=== PATIENT | male | born 1980 | race Caucasian/White ===

== ENCOUNTER 2024-03-15 13:45 | Inpatient (IN) | payer OTHER, SELFPAY ==
[2024-03-15] VITALS (16 sets, daily range): BP systolic 126–148; BP diastolic 81–112; BMI 22.0
[2024-03-15] MEDS: ATIVAN 2 MG IV (09:09)
[2024-03-15] MEDS: NSS 1000 IV ×2 (09:10→16:09)
[2024-03-15] MEDS: ZOFRAN 4 MG IV ×2 (09:13→16:57)
--- NOTE | 2024-03-15 09:24 | ED.GENMED ---
History of Present Illness
General
Chief Complaint: Abdominal Symptoms
Time Seen by Provider: 03/15/24 08:33
History of Present Illness
History of Present Illness:
43-year-old male with history of bipolar disorder, history of seizures, history of alcohol abuse presenting to the emergency department for multiple complaints. Patient reports the past 2 to 3 weeks he has been mainly in his ears. He is trying
methods at home without relief. 2 days ago, he started to nausea, vomiting, feeling off balance. He feels very weak, has had difficulty tolerating food and liquid by mouth. He denies any recent seizure. He denies trauma. He has had some falls
from feeling weak, denies head injury. Denies fever or systemic symptoms. Denies drug abuse. Denies additional acute medical complaints. Patient's partner is at bedside and notes that patient is a daily drinker, however last ingestion was a few
days ago secondary to feeling unwell
Past History
Past History
ED Past Medical History: Seizures (Benzodiazepine withdrawal related) and Psychiatric
ED Past Surgical History: Orthopedic
Social History
Tobacco: Smoker
Alcohol: Former
Drug: Former user
Personal:
Living: with family
Employment: Not employed
Family History
Family History: Other (Noncontributory)
Phy Exam
Physical Exam
Physical Exam:
General: Well-appearing, no clinical signs of dehydration, nontoxic and in no acute distress
HEENT: protecting airway, TMs normal in appearance bilaterally, cerumen
Neck: appears supple
CV: Normal heart rate, regular rhythm
Resp: No accessory muscle use, no increased work of breathing, lungs clear to auscultation bilaterally
Abd: Soft and non-distended, no tenderness to palpation
Extremities: No deformities, no swelling, no erythema, pulses and sensation intact
Neuro: alert, no focal neurologic deficit, tremulous
: deferred
Rectal: deferred
Psych: Normal affect
Skin: Intact
Scores
Withdrawal Assessment of Alcohol
Withdrawal Assessment Completed?: Yes
Nausea and Vomiting: Intermittent nausea with dry heaves
Tactile Disturbances: None
Tremor: Moderate, with patient's arms extended
Auditory Disturbances: Not present
Paroxysmal Sweats: Beads of sweat obvious on forehead
Visual Disturbances: Not present
Anxiety: Mild anxiety
Headache, Fullness in Head: Very mild
Agitation: Moderately fidgety and restless
Orientation and clouding of sensorium: Oriented and can do serial additions
Total CIWA Score: 18
Alcohol Withdrawal Medication Recommendation: Equal to MSAS Score 8-11. Lorazepam 1-2mg IV NOW & re-assess q1hr
Course
Orders/Labs/Results
Orders:
Orders
03/15/24 08:51
Electrocardiogram (*1) Urgent
Reason for Study: Vertigo / Dizzy
EKG- Treatment ONCE
0.9% Sodium Chloride 1000 ml [Nss] 1,000 ml IV BOLUS
Meclizine [Antivert] 25 mg PO NOW STA
Ondansetron Injectable [Zofran] 4 mg IV NOW STA
03/15/24 08:52
CT Head W/o Iv Contrast Urgent
Comment:
Reason For Exam: dizzy, tinnitis
03/15/24 09:03
Alcohol Urgent
Complete Blood Count/With Diff Urgent
Comprehensive Metabolic Panel Urgent
03/15/24 09:05
Lorazepam [Ativan] 2 mg .ROUTE .STK-MED ONE
03/15/24 09:08
Urinalysis Reflex To Culture Urgent
Urine Drug Abuse Screen Urgent
Lorazepam [Ativan] 2 mg IV NOW STA
03/15/24 09:19
Hand, Right 3 View [CR Hand - Right Min 3 Views] Urgent
Comment:
Reason For Exam: bruising
03/15/24 09:25
Add On- LAB Urgent
Tests Added?: alcohol
Abnormal Lab Results
03/15/24
09:03
RBC 3.82 L 10^6/uL
(4.70-6.10)
Hct 36.6 L %
(39.0-52.0)
MCV 95.8 H fL
(80.0-94.0)
MCH 35.6 H pg
(27.0-31.0)
MCHC 37.2 H g/dL
(33.0-37.0)
Plt Count 122 L 10^3/uL
(130-400)
Absolute Lymphs (auto) 0.6 L 10^3/uL
(1.2-3.4)
Neutrophils % 82.2 H %
(42.2-75.2)
Lymphocytes % 9.1 L %
(20.5-51.1)
Sodium 134 L mmol/L
(135-145)
Potassium 3.4 L mmol/L
(3.5-5.1)
Chloride 89 L mmol/L
(98-107)
Creatinine 0.5 L mg/dL
(0.7-1.3)
Glucose 128 H mg/dl
(70-99)
Total Bilirubin 3.4 H mg/dl
(0.2-1.3)
AST 590 H* U/L
(17-59)
ALT 316 H U/L
(0-50)
Albumin 5.3 H g/dl
(3.5-5.0)
03/15/24 09:03
03/15/24 09:03
Vital Signs
Initial and Last Documented VS:
Initial Vital Signs
Temp Pulse Resp BP Pulse Ox
98.6 F 101 18 143/102 98
03/15/24 08:25 03/15/24 08:25 03/15/24 08:25 03/15/24 08:25 03/15/24 08:25
Last Documented Vital Signs
Temp Pulse Resp BP Pulse Ox
98.6 F 91 19 142/103 97
03/15/24 08:25 03/15/24 10:00 03/15/24 10:00 03/15/24 09:30 03/15/24 10:01
MDM/Problems Addressed
MDM/Problems Addressed:
43-year-old male with reported history of bipolar disorder presenting for tremulousness, tinnitus, feeling off balance, nausea and vomiting. Vital signs on arrival here for mild tachycardia and hypertension.
On exam patient is in no acute distress, however does appear tremulous, fidgety. Initial differential consideration for vertigo versus vestibular neuritis given feeling of off balance, auditory symptoms, nausea and vomiting. No focal neurologic
deficits with lower suspicion for central neurologic process, however given duration of brain imaging. Dehydration is also a consideration, notes decreased p.o. intake in the several days. Plan for laboratory analysis to evaluate for any
electrolyte derangement. Starting patient on IV fluids and Zofran for symptoms. No tenderness to the abdomen or concern for intra-abdominal process.
09:20 - Patient had a witnessed seizure prior to workup initiation. Patient initially denied history of seizure, however on review of EMR, multiple ER visits for seizure. Prior history of substance abuse and alcohol abuse. Patient's partner does
note daily alcohol usage, however last use was several days ago secondary to patient's present symptoms. At this time, concern for alcohol withdrawal seizure. Partner also notes that she intermittently give us her Ativan to the patient, possible
component of benzo withdrawal. 2 mg of Ativan administered.
11:20 -patient reports some improvement in his symptoms after Ativan and saline. Continue to suspect withdrawal symptoms. Given concern of withdrawal seizures, plan for admission for continued monitoring and treatment of withdrawal. Labs show
elevated AST, however consistent with known alcohol abuse
*EKG
Interpreted by ED Provider?: Yes
EKG Intrepretation Date: 03/15/24
EKG Intrepretation Time: 09:27
Interpretation: normal
Heart Rate: 90
Rate: normal
Rhythm: sinus
[place]: normal axis
Interval: normal interval
QRS Pattern: normal QRS
Ischemia: no ischemia
*Critical Care Note
Total Time (30-74mins, 75-104mins- exclusive of procedures): Not Applicable
ED Attending Note
-
Portions of this chart may have been created with voice recognition software.� Occasional wrong word or��sound alike� substitutions may have occurred due to the inherent limitations of voice recognition software.
Discharge Plan
Departure
Prescriptions:
No Action
gabapentin 600 mg tablet
600 mg PO DAILY
lamotrigine 25 mg tablet
100 mg PO DAILY
Referrals:
Hugo Miller DO [Family Provider] -
Interventions
Interventions:
*Risk Screen - Suicide Last Done: 03/15/24 08:25
*General Assessment Last Done: 03/15/24 08:25
*Neglect/Abuse Screening Last Done: 03/15/24 08:25
ED- Fall Risk Assessment Last Done: 03/15/24 08:54
GP-Mdzshr-Rafrkengsq Assessment Last Done: 03/15/24 08:54
ED- Cardiac Assessment Last Done: 03/15/24 08:54
ED- Neurological Assessment Last Done: 03/15/24 08:54
ED- Pulmonary Assessment Last Done: 03/15/24 08:54
Discharge Date and Time
Print Language: GUATEMALAN
[2024-03-15 09:31] LABS: % Basophils 0.4 % (0-2); % Eosinophils 0.1 % (0-6); % Immature Granulocytes 0.4 % (0-0.5); % Lymphocytes 9.1 % (20.5-51.1); % Monocytes 7.8 % (1.7-9.3); % Neutrophils 82.2 % (42.2-75.2); Absolute Lymphocytes 0.6 10^3/uL (1.2-3.4); Absolute Monocytes 0.6 10^3/uL (0.1-0.6); Absolute Neutrophils 5.8 10^3/uL (1.4-6.5); Hematocrit 36.6 % (39.0-52.0); Hemoglobin 13.6 g/dL (13.0-18.0); Mean Corp Hgb Conc. 37.2 g/dL (33.0-37.0); Mean Corpuscular Hgb 35.6 pg (27.0-31.0); Mean Corpuscular Volume 95.8 fL (80.0-94.0); Mean Platelet Volume 10.4 fL (7.4-10.4); Nucleated Red Blood Cells % 0 % (-); Platelet Count 122 10^3/uL (130-400); Red Blood Cell Count 3.82 10^6/uL (4.70-6.10); Red Cell Dist. Width 12.6 % (11.5-14.5)
[2024-03-15 09:50] LABS: ALT (SGPT) 316 U/L (0-50); AST (SGOT) 590 U/L (17-59); Albumin 5.3 g/dl (3.5-5.0); Alkaline Phosphatase 114 U/L (38-126); Blood Urea Nitrogen 15 mg/dl (9-20); Calcium 10.1 mg/dl (8.4-10.2); Carbon Dioxide 30 mmol/L (22-30); Chloride 89 mmol/L (98-107); Estimated Creatinine Clearance > 125 ml/min; Glucose 128 mg/dl (70-99); Potassium 3.4 mmol/L (3.5-5.1); Sodium 134 mmol/L (135-145); Total Bilirubin 3.4 mg/dl (0.2-1.3); Total Protein 8.1 g/dl (6.3-8.2); eGFR > 60.00
--- NOTE | 2024-03-15 10:10 | PHANOTE ---
Met with patient to complete medication reconciliation. Patient was unsure of current medication doses, however, he stated that he u prescribed lamotrigene and gabapentin. He informed that his last dose of gabapentin was ~3 weeks ago. Patient/family
member also informed that he has taken several doses of alprazolam 0.25mg over the past several weeks [medication obtained from family member] to help relieve symptoms associated with tinnitus. PDMP checked with no prescription fills for alprazolam
noted.
[2024-03-15 10:21] LABS: Alcohol None Detected
[2024-03-15] MEDS: TYLENOL 1000 MG PO (11:39)
--- NOTE | 2024-03-15 13:18 | HPS.HSE ---
Family Physician
-
Family Physician: Hugo Miller
Chief Complaint
-
tinnitus
History of Present Illness
43 y/o M, hx of bipolar d/o, anxiety/depression, hx of migraines presents to ER for concern of tinnitus and multiple other complaints. Patient reports ringing in ears bilaterally since 3 weeks. No associated ER pain, drainage. Son was sick with ear
infection but no infection concerns per patient. He trialed OTC remedies without success. This past week, he reports feeling wobbly on his feet, unbalanced and generally. Reports GI upset in form of nausea/vomiting, reportedly 3 episodes of bloody
emesis, no diarrhea. No chest pain or sob. No other sick contacts or recent travel.
He admits to drinking Vodka or Wine nearly daily, but last drink was 3 days ago.
In ER, patient has 2 witnessed seizures concerning for withdrawal seizure
Medical History
Past Medical History
Past Medical History: Reports Other (bipolar d/o, anxiety/depression, hx of migraines)
Past Surgical History: Reports Other (jaw/nasal surgery)
Social History
Tobacco: Smoker (5 cigs/daily)
Alcohol: Daily
Drug: None
Personal:
Living: Other (with girlfriend)
Employment: Employed
Family History
Family History: Other (Parkinsons disease)
Allergies / Home Medications
Allergies reflects when Allergies were last updated in [facility].
Home Medications with original date entered in [facility]
Allergy/Medication List:
Allergies
Allergy/AdvReac Type Severity Reaction Status Date / Time
amoxicillin [Amoxicillin] Allergy Mild Rash Verified 03/15/24 08:28
Penicillins Allergy Mild Rash Verified 03/15/24 08:28
Home Medications
lamotrigine 25 mg tablet 100 mg PO DAILY seizure/bipolar disorder 03/15/24
Review of Systems
-
A 12 point ROS was completed and negative except as noted: Yes
Physical Exam
Vital Signs
Vital Signs
Temp Pulse Resp BP Pulse Ox
98.6 F 94 15 137/105 99
03/15/24 08:25 03/15/24 13:00 03/15/24 13:00 03/15/24 13:00 03/15/24 13:00
Physical Exam
General: No Apparent Distress
HEENT: NormoCephalic and Anicteric
Respiratory: No Wheezes or Rales
Cardiac: S1/S2, Regular Rhythm and Tachycardia
GI: Non Tender and Non Distended
Neuro: AO x 3
Psych: Calm
Laboratory Results
-
03/15/24 09:03
03/15/24 09:03
Laboratory Results
Total Bilirubin 3.4 mg/dl (0.2-1.3) H 03/15/24 09:03
AST 590 U/L (17-59) H* 03/15/24 09:03
ALT 316 U/L (0-50) H 03/15/24 09:03
Alkaline Phosphatase 114 U/L (38-126) 03/15/24 09:03
Data Reviewed
-
Lab Data: Labs Reviewed by me
Impression/Plan
-
Assessment:
Seizure x 2 in ER
- prior hx of Seizures in setting of Benzodiazepine withdrawal
- suspected ETOH withdrawal seizure (last drink 3 days ago)
- seizure precautions
- check MRI Brain w contrast
Acute Alcohol withdrawal
- start phenobarbital protocol
- MSAS protocol
- MV/Folate/Thiamine etc
Elevated LFTs
- likely from acute alcohol intake (2:1 AST>ALT)
Bilateral tinnitus
- no ear pain, drainage etc concerning for infection
- ? withdrawal related or med side effect
- monitor for now
- check MRI Brain w contrast
Acute GI bleed, suspect Arin Magen Tear from vomiting
- start PPI daily
- monitor Hb
- clears for now
Hypokalemia
- replete K+
Chronic Alcoholism
- CM consult for resources to quit; cessation counselling provided to patient/significant other
- check refeeding labs
bipolar d/o
anxiety/depression
hx of migraines
- continue Lamotrigine
Chronic nicotine dependence
- on patch
DVT ppx: SCDs
Code: Full
[2024-03-15 14:15] LABS: Magnesium 2.1 mg/dl (1.6-2.3)
--- NOTE | 2024-03-15 15:15 | PTCARENOTE ---
03/15- Patient transferred and oriented to unit without issue. AAOX3 but drowsy. Skin and sclera BL jaundice. Mild hand tremors currently observed. R-hand +1 edema with ecchymosis observed. L-side of tongue has open bite with scant bleeding
currently observed. Ice pack given. Currently NSR with PVCs on [place], HR=93. Will Continue to Observe.
[2024-03-15] MEDS: KCL 270 MEQ IV (16:08)
[2024-03-15] MEDS: PHENOBARBITAL 97.5 MG IV ×2 (16:09→21:33)
[2024-03-15] MEDS: PROTONIX IV 40 MG IV (16:10)
[2024-03-15 16:42] LABS: Urine Albumin Trace (Neg - Trace); Urine Bilirubin 1+ (Negative); Urine Color Amber; Urine Glucose Negative (Negative); Urine Ketone 1+ (Negative); Urine Leukocyte Trace (Negative); Urine Nitrite Negative (Negative); Urine Occult Blood Negative (Negative); Urine Urobilinogen 4+ (Neg - 1+)
[2024-03-15 16:43] LABS: Urine Character Clear (Clear)
[2024-03-15 16:49] LABS: Amphetamines Negative (Negative); Barbiturates Negative (Negative); Benzodiazepines Positive (Negative); Buprenorphine Negative (Negative); Cocaine Negative (Negative); Marijuana Positive (Negative); Methadone Negative (Negative); Methamphetamines Negative (Negative); Opiates Negative (Negative); Phencyclidine Negative (Negative); Tricyclic Antidepressants Negative (Negative)
[2024-03-15 17:06] LABS: Fentanyl, Urine Negative (Negative)
[2024-03-15 17:26] LABS: Urine Red Blood Cell 0-2 /HPF (0-2); Urine White Cell 0-2 /HPF (0-5)
[2024-03-15] MEDS: NICODERM TRANSDERMAL 14 MG TRANSDERM (17:57)
[2024-03-15] MEDS: ATIVAN 1 MG PO (17:59)
[2024-03-15] MEDS: TYLENOL 650 MG PO (18:23)
--- NOTE | 2024-03-15 18:54 | PTCARENOTE ---
03/15- Adjusted MSAS to Q2 hours. Documentation forced another assessment at 18:51. Score=6. Score at 1800=7. Ativan administered as per protocol based on 1800 score. Patient remains stable at this time. Report given to [employer] RN.
[2024-03-15] MEDS: THIAMINE INJECTION 200 MG IV (19:50)
[2024-03-16] VITALS (8 sets, daily range): BP systolic 124–155; BP diastolic 77–100; PULSE 88; O2SAT 99
[2024-03-16] MEDS: ATIVAN 1 MG PO (03:06)
[2024-03-16 07:43] LABS: % Basophils 0.3 % (0-2); % Eosinophils 1.2 % (0-6); % Immature Granulocytes 0.3 % (0-0.5); % Lymphocytes 14.3 % (20.5-51.1); % Monocytes 8.3 % (1.7-9.3); % Neutrophils 75.6 % (42.2-75.2); Absolute Eosinophils 0.1 10^3/uL (0-0.7); Absolute Monocytes 0.6 10^3/uL (0.1-0.6); Absolute Neutrophils 5.1 10^3/uL (1.4-6.5); Hematocrit 34.2 % (39.0-52.0); Hemoglobin 12.2 g/dL (13.0-18.0); Mean Corp Hgb Conc. 35.7 g/dL (33.0-37.0); Mean Corpuscular Hgb 35.3 pg (27.0-31.0); Mean Corpuscular Volume 98.8 fL (80.0-94.0); Mean Platelet Volume 10.6 fL (7.4-10.4); Nucleated Red Blood Cells % 0 % (-); Platelet Count 100 10^3/uL (130-400); Red Blood Cell Count 3.46 10^6/uL (4.70-6.10); Red Cell Dist. Width 12.5 % (11.5-14.5); White Blood Cell Count 6.7 10^3/uL (4.8-10.8)
[2024-03-16 07:54] LABS: ALT (SGPT) 304 U/L (0-50); AST (SGOT) 456 U/L (17-59); Albumin 4.5 g/dl (3.5-5.0); Alkaline Phosphatase 104 U/L (38-126); Blood Urea Nitrogen 9 mg/dl (9-20); Calcium 9.6 mg/dl (8.4-10.2); Carbon Dioxide 26 mmol/L (22-30); Chloride 96 mmol/L (98-107); Estimated Creatinine Clearance > 125 ml/min; Glucose 96 mg/dl (70-99); Phosphorus 3.2 mg/dl (2.5-4.5); Potassium 3.7 mmol/L (3.5-5.1); Sodium 136 mmol/L (135-145); Total Bilirubin 3.3 mg/dl (0.2-1.3); Total Protein 7.1 g/dl (6.3-8.2); eGFR > 60.00
[2024-03-16] MEDS: FOLVITE 1 MG PO (09:01)
[2024-03-16] MEDS: LAMICTAL 100 MG PO (09:01)
[2024-03-16] MEDS: NICODERM TRANSDERMAL 14 MG TRANSDERM (09:02)
[2024-03-16] MEDS: PHENOBARBITAL 97.5 MG IV ×3 (09:03→21:02)
[2024-03-16] MEDS: THIAMINE INJECTION 200 MG IV ×2 (09:04→20:58)
[2024-03-16] MEDS: PROTONIX IV 40 MG IV (09:04)
[2024-03-16] MEDS: NSS (PRESERVATIVE FREE) 10 ML IV (09:26)
--- NOTE | 2024-03-16 13:18 | W.PN.HOSP.TC ---
Today's Communication/Plan
-
continue plan as outlined
Assessment / Plan
Assessment / Plan
Assessment:
Seizure x 2 in ER
- prior hx of Seizures in setting of Benzodiazepine withdrawal
- suspected ETOH withdrawal seizure (last drink 3 days ago)
- seizure precautions
- MRI Brain: normal
Acute Alcohol withdrawal
- continue phenobarbital protocol
- MSAS protocol; scores appear improving
- MV/Folate/Thiamine etc
Elevated LFTs
- likely from acute alcohol intake (2:1 AST>ALT); trend LFTs
- ABD US showing likely fatty liver
Bilateral tinnitus
- no ear pain, drainage etc concerning for infection
- ? withdrawal related or med side effect
- patient states improving
- MRI Brain: normal
Acute GI bleed, suspect Arin Magen Tear from vomiting
- continue PPI daily
- Hb stable;
- ok to advance diet to regular
Hypokalemia
- replete K+
Chronic Alcoholism
- CM consult for resources to quit; cessation counselling provided to patient/significant other
- no abnormalities with refeeding labs
bipolar d/o
anxiety/depression
hx of migraines
- continue Lamotrigine
Chronic nicotine dependence
- on patch
DVT ppx: SCDs
Code: Full
Anticipated Discharge: 24 - 48 hours
Subjective/Interval History
-
Date of Service: March 16, 2024
MSAS scores improving from 6-7 down to 3, patient reports less tremors, less tinnitus
Objective Data
-
Labs:
Laboratory Results
03/16/24
07:02
WBC 6.7
Hgb 12.2 L
Hct 34.2 L
Plt Count 100 L
Sodium 136
Potassium 3.7
Chloride 96 L
Carbon Dioxide 26
BUN 9
Creatinine 0.5 L
Glucose 96
Calcium 9.6
Total Bilirubin 3.3 H
AST 456 H
ALT 304 H
Alkaline Phosphatase 104
Vital Signs:
Vital Signs
Temp Pulse Resp BP Pulse Ox
98.2 F 89 16 140/95 100
03/16/24 11:00 03/16/24 11:00 03/16/24 11:00 03/16/24 11:00 03/16/24 11:00
I&O
03/15/24 03/16/24 03/17/24
06:59 06:59 06:59
Intake Total 1320 / 1320
Balance 1320 / 1320
Physical Exam
-
General: No Apparent Distress
HEENT: Normocephalic and Atraumatic
Respiratory: Negative Wheezes
Cardiac: Regular Rhythm and S1/S2
GI: Soft
Genito-urinary: No Costovertebral Tender
Musculoskeletal: No Edema
Neuro: AO x 3 and Tremors (minor)
Hematologic / Lymphatic: No Lymphadenopathy
Psych: Calm
Data Reviewed
-
Total Time Spent with Patient (in minutes): 42
Labs: Labs Reviewed by me
--- NOTE | 2024-03-16 15:30 | CM ---
CM reviewed medical records. CM confirmed demographics. Patient lives independently alone. Patient denies history of VN< SNF or DME. Patient reports history of 'detox' years ago, but could not remember where he went. Patient stated that he feels his
drinking has increased especially on weekends he cannot see his child. He reports a recent separation from his and feels that triggered his drinking. Patient is active with [facility].
CM discussed [facility] and available services. Patient stated that he tried AA, but feels his bipolar disorder makes it difficult to participate in meetings. Patient declined [facility] at this time. CM stated that if he changed his mind CM would be
available to assist.
[2024-03-16] MEDS: FLUSH (NSS) 1 FLUSH IV (21:09)
[2024-03-17 03:32] VITALS: BP 123/82
[2024-03-17 06:57] LABS: % Basophils 0.8 % (0-2); % Eosinophils 1.7 % (0-6); % Immature Granulocytes 0.3 % (0-0.5); % Lymphocytes 19.1 % (20.5-51.1); % Monocytes 10.8 % (1.7-9.3); % Neutrophils 67.3 % (42.2-75.2); Absolute Basophils 0.1 10^3/uL (0-0.2); Absolute Eosinophils 0.1 10^3/uL (0-0.7); Absolute Lymphocytes 1.2 10^3/uL (1.2-3.4); Absolute Monocytes 0.7 10^3/uL (0.1-0.6); Absolute Neutrophils 4.4 10^3/uL (1.4-6.5); Hematocrit 32.5 % (39.0-52.0); Hemoglobin 11.6 g/dL (13.0-18.0); Mean Corp Hgb Conc. 35.7 g/dL (33.0-37.0); Mean Corpuscular Hgb 35.5 pg (27.0-31.0); Mean Corpuscular Volume 99.4 fL (80.0-94.0); Mean Platelet Volume 10.8 fL (7.4-10.4); Nucleated Red Blood Cells % 0 % (-); Platelet Count 116 10^3/uL (130-400); Red Blood Cell Count 3.27 10^6/uL (4.70-6.10); Red Cell Dist. Width 12.4 % (11.5-14.5); White Blood Cell Count 6.5 10^3/uL (4.8-10.8)
[2024-03-17 07:25] VITALS: BP 125/88
[2024-03-17 07:25] LABS: ALT (SGPT) 287 U/L (0-50); AST (SGOT) 358 U/L (17-59); Albumin 4.4 g/dl (3.5-5.0); Alkaline Phosphatase 111 U/L (38-126); Blood Urea Nitrogen 9 mg/dl (9-20); Calcium 9.4 mg/dl (8.4-10.2); Carbon Dioxide 26 mmol/L (22-30); Chloride 97 mmol/L (98-107); Estimated Creatinine Clearance > 125 ml/min; Glucose 97 mg/dl (70-99); Magnesium 1.8 mg/dl (1.6-2.3); Phosphorus 3.7 mg/dl (2.5-4.5); Potassium 3.7 mmol/L (3.5-5.1); Sodium 135 mmol/L (135-145); Total Protein 6.9 g/dl (6.3-8.2); eGFR > 60.00
[2024-03-17] MEDS: FOLVITE 1 MG PO (08:37)
[2024-03-17] MEDS: LAMICTAL 100 MG PO (08:37)
[2024-03-17] MEDS: THIAMINE INJECTION 200 MG IV (08:38)
[2024-03-17] MEDS: PROTONIX IV 40 MG IV (08:38)
[2024-03-17] MEDS: PHENOBARBITAL 97.5 MG IV (08:39)
[2024-03-17] MEDS: NICODERM TRANSDERMAL 14 MG TRANSDERM (08:40)
[2024-03-17] MEDS: NSS (PRESERVATIVE FREE) 10 ML IV (08:41)
--- NOTE | 2024-03-17 10:46 | W.PN.HOSP.TC ---
Addendum entered and electronically signed by Valdez Gonzalez MD 03/17/24 10:52:
Oral thrush - 14 days Nystatin S/S sent to Pharmacy
Original Note:
Today's Communication/Plan
-
dc home
PCP and ENT f/u
ETOH quitting resources, patient states he has support through [facility]
Assessment / Plan
Assessment / Plan
Assessment:
Seizure x 2 in ER
- prior hx of Seizures in setting of Benzodiazepine withdrawal
- suspected ETOH withdrawal seizure (last drink 3 days ago)
- seizure precautions
- MRI Brain: normal
Acute Alcohol withdrawal
- much improved on phenobarbital protocol
- MSAS protocol; scores appear improving
- MV/Folate/Thiamine etc
Elevated LFTs
- likely from acute alcohol intake (2:1 AST>ALT); trend LFTs
- ABD US showing likely fatty liver
Bilateral tinnitus
- no ear pain, drainage etc concerning for infection
- ? withdrawal related or med side effect
- patient states improving
- MRI Brain: normal
- OP ENT f/u
Acute GI bleed, suspect Arin Magen Tear from vomiting
- continue PPI daily
- Hb stable;
- tolerated reg diet
Hypokalemia
- resolved
Chronic Alcoholism
- CM consult for resources to quit; cessation counselling provided to patient/significant other
- no abnormalities with refeeding labs
bipolar d/o
anxiety/depression
hx of migraines
- continue Lamotrigine
Chronic nicotine dependence
- on patch
DVT ppx: SCDs
Code: Full
More than 30 minutes spent in discharge including
Final examination of the patient
Summarizing hospital stay
Instructions for continuing care to all relevant caregivers
Preparation of discharge records, prescriptions, and referral forms
Total time spent (in minutes):41
Anticipated Discharge: Today
Subjective/Interval History
-
Date of Service: March 17, 2024
no acute complaints at present
Objective Data
-
Labs:
Laboratory Results
03/17/24
06:19
WBC 6.5
Hgb 11.6 L
Hct 32.5 L
Plt Count 116 L
Sodium 135
Potassium 3.7
Chloride 97 L
Carbon Dioxide 26
BUN 9
Creatinine 0.5 L
Glucose 97
Calcium 9.4
Total Bilirubin 3.0 H
AST 358 H
ALT 287 H
Alkaline Phosphatase 111
Vital Signs:
Vital Signs
Temp Pulse Resp BP Pulse Ox
98.1 F 78 16 125/88 100
03/17/24 07:25 03/17/24 07:25 03/17/24 07:25 03/17/24 07:25 03/17/24 07:25
I&O
03/16/24 03/17/24 03/18/24
06:59 06:59 06:59
Intake Total 1320 / 1320 1260 / 1260
Output Total 450 / 450
Balance 1320 / 1320 810 / 810
Physical Exam
-
General: No Apparent Distress
HEENT: Normocephalic and Atraumatic
Respiratory: Negative Wheezes
Cardiac: Regular Rhythm and S1/S2
GI: Soft
Genito-urinary: No Costovertebral Tender
Musculoskeletal: No Edema
Neuro: AO x 3
Hematologic / Lymphatic: No Lymphadenopathy
Psych: Calm
Data Reviewed
-
Total Time Spent with Patient (in minutes): 43
Labs: Labs Reviewed by me
--- NOTE | 2024-03-17 10:51 | W.DS.TRANS ---
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
-
Discharge Instructions:
Discharge Diagnosis/Procedures Alcohol withdrawal, tinnitus
Diet Regular
Activity As tolerated
Bathing Restrictions None
Instructions:
Stand-Alone Forms:
Changes to Home Medications: No
Discharge Medications:
DC Medications w/original date entered in [facility]
lamotrigine 25 mg tablet 100 mg PO DAILY seizure/bipolar disorder 03/15/24
folic acid 1 mg tablet 1 mg PO DAILY #100 tabs 03/17/24
nystatin 100,000 unit/mL oral suspension 5 ml PO QID 14 days #280 mL 03/17/24
pantoprazole 40 mg tablet,delayed release (Protonix) 40 mg PO DAILY #30 tabs 03/17/24
thiamine HCl (vitamin B1) 100 mg tablet 100 mg PO BID #100 tabs 03/17/24
Home Medication Changes
Pending Results: No
Total time spent discharging patient (in min): 42
[2024-03-17 10:59] VITALS: BP 130/93
--- NOTE | 2024-03-17 11:09 | CM ---
Home today, no needs, patient declined [facility] per notes.
Plan; Home no needs.
== END 2024-03-17 11:00 | disposition home or self-care (01) | DRG 896 ==
LOC: 4 WEST ACU 13:45
PROVIDERS: ADMITTING PHYSICIAN Internal Medicine; EMERGENCY PHYSICIAN Student in an Organized Health Care Education/Training Program; FAMILY PHYSICIAN Family Medicine
DX: F10.239 Alcohol dependence with withdrawal, unspecified (principal); K22.6 Gastro-esophageal laceration-hemorrhage syndrome; B37.0 Candidal stomatitis; F31.9 Bipolar disorder, unspecified; R56.9 Unspecified convulsions; F17.200 Nicotine dependence, unspecified, uncomplicated; G43.909 Migraine, unspecified, not intractable, without status migrainosus; K76.0 Fatty (change of) liver, not elsewhere classified; H93.13 Tinnitus, bilateral; F41.9 Anxiety disorder, unspecified; R79.89 Other specified abnormal findings of blood chemistry; E87.6 Hypokalemia; Z88.0 Allergy status to penicillin
CPT/HCPCS: 70450; 70553; 73130; 76700; 80053; 80306; 80307; 81003; 81015; 82077; 83735; 84100; 85025; 93005; 96361; 96374; 96375; 97162; 97166; 99285; 99406; A9575

== ENCOUNTER 2024-10-26 23:00 | Inpatient (IN) | payer OTHER, SELFPAY ==
[2024-10-26] VITALS (7 sets, daily range): BP systolic 116–132; BP diastolic 80–97; BMI 22.5
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
[2024-10-26 19:06] LABS: % Basophils 1.4 % (0-2); % Eosinophils 1.5 % (0-6); % Immature Granulocytes 0.3 % (0-0.5); % Lymphocytes 21.2 % (20.5-51.1); % Monocytes 7.4 % (1.7-9.3); % Neutrophils 68.2 % (42.2-75.2); Absolute Basophils 0.2 10^3/uL (0-0.2); Absolute Eosinophils 0.2 10^3/uL (0-0.7); Absolute Lymphocytes 2.4 10^3/uL (1.2-3.4); Absolute Monocytes 0.8 10^3/uL (0.1-0.6); Absolute Neutrophils 7.7 10^3/uL (1.4-6.5); Hematocrit 35.2 % (39.0-52.0); Hemoglobin 12.8 g/dL (13.0-18.0); Mean Corp Hgb Conc. 36.4 g/dL (33.0-37.0); Mean Corpuscular Hgb 35.6 pg (27.0-31.0); Mean Corpuscular Volume 97.8 fL (80.0-94.0); Mean Platelet Volume 9.6 fL (7.4-10.4); Nucleated Red Blood Cells % 0 % (-); Platelet Count 162 10^3/uL (130-400); Red Cell Dist. Width 14.7 % (11.5-14.5); White Blood Cell Count 11.3 10^3/uL (4.8-10.8)
[2024-10-26 19:17] LABS: INR 1.35; PT 16.9 Sec (11.4-14.6)
[2024-10-26 19:18] LABS: APTT 39.4 Sec (23.4-35.0)
[2024-10-26 19:28] LABS: ALT (SGPT) 61 U/L (0-50); AST (SGOT) 331 U/L (17-59); Albumin 3.4 g/dl (3.5-5.0); Alkaline Phosphatase 274 U/L (38-126); Blood Urea Nitrogen 3 mg/dl (9-20); Calcium 8.1 mg/dl (8.4-10.2); Carbon Dioxide 27 mmol/L (22-30); Chloride 100 mmol/L (98-107); Estimated Creatinine Clearance > 125 ml/min; Glucose 110 mg/dl (70-99); Lipase 102 U/L (23-300); Potassium 4.5 mmol/L (3.5-5.1); Sodium 140 mmol/L (135-145); Total Protein 7.2 g/dl (6.3-8.2); eGFR > 60.00
[2024-10-26] MEDS: DILAUDID 0.5 MG IV (22:01)
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
[2024-10-26] MEDS: ATIVAN 1 MG IV (23:52)
[2024-10-26 23:57] LABS: Ammonia 27 umol/L (9-30)
[2024-10-27] VITALS (13 sets, daily range): BP systolic 99–128; BP diastolic 71–93; BMI 23.4
[2024-10-27] MEDS: PHENOBARBITAL 104 MG IV (01:04)
[2024-10-27] MEDS: NSS 1000 IV ×2 (01:05→17:51)
--- NOTE | 2024-10-27 01:27 | PTCARENOTE ---
Patient arrived from ER into room 4177. Oriented to room and use of call draper. Pt received 1mg IV Ativan prior to arriving to IMU. Tremors present; no other symptoms present. Pt reports 6/7 out of 10 pain to lower left Abd. Denies nausea/vomiting.
NPO; ice chip given. NSR on senior applications architect. NSS @60cc/hr. Bed alarm set for safety. Call draper and tray table within reach.
Patient's emergency contact: Glenny Toussaint(significant other) #[phone]
[2024-10-27] MEDS: THIAMINE INJECTION 255 MG IV ×4 (01:58→23:39)
[2024-10-27 02:00] LABS: Alcohol 426 mg/dl
[2024-10-27 04:48] LABS: Hematocrit 32.7 % (39.0-52.0); Hemoglobin 12.1 g/dL (13.0-18.0); Mean Corpuscular Hgb 36.2 pg (27.0-31.0); Mean Corpuscular Volume 97.9 fL (80.0-94.0); Mean Platelet Volume 9.9 fL (7.4-10.4); Platelet Count 117 10^3/uL (130-400); Red Blood Cell Count 3.34 10^6/uL (4.70-6.10); Red Cell Dist. Width 15.5 % (11.5-14.5); White Blood Cell Count 7.8 10^3/uL (4.8-10.8)
[2024-10-27 04:52] LABS: INR 1.37; PT 17.1 Sec (11.4-14.6)
[2024-10-27] MEDS: OFIRMEV 100 IV (05:18)
--- NOTE | 2024-10-27 05:24 | PTCARENOTE ---
Pt c/o 02/10 left sided abd pain into his pelvis. MADDI Salcedo made aware; x1 IV Ofirmev ordered. Pt drowsy. thankful for care. NSR on tele. 91-95% on RA.
[2024-10-27] MEDS: ATIVAN 1 MG PO ×4 (06:23→19:55)
[2024-10-27 06:26] LABS: Ammonia 31 umol/L (9-30)
[2024-10-27 06:48] LABS: ALT (SGPT) 55 U/L (0-50); AST (SGOT) 299 U/L (17-59); Albumin 2.9 g/dl (3.5-5.0); Alkaline Phosphatase 243 U/L (38-126); Blood Urea Nitrogen 4 mg/dl (9-20); Calcium 7.4 mg/dl (8.4-10.2); Carbon Dioxide 28 mmol/L (22-30); Chloride 105 mmol/L (98-107); Estimated Creatinine Clearance > 125 ml/min; Glucose 95 mg/dl (70-99); Potassium 4.9 mmol/L (3.5-5.1); Sodium 142 mmol/L (135-145); Total Bilirubin 5.6 mg/dl (0.2-1.3); Total Protein 6.4 g/dl (6.3-8.2); eGFR > 60.00
[2024-10-27 08:18] LABS: Direct Bilirubin 4.1 mg/dl (0.0-0.4)
--- NOTE | 2024-10-27 08:24 | CON.GI ---
Addendum entered and electronically signed by Amilcar Morrison MD 10/27/24 13:46:
The patient was seen and examined by me independently in collaboration with the nurse practitioner.
Past medical history/social history/medications/allergies/family history reviewed.
Lab data and imaging data reviewed.
44-year-old male past medical history of alcohol abuse with fall 10 days ago and subsequent abdominal pain, distention, constipation. He underwent a CT scan with multiple findings including healed fractures in the chest, small amount of ascites,
distended gallbladder with gallbladder wall thickening and layering sludge, moderate right upper quadrant and retroperitoneal lymphadenopathy, mild splenomegaly probably due to portal hypertension, mild paraesophageal varices, horseshoe kidney,
nonobstructing left upper quadrant jejunal jejunal intussusception. Lab work consistent with elevated bilirubin, elevated coags, normal hemoglobin.
In regards to his left upper quadrant pain and constipation this may be related to his intussusception. Appreciate surgery's input they are planning on repeating the CT scan with p.o. contrast. Once okay from surgery standpoint from GI standpoint
okay to try clear liquid diet. Pain could also be due to constipation and will start miralax, peptic ulcer disease as he does take NSAIDs and will start ppi. I do not think pain is related to his gallbladder but findings more likely reactive.
I also think he has a new diagnosis of cirrhosis based on imaging MELD 16. I discussed this with the patient. We discussed the importance of alcohol cessation. I think he also has an element of acute alcoholic hepatitis but his discriminant
function is 22 and there is no need for steroids at this time. Given the elevated bilirubin and the new diagnosis of cirrhosis, I will check an ultrasound with Dopplers. Low suspicion we will also check hepatitis studies. He will need
GI/hepatology follow-up outpatient.
He also has lymphadenopathy on imaging which will need follow-up as well.
Original Note:
Consultation
-
Date/Time Consultation Requested: 10/26/24 1900
Date/Time Consultation Performed: 10/27/24 9115
Requesting Provider: Dr. Dalton
Performing Provider: Dr. Morrison/MADDI Cooney
Reason for Consultation: elevated LFTs, contipation, LUQ pain
Medical History
Chief Complaint / HPI
Chief Complaint: abd pain
History of Present Illness:
44-year-old male with past medical history of anxiety, prior seizures secondary to benzodiazepine withdrawal, alcohol abuse and migraines presents to the emergency room with left-sided abdominal discomfort. We are asked to evaluate for the same.
The patient states that approximately 10 days ago he had a 10 foot fall from scaffolding landing on his left side. He states since that time he was taking ibuprofen 400 mg daily for the discomfort. He has not had a bowel movement since that day.
He has been able to eat and drink without difficulty. He was passing flatus. The only other medications he was taking is his lamotrigine. He does on occasion take a supplement called 'Hepa guard' as well as vitamin B supplement although this is
sporadic. He does have an issue with alcohol abuse and drinks 'as much as I can get'. He states this can be 1-2 bottles of wine daily. He did come into the emergency room intoxicated with an blood alcohol level of 426. He states that he has been
drinking for greater than 5 years. He does smoke cigarettes occasionally. He states he came to the emergency room because his left side 'blew up'. And because of increased abdominal discomfort, left-sided discomfort and inability to have a bowel
movement. The patient was given enemas in the emergency room. He states that he vomited after being given the enema. Otherwise prior to that he denies any emesis. He had a CT of the chest abdomen and pelvis that showed subacute incompletely
healed fractures of the left 3rd, 4th, 5th, 6th and 7th ribs. Minimal right pleural effusion with mild dependent subsegmental atelectasis in the right lower lobe. Severe diffuse hepatic steatosis. Small volume ascites. Distended gallbladder with
diffuse gallbladder wall thickening and layering sludge/cholelithiasis. Moderate right upper quadrant retroperitoneal lymphadenopathy. Mild splenomegaly. Mild paraesophageal varices. Horseshoe kidney. Nonobstructing left upper quadrant
jejunal�jejunal intussusception.
Past Medical History
Past Medical History: Other (Anxiety, prior seizures from benzo withdrawal, alcohol abuse, migraines)
Past Surgical History: Orthopedic
Social History
Tobacco: Smoker
Alcohol: Daily (1-2 bottles of wine daily)
Drug: None
Personal: Single
Living: With Family
Employment: Employed
Family History
Family History: Other (No family history of gastrointestinal malignancy or IBD. Patient states that all of his family has alcohol issues)
Allergies / Home Medications
Allergy/AdvReac Type Severity Reaction Status Date / Time
amoxicillin [Amoxicillin] Allergy Mild Rash Verified 10/26/24 18:20
Penicillins Allergy Mild Rash Verified 10/26/24 18:20
�Medication �Instructions �Recorded
lamotrigine 25 mg tablet 50 mg PO DAILY@1500 03/15/24
seizure/bipolar disorder
Hepagard 1 cap PO DAILY 10/26/24
ibuprofen 200 mg tablet (Advil) 400 mg PO DAILYPRN PRN mild pain 10/26/24
lamotrigine 100 mg tablet 100 mg PO DAILY 10/26/24
sodium phosphates 19 gram-7 118 ml [place] DAILYPRN PRN constipation 10/26/24
gram/118 mL enema (Fleet Enema)
vitamin B complex 1 cap PO DAILY 10/26/24
Review of Systems
-
All other systems: A 12 pt ROS was Negative except as stated above in HPI
Vital Signs
Temp Pulse Resp BP Pulse Ox
98.1 F 80 18 122/86 93
10/27/24 06:50 10/27/24 07:00 10/27/24 07:00 10/27/24 06:15 10/27/24 07:00
Physical Exam
Exam
General: No Apparent Distress
HEENT: Other (Mild scleral icterus)
Respiratory: Clear (Anterior)
Cardiac: Regular Rhythm
GI: Soft, Non Distended, Normal Bowel Sounds and Tender (Epigastric/left upper quadrant/left mid abdomen/left lower quadrant)
Skin: Warm and Dry
Neuro: AO x 3 and Tremors (Slight tremor, no asterixis)
Psych: Calm
Results
WBC 7.8 10^3/uL (4.8-10.8) 10/27/24 04:27
Hgb 12.1 g/dL (13.0-18.0) L 10/27/24 04:27
Hct 32.7 % (39.0-52.0) L 10/27/24 04:27
MCV 97.9 fL (80.0-94.0) H 10/27/24 04:27
Plt Count 117 10^3/uL (130-400) L D 10/27/24 04:27
Absolute Neuts (auto) 7.7 10^3/uL (1.4-6.5) H 10/26/24 18:59
PT 17.1 Sec (11.4-14.6) H 10/27/24 04:27
INR 1.37 10/27/24 04:27
APTT 39.4 Sec (23.4-35.0) H 10/26/24 18:59
Sodium 142 mmol/L (135-145) 10/27/24 06:02
Potassium 4.9 mmol/L (3.5-5.1) 10/27/24 06:02
Chloride 105 mmol/L (98-107) 10/27/24 06:02
Carbon Dioxide 28 mmol/L (22-30) 10/27/24 06:02
BUN 4 mg/dl (9-20) L 10/27/24 06:02
Creatinine 0.5 mg/dL (0.7-1.3) L 10/27/24 06:02
Calcium 7.4 mg/dl (8.4-10.2) L 10/27/24 06:02
Total Bilirubin 5.6 mg/dl (0.2-1.3) H 10/27/24 06:02
AST 299 U/L (17-59) H 10/27/24 06:02
ALT 55 U/L (0-50) H 10/27/24 06:02
Alkaline Phosphatase 243 U/L (38-126) H 10/27/24 06:02
Lipase 102 U/L (23-300) 10/26/24 18:59
Diagnostic Image Results:
CT Head:
IMPRESSION:
1. No CT evidence for acute intracranial hemorrhage or transcortical infarct.
2. Mild to moderate bilateral frontal and parietal lobe volume loss.
3. Mild cerebellar volume loss.
4. Cavum septum pellucidum.
CT chest abdomen and pelvis:
CHEST:
1. Subacute incompletely healed fractures of the left anterolateral 3rd, 4th, 5th, 6th, and 7th ribs with surrounding callus formation.
2. Minimal right pleural effusion.
3. Mild dependent subsegmental atelectasis in the right lower lobe.
ABDOMEN and PELVIS:
1. Severe diffuse hepatic steatosis.
2. Small volume of ascites.
3. Distended gallbladder, diffuse gallbladder wall thickening, and layering sludge/cholelithiasis in the gallbladder lumen. Diagnostic possibilities are (1) acute calculus cholecystitis or (2) reactive gallbladder wall thickening in the setting of
adjacent liver disease.
4. Moderate right upper quadrant and retroperitoneal lymphadenopathy. Diagnostic possibilities are (1) reactive inflammatory lymphadenopathy or (2) malignant lymphadenopathy.
5. Mild splenomegaly (probably secondary to portal hypertension).
6. Mild paraesophageal varices.
7. Horseshoe kidney.
8. Nonobstructing left upper quadrant jejunal-jejunal intussusception.
Prior GI Procedures:
EGD: Never
Colonoscopy: 02/20/2015 (Gastelum)- The entire examined colon is normal. Biopsied.
Assessment / Plan
-
44-year-old male with past medical history of anxiety, prior seizures secondary to benzodiazepine withdrawal, alcohol abuse and migraines presents to the emergency room with left-sided abdominal discomfort. We are asked to evaluate for the same.
This occurred after having a 10 foot fall from scaffolding landing on his left side with subsequent constipation. He was able to eat, drink and pass flatus. He was drinking 1-2 bottles of wine daily. Also utilizing ibuprofen 400 mg daily for the
pain which we now found with associated rib fractures on the left side (3rd, 4th, 5th, 6th and 7th ribs). Patient did present to the emergency room intoxicated with blood alcohol level of 426. CT of the chest abdomen pelvis with findings
concerning for cirrhosis including right upper quadrant perihepatic ascites, mild paraesophageal varices around the lower esophagus. Labs show hemoglobin of 12.1 which is his baseline, platelets are 117, INR 1.37, BUN 4, creatinine 0.5, total
bilirubin 5.6 with a direct of 4.1, AST 299, ALT 55, alk phos 243, ammonia 31, albumin 2.9, lipase 102. [facility] 22.2 (no need for treatment for acute alcoholic hepatitis at this time). There is no normal biliary
dilatation. There is lymphadenopathy in the gastrohepatic ligament. There is also enlarged delonte hepatis and portacaval lymph nodes. There is also moderate retroperitoneal lymphadenopathy. No pancreatic duct dilatation or evidence for acute
pancreatitis. The gallbladder shows diffuse wall thickening with mucosal enhancement. There is sludge and cholelithiasis. Will obtain ultrasound of the abdomen given the fact that direct bilirubin and alk phos is also elevated to ensure there is
no biliary ductal dilatation seen on ultrasound. Will also check Dopplers to ensure no portal vein thrombosis. As far as the patient's constipation is concerned personal review of images of the CT showed minimal stool in the rectal vault however
there is a significant amount of stool on the right side of the colon. Will give the patient some MiraLAX to try to help stimulate movement. On the CT there is mild wall thickening throughout the left upper quadrant and the jejunal small bowel
loops with nonobstructing jejunal�jejunal intussusception in the left upper quadrant. Patient without any nausea, hiccups or belching. Is passing flatus.
Impression:
Left abdominal pain
Status post 10 foot fall with subsequent left-sided subacute fractures of ribs (third, fourth, fifth, sixth seventh)
Alcohol abuse (1-2 bottles of wine daily) with current alcohol intoxication
Concerns for possible cirrhosis on imaging, ascites, periesophageal varices, decreased platelets, elevated INR
Elevated LFTs
Plan:
- Complete alcohol cessation, discussed with patient at length
- Check acute hepatitis panel
- Ultrasound abdomen with Dopplers
- Trend daily CBC, BMP, LFTs, PT/INR
- Pantoprazole 40 mg IV twice daily
- MiraLAX 17 g daily
- Alcohol withdrawal protocol already initiated
- Surgical consult pending
- Will need follow-up as an outpatient, also will need follow-up regarding lymphadenopathy around the gastrohepatic ligament, delonte hepatis and portacaval lymph nodes.
- Further recommendations to be forthcoming.
-
-
Thank you for consultation and allowing me to participate in the patient's care. Please call the cable television technician GI physician during the after hours with any questions or concerns.
[2024-10-27] MEDS: LIDOCAINE 4% PATCH 1 PATCH TOPICAL (08:55)
[2024-10-27] MEDS: PHENOBARBITAL 97.5 MG IV ×3 (08:56→23:15)
--- NOTE | 2024-10-27 09:56 | CM ---
Patient with Hx bipolar disorder, ETOH use disorder, ETOH WD Sz, recent fall with Dx abdominal discomfort, abnormal liver function tests. Room air. NPO. Per nursing, weak gait/transfers, MSAS 3. Receiving IV Phenobarb with taper, IV Abx, IVF.
Met with patient who resides with his SO Glenny and their children in a 2 story townhouse.
The patient has been independent in ADLs and ambulation.
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
The patient has no DME or prior VN.
PCP - Hugo Miller - patient states seen recently
Pharmacy - [facility]
CM Consult: Substance Abuse
Offered MICHAEL and he agreed to talk with them re; outpatient resources/programs and also said he would 'blow them off'.
Spoke with MICHAEL Plasencia; she will speak with the patient.
Plan follow up with MICHAEL.
Plan follow patient's diet status and mobility.
Plan probable home.
[2024-10-27] MEDS: FOLVITE 1 MG PO (10:35)
[2024-10-27] MEDS: PROTONIX IV 40 MG IV ×2 (10:35→19:55)
[2024-10-27] MEDS: MIRALAX 17 GRAMS PO (10:35)
[2024-10-27] MEDS: MAXIPIME 2000 MG IV (10:36)
[2024-10-27] MEDS: STERILE WATER FOR INJECTION 10 ML IV (10:36)
[2024-10-27] MEDS: NSS (PRESERVATIVE FREE) 10 ML IV ×2 (10:36→19:55)
[2024-10-27] MEDS: OMNIPAQUE 50 ML PO (11:41)
[2024-10-27] MEDS: FLAGYL 500 MG 100 IV (11:43)
--- NOTE | 2024-10-27 11:49 | CON.GS ---
Addendum entered and electronically signed by Bishnu Heard MD 10/27/24 14:57:
Patient seen in follow-up for consultation this afternoon with surgical nurse practitioner. I agree with documented consult note below.
HPI: 44-year-old male history of EtOH abuse presenting with abdominal pain nausea vomiting after recent fall at ladder at work 10 days ago. Multiple rib fractures noted. Worsening abdominal bloating distention and 'constipation'. Patient confirms
however he is essentially not been eating any food and only consuming liquids.
He has abdominal pain in the upper abdomen, right side and left lower quadrant at the moment. He is also requesting food and states he is hungry
PMH anxiety/depression/bipolar and history of EtOH abuse with withdrawal seizure
No past abdominal surgical history
AFVSS
NAD AAO x 3 a bit sleepy during evaluation but responsive and at times participating in history taking. Patient's girlfriend at bedside as well. Nursing present.
ABD: Distended but not tympanitic. Tenderness palpation epigastrium, right upper quadrant, left lower quadrant. No rebound rigidity or guarding.
CT abdomen/pelvis imaging reviewed from 10/26/2024 and then follow-up CT abdomen/pelvis imaging with contrast today 10/27/24. Images personally reviewed as well as radiologist report. Previous sites of intussusception resolved on follow-up CT
imaging highly suggestive that these are transient and incidental in nature. CT imaging essentially highly suggestive of portal hypertension with hepatic steatosis, ascites, splenomegaly, diffuse thickening throughout the colon, small bowel,
retroperitoneum and mesentery as well as gallbladder.
Assessment/plan: 44-year-old male status post recent fall with left-sided rib fractures subacute and now likely admitted with decompensated cirrhosis and secondary elevation of LFTs, thrombocytopenia, hypoalbuminemia.
All the imaging findings of gallbladder thickening, rather diffuse mesenteric edema and swelling, colonic wall thickening particularly of the ascending colon and hepatic flexure, portacaval adenopathy, splenomegaly are suggestive of cirrhosis with
portal hypertension. Given there is no longer intussusception present on today's CT imaging those findings were likely transient and incidental in nature rather than reflective of underlying pathology.
There does not appear to be any acute intra-abdominal surgical process.
No additional testing recommendations from acute surgical standpoint either.
Okay for p.o. intake as tolerated from surgical standpoint
GI following
Surgery will be signing off. Please call if additional concerns or questions.
Original Note:
Consultation
-
Date/Time Consultation Performed: 10/27/24 1100
Medical History
-
Chief Complaint: Constipation, abdominal pain
History of Present Illness:
Mr Alberto is a 44 yo male with a h/o bipolar, ETOH abuse with prior withdrawal seizure who fell off a ladder at work on October 17, striking his left side. He denies striking his head. He notes since that time he has been unable to pass more than
small shanta of stool. He has noted increasing bloating and distention of his abdomen. His fiance is at bedside to assist with history and notes that over the past several days he has also been vomiting after meals as well. He reports upper
abdominal pain which is like a band across the top of his abdomen with tenderness. Tympany present. He denies postprandial pain recently or in the past. Pain is persistent to the left side/flank as well.
Past Medical History
Past Medical History: Psychiatric (bipolar/anxiety/depression) and Other (ETOH withdrawal seizure)
Past Surgical History: Other (jaw and nasal surgery)
Social History
Tobacco: Smoker (5 cigarettes/day)
Alcohol: Daily
Personal: Other (Engaged)
Employment: Employed
Family History
Family History: Reviewed & Not Pertinent
Allergies / Home Medications
Allergy/AdvReac Type Severity Reaction Status Date / Time
amoxicillin [Amoxicillin] Allergy Mild Rash Verified 10/26/24 18:20
Penicillins Allergy Mild Rash Verified 10/26/24 18:20
�Medication �Instructions �Recorded �Confirmed �Type
lamotrigine 25 mg tablet 50 mg PO DAILY@1500 03/15/24 10/26/24 History
seizure/bipolar disorder
Hepagard 1 cap PO DAILY 10/26/24 10/26/24 History
ibuprofen 200 mg tablet (Advil) 400 mg PO DAILYPRN PRN mild pain 10/26/24 10/26/24 History
lamotrigine 100 mg tablet 100 mg PO DAILY 10/26/24 10/26/24 History
sodium phosphates 19 gram-7 118 ml [place] DAILYPRN PRN constipation 10/26/24 10/26/24 History
gram/118 mL enema (Fleet Enema)
vitamin B complex 1 cap PO DAILY 10/26/24 10/26/24 History
Review of Systems
-
History Source: Patient and Family
All other systems: Negative unless noted
A 10 point review of systems was completed, and was negative except as per HPI.
Physical Exam
Vital Signs
Temp Pulse Resp BP Pulse Ox
98.2 F 82 15 103/73 93
10/27/24 11:33 10/27/24 10:45 10/27/24 10:45 10/27/24 10:00 10/27/24 10:51
10/26/24 10/27/24 10/28/24
06:59 06:59 06:59
Actual Weight 80.422 kg
Body Mass Index (BMI) 23.4
Lab Results
10/27/24 04:27
10/27/24 06:02
WBC 7.8 10^3/uL (4.8-10.8) 10/27/24 04:27
Hgb 12.1 g/dL (13.0-18.0) L 10/27/24 04:27
Hct 32.7 % (39.0-52.0) L 10/27/24 04:27
Plt Count 117 10^3/uL (130-400) L D 10/27/24 04:27
Abs Immat Gran (auto) 0.0 10^3/uL (0-0.05) 10/26/24 18:59
Neutrophils % 68.2 % (42.2-75.2) 10/26/24 18:59
Physical Exam
General: Comfortable
HEENT: Moist Mucous Membranes and Scleral Icterus
Respiratory: Non Labored Respirations
GI: Soft, Tender (mild to upper abdomen) and Distended
Skin: Warm, Dry and Jaundice
Neuro: Awake, Alert and AO x 3
Psych: Calm
Data Reviewed
-
CT Scan: Image Personally Visualized and interpreted, Report Reviewed by me, Discussed with Physician, Discussed with Patient and Discussed with Family
Labs: Labs Reviewed by me, Discussed with Physician, Discussed with Patient and Discussed with Family
Old Records: Reviewed
Assessment / Plan
-
44 yo male with a h/o ETOH abuse and prior withdrawal seizures presenting with increasing abdominal distention with constipation and n/v. Upper abdominal tenderness, distention noted. CT with noted subacute left rib fractures in addition to severe
hepatic steatosis with gallbladder distention and diffuse wall thickening with some layering sludge, suspect reactive to the adjacent liver disease. Paraesophageal varices noted. Splenomegaly likely secondary to portal htn. There is also concern for
luq jejunal-jejunal intussusception although lack of PO contrast limits evaluation. LFT's elevated with jaundice present. No leukocytosis. Afebrile, VSS.
--Gastroenterology following
--Bowel regimen as per GI
--No plans for cholecystectomy at this time
--Will need repeat CT imaging with PO contrast to better evaluate for intussusception, will plan today. Hold on diet advancement pending findings.
--- NOTE | 2024-10-27 13:12 | W.PN.HOSP.TC ---
Today's Communication/Plan
-
CT abdomen pelvis with p.o. contrast
Abdominal ultrasound with Doppler
Alcohol cessation, withdrawal protocol, phenobarbital
Hold antibiotics, monitor
GI, surgery recs
Assessment / Plan
Assessment / Plan
Physical Exam
General: Comfortable
HEENT: Moist Mucous Membranes and Scleral Icterus
Respiratory: Non Labored Respirations
GI: Soft, tender in LLQ otherwise non tender. Distended
Skin: Warm, Dry and Jaundice
Neuro: Awake, Alert and AO x 3
Psych: Calm
ASSESSMENT & PLAN
Abdominal discomfort distention and trouble moving bowels.
CT suggest Nonobstructing left upper quadrant jejunal-jejunal intussusception
CT suggest small volume of ascites and
- NPO and IVF
- Repeat CT AP in AM with Contrast
- GS consulted
Worsening total bilirubinemia and jaundice
Abnormal LFTs ( AST >>> ALT) saran [place] of ETOH hepattitis
Severe diffuse hepatic steatosis with small volume of ascites.
Mild splenomegaly and mild paraesophageal varices
Probably secondary to PHT
Moderate RUQ and retroperitoneal LAD
DDX: (1) reactive inflammatory lymphadenopathy or (2) malignant lymphadenopathy.
Suspect ETOH chr liver dz - Cirrhosis vs ETOH hepattiits
- avoid NSAIDs
- trend LFTs
- GI consult
-US with dopplers
-PPI BID
-Miralax
--GI Consulted
Fall 10 days ago and re injured the Lt lower chest
HX blunt /punched trauma complicated with subacute incompletely healed Rib Fxs; the left anterolateral 3rd, 4th, 5th, 6th, and 7th ribs with surrounding callus formation few months ago
Balance dysfunction
- Lidocaine topical patch
- PT/OT
Distended gallbladder, diffuse gallbladder wall thickening, and layering sludge/cholelithiasis in the gallbladder lumen.
DDX(1) acute calculus cholecystitis or (2) reactive gallbladder wall thickening in the setting of adjacent liver disease.
- afebrile and mild leucocytosis
- more than likely reactive with no RUQ tenderness and adjacent inflammation from cirrhosis
�Monitor fever curve, white count
� Monitor off antibiotics
� Follow-up GI, surgery recommendations
At risk for ETOH WDS
At risk for hepatic encephalopathy
ETOH use disorder
HX ETOH WD Seizure
- prior hx of Seizures in setting of Benzodiazepine withdrawal
- last drink this 4.24 AM
- initiate phenobarbital protocol
- MSAS protocol;
- MV/Folate/Thiamine etc
- seizure precautions
-cessation advised
-BCARES will see although refusing assistance at this time
HX bipolar d/o
Anxiety/depression
HX migraines
- continue Lamotrigine
Chronic nicotine dependence
- on patch
DVT Px: HSQ
Full code
IMU
Total time spent on today's encounter was 54 minutes which included time spent in counseling the patient/family regarding diagnosis and treatment plan as listed above, goals of care, and symptom management. Case was discussed with nursing staff,
specialists, and care coordinators/case management. All labs and imaging personally reviewed by me. Remainder the time spent in detailed review of previous records, lab data, imaging, and other medical provider documentation.
Anticipated Discharge: > 48 hours
Subjective/Interval History
-
Date of Service: October 27, 2024
Laying in bed
Objective Data
-
Labs:
Laboratory Results
10/27/24 10/27/24
04:27 06:02
WBC 7.8
Hgb 12.1 L
Hct 32.7 L
Plt Count 117 L D
PT 17.1 H
INR 1.37
Sodium Cancelled 142
Potassium Cancelled 4.9
Chloride Cancelled 105
Carbon Dioxide Cancelled 28
BUN Cancelled 4 L
Creatinine Cancelled 0.5 L
Glucose Cancelled 95
Calcium Cancelled 7.4 L
Total Bilirubin Cancelled 5.6 H
AST Cancelled 299 H
ALT Cancelled 55 H
Alkaline Phosphatase Cancelled 243 H
Vital Signs:
Vital Signs
Temp Pulse Resp BP Pulse Ox
98.2 F 82 15 103/73 93
10/27/24 11:33 10/27/24 10:45 10/27/24 10:45 10/27/24 10:00 10/27/24 10:51
I&O
10/26/24 10/27/24 10/28/24
06:59 06:59 06:59
Intake Total 359 / 359 355 / 355
Output Total 725 / 725 275 / 275
Balance -366 / -366 80 / 80
Review of Systems
-
History Source: Patient
All other systems: Not reviewed unless documented
Data Reviewed
-
Total Time Spent with Patient (in minutes): 43
Labs: Labs Reviewed by me
[2024-10-27] MEDS: FLUSH (NSS) 2 FLUSH IV (16:58)
[2024-10-27] MEDS: ROXICODONE 5 MG PO (17:04)
--- NOTE | 2024-10-27 17:35 | PTCARENOTE ---
Patient with complaints of left lateral rib pain and LLQ pain radiates to groin. Discussed with MD, Roxicodone ordered and administered to pt. MSAS protocol intervention followed and documented. Pt currently resting quietly. Pt fiance here today and
aware if plan of care.Clear liqs started and pt denies pain with intake.
[2024-10-27] MEDS: HEPARIN 5000 UNITS SC (19:55)
[2024-10-27] MEDS: ATIVAN 2 MG IV (23:15)
[2024-10-28] VITALS (12 sets, daily range): BP systolic 113–142; BP diastolic 75–100; BMI 24.1
[2024-10-28] MEDS: ATIVAN 1 MG PO ×4 (01:18→14:01)
[2024-10-28] MEDS: ATIVAN 1 MG IV ×2 (03:32→15:53)
[2024-10-28] MEDS: NSS (PRESERVATIVE FREE) 0.5 ML IV ×2 (03:35→15:55)
[2024-10-28 04:16] LABS: Hematocrit 29.4 % (39.0-52.0); Hemoglobin 10.7 g/dL (13.0-18.0); Mean Corp Hgb Conc. 36.4 g/dL (33.0-37.0); Mean Corpuscular Hgb 35.8 pg (27.0-31.0); Mean Corpuscular Volume 98.3 fL (80.0-94.0); Mean Platelet Volume 10.2 fL (7.4-10.4); Platelet Count 102 10^3/uL (130-400); Red Blood Cell Count 2.99 10^6/uL (4.70-6.10); Red Cell Dist. Width 15.2 % (11.5-14.5); White Blood Cell Count 6.4 10^3/uL (4.8-10.8)
[2024-10-28 04:26] LABS: INR 1.44; PT 17.8 Sec (11.4-14.6)
[2024-10-28 04:36] LABS: ALT (SGPT) 54 U/L (0-50); AST (SGOT) 281 U/L (17-59); Alkaline Phosphatase 245 U/L (38-126); Blood Urea Nitrogen 5 mg/dl (9-20); Calcium 7.6 mg/dl (8.4-10.2); Carbon Dioxide 24 mmol/L (22-30); Chloride 102 mmol/L (98-107); Direct Bilirubin 5.8 mg/dl (0.0-0.4); Estimated Creatinine Clearance > 125 ml/min; Glucose 87 mg/dl (70-99); Potassium 4.4 mmol/L (3.5-5.1); Sodium 135 mmol/L (135-145); Total Protein 6.6 g/dl (6.3-8.2); eGFR > 60.00
[2024-10-28] MEDS: ATIVAN 2 MG IV ×6 (05:57→23:19)
[2024-10-28] MEDS: NSS (PRESERVATIVE FREE) 1 ML IV ×6 (05:57→23:19)
--- NOTE | 2024-10-28 06:41 | PTCARENOTE ---
Addendum entered by Davide Quinn RN 10/28/24 07:03:
Glenny, significant other, at bedside. updated on overnight.
Original Note:
Medicated per MSAS protocol throughout the night; MSAS 4-11. Pt is becoming more tremulous, anxious/restless and tachycardia since admission. unsteady gait. pt able to have a BM; hard mixed with loose. pt reports oxycodone didnt help his abd pain.
IVF continue, tolerating oral clear liquids.denies nausea. NSR/ST on telemetry monitoring. voiding saundra urine in urinal. skin is intact with jaundice color. pt able to turn self while in bed. call draper and tray table within reach. bed alarm set for
safety.
[2024-10-28] MEDS: PHENOBARBITAL 97.5 MG IV ×3 (07:47→21:26)
[2024-10-28] MEDS: PROTONIX IV 40 MG IV ×2 (07:48→20:16)
[2024-10-28] MEDS: HEPARIN 5000 UNITS SC ×2 (07:48→20:16)
[2024-10-28] MEDS: NSS (PRESERVATIVE FREE) 10 ML IV ×2 (07:48→20:16)
[2024-10-28] MEDS: LIDOCAINE 4% PATCH 1 PATCH TOPICAL (07:49)
[2024-10-28] MEDS: NICODERM TRANSDERMAL 21 MG TRANSDERM (09:35)
[2024-10-28] MEDS: LAMICTAL 100 MG PO (09:35)
[2024-10-28] MEDS: THIAMINE INJECTION 255 MG IV ×2 (09:36→16:00)
[2024-10-28] MEDS: MIRALAX 17 GRAMS PO (09:37)
[2024-10-28] MEDS: FOLVITE 1 MG PO (09:45)
[2024-10-28] MEDS: NSS 1000 IV (10:03)
--- NOTE | 2024-10-28 10:34 | W.PN.GI.CBS2 ---
Today's Communication / Plan
-
US, monitor labs, EtOH withdrawal
Assessment / Plan
-
44-year-old male past medical history of alcohol abuse with fall 10 days ago and subsequent abdominal pain, distention, constipation. He underwent a CT scan with multiple findings including healed fractures in the chest, small amount of ascites,
distended gallbladder with gallbladder wall thickening and layering sludge, moderate right upper quadrant and retroperitoneal lymphadenopathy, mild splenomegaly probably due to portal hypertension, mild paraesophageal varices, horseshoe kidney,
nonobstructing left upper quadrant jejunal jejunal intussusception. Lab work consistent with elevated bilirubin, elevated coags, normal hemoglobin. Repeat CT oral contrast no intussusception.
Abd pain improved - may have been from constipation, diff includes gastritis, PUD as was taking NSAIDs.
New diagnosis of cirrhosis based on imaging 2/2 EtOH.
Recommendations:
- With rising bili will check US with doppler (US better eval biliary tree; US ensure no PVT) however suspect this is all acute EtOH hep - DF today 27.8 no need for steroids
- Daily MELD labs
- Continue miralax, PPI
- EtOH withdrawal per primary
- Outpatient eval for LAD
Discussed at length with fisean and hospitalist at bedside diagnosis of cirrhosis, importance of EtOH cessation
Needs outpatient GI +/- hepatology follow up
Subjective
Subjective
Date of Service: October 28, 2024
pain more so rib pain
pt sleeping on phenobarb for withdrawal
had bm yesterday
Objective
Data Reviewed
Laboratory Data:
Laboratory Results
10/28/24 03:40
10/28/24 03:40
Laboratory Results
PT 17.8 Sec (11.4-14.6) H 10/28/24 03:40
INR 1.44 10/28/24 03:40
APTT 39.4 Sec (23.4-35.0) H 10/26/24 18:59
Total Bilirubin 8.0 mg/dl (0.2-1.3) H 10/28/24 03:40
AST 281 U/L (17-59) H 10/28/24 03:40
ALT 54 U/L (0-50) H 10/28/24 03:40
Alkaline Phosphatase 245 U/L (38-126) H 10/28/24 03:40
Lipase 102 U/L (23-300) 10/26/24 18:59
Vital Signs and I&O:
Vital Signs
Temp Pulse Resp BP Pulse Ox
98.2 F 102 20 129/96 94
10/28/24 07:25 10/28/24 10:00 10/28/24 10:00 10/28/24 10:00 10/28/24 10:00
I&O
10/27/24 10/28/24 10/29/24
06:59 06:59 06:59
Intake Total 359 / 359 2290 / 2290 200 / 200
Output Total 725 / 725 1125 / 1125 150 / 150
Balance -366 / -366 1165 / 1165 50 / 50
Physical Exam
Physical Exam
GI: Non Distended and Non Tender
--- NOTE | 2024-10-28 11:25 | PTCARENOTE ---
Patient MSAS 7 so far this shift, attempted to climb out of bed once, easily redirected. Patient is tolerating clear liquid diet. Left sided rib pain treated with Lidocaine patch with relief. Bed alarm on, patient is oriented to person, place and
time.
--- NOTE | 2024-10-28 13:19 | PTCARENOTE ---
Pulse ox 91% on room air when sleeping at this time. Notified Dr. Morel. Will place oxygen is oulse ox less than 90%.
--- NOTE | 2024-10-28 13:34 | W.PN.HOSP.TC ---
Today's Communication/Plan
-
Daily MELD scores
Adv to 2gm Na
phenobarb taper, ativan
Assessment / Plan
Assessment / Plan
Physical Exam
General: Comfortable
HEENT: Moist Mucous Membranes and Scleral Icterus
Respiratory: Non Labored Respirations
GI: Soft, tender in LLQ otherwise non tender. Distended
Skin: Warm, Dry and Jaundice
Neuro: Awake, Alert and AO x 3
Psych: Calm
ASSESSMENT & PLAN
Abdominal discomfort distention and trouble moving bowels.
CT suggest Nonobstructing left upper quadrant jejunal-jejunal intussusception - not present on PO contrast
CT suggest small volume of ascites
- ADAT
- GS consulted - NTD
-improved pain/discomfort
Worsening total bilirubinemia and jaundice
Abnormal LFTs ( AST >>> ALT) likley elelent of ETOH hepattitis
Severe diffuse hepatic steatosis with small volume of ascites.
Mild splenomegaly and mild paraesophageal varices
Probably secondary to PHT
Moderate RUQ and retroperitoneal LAD
Cirrhosis + ETOH hepattiits
-Daily MELD score
- avoid NSAIDs
- trend LFTs
- GI consult
-US with dopplers - no evidence of PVT
-PPI BID
-Miralax
--GI Consulted
-ADAT - 2gm Na
Fall 10 days ago and re injured the Lt lower chest
HX blunt /punched trauma complicated with subacute incompletely healed Rib Fxs; the left anterolateral 3rd, 4th, 5th, 6th, and 7th ribs with surrounding callus formation few months ago
Balance dysfunction
- Lidocaine topical patch
- PT/OT
Distended gallbladder, diffuse gallbladder wall thickening, and layering sludge/cholelithiasis in the gallbladder lumen.
DDX(1) acute calculus cholecystitis or (2) reactive gallbladder wall thickening in the setting of adjacent liver disease.
- afebrile and mild leucocytosis
- more than likely reactive with no RUQ tenderness and adjacent inflammation from cirrhosis
�Monitor fever curve, white count
� Monitor off antibiotics
� Follow-up GI, surgery recommendations
At risk for ETOH WDS
At risk for hepatic encephalopathy
ETOH use disorder
HX ETOH WD Seizure
- prior hx of Seizures in setting of Benzodiazepine withdrawal
- last drink this 10/25 AM
- initiate phenobarbital protocol
- MSAS protocol;
- MV/Folate/Thiamine etc
- seizure precautions
-cessation advised
-BCARES will see although refusing assistance at this time - spoke to Fiance regarding importance
HX bipolar d/o
Anxiety/depression
HX migraines
- continue Lamotrigine
Chronic nicotine dependence
- on patch
DVT Px: HSQ
Full code
Anticipated Discharge: 24 - 48 hours
Subjective/Interval History
-
Date of Service: October 28, 2024
no acute events
Objective Data
-
Labs:
Laboratory Results
10/28/24
03:40
WBC 6.4
Hgb 10.7 L
Hct 29.4 L
Plt Count 102 L
PT 17.8 H
INR 1.44
Sodium 135
Potassium 4.4
Chloride 102
Carbon Dioxide 24
BUN 5 L
Creatinine 0.4 L
Glucose 87
Calcium 7.6 L
Total Bilirubin 8.0 H
AST 281 H
ALT 54 H
Alkaline Phosphatase 245 H
Vital Signs:
Vital Signs
Temp Pulse Resp BP Pulse Ox
98.2 F 97 16 113/75 91
10/28/24 11:12 10/28/24 12:00 10/28/24 12:00 10/28/24 12:00 10/28/24 13:17
I&O
10/27/24 10/28/24 10/29/24
06:59 06:59 06:59
Intake Total 359 / 359 2290 / 2290 200 / 200
Output Total 725 / 725 1125 / 1125 150 / 150
Balance -366 / -366 1165 / 1165 50 / 50
Review of Systems
-
History Source: Patient
All other systems: Not reviewed unless documented
Physical Exam
-
General: No Apparent Distress
HEENT: Normocephalic and Atraumatic
Respiratory: Negative Wheezes
Cardiac: Regular Rhythm and S1/S2
GI: Soft
Genito-urinary: No Costovertebral Tender
Musculoskeletal: No Edema
Neuro: AO x 3
Hematologic / Lymphatic: No Lymphadenopathy
Psych: Calm
Data Reviewed
-
Total Time Spent with Patient (in minutes): 43
Labs: Labs Reviewed by me
--- NOTE | 2024-10-28 14:53 | CM ---
Patient with Hx bipolar disorder, ETOH use disorder, ETOH WD Sz, recent fall with Dx abdominal discomfort, abnormal liver function tests. MSAS 6 per nursing, on bedrest. Receiving Phenobarb with taper, IV Ativan prn.
Request from nurse Ne to speak with his SO Glenny;
called her phone 3x and phone not in service. Nurse connected her by hospital to , and she provided her work cell [phone] for future contact.
Glenny is here to see the patient today and is aware from speaking with the nurse that the patient is actively withdrawing today.
Glenny says patient seems angry today and would not be receptive to talking with [facility] at this time.
She is hoping the patient will be receptive to an inpatient or outpatient program.
Spoke with MICHAEL Plasencia; they tried to call the patient 3x yesterday and he did not answer. Provided update that patient appears to be actively withdrawing today and is not medically ready for contact today. MICHAEL agreed to check again
tomorrow if patient ready for contact.
continuing to follow.
Plan follow up with MICHAEL.
--- NOTE | 2024-10-28 22:58 | PTCARENOTE ---
Patient has been requiring 2mg IV Ativan Q1 hour since change of shift. MADDI Salcedo made aware. Pt with tremors, tachycardia, hallucinations, agitation, restlessness, & disorientation.
--- NOTE | 2024-10-28 23:31 | W.PN.UPDATE ---
Update Note
Progress Note Update
~ 2300 Pt has received Ativan 2 mg IV Q1H x 4 doses since beginning of shift @ 1900. Patient w/increased restlessness, trying to get OOB. Additional dose Ativan 2 mg IV x 1 given @ 23:19. Plan at this time to continue scheduled dose in one hour if
needed, if additional unscheduled dose of Ativan required, will transfer to ICU for upgrade in care and possible Precedex infusion. Discussed with ICU ASSEMBLER [employer]AGS, who is in agreement with plan.
~1 am - Patient very restless, Ativan 2 mg IV given. Decision made to transfer to ICU. Patient significant other, Glenny Toussaint, telephoned (Correct cell phone number [phone]) notified of upgrade in care and transfer to ICU. Questions
answered, verbalized understanding.
[2024-10-29] VITALS (27 sets, daily range): BP systolic 97–133; BP diastolic 62–93; BMI 24.1
[2024-10-29] MEDS: ATIVAN 2 MG IV ×4 (00:07→05:38)
[2024-10-29] MEDS: NSS (PRESERVATIVE FREE) 1 ML IV ×3 (00:07→01:30)
[2024-10-29] MEDS: THIAMINE INJECTION 255 MG IV ×3 (00:30→16:12)
--- NOTE | 2024-10-29 01:27 | PTCARENOTE ---
Pt setting off bed alarm multiple times throughout this shift, confused and attempting to get up. Pt hallucinating and seeing his son in the room. Pt was on all fours(hands and knees) in bed. pt has received a total of 14mg of IV Ativan. IV Ativan
able to calm pt down for only about 45 minutes before becoming tremulous/restless/ tachycardic and needing another dose. MADDI Salcedo aware/ at bedside. Pt transferred to ICU with belongings. Report given to LONDON Jamil. MADDI will updated kristopher Murrieta.
[2024-10-29] MEDS: PRECEDEX 100 IV ×2 (01:30→17:28)
--- NOTE | 2024-10-29 01:43 | PTCARENOTE ---
Pt received as transfer from IMU. Pt agitated and restless, repeating 'peep, where they peep' and 'one side is black and one is white', not following commands or answering questions. Increasingly agitated and restless. x1 IVP ativan given and
precedex gtt started as ordered. SR-Sinus tach, palpable pulses.Pt incontinent of large amount of saundra urine, condom cath now in place. At this time pt is drowsy but arousable to loud verbal stimuli.
--- NOTE | 2024-10-29 03:18 | PTCARENOTE ---
Pt pulse ox 91-92%, placed on 2L NC. Precedex continues, RASS = -1 to -2.
[2024-10-29] MEDS: ATIVAN 1 MG IV ×5 (04:09→21:21)
[2024-10-29 04:35] LABS: Hematocrit 29.2 % (39.0-52.0); Hemoglobin 10.7 g/dL (13.0-18.0); Mean Corp Hgb Conc. 36.6 g/dL (33.0-37.0); Mean Corpuscular Hgb 36.5 pg (27.0-31.0); Mean Corpuscular Volume 99.7 fL (80.0-94.0); Platelet Count 97 10^3/uL (130-400); Red Blood Cell Count 2.93 10^6/uL (4.70-6.10); Red Cell Dist. Width 14.6 % (11.5-14.5)
[2024-10-29 04:45] LABS: PT 20.2 Sec (11.4-14.6)
[2024-10-29 04:46] LABS: APTT 43.3 Sec (23.4-35.0)
[2024-10-29 04:59] LABS: ALT (SGPT) 44 U/L (0-50); AST (SGOT) 229 U/L (17-59); Albumin 2.7 g/dl (3.5-5.0); Alkaline Phosphatase 233 U/L (38-126); Blood Urea Nitrogen 2 mg/dl (9-20); Calcium 7.7 mg/dl (8.4-10.2); Carbon Dioxide 27 mmol/L (22-30); Chloride 100 mmol/L (98-107); Estimated Creatinine Clearance > 125 ml/min; Glucose 119 mg/dl (70-99); Magnesium 1.6 mg/dl (1.6-2.3); Phosphorus 1.8 mg/dl (2.5-4.5); Potassium 3.7 mmol/L (3.5-5.1); Sodium 135 mmol/L (135-145); Total Bilirubin 9.7 mg/dl (0.2-1.3); Total Protein 6.2 g/dl (6.3-8.2); eGFR > 60.00
--- NOTE | 2024-10-29 06:02 | RESPNOTE ---
Nocturnal pulse ox was stopped when pt was taken to the ICU, was not aware of the transfer and patient was off the monitor for a while.
[2024-10-29] MEDS: MAGNESIUM SULFATE 50 IV (06:19)
[2024-10-29] MEDS: POTASSIUM PHOSPHATE 259.0909 MEQ IV (06:23)
--- NOTE | 2024-10-29 06:47 | W.PN.HOSP.TC ---
Today's Communication/Plan
-
see a/p
Assessment / Plan
Assessment / Plan
Physical Exam
General: No acute distress, appears comfortable at this time
HEENT: Moist Mucous Membranes and Scleral Icterus
Respiratory: Non Labored Respirations
GI: Soft, nontender. Distended. Bowel sounds present
Skin: Warm, Dry and Jaundice
Neuro: Lethargic but arousable oriented x3
Psych: Sedated
ASSESSMENT & PLAN
ETOH withdrawal/Delirium tremens
At risk for hepatic encephalopathy
ETOH use disorder
HX ETOH WD Seizure
- prior hx of Seizures in setting of Benzodiazepine withdrawal
- last drink this 10/25 AM
- initiate phenobarbital protocol
- MSAS protocol;
- MV/Folate/Thiamine etc
- seizure precautions
-cessation advised
-BCARES will see although refusing assistance at this time
-transferred overnight to ICU d/t agitation confusion requiring Precedex gtt, taper as tolerated
-restraints prn
#Hypophosphatemia
#Borderline Low Mg
Monitor and Replete as necessary
Abdominal discomfort distention and trouble moving bowels.
CT suggest Nonobstructing left upper quadrant jejunal-jejunal intussusception - not present on PO contrast
CT suggest small volume of ascites
- ADAT
- GS consult appreciated no acute surgical intervention indicated at this time
- improved pain/discomfort
Worsening total bilirubinemia and jaundice
Abnormal LFTs ( AST >>> ALT) likely ETOH hepatitis
Severe diffuse hepatic steatosis with small volume of ascites.
Mild splenomegaly and mild paraesophageal varices
Probably secondary to PHT
Moderate RUQ and retroperitoneal LAD
Cirrhosis + ETOH Hepatitis
-Daily MELD score
- avoid NSAIDs
- trend LFTs
- GI consult appreciated patient to start prednisolone when able to tolerate oral
-US with dopplers - no evidence of PVT
-PPI BID
-Miralax
Fall 10 days ago and re injured the Lt lower chest
HX blunt /punched trauma complicated with subacute incompletely healed Rib Fxs; the left anterolateral 3rd, 4th, 5th, 6th, and 7th ribs with surrounding callus formation few months ago
Balance dysfunction
- Lidocaine topical patch
- PT/OT
Distended gallbladder, diffuse gallbladder wall thickening, and layering sludge/cholelithiasis in the gallbladder lumen.
DDX(1) acute calculus cholecystitis or (2) reactive gallbladder wall thickening in the setting of adjacent liver disease.
- afebrile and mild leucocytosis
- more than likely reactive with no RUQ tenderness and adjacent inflammation from cirrhosis
�Monitor fever curve, white count
� Monitor off antibiotics
� Follow-up GI, surgery recommendations
HX bipolar d/o
Anxiety/depression
HX migraines
- continue Lamotrigine
Chronic nicotine dependence
- on patch
DVT Px: HSQ
Full code
Total Critical Care Time__50___ minutes. I was immediately available to the patient and staff. I personally examined, reviewed labs, diagnostic images/reports, interpretations, treatment plans, discussed patient care with other providers and
patient's fiancee Glenny (patient unable to make decisions), entered orders as appropriate and documented the medical record.
Anticipated Discharge: > 48 hours
Subjective/Interval History
-
Date of Service: October 29, 2024
Objective Data
-
Labs:
Laboratory Results
10/29/24
04:19
WBC 6.0
Hgb 10.7 L
Hct 29.2 L
Plt Count 97 L
PT 20.2 H
INR 1.70
APTT 43.3 H
Sodium 135
Potassium 3.7
Chloride 100
Carbon Dioxide 27
BUN 2 L
Creatinine 0.4 L
Glucose 119 H
Calcium 7.7 L
Total Bilirubin 9.7 H
AST 229 H
ALT 44
Alkaline Phosphatase 233 H
Vital Signs:
Vital Signs
Temp Pulse Resp BP Pulse Ox
98.9 F 80 14 104/64 93
10/29/24 04:53 10/29/24 04:00 10/29/24 04:00 10/29/24 04:00 10/29/24 04:00
I&O
10/27/24 10/28/24 10/29/24
06:59 06:59 06:59
Intake Total 359 / 359 2290 / 2290 890.5 / 890.5
Output Total 725 / 725 1125 / 1125 1100 / 1100
Balance -366 / -366 1165 / 1165 -209.5 / -209.5
--- NOTE | 2024-10-29 07:33 | CON.INTV ---
Consultation
Consultation Request
Date/Time Consultation Requested: -7 a.m.
Date/Time Consultation Performed: 10/29/2024-7:30 AM
Requesting Provider: Hospitalist
Performing Provider: Dr. Fishman
Reason for Consultation: Critical care management/DTs
Medical History
-
Chief Complaint: Delirium
History of Present Illness:
44-year-old male with history of underlying bipolar disorder, anxiety, depression, migraines, who smokes 5 cigarettes daily and has alcohol use disorder presented to the emergency room with abdominal pain and distention/constipation with recent
history of falling off scaffolding landing on top of the ladder on his left side 10 days prior to admission noted to likely have alcohol withdrawal and transferred to ICU for Precedex and phenobarbital-assembler caterpillar spider consulted for withdrawal
management/critical care management 10/29/24. The patient is quite sedate and confused with some delirium and review of systems was unobtainable. He is in no respiratory distress.
Past Medical History
Past Medical History: None (Bipolar disorder. Alcohol use disorder. Anxiety. Depression. Migraines. Jaw and nasal surgery. Cigarette smoker-5 cigarettes daily.)
Social History
Tobacco: Smoker (5 cigarettes daily)
Alcohol: Daily (Bottle of wine)
Personal: (Now lives with girlfriend)
Employment: Employed
Occupational Exposures: No known asbestos exposure
Environmental Exposures: No known tuberculosis exposure
Family History
Family History: Reviewed & Not Pertinent (Parkinson's)
Allergies / Home Medications
Allergies
Allergy/AdvReac Type Severity Reaction Status Date / Time
amoxicillin [Amoxicillin] Allergy Mild Rash Verified 10/26/24 18:20
Penicillins Allergy Mild Rash Verified 10/26/24 18:20
Home Medications
�Medication �Instructions �Recorded �Confirmed �Last Taken �Type
lamotrigine 25 mg tablet 50 mg PO DAILY@1500 03/15/24 10/26/24 10/25/24 History
seizure/bipolar disorder
Hepagard 1 cap PO DAILY Supplement 10/26/24 10/26/24 Unknown History
ibuprofen 200 mg tablet (Advil) 400 mg PO DAILYPRN PRN mild pain 10/26/24 10/26/24 10/26/24 History
lamotrigine 100 mg tablet 100 mg PO DAILY seizure/bipolar 10/26/24 10/26/24 10/26/24 History
sodium phosphates 19 gram-7 118 ml WI DAILYPRN PRN constipation 10/26/24 10/26/24 10/25/24 History
gram/118 mL enema (Fleet Enema)
vitamin B complex 1 cap PO DAILY Supplement 10/26/24 10/26/24 Unknown History
Review of Systems
-
Unable to Obtain full review of systems at this time due to: Other (Per HPI)
Vitals / Labs / Diagnostic Testing
Vital Signs
Temp Pulse Resp BP Pulse Ox
98.9 F 77 12 112/74 96
10/29/24 04:53 10/29/24 07:00 10/29/24 07:00 10/29/24 07:00 10/29/24 07:00
Lab Data
10/29/24 04:19
10/29/24 04:19
Laboratory Results
10/29/24
04:19
PT 20.2 H
INR 1.70
APTT 43.3 H
Diagnostic Testing:
Physical Exam
-
Exam:
Well-nourished and well-developed in no apparent distress
HEENT-atraumatic, normocephalic
Neck-supple, no JVD, no bruit
Heart-regular rate and rhythm-no murmurs, rubs or gallops
Chest-clear to auscultation, no wheezes, crackles
Back-no tenderness
Abdomen-soft, nontender, nondistended, no hepatosplenomegaly
Extremities-no cyanosis, clubbing, edema and good peripheral pulses
Integument-intact, no rashes, lesions or ecchymosis
Neurologically moving extremities, confused, delirious, nonfocal
Assessment
-
44-year-old male with history of underlying bipolar disorder, anxiety, depression, migraines, who smokes 5 cigarettes daily and has alcohol use disorder presented to the emergency room with abdominal pain and distention/constipation with recent
history of falling off scaffolding landing on top of the ladder on his left side 10 days prior to admission noted to likely have alcohol withdrawal and transferred to ICU for Precedex and phenobarbital-assembler caterpillar spider consulted for withdrawal
management/critical care management 10/29/24.
Abdominal distention and trouble moving bowels
Alcohol use disorder with alcohol withdrawal
Recent traumatic fall from scaffolding
Mild cioklk-okgosdngvx-hyjzqbtrip 10.7, MCV 99.7
Mild thrombocytopenia-platelet 97
Elevated liver functions
Hypoalbuminemia
Cholelithiasis
Moderate right upper quadrant and retroperitoneal lymphadenopathy
Nonobstructing left upper quadrant jejunal-jejunal intussusception
Alcohol hepatitis
Severe diffuse hepatic steatosis
Cirrhosis
Splenomegaly
Conditions present prior to admission:
Bipolar disorder.
Alcohol use disorder.
History alcohol withdrawal seizure 03/15/2024
Anxiety.
Depression.
Migraines.
Jaw and nasal surgery.
Incomplete healed left anterior 3rd, 4th, 5th, 6th and 7th ribs
Cigarette smoker-5 cigarettes daily.
Plan
Patient will be admitted to medical intensive care unit with alcohol withdrawal syndrome
Supplemental oxygen as needed
Aspiration precautions
Incentive spirometry
Head of bed elevation
Follow MSAS
Alcohol withdrawal treatment protocol will continue
Supplements glucose and thiamine to prevent Wernicke's encephalopathy
Supplement multivitamins and folate
Replete deficiencies and glucose, potassium, magnesium and phosphorus
Benzodiazepines as needed-diazepam or lorazepam
Precedex drip as needed
Phenobarbital initiated
CT abdomen summarized below
Gastroenterology following-correspondence reviewed
Follow LFTs
MiraLAX continues
PPI continues
Monitor for acute cholecystitis
Follow hemoglobin
Follow thrombocytopenia
Alcohol cessation counseling
Nicotine patch
Smoking cessation counseling
Consider psychiatry evaluation
Consider rehabilitation
DVT prophylaxis
GI prophylaxis
Early nutrition
Early mobilization
Critical care statement: A total of 65 minutes of critical care time was provided for this patient today. This includes management of unstable vital signs, treatment for and prevention of alcohol withdrawal, evaluation of the patient at bedside,
reviewing the patient's pertinent medical records including radiographs, microbiology, laboratory evaluations, management of alcohol withdrawal, management of Precedex drip and discussion with primary team, consultants, pharmacy, nutrition,
physical therapy, case management, charge nurse, critical care nursing, and respiratory therapy.
Diagnostic data:
CT chest abdomen and pelvis 10/26/2024-mild secretions right side mid thorax, incompletely healed left anterior 3rd, 4th, 5th, 6th and 7th ribs, minimal right pleural effusion, severe diffuse hepatic steatosis, small volume ascites, distended
gallbladder with layering sludge/cholelithiasis, moderate right upper quadrant and retroperitoneal lymphadenopathy, splenomegaly, horseshoe kidney nonobstructing left upper quadrant jejunal intussusception
CT head 10/26/24-no CT evidence for acute intracranial hemorrhage or transcortical infarct, mild to moderate bilateral frontal and parietal volume loss, mild cerebellar volume loss
CT abdomen and pelvis 10/27/24-mildly elevated right hemidiaphragm, small right and minimal left pleural effusion, severe diffuse hepatic steatosis, small to moderate volume pelvic ascites, moderate splenomegaly secondary to portal hypertension,
moderate right upper quadrant and retroperitoneal lymphadenopathy, portal colopathy, severe edema and wall thickening in the gallbladder, cholelithiasis and gallbladder sludge
Doppler study ultrasound 10/28/24-moderate gallbladder sludge, mild gallbladder wall thickening, acute cholecystitis cannot be ruled out, mild hepatomegaly, at hepatic fatty infiltration
Chest x-ray/-NAD
Data Reviewed
-
EKG: Report reviewed by me
Radiology: Image personally visualized and interpreted and Report reviewed by me
CT Scan: Report reviewed by me
Ultrasound: Report reviewed by me
Medical Tests (Nuc Med, Echo etc): Report reviewed by me
Labs: Labs reviewed by me
Old Records: Reviewed
Critical Care Time (in minutes): 65
[2024-10-29] MEDS: LIDOCAINE 4% PATCH 1 PATCH TOPICAL (07:50)
[2024-10-29] MEDS: NSS (PRESERVATIVE FREE) 10 ML IV ×2 (07:51→19:41)
[2024-10-29] MEDS: HEPARIN 5000 UNITS SC (07:52)
[2024-10-29] MEDS: PROTONIX IV 40 MG IV ×2 (07:52→19:42)
[2024-10-29] MEDS: NICODERM TRANSDERMAL 21 MG TRANSDERM (07:53)
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
[2024-10-29] MEDS: NSS (PRESERVATIVE FREE) 0.5 ML IV ×3 (08:08→16:21)
--- NOTE | 2024-10-29 08:30 | PTCARENOTE ---
Rec'd care of patient at 0700. Drowsy. Precedex gtt infusing for RASS 0 to -2. Patient having intermittent periods of agitation/restlessness. Pulling on restraints. Uncooperative. Confused. MSAS maintained; Ativan PRN. MAEx4. NSR on tele monitor.
Rate in the 70-80's. Pulse ox 96% on 2L nc. Lung sounds diminished throughout. +BS. No BM. Unable to tolerate PO intake at current time. Incontinent of urine. Condom catheter intact. Safe environment maintained.
[2024-10-29] MEDS: MIRALAX PO (10:09)
[2024-10-29] MEDS: FOLVITE PO (10:15)
[2024-10-29] MEDS: LAMICTAL PO (10:15)
--- NOTE | 2024-10-29 10:25 | CM ---
Patient seen at bedside in ICU. Patient for follow up with [facility] and will CM continue to follow for discharge planning needs.
Plan; pending [facility] assessment/discussion
[2024-10-29] MEDS: PHENOBARBITAL 65 MG IV ×3 (11:33→21:21)
--- NOTE | 2024-10-29 11:57 | PTCARENOTE ---
No major changes in assessment. Patient remains on Precedex drip. Phenobarb changed to IV. Drowsy. Confused conversation when awake. NSR on tele. VSS.
[2024-10-29] MEDS: FOLVITE 50.2 MG IV (12:29)
--- NOTE | 2024-10-29 12:37 | W.PN.GI.CBS2 ---
Addendum entered and electronically signed by Amilcar Morrison MD 10/29/24 12:54:
I got update from nurse
pt cannot take oral meds
hold off on prednisolone for now
had mild paraesophageal varices on ct in regards to placing ngt so would wait to see if he wakes up more
Original Note:
Today's Communication / Plan
-
start prednisolone
Assessment / Plan
-
44-year-old male past medical history of alcohol abuse with fall 10 days ago and subsequent abdominal pain, distention, constipation. He underwent a CT scan with multiple findings including healed fractures in the chest, small amount of ascites,
distended gallbladder with gallbladder wall thickening and layering sludge, moderate right upper quadrant and retroperitoneal lymphadenopathy, mild splenomegaly probably due to portal hypertension, mild paraesophageal varices, horseshoe kidney,
nonobstructing left upper quadrant jejunal jejunal intussusception. Lab work consistent with elevated bilirubin, elevated coags, normal hemoglobin. Repeat CT oral contrast no intussusception.
Abd pain improved - may have been from constipation, diff includes gastritis, PUD as was taking NSAIDs.
New diagnosis of cirrhosis based on imaging 2/2 EtOH.
Liver numbers worsening c/w acute alc hep. DF 40.
I discussed with his fianc�e. He has no contraindications for steroids except I am concerned about his compliance. We will start prednisolone 40 mg now, monitor MELD labs daily. Will also check to ensure he is responding in 1 week. Once he is no
longer acutely withdrawing, we can decide if he is safe to be discharged with prednisolone or if it needs to be stopped.
Subjective
Subjective
Date of Service: October 29, 2024
pt sleepy
Objective
Data Reviewed
Laboratory Data:
Laboratory Results
10/29/24 04:19
10/29/24 04:19
Laboratory Results
PT 20.2 Sec (11.4-14.6) H 10/29/24 04:19
INR 1.70 10/29/24 04:19
APTT 43.3 Sec (23.4-35.0) H 10/29/24 04:19
Phosphorus 1.8 mg/dl (2.5-4.5) L 10/29/24 04:19
Magnesium 1.6 mg/dl (1.6-2.3) 10/29/24 04:19
Total Bilirubin 9.7 mg/dl (0.2-1.3) H 10/29/24 04:19
AST 229 U/L (17-59) H 10/29/24 04:19
ALT 44 U/L (0-50) 10/29/24 04:19
Alkaline Phosphatase 233 U/L (38-126) H 10/29/24 04:19
Lipase 102 U/L (23-300) 10/26/24 18:59
Vital Signs and I&O:
Vital Signs
Temp Pulse Resp BP Pulse Ox
97.7 F 71 14 109/81 99
10/29/24 09:00 10/29/24 12:00 10/29/24 12:00 10/29/24 12:00 10/29/24 12:00
I&O
10/28/24 10/29/24 10/30/24
06:59 06:59 06:59
Intake Total 2290 / 2290 890.5 / 984.4 638.8 / 638.8
Output Total 1125 / 1125 1100 / 1355 905 / 905
Balance 1165 / 1165 -209.5 / -370.6 -266.2 / -266.2
Physical Exam
Physical Exam
GI: Non Distended and Non Tender
[2024-10-29 13:30] LABS: Direct Bilirubin 6.9 mg/dl (0.0-0.4)
--- NOTE | 2024-10-29 16:26 | PTCARENOTE ---
Systems reviewed. Attempted to wean patient off Precedex gtt. Patient agitated and pulling on restraints. Cursing at and calling RN 'Glenny'. Unable to reorient. MSAS followed; Ativan administered. PO intake offered; patient continuing to refuse.
Condom cath intact. Urine output tea colored. Vitals stable. Afebrile. NSR on tele, rate in the 80-90's, pulse ox 96% on 2L nc. Patient repositioned for comfort. Safe environment maintained.
[2024-10-29] MEDS: LOVENOX 40 MG SC (17:28)
[2024-10-29 18:52] LABS: Hepatitis A IgM Antibody Negative (Negative)
[2024-10-29 20:26] LABS: Hepatitis B Surface Antigen Negative (Negative)
[2024-10-29 20:29] LABS: Hepatitis B Core Ab, IgM Negative (Negative)
[2024-10-29 20:43] LABS: Hepatitis B Surface Antibody Positive; Hepatitis C Antibody Negative (Negative)
--- NOTE | 2024-10-29 23:21 | PTCARENOTE ---
pt reassessed, no changes. precedex gtt infusing. CHG bath and oral care provided. restraints remain in place. care continues
[2024-10-30] VITALS (26 sets, daily range): BP systolic 96–126; BP diastolic 69–96; BMI 24.0
[2024-10-30] MEDS: ATIVAN 1 MG IV ×5 (01:01→23:23)
--- NOTE | 2024-10-30 04:17 | PTCARENOTE ---
AM labs sent. no changes in assessment noted. precedex continues. MSAS ranging from 2-10 overnight. pt able to tell me name, , where we are intermittently throughout night. care continues
[2024-10-30 04:29] LABS: Hematocrit 30.6 % (39.0-52.0); Hemoglobin 11.2 g/dL (13.0-18.0); Mean Corp Hgb Conc. 36.6 g/dL (33.0-37.0); Mean Corpuscular Hgb 36.7 pg (27.0-31.0); Mean Corpuscular Volume 100.3 fL (80.0-94.0); Mean Platelet Volume 11.1 fL (7.4-10.4); Platelet Count 108 10^3/uL (130-400); Red Blood Cell Count 3.05 10^6/uL (4.70-6.10); Red Cell Dist. Width 14.8 % (11.5-14.5); White Blood Cell Count 7.7 10^3/uL (4.8-10.8)
[2024-10-30 04:32] LABS: INR 1.82; PT 21.2 Sec (11.4-14.6)
[2024-10-30 04:48] LABS: ALT (SGPT) 43 U/L (0-50); AST (SGOT) 219 U/L (17-59); Albumin 2.6 g/dl (3.5-5.0); Alkaline Phosphatase 194 U/L (38-126); Blood Urea Nitrogen 5 mg/dl (9-20); Calcium 7.9 mg/dl (8.4-10.2); Carbon Dioxide 25 mmol/L (22-30); Chloride 105 mmol/L (98-107); Estimated Creatinine Clearance > 125 ml/min; Glucose 107 mg/dl (70-99); Magnesium 1.8 mg/dl (1.6-2.3); Phosphorus 2.6 mg/dl (2.5-4.5); Potassium 4.5 mmol/L (3.5-5.1); Sodium 137 mmol/L (135-145); Total Bilirubin 9.5 mg/dl (0.2-1.3); Total Protein 6.1 g/dl (6.3-8.2); eGFR > 60.00
[2024-10-30] MEDS: PRECEDEX 100 IV ×2 (05:18→17:17)
--- NOTE | 2024-10-30 07:15 | W.PN.INTV ---
Today's Communication / Plan
Recommendations
Ativan as needed
Phenobarb
Wean Precedex
Assessment
-
Assessment:
44-year-old male with history of underlying bipolar disorder, anxiety, depression, migraines, who smokes 5 cigarettes daily and has alcohol use disorder presented to the emergency room with abdominal pain and distention/constipation with recent
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
management/critical care management 10/29/24.
Abdominal distention and trouble moving bowels
Alcohol use disorder with alcohol withdrawal
Recent traumatic fall from scaffolding
Mild qppqco-kqsondriim-dkifvkrspt 10.7, MCV 99.7
Mild thrombocytopenia-platelet 97
Elevated liver functions
Hypoalbuminemia
Cholelithiasis
Moderate right upper quadrant and retroperitoneal lymphadenopathy
Nonobstructing left upper quadrant jejunal-jejunal intussusception
Alcohol hepatitis
Severe diffuse hepatic steatosis
Cirrhosis
Splenomegaly
Conditions present prior to admission:
Bipolar disorder.
Alcohol use disorder.
History alcohol withdrawal seizure 03/15/2024
Anxiety.
Depression.
Migraines.
Jaw and nasal surgery.
Incomplete healed left anterior 3rd, 4th, 5th, 6th and 7th ribs
Cigarette smoker-5 cigarettes daily.
Plan
Remains critically ill on Precedex drip going through withdrawal
Supplemental oxygen as needed
Aspiration precautions
Incentive spirometry
Head of bed elevation
Continue to follow MSAS
Alcohol withdrawal treatment protocol will continue
Supplements glucose and thiamine to prevent Wernicke's encephalopathy
Supplement multivitamins and folate
Replete deficiencies and glucose, potassium, magnesium and phosphorus
Benzodiazepines as needed-diazepam or lorazepam
Precedex drip as needed
Phenobarbital initiated
CT abdomen summarized below
Gastroenterology following-correspondence reviewed
Follow LFTs
Check ammonia
Consider lactulose
Prednisone for alcohol hepatitis
Follow MELD score
MiraLAX as needed
PPI continues
Monitor for acute cholecystitis
Follow hemoglobin
Follow thrombocytopenia
Alcohol cessation counseling
Nicotine patch
Smoking cessation counseling
Consider psychiatry evaluation
Consider rehabilitation
DVT prophylaxis-on Lovenox
GI prophylaxis-on pantoprazole
nutrition
Early mobilization
Critical care statement: A total of 45 minutes of critical care time was provided for this patient today. This includes management of unstable vital signs, treatment for and prevention of alcohol withdrawal, evaluation of the patient at bedside,
reviewing the patient's pertinent medical records including radiographs, microbiology, laboratory evaluations, management of alcohol withdrawal, management of Precedex drip and discussion with primary team, consultants, pharmacy, nutrition,
physical therapy, case management, charge nurse, critical care nursing, and respiratory therapy.
Diagnostic data:
CT chest abdomen and pelvis 10/26/2024-mild secretions right side mid thorax, incompletely healed left anterior 3rd, 4th, 5th, 6th and 7th ribs, minimal right pleural effusion, severe diffuse hepatic steatosis, small volume ascites, distended
gallbladder with layering sludge/cholelithiasis, moderate right upper quadrant and retroperitoneal lymphadenopathy, splenomegaly, horseshoe kidney nonobstructing left upper quadrant jejunal intussusception
CT head 10/26/24-no CT evidence for acute intracranial hemorrhage or transcortical infarct, mild to moderate bilateral frontal and parietal volume loss, mild cerebellar volume loss
CT abdomen and pelvis 10/27/24-mildly elevated right hemidiaphragm, small right and minimal left pleural effusion, severe diffuse hepatic steatosis, small to moderate volume pelvic ascites, moderate splenomegaly secondary to portal hypertension,
moderate right upper quadrant and retroperitoneal lymphadenopathy, portal colopathy, severe edema and wall thickening in the gallbladder, cholelithiasis and gallbladder sludge
Doppler study ultrasound 10/28/24-moderate gallbladder sludge, mild gallbladder wall thickening, acute cholecystitis cannot be ruled out, mild hepatomegaly, at hepatic fatty infiltration
Chest x-ray/-NAD
Subjective Dataa
Subjective Data
Date of Service:
Date of Service: October 30, 2024
Chief Complaint: Store Lead Follow Up and Pulmonary Follow Up
Subjective:
still agitated, occasionally delirious, somewhat sedated this morning, no respiratory distress reliable review of systems unobtainable
Review of Systems
General: Other ( per HPI)
Objective Data
Data Reviewed
Vital Signs / I&O / Oxygen:
Vital Signs
Temp Pulse Resp BP Pulse Ox
98.1 F 67 11 124/86 98
10/30/24 03:37 10/30/24 07:00 10/30/24 07:00 10/30/24 07:00 10/30/24 07:00
Intake and Output
10/29/24 10/30/24 10/31/24
06:59 06:59 06:59
Intake Total 890.5 / 984.4 973.9 / 978.0 4.1 / 4.1
Output Total 1100 / 1355 1705 / 1705
Balance -209.5 / -370.6 -731.1 / -727.0 4.1 / 4.1
SaO2 98
Nasal Cannula flow liters per 2
minute
Physical Exam
General: Respiratory Distress (n) and Comfortable
HEENT: Normocephalic, Anicteric and Moist Mucous Membranes
Cardiovascular: Regular Rhythm
Respiratory: Wheeze, Crackles (n), Rhonchi (n), Non-Labored Respirations, Accessory Resp Muscle Use and Stridor
GI: Soft, Non Distended and Non Tender
Neurology: No Motor Deficits
Skin: Warm, Good Color, Cyanosis, Jaundice and Rash (n)
Labs/Micro/Reports
Lab Data
10/30/24 04:14
10/30/24 04:14
Laboratory Results
10/30/24
04:14
PT 21.2 H
INR 1.82
[2024-10-30] MEDS: LIDOCAINE 4% PATCH 1 PATCH TOPICAL (07:39)
[2024-10-30] MEDS: MIRALAX PO (07:39)
[2024-10-30] MEDS: NICODERM TRANSDERMAL 21 MG TRANSDERM (07:39)
[2024-10-30] MEDS: THIAMINE INJECTION 200 MG IV (07:40)
[2024-10-30] MEDS: PHENOBARBITAL 65 MG IV ×3 (07:40→21:27)
[2024-10-30] MEDS: PROTONIX IV 40 MG IV ×2 (07:40→19:23)
[2024-10-30] MEDS: LAMICTAL PO (07:40)
[2024-10-30] MEDS: FOLVITE PO (07:40)
[2024-10-30] MEDS: NSS (PRESERVATIVE FREE) 10 ML IV ×2 (07:40→19:23)
[2024-10-30] MEDS: ATIVAN 2 MG IV ×5 (07:41→17:17)
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
--- NOTE | 2024-10-30 08:13 | PTCARENOTE ---
Patient assessment at start of shift. Patient yelling for his mother, asking for a shirt and verbally abusive to staff. Attempts at redirection, reorientation met with verbally inappropriate statements.. Attempts to provide oral intake met with
patient spitting at staff. Continue to reorient to day, date, surroundings and events. Maintain safe environment, provide emotional support and cares as needed. Update with steward/stewardess smoke room team during morning episode. Continue attempts at po intake,
constant redirection/reorientation, attempt to wean prescedex as tolerated. Follow up medications with pharmacy and via emar. Critical care nursing at bedside.
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
[2024-10-30 11:19] LABS: Ammonia 47 umol/L (9-30)
[2024-10-30] MEDS: LACTULOSE ENEMA 300 ML RECTAL ×2 (13:49→21:27)
--- NOTE | 2024-10-30 15:32 | PTCARENOTE ---
Patients fiance at bedside. Patient very restless and agitated at times. Fiance very upset. Expressing concerns that tis is not patients first time with Etoh problems. States she believes he will do better inpatient. Hoping psychiatrist, case
managers can steer patient into best treatment options. She also expressing grave concerns about his liver status and history with Etoh. Continue with teaching, emotional support and supportive cares. Lactulose enema given earlier this shift.
Patient very resistant to receiving treatment. Became very agitated with cares during and post. Continue to maintain safe environment. SPD protocol. Continue supportive cares and emotional support. Follow up assessment remains unchanged.
[2024-10-30] MEDS: FOLVITE 50.2 MG IV (15:50)
--- NOTE | 2024-10-30 15:58 | W.PN.GI.CBS2 ---
Addendum entered and electronically signed by Dariel Ley MD 10/30/24 17:13:
I saw and examined the patient.
The MANAGER APPLIED or PA's note was reviewed and I agree with the note.
Comment:
This patient is a 44-year-old man with a history of alcohol abuse admitted after a fall with subsequent abdominal pain. He then started becoming encephalopathic. He currently has woken up but is not cooperative. No active bleeding.
abd: soft, nontender
DF 46 with bili stable and INR slightly worse
impression
alcohol abuse
paraesophageal varices
worsening liver numbers
plan:
lactulose enemas
once able to tolerate po and if numbers continue to worsen will start prednisolone 40g
needs alcohol abstinence
Original Note:
Today's Communication / Plan
-
as per plan
Assessment / Plan
-
44-year-old male past medical history of alcohol abuse with fall 10 days ago and subsequent abdominal pain, distention, constipation. He underwent a CT scan with multiple findings including healed fractures in the chest, small amount of ascites,
distended gallbladder with gallbladder wall thickening and layering sludge, moderate right upper quadrant and retroperitoneal lymphadenopathy, mild splenomegaly probably due to portal hypertension, mild paraesophageal varices, horseshoe kidney,
nonobstructing left upper quadrant jejunal jejunal intussusception. Lab work consistent with elevated bilirubin, elevated coags, normal hemoglobin. Repeat CT oral contrast no intussusception.
Abd pain improved - may have been from constipation, diff includes gastritis, PUD as was taking NSAIDs.
New diagnosis of cirrhosis based on imaging 2/2 EtOH.
Liver numbers worsening c/w acute alc hep. DF was 40, today is 44.
Dr. Morrison discussed with his fianc�e. He has no contraindications for steroids except I am concerned about his compliance. We will start prednisolone 40 mg once patient able to tolerate oral intake. Patient is actively spitting water, food at
staff. Has mild paraesophageal varices on CT. With how patient is reacting to staff would not place NGT/Dobhoff at present time.
Give another Lactulose enema this evening.
Monitor MELD labs daily.
Will also check to ensure he is responding in 1 week.
Once he is no longer acutely withdrawing, we can decide if he is safe to be discharged with prednisolone or if it needs to be stopped.
Subjective
Subjective
Date of Service: October 30, 2024
Patient in soft restraints for his own protection. Fecal management system in place and receiving Lactulose enemas. Awake, oriented to month and year. Was spitting and combative with staff today. On precedex for withdrawal and to start Phenobarb.
Continues on Pantoprazole 40 mg IV BID. No signs of GI bleeding, Hgb stable. Stool brown. Patient still NPO as he will spit food and water at staff out of non compliance. Hopefully as he his mentation improves he will cooperate. Holding on
Prednisolone until can take oral meds. DF today is 44.9
Objective
Data Reviewed
Laboratory Data:
Laboratory Results
10/30/24 04:14
10/30/24 04:14
Laboratory Results
PT 21.2 Sec (11.4-14.6) H 10/30/24 04:14
INR 1.82 10/30/24 04:14
APTT 43.3 Sec (23.4-35.0) H 10/29/24 04:19
Phosphorus 2.6 mg/dl (2.5-4.5) 10/30/24 04:14
Magnesium 1.8 mg/dl (1.6-2.3) 10/30/24 04:14
Total Bilirubin 9.5 mg/dl (0.2-1.3) H 10/30/24 04:14
AST 219 U/L (17-59) H 10/30/24 04:14
ALT 43 U/L (0-50) 10/30/24 04:14
Alkaline Phosphatase 194 U/L (38-126) H 10/30/24 04:14
Lipase 102 U/L (23-300) 10/26/24 18:59
Vital Signs and I&O:
Vital Signs
Temp Pulse Resp BP Pulse Ox
98.4 F 67 12 111/81 98
10/30/24 11:39 10/30/24 13:00 10/30/24 13:00 10/30/24 13:00 10/30/24 13:56
I&O
10/29/24 10/30/24 10/31/24
06:59 06:59 06:59
Intake Total 890.5 / 984.4 973.9 / 978.0 59.0 / 59.0
Output Total 1100 / 1355 1705 / 1705 450 / 450
Balance -209.5 / -370.6 -731.1 / -727.0 -391.0 / -391.0
Physical Exam
Physical Exam
HEENT: Other (+ icteric)
Cardiology: Normal Sinus Rhythm
Pulmonary: Clear (anterior)
GI: Soft, Non Distended, Non Tender and Normal Bowel Sounds
Rectal: Other (fecal management tube in place, brown loose stool (Lactulose enema))
Extremities: No Edema and Other (soft restraints in place for patient safety)
Neuro: Non Focal and Other (oriented to person, month and year)
--- NOTE | 2024-10-30 17:13 | W.PN.GI.CBS2 ---
Assessment / Plan
-
44-year-old male past medical history of alcohol abuse with fall 10 days ago and subsequent abdominal pain, distention, constipation. He underwent a CT scan with multiple findings including healed fractures in the chest, small amount of ascites,
distended gallbladder with gallbladder wall thickening and layering sludge, moderate right upper quadrant and retroperitoneal lymphadenopathy, mild splenomegaly probably due to portal hypertension, mild paraesophageal varices, horseshoe kidney,
nonobstructing left upper quadrant jejunal jejunal intussusception. Lab work consistent with elevated bilirubin, elevated coags, normal hemoglobin. Repeat CT oral contrast no intussusception.
Abd pain improved - may have been from constipation, diff includes gastritis, PUD as was taking NSAIDs.
New diagnosis of cirrhosis based on imaging 2/ EtOH.
Liver numbers worsening c/w acute alc hep. DF was 40, today is 44.
Dr. Morrison discussed with his fianc�e. He has no contraindications for steroids except I am concerned about his compliance. We will start prednisolone 40 mg once patient able to tolerate oral intake. Patient is actively spitting water, food at
staff. Has mild paraesophageal varices on CT. With how patient is reacting to staff would not place NGT/Dobhoff at present time.
Give another Lactulose enema this evening.
Monitor MELD labs daily.
Will also check to ensure he is responding in 1 week.
Once he is no longer acutely withdrawing, we can decide if he is safe to be discharged with prednisolone or if it needs to be stopped.
Subjective
Subjective
Date of Service: October 30, 2024
Objective
Data Reviewed
Laboratory Data:
Laboratory Results
10/30/24 04:14
10/30/24 04:14
Laboratory Results
PT 21.2 Sec (11.4-14.6) H 10/30/24 04:14
INR 1.82 10/30/24 04:14
APTT 43.3 Sec (23.4-35.0) H 10/29/24 04:19
Phosphorus 2.6 mg/dl (2.5-4.5) 10/30/24 04:14
Magnesium 1.8 mg/dl (1.6-2.3) 10/30/24 04:14
Total Bilirubin 9.5 mg/dl (0.2-1.3) H 10/30/24 04:14
AST 219 U/L (17-59) H 10/30/24 04:14
ALT 43 U/L (0-50) 10/30/24 04:14
Alkaline Phosphatase 194 U/L (38-126) H 10/30/24 04:14
Lipase 102 U/L (23-300) 10/26/24 18:59
Vital Signs and I&O:
Vital Signs
Temp Pulse Resp BP Pulse Ox
98.1 F 76 13 111/75 98
10/30/24 15:59 10/30/24 16:00 10/30/24 16:00 10/30/24 16:00 10/30/24 16:28
I&O
10/29/24 10/30/24 10/31/24
06:59 06:59 06:59
Intake Total 890.5 / 984.4 973.9 / 978.0 71.6 / 71.6
Output Total 1100 / 1355 1705 / 1705 750 / 750
Balance -209.5 / -370.6 -731.1 / -727.0 -678.4 / -678.4
[2024-10-30] MEDS: LOVENOX 40 MG SC (17:17)
--- NOTE | 2024-10-30 18:11 | PTCARENOTE ---
Patient with several mucoidal stools loose watery post enema from this afternoon. Complete bed bath, condom cath replaced. Rectal tube intact to receive second enema this pm. Follow up MSAS still q2hr. Patient still yelling out, cursing and verbally
abusive to staff at times. Redirect and reorient. Continue to reinforce plan of cares. Provide, cares, teaching and attempts to provide nutrition oral intake ongoing. SPD protocol maintained, frequent patient safety checks and rounds ongoing. GI
team here this afternoon continue ongoing labs and assessment follow up
[2024-10-31] VITALS (17 sets, daily range): BP systolic 86–131; BP diastolic 58–83; BMI 24.1
[2024-10-31] MEDS: ATIVAN 1 MG IV ×3 (01:21→23:03)
--- NOTE | 2024-10-31 01:43 | PTCARENOTE ---
precedex gtt continues. multiple PRN ativan doses given per MSAS protocol. no other changes in assessment noted. lactulose enema given HS. restraints continue. care ongoing
[2024-10-31 04:10] LABS: INR 1.68
[2024-10-31 04:14] LABS: Ammonia 57 umol/L (9-30)
[2024-10-31 04:16] LABS: ALT (SGPT) 42 U/L (0-50); AST (SGOT) 200 U/L (17-59); Albumin 2.7 g/dl (3.5-5.0); Alkaline Phosphatase 200 U/L (38-126); Blood Urea Nitrogen 11 mg/dl (9-20); Calcium 7.9 mg/dl (8.4-10.2); Carbon Dioxide 24 mmol/L (22-30); Chloride 105 mmol/L (98-107); Direct Bilirubin 7.8 mg/dl (0.0-0.4); Estimated Creatinine Clearance > 125 ml/min; Glucose 105 mg/dl (70-99); Magnesium 1.7 mg/dl (1.6-2.3); Phosphorus 3.1 mg/dl (2.5-4.5); Potassium 4.4 mmol/L (3.5-5.1); Sodium 138 mmol/L (135-145); Total Bilirubin 9.8 mg/dl (0.2-1.3); Total Protein 6.3 g/dl (6.3-8.2); eGFR > 60.00
[2024-10-31 04:19] LABS: % Basophils 1.3 % (0-2); % Eosinophils 1.3 % (0-6); % Immature Granulocytes 0.3 % (0-0.5); % Lymphocytes 15.9 % (20.5-51.1); % Monocytes 8.3 % (1.7-9.3); % Neutrophils 72.9 % (42.2-75.2); Absolute Basophils 0.1 10^3/uL (0-0.2); Absolute Eosinophils 0.1 10^3/uL (0-0.7); Absolute Lymphocytes 1.3 10^3/uL (1.2-3.4); Absolute Monocytes 0.7 10^3/uL (0.1-0.6); Absolute Neutrophils 5.8 10^3/uL (1.4-6.5); Hematocrit 32.9 % (39.0-52.0); Hemoglobin 11.7 g/dL (13.0-18.0); Mean Corp Hgb Conc. 35.6 g/dL (33.0-37.0); Mean Corpuscular Hgb 36.1 pg (27.0-31.0); Mean Corpuscular Volume 101.5 fL (80.0-94.0); Mean Platelet Volume 10.4 fL (7.4-10.4); Nucleated Red Blood Cells % 0 % (-); Platelet Count 119 10^3/uL (130-400); Red Blood Cell Count 3.24 10^6/uL (4.70-6.10); Red Cell Dist. Width 15.3 % (11.5-14.5); White Blood Cell Count 7.9 10^3/uL (4.8-10.8)
[2024-10-31] MEDS: PRECEDEX 100 IV (04:51)
--- NOTE | 2024-10-31 05:07 | PTCARENOTE ---
AM labs sent. no changes in assessment, precedex continues, weaned as able. care ongoing
--- NOTE | 2024-10-31 07:20 | W.PN.INTV ---
Today's Communication / Plan
Recommendations
wean Precedex
Continue phenobarb
Continue Ativan as needed
Lactulose initiated
Prednisolone initiated
Assessment
-
Assessment:
44-year-old male with history of underlying bipolar disorder, anxiety, depression, migraines, who smokes 5 cigarettes daily and has alcohol use disorder presented to the emergency room with abdominal pain and distention/constipation with recent
history of falling off scaffolding landing on top of the ladder on his left side 10 days prior to admission noted to likely have alcohol withdrawal and transferred to ICU for Precedex and phenobarbital-hims clerk consulted for withdrawal
management/critical care management 10/29/24.
Abdominal distention and trouble moving bowels
Alcohol use disorder with alcohol withdrawal
Recent traumatic fall from scaffolding
Mild wwsshk-dwjnkrupfr-iymhyqkawl 10.7, MCV 99.7
Mild thrombocytopenia-platelet 97
Elevated liver functions
Alcohol hepatitis
Hypoalbuminemia
Cholelithiasis
Moderate right upper quadrant and retroperitoneal lymphadenopathy
Nonobstructing left upper quadrant jejunal-jejunal intussusception
Alcohol hepatitis
Severe diffuse hepatic steatosis
Cirrhosis
Splenomegaly
Conditions present prior to admission:
Bipolar disorder.
Alcohol use disorder.
History alcohol withdrawal seizure 03/15/2024
Anxiety.
Depression.
Migraines.
Jaw and nasal surgery.
Incomplete healed left anterior 3rd, 4th, 5th, 6th and 7th ribs
Cigarette smoker-5 cigarettes daily.
Plan
Continues to be critically ill on Precedex drip going through withdrawal
Supplemental oxygen as needed
Aspiration precautions
Incentive spirometry
Head of bed elevation
Follow MSAS
Alcohol withdrawal treatment protocol will continues
Supplements glucose and thiamine to prevent Wernicke's encephalopathy
Supplement multivitamins and folate
Replete deficiencies and glucose, potassium, magnesium and phosphorus
Benzodiazepines as needed- Ativan
Precedex drip as needed
Phenobarbital per protocol
CT abdomen summarized below
Gastroenterology following-correspondence reviewed
Follow LFTs
Ammonia elevated
Lactulose initiated
Prednisone for alcohol hepatitis
Follow MELD score
PPI continues
Monitor for acute cholecystitis
Follow hemoglobin
Follow thrombocytopenia
Alcohol cessation counseling
Nicotine patch
Smoking cessation counseling
Eventual psychiatry evaluation
Consider rehabilitation
DVT prophylaxis-on Lovenox
GI prophylaxis-on pantoprazole
Nutrition
Early mobilization
Critical care statement: A total of 42 minutes of critical care time was provided for this patient today. This includes management of unstable vital signs, treatment for and prevention of alcohol withdrawal, evaluation of the patient at bedside,
reviewing the patient's pertinent medical records including radiographs, microbiology, laboratory evaluations, management of alcohol withdrawal, management of Precedex drip and discussion with primary team, consultants, pharmacy, nutrition,
physical therapy, case management, charge nurse, critical care nursing, and respiratory therapy.
Diagnostic data:
CT chest abdomen and pelvis 10/26/2024-mild secretions right side mid thorax, incompletely healed left anterior 3rd, 4th, 5th, 6th and 7th ribs, minimal right pleural effusion, severe diffuse hepatic steatosis, small volume ascites, distended
gallbladder with layering sludge/cholelithiasis, moderate right upper quadrant and retroperitoneal lymphadenopathy, splenomegaly, horseshoe kidney nonobstructing left upper quadrant jejunal intussusception
CT head 10/26/24-no CT evidence for acute intracranial hemorrhage or transcortical infarct, mild to moderate bilateral frontal and parietal volume loss, mild cerebellar volume loss
CT abdomen and pelvis 10/27/24-mildly elevated right hemidiaphragm, small right and minimal left pleural effusion, severe diffuse hepatic steatosis, small to moderate volume pelvic ascites, moderate splenomegaly secondary to portal hypertension,
moderate right upper quadrant and retroperitoneal lymphadenopathy, portal colopathy, severe edema and wall thickening in the gallbladder, cholelithiasis and gallbladder sludge
Doppler study ultrasound 10/28/24-moderate gallbladder sludge, mild gallbladder wall thickening, acute cholecystitis cannot be ruled out, mild hepatomegaly, at hepatic fatty infiltration
Chest x-ray/-NAD
Subjective Dataa
Subjective Data
Date of Service:
Date of Service: October 31, 2024
Chief Complaint: Bin Piler Follow Up and Pulmonary Follow Up
Subjective:
still somewhat confused, not tremulous, no respiratory distress, no complaints of abdominal pain
Review of Systems
General: Other ( Per HPI)
Objective Data
Data Reviewed
Vital Signs / I&O / Oxygen:
Vital Signs
Temp Pulse Resp BP Pulse Ox
98.5 F 73 15 103/73 97
10/31/24 03:32 10/31/24 06:00 10/31/24 06:00 10/31/24 06:00 10/31/24 06:00
Intake and Output
10/30/24 10/31/24 11/01/24
06:59 06:59 06:59
Intake Total 973.9 / 978.0 278.7 / 278.7
Output Total 1705 / 1705 1500 / 1500
Balance -731.1 / -727.0 -1221.3 / -1221.3
SaO2 97
Nasal Cannula flow liters per 2
minute
Physical Exam
General: Respiratory Distress (n) and Comfortable
HEENT: Normocephalic, Anicteric and Moist Mucous Membranes
Cardiovascular: Regular Rhythm
Respiratory: Wheeze, Crackles (n), Rhonchi (n), Non-Labored Respirations, Accessory Resp Muscle Use and Stridor
GI: Soft, Non Distended and Non Tender
Neurology: No Motor Deficits
Skin: Warm, Good Color, Cyanosis, Jaundice and Rash (n)
Labs/Micro/Reports
Lab Data
10/31/24 03:30
10/31/24 03:30
Laboratory Results
10/31/24
03:30
PT 20.0 H
INR 1.68
[2024-10-31] MEDS: LIDOCAINE 4% PATCH 1 PATCH TOPICAL (07:29)
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
[2024-10-31] MEDS: NICODERM TRANSDERMAL 21 MG TRANSDERM (07:31)
[2024-10-31] MEDS: LAMICTAL 100 MG PO (07:33)
[2024-10-31] MEDS: MIRALAX 17 GRAMS PO (07:33)
[2024-10-31] MEDS: LUMINAL 32.4 MG PO ×3 (07:35→20:58)
[2024-10-31] MEDS: FOLVITE 1 MG PO (07:35)
[2024-10-31] MEDS: PROTONIX IV 40 MG IV (07:36)
[2024-10-31] MEDS: NSS (PRESERVATIVE FREE) 10 ML IV (07:37)
[2024-10-31] MEDS: THIAMINE INJECTION 250 MG IV (07:37)
[2024-10-31] MEDS: FLUSH (NSS) 3 FLUSH IV (07:38)
--- NOTE | 2024-10-31 08:18 | PTCARENOTE ---
Received pt this am on low dose precedex, lethargic but arousable. Cooperative with repositioning and mouth care. Was able to take po meds, but then refused water or food. Condom cath and rectal trumpet in place. Pt with slow, garbled speech,
confused conversation but able to give name and birthday. Asked for fiance Glenny. Remains restrained for safety given precedex stopped again this am after pt took oral medications. Otherwise please refer to work list.
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
[2024-10-31] MEDS: LR 1000 IV (10:07)
[2024-10-31] MEDS: FLEXBUMIN 100 IV (10:07)
[2024-10-31] MEDS: XIFAXAN 550 MG PO ×2 (11:10→20:58)
[2024-10-31] MEDS: PRELONE 40 MG PO (11:10)
--- NOTE | 2024-10-31 11:21 | CM ---
Patient seen at bedside in ICU. pending [facility] assessment when patient more alert. CM will continue to follow for discharge planning needs.
Plan; [facility]
--- NOTE | 2024-10-31 11:21 | PTCARENOTE ---
pt had 550ml of stool mixed with liquid enema
[2024-10-31 11:52] LABS: Iron 84 ug/dl (49-181)
[2024-10-31 12:01] LABS: Percent Saturation 65 % (20-50); Total Iron Binding Capacity 128 ug/dl (261-462)
--- NOTE | 2024-10-31 12:55 | PTCARENOTE ---
after drinking some juice and water, eating a few bites of eggs and pudding, pt c/o abd discomfort and not eating further. fiance in to visit and assisted pt to eat. she will be back after work to visit with pt. Otherwise no changed.
[2024-10-31 12:57] LABS: TSH Reflex To Free T4 6.12 uIU/ml (0.47-4.68)
[2024-10-31 14:04] LABS: Free T4 2.12 ng/dl (0.78-2.19)
--- NOTE | 2024-10-31 14:41 | W.PN.GI.CBS2 ---
Addendum entered and electronically signed by Dariel Ley MD 10/31/24 18:33:
I saw and examined the patient.
The SOCKET PULLER or PA's note was reviewed and I agree with the note.
Comment:
Pt more awake, able to converse earlier, taking in oral meds
icteric
confused
impression
alcohol abuse/hepatitis
abnl lfts
encephelopathy
plan:
lactulose and xifaxin started by mouth
started prednisolone
will follow DF and clinical status
avoid nsaids
needs alcohol abstinence
Original Note:
Today's Communication / Plan
-
Started prednisolone today (dose #1). Continue prednisolone 40mg once daily.
Continue lactulose and Xifaxan for HE.
Assessment / Plan
-
44-year-old male past medical history of alcohol abuse with fall 10 days ago and subsequent abdominal pain, distention, constipation. He underwent a CT scan with multiple findings including healed fractures in the chest, small amount of ascites,
distended gallbladder with gallbladder wall thickening and layering sludge, moderate right upper quadrant and retroperitoneal lymphadenopathy, mild splenomegaly probably due to portal hypertension, mild paraesophageal varices, horseshoe kidney,
nonobstructing left upper quadrant jejunal jejunal intussusception. Lab work consistent with elevated bilirubin, elevated coags, normal hemoglobin. Repeat CT oral contrast no intussusception.
Abd pain improved - may have been from constipation, diff includes gastritis, PUD as was taking NSAIDs.
New diagnosis of cirrhosis based on imaging 2/2 EtOH.
Liver numbers worsening c/w acute alc hep. DF was 44, today 46. Prednisolone started today 10/31/24.
Ammonia increased and patient is awake, alert, oriented but somewhat confused. Continue lactulose, add Xifaxan. Patient is tolerating PO intake.
As previously noted, concern with compliance with the prednisolone. Dr. Morrison had discussed with his fianc�e.
To order labs to calculate L[place] score to ensure he is responding in 1 week.
Once he is no longer acutely withdrawing, we can decide if he is safe to be discharged with prednisolone or if it needs to be stopped.
Subjective
Subjective
Date of Service: October 31, 2024
Patient is awake but still somewhat confused, although is oriented (person/place/present month and year). Prednisolone started today.
Ammonia level today 57 (increased from 47 yesterday). He remains on lactulose and Xifaxan. With worsening LFTs with DF calculated at 46, he did receive his first dose of prednisolone today. He denies abdominal pain, nausea or vomiting. He is
tolerating a diet. Now tolerating oral lactulose and will add oral Xifaxan.
Objective
Data Reviewed
Laboratory Data:
Laboratory Results
10/31/24 03:30
10/31/24 03:30
Laboratory Results
PT 20.0 Sec (11.4-14.6) H 10/31/24 03:30
INR 1.68 10/31/24 03:30
APTT 43.3 Sec (23.4-35.0) H 10/29/24 04:19
Phosphorus 3.1 mg/dl (2.5-4.5) 10/31/24 03:30
Magnesium 1.7 mg/dl (1.6-2.3) 10/31/24 03:30
Total Bilirubin 9.8 mg/dl (0.2-1.3) H 10/31/24 03:30
AST 200 U/L (17-59) H 10/31/24 03:30
ALT 42 U/L (0-50) 10/31/24 03:30
Alkaline Phosphatase 200 U/L (38-126) H 10/31/24 03:30
Lipase 102 U/L (23-300) 10/26/24 18:59
Vital Signs and I&O:
Vital Signs
Temp Pulse Resp BP Pulse Ox
99.4 F 93 13 97/66 94
10/31/24 11:18 10/31/24 12:00 10/31/24 12:00 10/31/24 12:00 10/31/24 11:00
I&O
10/30/24 10/31/24 11/01/24
06:59 06:59 06:59
Intake Total 973.9 / 978.0 278.7 / 278.7 864.1 / 864.1
Output Total 1705 / 1705 1500 / 1500 850 / 850
Balance -731.1 / -727.0 -1221.3 / -1221.3 14.1 / 14.1
Physical Exam
Physical Exam
HEENT: Other (+scleral icterus and jaundiced)
Cardiology: Normal Sinus Rhythm
Pulmonary: Clear
GI: Soft, Distended, Non Tender and Normal Bowel Sounds
Rectal: Other (fecal management system in place; brown stool)
Extremities: No Edema
Neuro: Other (awake, alert; somewhat confused)
[2024-10-31 14:54] LABS: Folate 6.1 ng/ml (2.76-20); Vitamin B12 984 pg/ml (239-931)
[2024-10-31] MEDS: DUPHALAC/CHRONULAC 20 GRAMS PO ×2 (15:33→20:58)
--- NOTE | 2024-10-31 15:53 | PTCARENOTE ---
Pt rectal tube kinked, stool down to bottom of bed. complete bath given, pt oriented but with confused, muted conversations. precedex has remained off since am. pt is c/o abdominal discomfort, hyperactive bowel sounds. otherwise no changes.
[2024-10-31] MEDS: LOVENOX 40 MG SC (17:17)
--- NOTE | 2024-10-31 17:51 | PTCARENOTE ---
ivf capped as pt has been drinking liquids t/o day.
[2024-10-31] MEDS: ROXICODONE 5 MG PO (20:58)
[2024-10-31] MEDS: PROTONIX 40 MG PO (20:58)
[2024-10-31] MEDS: LR IV (22:24)
[2024-11-01] VITALS (16 sets, daily range): BP systolic 109–145; BP diastolic 71–99; BMI 24.1
[2024-11-01] MEDS: ATIVAN 2 MG IV ×2 (00:46→03:42)
--- NOTE | 2024-11-01 01:30 | PTCARENOTE ---
pt restless and agitated overnight, MSAS elevated, PRN ativan given per MSAS protocol. pt bale to verbalize name, , and that he is at [facility]. restraints continue. CHG bath. CC replaced, RT in place and flushed. care continues.
--- NOTE | 2024-11-01 04:12 | PTCARENOTE ---
AM labs sent. RT removed, pt with moderate size BM. remains agitated, PRN ativan given, see MAR. restraints continue. care ongoing
[2024-11-01 04:24] LABS: Hematocrit 30.7 % (39.0-52.0); Hemoglobin 11.4 g/dL (13.0-18.0); Mean Corp Hgb Conc. 37.1 g/dL (33.0-37.0); Mean Corpuscular Hgb 36.4 pg (27.0-31.0); Mean Corpuscular Volume 98.1 fL (80.0-94.0); Mean Platelet Volume 10.6 fL (7.4-10.4); Platelet Count 122 10^3/uL (130-400); Red Blood Cell Count 3.13 10^6/uL (4.70-6.10); Red Cell Dist. Width 15.7 % (11.5-14.5); White Blood Cell Count 14.6 10^3/uL (4.8-10.8)
[2024-11-01] MEDS: PRECEDEX 100 IV (04:29)
--- NOTE | 2024-11-01 04:32 | PTCARENOTE ---
RASS 3, pt agitated/restless/tremulous/tachycardic to 130s. thrashing in bed, throwing legs off side of bed. Precedex gtt restarted.
[2024-11-01 04:45] LABS: ALT (SGPT) 38 U/L (0-50); AST (SGOT) 159 U/L (17-59); Albumin 3.3 g/dl (3.5-5.0); Alkaline Phosphatase 189 U/L (38-126); Blood Urea Nitrogen 11 mg/dl (9-20); Calcium 8.2 mg/dl (8.4-10.2); Carbon Dioxide 23 mmol/L (22-30); Chloride 103 mmol/L (98-107); Estimated Creatinine Clearance > 125 ml/min; Glucose 115 mg/dl (70-99); Magnesium 1.6 mg/dl (1.6-2.3); Phosphorus 2.7 mg/dl (2.5-4.5); Potassium 4.3 mmol/L (3.5-5.1); Sodium 136 mmol/L (135-145); Total Bilirubin 8.7 mg/dl (0.2-1.3); Total Protein 7.1 g/dl (6.3-8.2); eGFR > 60.00
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
--- NOTE | 2024-11-01 07:50 | W.PN.INTV ---
Today's Communication / Plan
Recommendations
Continue Precedex drip-attempt to wean
Add Seroquel
Prednisolone added for alcohol hepatitis-DF improved
Possible paracentesis
If able to be weaned off Precedex then consider transfer out of ICU-call pulmonary if respiratory issues arise
Assessment
-
Assessment:
44-year-old male with history of underlying bipolar disorder, anxiety, depression, migraines, who smokes 5 cigarettes daily and has alcohol use disorder presented to the emergency room with abdominal pain and distention/constipation with recent
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
management/critical care management 10/29/24.
Abdominal distention and trouble moving bowels
Alcohol use disorder with alcohol withdrawal
Recent traumatic fall from scaffolding
Mild yokmbb-inxslpstce-taxvrkpysi 10.7, MCV 99.7
Mild thrombocytopenia-platelet 97
Elevated liver functions
Alcohol hepatitis
Hypoalbuminemia
Cholelithiasis
Moderate right upper quadrant and retroperitoneal lymphadenopathy
Nonobstructing left upper quadrant jejunal-jejunal intussusception
Alcohol hepatitis
Severe diffuse hepatic steatosis
Cirrhosis
Splenomegaly
Conditions present prior to admission:
Bipolar disorder.
Alcohol use disorder.
History alcohol withdrawal seizure 03/15/2024
Anxiety.
Depression.
Migraines.
Jaw and nasal surgery.
Incomplete healed left anterior 3rd, 4th, 5th, 6th and 7th ribs
Cigarette smoker-5 cigarettes daily.
Plan
The patient remains critically ill on Precedex drip going through withdrawal
Supplemental oxygen as needed-attempt to wean to room air
Aspiration precautions
Incentive spirometry
Head of bed elevation
Continue to follow MSAS
Alcohol withdrawal treatment protocol will continues
Supplements glucose and thiamine to prevent Wernicke's encephalopathy
Supplement multivitamins and folate
Replete deficiencies and glucose, potassium, magnesium and phosphorus
Benzodiazepines as needed- Ativan
Precedex drip as needed
Phenobarbital per protocol-increased dose
Seroquel added
CT abdomen summarized below
Gastroenterology following-correspondence reviewed
Follow LFTs
Ammonia elevated
Lactulose initiated
Prednisone for alcohol hepatitis
Follow MELD score
PPI continues
Monitor for acute cholecystitis
Paracentesis if there is enough fluid
Eventual EGD
Follow hemoglobin
Follow thrombocytopenia
Transfuse if needed
Alcohol cessation counseling
Nicotine patch
Smoking cessation counseling
Eventual psychiatry evaluation
Consider rehabilitation
DVT prophylaxis-on Lovenox
GI prophylaxis-on pantoprazole
Nutrition
Early mobilization
Critical care statement: A total of 40 minutes of critical care time was provided for this patient today. This includes management of unstable vital signs, treatment for and prevention of alcohol withdrawal, evaluation of the patient at bedside,
reviewing the patient's pertinent medical records including radiographs, microbiology, laboratory evaluations, management of alcohol withdrawal, management of Precedex drip and discussion with primary team, consultants, pharmacy, nutrition,
physical therapy, case management, charge nurse, critical care nursing, and respiratory therapy.
Diagnostic data:
CT chest abdomen and pelvis 10/26/2024-mild secretions right side mid thorax, incompletely healed left anterior 3rd, 4th, 5th, 6th and 7th ribs, minimal right pleural effusion, severe diffuse hepatic steatosis, small volume ascites, distended
gallbladder with layering sludge/cholelithiasis, moderate right upper quadrant and retroperitoneal lymphadenopathy, splenomegaly, horseshoe kidney nonobstructing left upper quadrant jejunal intussusception
CT head 10/26/24-no CT evidence for acute intracranial hemorrhage or transcortical infarct, mild to moderate bilateral frontal and parietal volume loss, mild cerebellar volume loss
CT abdomen and pelvis 10/27/24-mildly elevated right hemidiaphragm, small right and minimal left pleural effusion, severe diffuse hepatic steatosis, small to moderate volume pelvic ascites, moderate splenomegaly secondary to portal hypertension,
moderate right upper quadrant and retroperitoneal lymphadenopathy, portal colopathy, severe edema and wall thickening in the gallbladder, cholelithiasis and gallbladder sludge
Doppler study ultrasound 10/28/24-moderate gallbladder sludge, mild gallbladder wall thickening, acute cholecystitis cannot be ruled out, mild hepatomegaly, at hepatic fatty infiltration
Chest x-ray/-NAD
Subjective Dataa
Subjective Data
Date of Service:
Date of Service: November 01, 2024
Chief Complaint: Interlocker Follow Up and Pulmonary Follow Up
Subjective:
had to go back on Precedex, still confused, no complaints of shortness of breath, abdominal pain, nursing reports abdominal distention increased
Review of Systems
General: Other ( per HPI)
Objective Data
Data Reviewed
Vital Signs / I&O / Oxygen:
Vital Signs
Temp Pulse Resp BP Pulse Ox
98.1 F 102 23 136/94 94
11/01/24 07:47 11/01/24 06:12 11/01/24 06:12 11/01/24 06:12 11/01/24 06:12
Intake and Output
10/31/24 11/01/24 11/02/24
06:59 06:59 06:59
Intake Total 278.7 / 278.7 2312.5 / 2312.5
Output Total 1500 / 1500 1525 / 1525
Balance -1221.3 / -1221.3 787.5 / 787.5
SaO2 94
Nasal Cannula flow liters per 2
minute
Physical Exam
General: Respiratory Distress (n) and Comfortable
HEENT: Normocephalic, Anicteric and Moist Mucous Membranes
Cardiovascular: Regular Rhythm
Respiratory: Wheeze and Non-Labored Respirations
GI: Soft, Non Distended and Non Tender
Neurology: Awake, Alert, No Motor Deficits and Other ( confused)
Skin: Warm, Good Color, Cyanosis and Jaundice
Labs/Micro/Reports
Lab Data
11/01/24 04:07
11/01/24 04:07
[2024-11-01] MEDS: FOLVITE 1 MG PO (08:07)
[2024-11-01] MEDS: DUPHALAC/CHRONULAC PO (08:07)
[2024-11-01] MEDS: LAMICTAL 100 MG PO (08:07)
[2024-11-01] MEDS: LIDOCAINE 4% PATCH 1 PATCH TOPICAL (08:07)
[2024-11-01] MEDS: LUMINAL 32.4 MG PO (08:08)
[2024-11-01] MEDS: MIRALAX PO (08:09)
[2024-11-01] MEDS: PRELONE 40 MG PO (08:09)
[2024-11-01] MEDS: THIAMINE INJECTION 250 MG IV (08:10)
[2024-11-01] MEDS: PROTONIX 40 MG PO ×2 (08:10→20:11)
[2024-11-01] MEDS: XIFAXAN 550 MG PO ×2 (08:10→20:10)
[2024-11-01] MEDS: ATIVAN 1 MG PO (08:52)
--- NOTE | 2024-11-01 09:17 | PTCARENOTE ---
Received pt this am with precedex infusing, confused conversation again at a mumble when aroused. Initially noncompliant with mouth care, then eventually allowed care. Took oral medications (chews as well) with juice. Miralax held as well as
lactulose, Dr Choudhary aware. Also discussed increased abdominal distension t/o afternoon yesterday and overnight. Softly distended and pt c/o abd pain intermittently. +bowel sounds, passing flatus. Condom cath in place draining tea colored urine.
Once medications taken orally, again stopped precedex. Pt more restless, ativan given per msas, pt currently sleeping. Otherwise please see worklist.
[2024-11-01] MEDS: NICODERM TRANSDERMAL 21 MG TRANSDERM (09:54)
[2024-11-01] MEDS: SEROQUEL 25 MG PO (10:33)
--- NOTE | 2024-11-01 11:16 | W.PN.GI.CBS2 ---
Addendum entered and electronically signed by Dariel Ley MD 11/01/24 14:22:
I saw and examined the patient.
The FLAME GOUGER or PA's note was reviewed and I agree with the note.
Comment:
Pt with some confusion but able to take meds
abd: mildly tender
impression:
alcoholic hepatitis
encepathology
abd d/c ascites
plan:
DF improved after 1 day steroids (lille score due 11/07)
consider u/s with paracentesis tomorrow
continue thiamine/folate
alcohol abstinence
eventual egd
Original Note:
Today's Communication / Plan
-
etiology of symptoms with concern for ETOH hepatitis/withdrawal with possible underlying cirrhosis with decompensation with ascites, portocolopathy
cont rx per medical team for withdrawal
DF 46 on 10/31 with prednisolone started, repeat today 40.8 (with control of 13) , MELD 3.0 - 21
will need Lille score 5/7
leukocytosis noted with start of steroids no fever or signs of infection --
reviewed with nursing staff t/c para in AM as some worsening distention over last few days-- no prior para in past
will need eventual EGD
cont Xifaxan and Lactulose with elevated ammonia
cont PPI
cont Miralax -- can stop in diarrhea
cont thiamine and folate
good nutrition as tolerated
ETOH abstinence and avoid toxins
eventual OP EGD
updated significant other
As previously noted, concern with compliance with the prednisolone. Dr. Morrison had discussed with his fianc�e.
To order labs to calculate Lille score to ensure he is responding in 1 week.
Once he is no longer acutely withdrawing, we can decide if he is safe to be discharged with prednisolone or if it needs to be stopped.
Assessment / Plan
-
44-year-old male past medical history of alcohol abuse with fall 10 days ago and subsequent abdominal pain, distention, constipation. Since admission concern for ETOH withdrawal and worsening liver dysfunction with decompensation. With worsening
LFT's and INR and Prednisolone added 10/31.
10/26/24 CT Chest/abd/pel W Iv Cont
1. Subacute incompletely healed fractures of the left anterolateral 3rd, 4th, 5th, 6th, and 7th ribs with surrounding callus formation.
2. Minimal right pleural effusion.
3. Mild dependent subsegmental atelectasis in the right lower lobe.
ABDOMEN and PELVIS:
1. Severe diffuse hepatic steatosis.
2. Small volume of ascites.
3. Distended gallbladder, diffuse gallbladder wall thickening, and layering sludge/cholelithiasis in the gallbladder lumen. Diagnostic possibilities are (1) acute calculus cholecystitis or (2) reactive gallbladder wall thickening in the setting of
adjacent liver disease.
4. Moderate right upper quadrant and retroperitoneal lymphadenopathy. Diagnostic possibilities are (1) reactive inflammatory lymphadenopathy or (2) malignant lymphadenopathy.
5. Mild splenomegaly (probably secondary to portal hypertension).
6. Mild paraesophageal varices.
7. Horseshoe kidney.
8. Nonobstructing left upper quadrant jejunal-jejunal intussusception.
10/27/24 CT A/p
1. SEVERE DIFFUSE HEPATIC STEATOSIS.
2. Small to moderate volume of pelvic ascites and small volume of upper abdominal ascites.
3. Moderate splenomegaly which is likely secondary to portal hypertension.
4. Moderate right upper quadrant and retroperitoneal lymphadenopathy.
5. Horseshoe kidney.
6. Moderate wall thickening in the proximal colon most suggestive of PORTAL COLOPATHY.
7. Severe edema and wall thickening in the gallbladder.
8. Cholelithiasis and gallbladder sludge.
9. Small right and minimal left pleural effusions with adjacent compressive atelectasis in the basilar segments of the lower lobes.
10/28/24 US doppler
IMPRESSION: Moderate gallbladder sludge. Mild gallbladder wall thickening. Acute cholecystitis cannot excluded. Clinical and laboratory correlation recommended
Mild hepatomegaly stable
Hepatic fatty infiltration. Stable Nonvisualization of the pancreas
-ETOH abuse with withdrawal
-abdominal pain -- been from constipation, diff includes gastritis, PUD as was taking NSAIDs. vs other
-ascites
-elevated ammonia with concern for HE
-thrombocytopenia
-s/p fall
-concern for ETOH hepatitis with worsening labs since admission and addition of Steroids with concern for decompensation and possible underlying cirrhosis
-imaging with severe hepatic steatosis
-possible left upper quadrant jejunal/jejunal intussusception- non obstructing not see on follow up imaging
-CT with portal colopathy
-GB edema
-thrombocytopenia
-splenomegaly
-hypoalbuminemia
-coagulopathy
-pleural effusion
-elevated ferritin
-hx bipolar disorder
-hx benzo withdrawal seizure
-tobacco abuse
PLAN:
etiology of symptoms with concern for ETOH hepatitis/withdrawal with possible underlying cirrhosis with decompensation with ascites, portocolopathy
cont rx per medical team for withdrawal
DF 46 on 10/31 with prednisolone started, repeat today 40.8 (with control of 13) , MELD 3.0 - 21
will need Lille score 5/
leukocytosis noted with start of steroids no fever or signs of infection --
reviewed with nursing staff t/c para in AM as some worsening distention over last few days-- no prior para in past
will need eventual EGD
cont Xifaxan and Lactulose with elevated ammonia
cont PPI
cont Miralax -- can stop in diarrhea
cont thiamine and folate
good nutrition as tolerated
ETOH abstinence and avoid toxins
eventual OP EGD
updated significant other
As previously noted, concern with compliance with the prednisolone. Dr. Morrison had discussed with his fianc�e.
To order labs to calculate Lille score to ensure he is responding in 1 week.
Once he is no longer acutely withdrawing, we can decide if he is safe to be discharged with prednisolone or if it needs to be stopped.
Subjective
Subjective
Date of Service: November 01, 2024
5/1 brown stool on 2 gram na diet remain sedated and confused occasional complaints of abdominal pain
Objective
Data Reviewed
Laboratory Data:
Laboratory Results
11/01/24 04:07
11/01/24 04:07
Laboratory Results
PT 20.0 Sec (11.4-14.6) H 10/31/24 03:30
INR 1.68 10/31/24 03:30
APTT 43.3 Sec (23.4-35.0) H 10/29/24 04:19
Phosphorus 2.7 mg/dl (2.5-4.5) 11/01/24 04:07
Magnesium 1.6 mg/dl (1.6-2.3) 11/01/24 04:07
Total Bilirubin 8.7 mg/dl (0.2-1.3) H 11/01/24 04:07
AST 159 U/L (17-59) H 11/01/24 04:07
ALT 38 U/L (0-50) 11/01/24 04:07
Alkaline Phosphatase 189 U/L (38-126) H 11/01/24 04:07
Lipase 102 U/L (23-300) 10/26/24 18:59
Vital Signs and I&O:
Vital Signs
Temp Pulse Resp BP Pulse Ox
98.1 F 95 18 129/95 96
11/01/24 07:47 11/01/24 09:00 11/01/24 09:00 11/01/24 08:00 11/01/24 09:00
I&O
10/31/24 11/01/24 11/02/24
06:59 06:59 06:59
Intake Total 278.7 / 278.7 2312.5 / 2316.7 127.2 / 127.2
Output Total 1500 / 1500 1525 / 1525
Balance -1221.3 / -1221.3 787.5 / 791.7 127.2 / 127.2
Physical Exam
Physical Exam
HEENT: Other (jaundice, sedated )
Cardiology: Other (tachy)
Pulmonary: Clear
GI: Soft, Distended and Non Tender
Extremities: No Edema
Neuro: Other (sedated minimal response to verbal stimuli )
--- NOTE | 2024-11-01 12:23 | PTCARENOTE ---
Pt remains restless, but drowsy and confused. Systems otherwise unchanged. Incontinent small soft bm this afternoon. Music playing to try and relax pt, warm blanket applied.
--- NOTE | 2024-11-01 14:08 | PN.CDI ---
CDI
- -
CDI:
Physician Documentation Request
Admit Date: 10/26/24 23:00
Dear Doctor Arash,
Please review the following and provide your response in the progress notes.
Clinical Indicators:
PN, 10/30
#Worsening total bilirubinemia and jaundice
#Abnormal LFTs ( AST >>> ALT) likely ETOH hepatitis
#Probably secondary to PHT
PN, 11/01
#...ETOH Bipolar Migraines Nicotine dependence here for ETOH withdrawal Delirium tremens #Hepatic Encephalopathy Cirrhosis.
#ETOH withdrawal/Delirium tremens
#...hepatic encephalopathy
#ETOH use disorder
#-transferred overnight to ICU d/t agitation confusion requiring Precedex gtt, ...
#...-restraints prn
#...-Ammonia elevated
#...-started on lactulose enema, cont HS as per GI, oral lactulose ordered
#Low normotensive/hypotension w hypoalbuminemia
#...-once albumin bolus ordered 10/31
Laboratory Tests
10/26/24 10/27/24 10/28/24
18:59 06:02 03:40
Total Bilirubin 6.0 H 5.6 H 8.0 H
10/29/24 10/30/24 10/31/24
04:19 04:14 03:30
Total Bilirubin 9.7 H 9.5 H 9.8 H
11/01/24
04:07
Total Bilirubin 8.7 H
Laboratory Tests
10/27/24 10/30/24 10/31/24
06:02 10:54 03:30
Ammonia 31 H 47 H 57 H
Based on the above and your clinical assessment, please clarify the additional possibilities of the etiology/etiologies of the agitation/confusion...
Multifactorial Acute Metabolic Encephalopathy - due to metabolic derangements(please specify), bipolar, PHT....
Hepatic Encephalopathy only
Alcoholic Encephalopathy only
Other (please specify)
Use of terms such as suspected, likely, concern for, or probable (associated with a specific diagnosis that is being evaluated, monitored, or treated as if it exists) are acceptable and can be coded in the inpatient setting, when documented at the
time of discharge.
Thank you,
Angeles Bass RN BSN CCDS
CDI Specialist
Please contact via tiger text
Please use your independent medical judgment in providing your response.
--- NOTE | 2024-11-01 14:27 | CM ---
Patient seen at bedside in ICU. CM spoke with [facility] liaison and requested update. Per liaison patient is checked on daily but patient is not yet able to have discussion about planning. CM will continue to follow for discharge planning needs.
Plan; [facility].
[2024-11-01] MEDS: DUPHALAC/CHRONULAC 20 GRAMS PO ×2 (14:45→21:49)
[2024-11-01] MEDS: LUMINAL 64.8 MG PO ×2 (14:45→21:49)
--- NOTE | 2024-11-01 15:12 | PTCARENOTE ---
systems reviewed. pt slept about 2 hours, woke up restless and confused. wants to go upstairs. refused lunch, but able to get some juice in mixed with lactulose. pt given phenobarb with some convincing as 'I don't want to take any more meds'.
asked pt what he takes for his bipolar disorder and he said lamotrigine. reports taking 100mg twice a day and 'it took me 3 years to get on that regimen'. pharmacy updated and checking. systems otherwise unchanged.
[2024-11-01] MEDS: LOVENOX 40 MG SC (17:41)
--- NOTE | 2024-11-01 20:26 | PTCARENOTE ---
Received pt from previous RN. Pt is AAOx1 (self), confused/forgetful, drowsy at times. Mumbles words. Restraints in place, b/l wrist. NSR/ sinus tach on the monitor. Pt on RA O2 sat 94%, lungs diminished/coarse. C/C in place draining tea colored
urine. Pt attempts to kick legs out of bed and tries to get up, pt is reoriented and emotional support provided. SCDs in place. CHG and mouth care provided. Safe environment maintained.
[2024-11-01] MEDS: SEROQUEL 50 MG PO (21:50)
[2024-11-02] VITALS (14 sets, daily range): BP systolic 115–144; BP diastolic 81–106; BMI 23.8
[2024-11-02] MEDS: SEROQUEL 25 MG PO (00:21)
--- NOTE | 2024-11-02 00:38 | PTCARENOTE ---
Systems reviewed, no new changes in assessment. Pt agitated, yelling out. Restraints in place. PRN Seroquel given (see MAR). Safe environment maintained.
[2024-11-02 04:14] LABS: Hematocrit 30.8 % (39.0-52.0); Hemoglobin 11.4 g/dL (13.0-18.0); Mean Corpuscular Hgb 36.8 pg (27.0-31.0); Mean Corpuscular Volume 99.4 fL (80.0-94.0); Mean Platelet Volume 10.5 fL (7.4-10.4); Platelet Count 138 10^3/uL (130-400); Red Cell Dist. Width 16.2 % (11.5-14.5); White Blood Cell Count 11.4 10^3/uL (4.8-10.8)
[2024-11-02 04:16] LABS: INR 1.65
[2024-11-02 04:25] LABS: ALT (SGPT) 40 U/L (0-50); AST (SGOT) 138 U/L (17-59); Albumin 2.8 g/dl (3.5-5.0); Alkaline Phosphatase 170 U/L (38-126); Blood Urea Nitrogen 9 mg/dl (9-20); Calcium 8.4 mg/dl (8.4-10.2); Carbon Dioxide 27 mmol/L (22-30); Chloride 101 mmol/L (98-107); Estimated Creatinine Clearance > 125 ml/min; Glucose 110 mg/dl (70-99); Magnesium 1.6 mg/dl (1.6-2.3); Phosphorus 2.9 mg/dl (2.5-4.5); Potassium 4.1 mmol/L (3.5-5.1); Sodium 135 mmol/L (135-145); Total Bilirubin 8.2 mg/dl (0.2-1.3); Total Protein 6.5 g/dl (6.3-8.2); eGFR > 60.00
--- NOTE | 2024-11-02 04:48 | PTCARENOTE ---
Systems reviewed, no new changes in assessment. Pt agitated and cursing at staff, attempted to reorient pt. Pt cleaned up. Safe environment maintained.
[2024-11-02] MEDS: NICODERM TRANSDERMAL 21 MG TRANSDERM (07:47)
[2024-11-02] MEDS: LIDOCAINE 4% PATCH 1 PATCH TOPICAL (07:48)
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
[2024-11-02] MEDS: LUMINAL 64.8 MG PO (07:53)
[2024-11-02] MEDS: LAMICTAL 100 MG PO (07:53)
[2024-11-02] MEDS: DUPHALAC/CHRONULAC 20 GRAMS PO ×3 (07:58→21:53)
[2024-11-02] MEDS: MIRALAX PO (07:58)
[2024-11-02] MEDS: PRELONE 40 MG PO (08:00)
[2024-11-02] MEDS: FOLVITE 1 MG PO (08:03)
[2024-11-02] MEDS: PROTONIX 40 MG PO ×2 (08:03→20:35)
[2024-11-02] MEDS: XIFAXAN 550 MG PO ×2 (08:03→20:35)
[2024-11-02] MEDS: THIAMINE INJECTION 250 MG IV (08:05)
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
--- NOTE | 2024-11-02 08:55 | W.PN.INTV ---
Today's Communication / Plan
Recommendations
Continue Seroquel
Decrease phenobarbital
Check abdominal ultrasound-possible paracentesis
Steroids for alcohol hepatitis
If remains off Precedex patient could be transferred out of ICU-at that point oval or circular glass cutter will sign off
Assessment
-
Assessment:
44-year-old male with history of underlying bipolar disorder, anxiety, depression, migraines, who smokes 5 cigarettes daily and has alcohol use disorder presented to the emergency room with abdominal pain and distention/constipation with recent
history of falling off scaffolding landing on top of the ladder on his left side 10 days prior to admission noted to likely have alcohol withdrawal and transferred to ICU for Precedex and phenobarbital-oval or circular glass cutter consulted for withdrawal
management/critical care management 10/29/24.
Alcohol use disorder with alcohol withdrawal and DTs
Abdominal distention and trouble moving bowels-resolved
Recent traumatic fall from scaffolding
Mild fwkwxy-eezdfkyohc-udiomamazl 10.7, MCV 99.7
Mild thrombocytopenia-platelet 97
Elevated liver functions
Alcohol hepatitis
Hypoalbuminemia
Cholelithiasis
Moderate right upper quadrant and retroperitoneal lymphadenopathy
Nonobstructing left upper quadrant jejunal-jejunal intussusception
Alcohol hepatitis
Severe diffuse hepatic steatosis
Cirrhosis
Splenomegaly
Conditions present prior to admission:
Bipolar disorder.
Alcohol use disorder.
History alcohol withdrawal seizure 03/15/2024
Anxiety.
Depression.
Migraines.
Jaw and nasal surgery.
Incomplete healed left anterior 3rd, 4th, 5th, 6th and 7th ribs
Cigarette smoker-5 cigarettes daily.
Plan
Mental status is improved slightly-still remains quite disoriented
Supplemental oxygen as needed-attempt to wean to room air
Aspiration precautions
Incentive spirometry
Head of bed elevation
Follow MSAS
Alcohol withdrawal treatment protocol will continues
Supplements glucose and thiamine to prevent Wernicke's encephalopathy
Supplement multivitamins and folate
Replete deficiencies and glucose, potassium, magnesium and phosphorus
Benzodiazepines as needed- Ativan-has not needed in the last 24 hours
Precedex drip as needed-has been weaned
Phenobarbital per protocol-increased dose on 11/01/2024-we will reduce as he is quite sedated
Seroquel added and appears to be helping
CT abdomen summarized below
Gastroenterology following-correspondence reviewed
Follow LFTs
Ammonia was elevated
Lactulose initiated -only 1 bowel movement/24 hours-will increase lactulose dose-goal 2-3 BMs
Prednisone for alcohol hepatitis
Follow MELD score
PPI continues
Monitor for acute cholecystitis
Abdominal ultrasound 11/02/2024 to see if there is enough fluid for tap
Paracentesis if there is enough fluid
Eventual EGD
Follow hemoglobin
Follow thrombocytopenia
Transfuse if needed
Alcohol cessation counseling
Nicotine patch
Smoking cessation counseling
Eventual psychiatry evaluation
Consider rehabilitation
DVT prophylaxis-on Lovenox
GI prophylaxis-on pantoprazole
Nutrition
Early mobilization
If remains off Precedex patient could be transferred out of ICU-at that point oval or circular glass cutter will sign off
Critical care statement: A total of 40 minutes of critical care time was provided for this patient today. This includes management of unstable vital signs, treatment for and prevention of alcohol withdrawal, evaluation of the patient at bedside,
reviewing the patient's pertinent medical records including radiographs, microbiology, laboratory evaluations, management of alcohol withdrawal, management of Precedex drip and discussion with primary team, consultants, pharmacy, nutrition,
physical therapy, case management, charge nurse, critical care nursing, and respiratory therapy.
Family discussion
Dr. Fishman reviewed at length and in person 11/02/2024 with anay Murrieta as well as patient's brother-current clinical situation, current active issues including encephalopathy, withdrawal, unlikely but possible Warnicke's, abdominal issues including
alcohol hepatitis, need for steroids, possible paracentesis, etc., prognosis guarded, hoping that with 'time' mental status will improve-they were appreciative
Diagnostic data:
CT chest abdomen and pelvis 10/26/2024-mild secretions right side mid thorax, incompletely healed left anterior 3rd, 4th, 5th, 6th and 7th ribs, minimal right pleural effusion, severe diffuse hepatic steatosis, small volume ascites, distended
gallbladder with layering sludge/cholelithiasis, moderate right upper quadrant and retroperitoneal lymphadenopathy, splenomegaly, horseshoe kidney nonobstructing left upper quadrant jejunal intussusception
CT head 10/26/24-no CT evidence for acute intracranial hemorrhage or transcortical infarct, mild to moderate bilateral frontal and parietal volume loss, mild cerebellar volume loss
CT abdomen and pelvis 10/27/24-mildly elevated right hemidiaphragm, small right and minimal left pleural effusion, severe diffuse hepatic steatosis, small to moderate volume pelvic ascites, moderate splenomegaly secondary to portal hypertension,
moderate right upper quadrant and retroperitoneal lymphadenopathy, portal colopathy, severe edema and wall thickening in the gallbladder, cholelithiasis and gallbladder sludge
Doppler study ultrasound 10/28/24-moderate gallbladder sludge, mild gallbladder wall thickening, acute cholecystitis cannot be ruled out, mild hepatomegaly, at hepatic fatty infiltration
Chest x-ray/-NAD
Subjective Dataa
Subjective Data
Date of Service:
Date of Service: November 02, 2024
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
Subjective:
quite sedate, less agitated, slightly more oriented, mental status still significantly declined, no respiratory distress
Review of Systems
General: Other ( per HPI)
Objective Data
Data Reviewed
Vital Signs / I&O / Oxygen:
Vital Signs
Temp Pulse Resp BP Pulse Ox
98.3 F 93 15 131/98 94
11/02/24 07:32 11/02/24 06:17 11/02/24 06:17 11/02/24 06:17 11/02/24 05:32
Intake and Output
11/01/24 11/02/24 11/03/24
06:59 06:59 06:59
Intake Total 2312.5 / 2316.7 1067.2 / 1067.2
Output Total 1525 / 1525 750 / 750
Balance 787.5 / 791.7 317.2 / 317.2
SaO2 94
Nasal Cannula flow liters per 2
minute
Physical Exam
General: Respiratory Distress (n) and Comfortable
HEENT: Normocephalic and Moist Mucous Membranes
Cardiovascular: Regular Rhythm
Respiratory: Wheeze and Non-Labored Respirations
GI: Soft, Non Distended, Non Tender and Normal Bowel Sounds
Neurology: Awake, Alert, No Motor Deficits and Other ( confused)
Skin: Warm, Good Color, Cyanosis (n) and Jaundice
Labs/Micro/Reports
Lab Data
11/02/24 03:47
11/02/24 03:47
Laboratory Results
11/02/24
03:47
PT 20.0 H
INR 1.65
[2024-11-02] MEDS: MAGNESIUM SULFATE 50 IV (09:12)
--- NOTE | 2024-11-02 09:39 | PTCARENOTE ---
received patient from security shift manager. patient remains lethargic, somnolent, confused, delirious. has bilateral wrist restraints on. He is on room air, 97% with diminished breath sounds. Patient is sinus rhythm to sinus tach on monitor. patient is
ordered regular diet when appropriate. Condom cath replaced and CHG bath completed. Will review orders. Pills given one at a time with apple sauce. Fiance and brother at bedside.
--- NOTE | 2024-11-02 10:30 | CM ---
CM continues to follow for discharge planning. Remains in ICU on Precedex drip with attempts to wean. Pt may require paracentesis.
[facility] is following for coordination of ETOH services when pt is able to make decisions related to substance abuse services and discharge planning.
Plan: Cm to continue to follow.
--- NOTE | 2024-11-02 12:14 | PTCARENOTE ---
Ultrasound is completed at bedside, patient remained asleep during test. will order speech to evaluate swallow function. may hold lunch as patient is unable to remain awake.
[2024-11-02] MEDS: LIDOCAINE 4% PATCH TOPICAL (12:19)
--- NOTE | 2024-11-02 12:20 | PTCARENOTE ---
Patient remains asleep, slept during repositioning, did not apply additional lidocaine patches. will notify provider about patient's somnolence.
--- NOTE | 2024-11-02 15:25 | PTOTSP ---
Speech Language Pathology
Pt seen for clinical bedside swallow evaluation. P.O. trials of jello, regular solids, and thin liquids provided. Prolonged mastication given drowsiness. Cough with consecutive sips of thin liquids. No coughing noted with single sips.
Recommend:
(1) IDDSI Level 6 (soft/bite-sized) and thin liquids
(2) Aspiration precautions: sit upright, slow rate, pinch straw for single sips, monitor for signs of aspiration
(3) Meds whole in puree
(4) CERTIFIED FAMILY MEDIATOR to continue to follow
--- NOTE | 2024-11-02 15:26 | PTCARENOTE ---
Patient became agitated and struck out at staff. wrist restraints placed back on. Patient is also having large amounts of liquid stool, leaking around rectal tube. FMS system put in place. Notified tank crewmember. Patient was too somnolent for
lunch, lunch held. asked about diet order/need for dobhoff tube. no further orders at this time. will reassess need, was able to drink broth and liquids this morning for breakfast.
[2024-11-02] MEDS: LUMINAL PO ×2 (15:42→21:54)
--- NOTE | 2024-11-02 16:15 | W.PN.GI.CBS2 ---
Today's Communication / Plan
-
Discussed with RN and siblings at bedside
Started dysphagia 6 diet with twice daily supplements for nutrition as this is one of the most important treatments of alcoholic hepatitis
Assessment / Plan
-
44-year-old male past medical history of alcohol abuse with fall 10 days ago and subsequent abdominal pain, distention, constipation. Since admission concern for ETOH withdrawal and worsening liver dysfunction with decompensation. With worsening
LFT's and INR and Prednisolone added 10/31.
10/26/24 CT Chest/abd/pel W Iv Cont
1. Subacute incompletely healed fractures of the left anterolateral 3rd, 4th, 5th, 6th, and 7th ribs with surrounding callus formation.
2. Minimal right pleural effusion.
3. Mild dependent subsegmental atelectasis in the right lower lobe.
ABDOMEN and PELVIS:
1. Severe diffuse hepatic steatosis.
2. Small volume of ascites.
3. Distended gallbladder, diffuse gallbladder wall thickening, and layering sludge/cholelithiasis in the gallbladder lumen. Diagnostic possibilities are (1) acute calculus cholecystitis or (2) reactive gallbladder wall thickening in the setting of
adjacent liver disease.
4. Moderate right upper quadrant and retroperitoneal lymphadenopathy. Diagnostic possibilities are (1) reactive inflammatory lymphadenopathy or (2) malignant lymphadenopathy.
5. Mild splenomegaly (probably secondary to portal hypertension).
6. Mild paraesophageal varices.
7. Horseshoe kidney.
8. Nonobstructing left upper quadrant jejunal-jejunal intussusception.
10/27/24 CT A/p
1. SEVERE DIFFUSE HEPATIC STEATOSIS.
2. Small to moderate volume of pelvic ascites and small volume of upper abdominal ascites.
3. Moderate splenomegaly which is likely secondary to portal hypertension.
4. Moderate right upper quadrant and retroperitoneal lymphadenopathy.
5. Horseshoe kidney.
6. Moderate wall thickening in the proximal colon most suggestive of PORTAL COLOPATHY.
7. Severe edema and wall thickening in the gallbladder.
8. Cholelithiasis and gallbladder sludge.
9. Small right and minimal left pleural effusions with adjacent compressive atelectasis in the basilar segments of the lower lobes.
10/28/24 US doppler
IMPRESSION: Moderate gallbladder sludge. Mild gallbladder wall thickening. Acute cholecystitis cannot excluded. Clinical and laboratory correlation recommended
Mild hepatomegaly stable
Hepatic fatty infiltration. Stable Nonvisualization of the pancreas
-ETOH abuse with withdrawal
-abdominal pain -- been from constipation, diff includes gastritis, PUD as was taking NSAIDs. vs other
-ascites
-elevated ammonia with concern for HE
-thrombocytopenia
-s/p fall
-concern for ETOH hepatitis with worsening labs since admission and addition of Steroids with concern for decompensation and possible underlying cirrhosis
-imaging with severe hepatic steatosis
-possible left upper quadrant jejunal/jejunal intussusception- non obstructing not see on follow up imaging
-CT with portal colopathy
-GB edema
-thrombocytopenia
-splenomegaly
-hypoalbuminemia
-coagulopathy
-pleural effusion
-elevated ferritin
-hx bipolar disorder
-hx benzo withdrawal seizure
-tobacco abuse
PLAN:
Start dysphagia 6 diet with twice daily supplementation -make sure patient is awake and alert and upright prior to feeding
Continue steroids for now
No signs of infection
etiology of symptoms with concern for ETOH hepatitis/withdrawal with possible underlying cirrhosis with decompensation with ascites, portocolopathy
cont rx per medical team for withdrawal
DF 46 on 10/31 with prednisolone started, repeat 45 (with control of 12)
will need Lille score 5/7
leukocytosis noted with start of steroids no fever or signs of infection --
No significant ascites on exam and not enough for paracentesis
cont Xifaxan and Lactulose with elevated ammonia
cont PPI
Stopped MiraLAX due to multiple bowel movements and prefer to use lactulose
cont thiamine and folate
good nutrition as tolerated
ETOH abstinence and avoid toxins
eventual OP EGD
updated significant other and discussed with both siblings at bedside
As previously noted, concern with compliance with the prednisolone. Dr. Morrison had discussed with his fianc�e.
To order labs to calculate Lille score to ensure he is responding in 1 week.
Once he is no longer acutely withdrawing, we can decide if he is safe to be discharged with prednisolone or if it needs to be stopped.
Subjective
Subjective
Date of Service: November 02, 2024
Patient awakens to voice and touch. At bedside with his brother Bubba and sister Yadira
Having multiple bowel movements now with good bowel regimen
Objective
Data Reviewed
Laboratory Data:
Laboratory Results
11/02/24 03:47
11/02/24 03:47
Laboratory Results
PT 20.0 Sec (11.4-14.6) H 11/02/24 03:47
INR 1.65 11/02/24 03:47
APTT 43.3 Sec (23.4-35.0) H 10/29/24 04:19
Phosphorus 2.9 mg/dl (2.5-4.5) 11/02/24 03:47
Magnesium 1.6 mg/dl (1.6-2.3) 11/02/24 03:47
Total Bilirubin 8.2 mg/dl (0.2-1.3) H 11/02/24 03:47
AST 138 U/L (17-59) H 11/02/24 03:47
ALT 40 U/L (0-50) 11/02/24 03:47
Alkaline Phosphatase 170 U/L (38-126) H 11/02/24 03:47
Lipase 102 U/L (23-300) 10/26/24 18:59
Vital Signs and I&O:
Vital Signs
Temp Pulse Resp BP Pulse Ox
98 F 98 16 126/90 93
11/02/24 15:30 11/02/24 14:00 11/02/24 14:00 11/02/24 14:00 11/02/24 14:00
I&O
11/01/24 11/02/24 11/03/24
06:59 06:59 06:59
Intake Total 2312.5 / 2316.7 1067.2 / 1067.2
Output Total 1525 / 1525 750 / 750
Balance 787.5 / 791.7 317.2 / 317.2
Physical Exam
Physical Exam
HEENT: Anicteric (Icteric,/jaundice)
Cardiology: Normal Sinus Rhythm
GI: Soft, Distended, Normal Bowel Sounds and Other (Fecal management system in place due to multiple bowel movements)
Rectal: Brown
Extremities: No Edema
Neuro: Other ( awakens to voice with some appropriate responses to his siblings)
[2024-11-02] MEDS: LOVENOX 40 MG SC (17:27)
[2024-11-02] MEDS: DUPHALAC/CHRONULAC PO (18:34)
--- NOTE | 2024-11-02 20:07 | PTCARENOTE ---
Pt is drowsy, wakes up to verbal stimuli, says some incoherent words and goes back to sleep. AOx1 to self, WRAY, becomes agitated when aroused. Restraints in place. Lidocaine patch on left ribs. Abdomen is distended and firm. Condom catheter and FMS.
SCDs on and heels off bed.
[2024-11-02] MEDS: MYLICON 80 MG PO (20:35)
[2024-11-02] MEDS: SEROQUEL 50 MG PO (21:53)
--- NOTE | 2024-11-02 23:30 | PTCARENOTE ---
Phenobarbital held for excessive drowsiness RASS-2
[2024-11-03] VITALS (22 sets, daily range): BP systolic 110–136; BP diastolic 72–96; BMI 23.7
[2024-11-03] MEDS: LUMINAL PO ×3 (00:29→23:31)
[2024-11-03 03:55] LABS: Hematocrit 29.9 % (39.0-52.0); Hemoglobin 10.9 g/dL (13.0-18.0); Mean Corp Hgb Conc. 36.5 g/dL (33.0-37.0); Mean Corpuscular Hgb 36.8 pg (27.0-31.0); Platelet Count 137 10^3/uL (130-400); Red Blood Cell Count 2.96 10^6/uL (4.70-6.10); Red Cell Dist. Width 15.6 % (11.5-14.5); White Blood Cell Count 8.5 10^3/uL (4.8-10.8)
[2024-11-03 04:22] LABS: ALT (SGPT) 41 U/L (0-50); AST (SGOT) 132 U/L (17-59); Albumin 2.7 g/dl (3.5-5.0); Alkaline Phosphatase 151 U/L (38-126); Blood Urea Nitrogen 10 mg/dl (9-20); Calcium 7.9 mg/dl (8.4-10.2); Carbon Dioxide 27 mmol/L (22-30); Chloride 100 mmol/L (98-107); Estimated Creatinine Clearance > 125 ml/min; Glucose 96 mg/dl (70-99); Magnesium 1.8 mg/dl (1.6-2.3); Phosphorus 3.2 mg/dl (2.5-4.5); Potassium 3.6 mmol/L (3.5-5.1); Sodium 134 mmol/L (135-145); Total Protein 6.2 g/dl (6.3-8.2); eGFR > 60.00
[2024-11-03] MEDS: MAGNESIUM SULFATE 102 GRAMS IV ×2 (06:12→08:42)
[2024-11-03] MEDS: KCL 20 MEQ PO ×2 (06:12→08:30)
--- NOTE | 2024-11-03 06:25 | PTCARENOTE ---
Replaced Magnesium, and Potassium.
--- NOTE | 2024-11-03 07:18 | W.PN.HOSP.TC ---
Today's Communication/Plan
-
see a/p
Assessment / Plan
Assessment / Plan
Physical Exam
General: No acute distress, appears comfortable at this time
HEENT: Moist Mucous Membranes and Scleral Icterus
Respiratory: Non Labored Respirations
GI: Soft, nontender. Distended. Bowel sounds present
Skin: Warm, Dry and Jaundice
Neuro: Lethargic but arousable oriented x3 following simple commands
Psych: confused but calm
44M ETOH Bipolar Migraines Nicotine dependence here for ETOH withdrawal Delirium tremens Hepatic Encephalopathy Cirrhosis.
Multifactorial Acute Metabolic Encephalopathy
ETOH withdrawal/Delirium tremens
hepatic encephalopathy
ETOH use disorder
HX ETOH WD Seizure
- prior hx of Seizures in setting of Benzodiazepine withdrawal
- phenobarbital protocol
- MSAS protocol;
- MV/Folate/Thiamine supplementation
- seizure precautions
-cessation counseled
-transferred overnight to ICU d/t agitation confusion requiring Precedex gtt, taper as tolerated
-restraints prn
-Ammonia elevated
-started on lactulose enema, transitioned to PO Lactulose [correction to prior documentation] when tolerating oral meds
-tolerating diet, IVF completed
-GI Site Technician evals appreciated
-cont prednisolone as per GI
-speech eval appreciated soft bite sized diet d/t mental status
#Distended Abd
Abd US notes ascites small, too small for paracentesis
Abd X-ray noted low stool burden, significant amount of gas
prn simethicone
Lactulose reduced as per Gi
#Back pain
2 lidocaine patches ordered
Low normotensive/hypotension w hypoalbuminemia
-once albumin bolus ordered 10/31
-BP and albumin since improved
#Hypophosphatemia
#Borderline Low Mg
Monitor and Replete as necessary
Abdominal discomfort distention and trouble moving bowels.
CT suggest Nonobstructing left upper quadrant jejunal-jejunal intussusception - not present on PO contrast
CT suggest small volume of ascites
- GS consult appreciated no acute surgical intervention indicated at this time
- improved pain/discomfort
Worsening total bilirubinemia and jaundice
Abnormal LFTs ( AST >>> ALT) likely ETOH hepatitis
Severe diffuse hepatic steatosis with small volume of ascites.
Mild splenomegaly and mild paraesophageal varices
Probably secondary to PHT
Moderate RUQ and retroperitoneal LAD
Cirrhosis + ETOH Hepatitis
-Daily MELD score
- avoid NSAIDs
- trend LFTs
- GI consult appreciated patient to start prednisolone when able to tolerate oral (unable to tolerate PO due to confusion agitation)
-US with dopplers - no evidence of PVT
-PPI BID
-Lactulose
Fall 10 days ago and re injured the Lt lower chest
HX blunt /punched trauma complicated with subacute incompletely healed Rib Fxs; the left anterolateral 3rd, 4th, 5th, 6th, and 7th ribs with surrounding callus formation few months ago
Balance dysfunction
Lidocaine topical patch
PT/OT
Distended gallbladder, diffuse gallbladder wall thickening, and layering sludge/cholelithiasis in the gallbladder lumen.
DDX(1) acute calculus cholecystitis or (2) reactive gallbladder wall thickening in the setting of adjacent liver disease.
- afebrile and mild leucocytosis
- more than likely reactive with no RUQ tenderness and adjacent inflammation from cirrhosis
�Monitor fever curve, white count
� Monitor off antibiotics
� GI eval appreciated
- surgery eval appreciated not acute surgical intervention indicated
HX bipolar d/o
Anxiety/depression
HX migraines
- continue Lamotrigine
Chronic nicotine dependence
- on patch
DVT Px: HSQ
Full code
Total Critical Care Time__40___ minutes. I was immediately available to the patient and staff. I personally examined, reviewed labs, diagnostic images/reports, interpretations, treatment plans, discussed patient care with other providers and
patient's fiancee Glenny (patient unable to make decisions), entered orders as appropriate and documented the medical record.
Anticipated Discharge: 24 - 48 hours
Subjective/Interval History
-
Date of Service: November 03, 2024
Awake confused but cooperative calm following simple commands.
Objective Data
-
Labs:
Laboratory Results
11/03/24
03:41
WBC 8.5
Hgb 10.9 L
Hct 29.9 L
Plt Count 137
Sodium 134 L
Potassium 3.6
Chloride 100
Carbon Dioxide 27
BUN 10
Creatinine 0.4 L
Glucose 96
Calcium 7.9 L
Total Bilirubin 7.0 H
AST 132 H
ALT 41
Alkaline Phosphatase 151 H
Vital Signs:
Vital Signs
Temp Pulse Resp BP Pulse Ox
98.2 F 92 13 115/79 94
11/03/24 03:16 11/03/24 06:00 11/03/24 06:00 11/03/24 06:00 11/03/24 06:00
I&O
11/02/24 11/03/24 11/04/24
06:59 06:59 06:59
Intake Total 1067.2 / 1067.2 45 / 45
Output Total 750 / 750 600 / 600
Balance 317.2 / 317.2 -555 / -555
[2024-11-03] MEDS: LIDOCAINE 4% PATCH 1 PATCH TOPICAL (07:41)
[2024-11-03] MEDS: LIDOCAINE 4% PATCH 2 PATCH TOPICAL (07:42)
[2024-11-03] MEDS: NICODERM TRANSDERMAL 21 MG TRANSDERM (07:42)
[2024-11-03] MEDS: PROTONIX 40 MG PO ×2 (07:44→20:50)
[2024-11-03] MEDS: XIFAXAN 550 MG PO ×2 (07:44→20:50)
[2024-11-03] MEDS: MYLICON 80 MG PO ×2 (07:45→18:55)
[2024-11-03] MEDS: PRELONE 40 MG PO (07:45)
[2024-11-03] MEDS: FOLVITE 1 MG PO (07:45)
[2024-11-03] MEDS: LUMINAL 32.4 MG PO (07:45)
[2024-11-03] MEDS: THIAMINE INJECTION 250 MG IV (07:47)
--- NOTE | 2024-11-03 07:55 | W.PN.GI.CBS2 ---
Today's Communication / Plan
-
-- Decrease lactulose in the setting of colonic distention and minimal stool
-- Get patient moving and increase oral intake
-- Check INR for the next 2 mornings
Assessment / Plan
-
44-year-old male past medical history of alcohol abuse with fall 10 days ago and subsequent abdominal pain, distention, constipation. Since admission concern for ETOH withdrawal and worsening liver dysfunction with decompensation. With worsening
LFT's and INR and Prednisolone added 10/31.
10/26/24 CT Chest/abd/pel W Iv Cont
1. Subacute incompletely healed fractures of the left anterolateral 3rd, 4th, 5th, 6th, and 7th ribs with surrounding callus formation.
2. Minimal right pleural effusion.
3. Mild dependent subsegmental atelectasis in the right lower lobe.
ABDOMEN and PELVIS:
1. Severe diffuse hepatic steatosis.
2. Small volume of ascites.
3. Distended gallbladder, diffuse gallbladder wall thickening, and layering sludge/cholelithiasis in the gallbladder lumen. Diagnostic possibilities are (1) acute calculus cholecystitis or (2) reactive gallbladder wall thickening in the setting of
adjacent liver disease.
4. Moderate right upper quadrant and retroperitoneal lymphadenopathy. Diagnostic possibilities are (1) reactive inflammatory lymphadenopathy or (2) malignant lymphadenopathy.
5. Mild splenomegaly (probably secondary to portal hypertension).
6. Mild paraesophageal varices.
7. Horseshoe kidney.
8. Nonobstructing left upper quadrant jejunal-jejunal intussusception.
10/27/24 CT A/p
1. SEVERE DIFFUSE HEPATIC STEATOSIS.
2. Small to moderate volume of pelvic ascites and small volume of upper abdominal ascites.
3. Moderate splenomegaly which is likely secondary to portal hypertension.
4. Moderate right upper quadrant and retroperitoneal lymphadenopathy.
5. Horseshoe kidney.
6. Moderate wall thickening in the proximal colon most suggestive of PORTAL COLOPATHY.
7. Severe edema and wall thickening in the gallbladder.
8. Cholelithiasis and gallbladder sludge.
9. Small right and minimal left pleural effusions with adjacent compressive atelectasis in the basilar segments of the lower lobes.
10/28/24 US doppler
IMPRESSION: Moderate gallbladder sludge. Mild gallbladder wall thickening. Acute cholecystitis cannot excluded. Clinical and laboratory correlation recommended
Mild hepatomegaly stable
Hepatic fatty infiltration. Stable Nonvisualization of the pancreas
11/02/24: Ultrasound negative for significant ascites. Too small for safe paracentesis
11/02/2024 abdominal x-ray shows mild to moderate gaseous distention of the colon with minimal colonic stool
-ETOH abuse with withdrawal
-abdominal pain -- been from constipation, diff includes gastritis, PUD as was taking NSAIDs. vs other
-ascites
-elevated ammonia with concern for HE
-thrombocytopenia
-s/p fall
-concern for ETOH hepatitis with worsening labs since admission and addition of Steroids with concern for decompensation and possible underlying cirrhosis
-imaging with severe hepatic steatosis
-possible left upper quadrant jejunal/jejunal intussusception- non obstructing not see on follow up imaging
-CT with portal colopathy
-GB edema
-thrombocytopenia
-splenomegaly
-hypoalbuminemia
-coagulopathy
-pleural effusion
-elevated ferritin
-hx bipolar disorder
-hx benzo withdrawal seizure
-tobacco abuse
PLAN:
continue dysphagia 6 diet with twice daily supplementation -make sure patient is awake and alert and upright prior to feeding
Continue steroids for now
No signs of infection
etiology of symptoms with concern for ETOH hepatitis/withdrawal with possible underlying cirrhosis with decompensation with ascites
cont rx per medical team for withdrawal
DF 46 on 10/31 with prednisolone started, repeat 45 (with control of 12)
will need Lille score 5/7
leukocytosis noted with start of steroids no fever or signs of infection --
No significant ascites on exam and not enough for paracentesis
cont Xifaxan and Lactulose with elevated ammonia
cont PPI
Stopped MiraLAX due to multiple bowel movements and prefer to use lactulose
cont thiamine and folate
good nutrition as tolerated
ETOH abstinence and avoid toxins
eventual OP EGD
updated significant other and discussed with both siblings at bedside 11/02
- decrease lactulose - may be contributing to bloating and having significant stools -no significant stool burden in the colon but significant gas.
-- Try to get patient moving and eating.
As previously noted, concern with compliance with the prednisolone. Dr. Morrison had discussed with his fianc�e.
To order labs to calculate Lille score to ensure he is responding in 1 week.
Once he is no longer acutely withdrawing, we can decide if he is safe to be discharged with prednisolone or if it needs to be stopped.
Subjective
Subjective
Date of Service: November 03, 2024
patient improving. off sedation and awake and answering appropriately
significant stools overnight
Objective
Data Reviewed
Laboratory Data:
Laboratory Results
11/03/24 03:41
11/03/24 03:41
Laboratory Results
PT 20.0 Sec (11.4-14.6) H 11/02/24 03:47
INR 1.65 11/02/24 03:47
APTT 43.3 Sec (23.4-35.0) H 10/29/24 04:19
Phosphorus 3.2 mg/dl (2.5-4.5) 11/03/24 03:41
Magnesium 1.8 mg/dl (1.6-2.3) 11/03/24 03:41
Total Bilirubin 7.0 mg/dl (0.2-1.3) H 11/03/24 03:41
AST 132 U/L (17-59) H 11/03/24 03:41
ALT 41 U/L (0-50) 11/03/24 03:41
Alkaline Phosphatase 151 U/L (38-126) H 11/03/24 03:41
Lipase 102 U/L (23-300) 10/26/24 18:59
Vital Signs and I&O:
Vital Signs
Temp Pulse Resp BP Pulse Ox
98.6 F 92 13 115/79 94
11/03/24 07:21 11/03/24 06:00 11/03/24 06:00 11/03/24 06:00 11/03/24 06:00
I&O
11/02/24 11/03/24 11/04/24
06:59 06:59 06:59
Intake Total 1067.2 / 1067.2 45 / 45
Output Total 750 / 750 600 / 600
Balance 317.2 / 317.2 -555 / -555
Physical Exam
Physical Exam
HEENT: Anicteric (+icteric)
GI: Soft and Distended
Neuro: Other (awake and oriented x 3 but somnolent)
--- NOTE | 2024-11-03 08:24 | W.PN.INTV ---
Today's Communication / Plan
Recommendations
Continue Seroquel
Decrease phenobarbital due to drowsiness
Abdominal ultrasound on 11/02/2024 showed only a small amount of ascites, unsafe for paracentesis
Steroids for alcohol hepatitis with prednisolone
Given his continued drowsiness/confusion with elevated ammonia, continue ICU level care. If he remains off Precedex by tomorrow then we will consider downgrade to IMU versus telemetry at that time.
Assessment
-
Assessment:
44-year-old male with history of underlying bipolar disorder, anxiety, depression, migraines, who smokes 5 cigarettes daily and has alcohol use disorder presented to the emergency room with abdominal pain and distention/constipation with recent
history of falling off scaffolding landing on top of the ladder on his left side 10 days prior to admission noted to likely have alcohol withdrawal and transferred to ICU for Precedex and phenobarbital-internet marketing analyst consulted for withdrawal
management/critical care management 10/29/24.
Alcohol use disorder with alcohol withdrawal and DTs
Abdominal distention and trouble moving bowels-resolved
Recent traumatic fall from scaffolding
Mild anemia
Mild thrombocytopenia
Transaminitis with hyperbilirubinemia
Alcohol hepatitis
Hypoalbuminemia
Cholelithiasis
Moderate right upper quadrant and retroperitoneal lymphadenopathy
Nonobstructing left upper quadrant jejunal-jejunal intussusception
Severe diffuse hepatic steatosis with concern for cirrhosis
Splenomegaly
Conditions present prior to admission:
Bipolar disorder.
Alcohol use disorder.
History alcohol withdrawal seizure 03/15/2024
Anxiety.
Depression.
Migraines.
Jaw and nasal surgery.
Incomplete healed left anterior 3rd, 4th, 5th, 6th and 7th ribs
Cigarette smoker-5 cigarettes daily.
Plan
Mental status is improved slightly-still remains quite disoriented
Supplemental oxygen as needed-attempt to wean to room air while keeping SpO2 >90-94%
Aspiration precautions
Incentive spirometry
Head of bed elevation
Follow MSAS
Alcohol withdrawal treatment protocol will continues
GI added prednisolone given transaminitis with elevated INR
Continue thiamine
Supplement multivitamins and folate
Replete deficiencies in glucose, potassium, magnesium and phosphorus
Benzodiazepines as needed with Ativan
Precedex drip as needed-has been weaned off
Phenobarbital per protocol-hold for sedation
Seroquel added and appears to be helping
CT abdomen summarized below
Gastroenterology following-correspondence reviewed
Follow LFTs
Ammonia was elevated -continue to trend
Lactulose initiated -titrate to 3�4 loose/formed bowel movements per day
Prednisolone for alcohol hepatitis
Follow MELD-Na score
PPI BID continues
Monitor for acute cholecystitis
Abdominal ultrasound 11/02/2024 shows none of ascitic fluid for safe paracentesis
Eventual EGD
Follow hemoglobin
Follow thrombocytopenia
Transfuse if needed to keep Hb >7 g/dL
Alcohol cessation counseling
Nicotine patch
Smoking cessation counseling
Eventual psychiatry evaluation
Consider rehabilitation
DVT prophylaxis-on Lovenox
GI prophylaxis-on pantoprazole
Nutrition
Early mobilization
Given his continued drowsiness/confusion with elevated ammonia, continue ICU level care. If he remains off Precedex by tomorrow then we will consider downgrade to IMU versus telemetry at that time.
Family discussion
Dr. Fishman reviewed at length and in person 11/02/2024 with anay Murrieta as well as patient's brother-current clinical situation, current active issues including encephalopathy, withdrawal, unlikely but possible Warnicke's, abdominal issues including
alcohol hepatitis, need for steroids, possible paracentesis, etc., prognosis guarded, hoping that with 'time' mental status will improve-they were appreciative
Diagnostic data:
CT chest abdomen and pelvis 10/26/2024-mild secretions right side mid thorax, incompletely healed left anterior 3rd, 4th, 5th, 6th and 7th ribs, minimal right pleural effusion, severe diffuse hepatic steatosis, small volume ascites, distended
gallbladder with layering sludge/cholelithiasis, moderate right upper quadrant and retroperitoneal lymphadenopathy, splenomegaly, horseshoe kidney nonobstructing left upper quadrant jejunal intussusception
CT head 10/26/24-no CT evidence for acute intracranial hemorrhage or transcortical infarct, mild to moderate bilateral frontal and parietal volume loss, mild cerebellar volume loss
CT abdomen and pelvis 10/27/24-mildly elevated right hemidiaphragm, small right and minimal left pleural effusion, severe diffuse hepatic steatosis, small to moderate volume pelvic ascites, moderate splenomegaly secondary to portal hypertension,
moderate right upper quadrant and retroperitoneal lymphadenopathy, portal colopathy, severe edema and wall thickening in the gallbladder, cholelithiasis and gallbladder sludge
Doppler study ultrasound 10/28/24-moderate gallbladder sludge, mild gallbladder wall thickening, acute cholecystitis cannot be ruled out, mild hepatomegaly, at hepatic fatty infiltration
Chest x-ray/-NAD
Total time spent today was 78 minutes for this encounter. Time includes reviewing laboratory test/imaging results, reviewing pertinent medical records, obtaining and reviewing medical history, performing an appropriate exam, ordering medications,
tests and procedures. Time also includes documentation of this encounter, coordinating patient care and communicating with other healthcare professionals. Total time does not include separately billed tests performed on this date of service.
Subjective Dataa
Subjective Data
Date of Service:
Date of Service: November 03, 2024
Chief Complaint: Appointment Setter Follow Up and Pulmonary Follow Up
Subjective:
Patient seen this morning. He is drowsy but answering questions appropriately with intermittent confusion. Says his belly hurts and it appears distended. Heart rate 87, BP 113/79. He is on room air breathing comfortably, saturating 95%.
Review of Systems
General: Other (Unobtainable due to AMS)
Objective Data
Data Reviewed
Vital Signs / I&O / Oxygen:
Vital Signs
Temp Pulse Resp BP Pulse Ox
98.6 F 92 13 115/79 94
11/03/24 07:21 11/03/24 06:00 11/03/24 06:00 11/03/24 06:00 11/03/24 06:00
Intake and Output
11/02/24 11/03/24 11/04/24
06:59 06:59 06:59
Intake Total 1067.2 / 1067.2 45 / 45
Output Total 750 / 750 600 / 600
Balance 317.2 / 317.2 -555 / -555
SaO2 94
Nasal Cannula flow liters per 2
minute
Physical Exam
General: Respiratory Distress (n), Comfortable, Chills (negative) and Sweats (negative)
HEENT: Normocephalic and Moist Mucous Membranes
Cardiovascular: S1-S2, Regular Rhythm and Peripheral Edema (negative)
Respiratory: Clear, Wheeze (negative), Crackles (negative), Rhonchi (negative), Non-Labored Respirations and Stridor (negative)
GI: Soft, Distended, Tender (Mild tenderness to palpation in periumbilical region) and Normal Bowel Sounds
Neurology: No Motor Deficits and Other (Drowsy/confused)
Skin: Warm, Dry, Cyanosis (n) and Jaundice (Icterus bilaterally)
Labs/Micro/Reports
Lab Data
11/03/24 03:41
11/03/24 03:41
[2024-11-03] MEDS: DUPHALAC/CHRONULAC PO (08:29)
[2024-11-03] MEDS: LAMICTAL 100 MG PO (08:32)
--- NOTE | 2024-11-03 08:49 | PTCARENOTE ---
07:00 assumed care. Patient in bed; Awake and alert. able to have conversations able to follow commends. Not agitated and confused. Restraints taking off.
NSR on telemetry +S1 and S2 no edema +pp
VSS: 115/81 - 81 bpm ; RR 14; 94%RA
lungs clear on RA
abdomen round distended tender to palpation FMS in placed draining liquid bowel 300 cc over night . Lactulose decreased from QID to BID
Condom catheter intact draining yellow urine
Peripheral lines : Left x 2: call draper within reach
--- NOTE | 2024-11-03 16:37 | PTCARENOTE ---
Phenobarb held RASS -1 . FMS removed No bowel movement during this shift . Appetite fair
[2024-11-03] MEDS: LOVENOX 40 MG SC (17:49)
[2024-11-03] MEDS: DUPHALAC/CHRONULAC 20 GRAMS PO (17:49)
--- NOTE | 2024-11-03 18:00 | PTCARENOTE ---
Patient remains awake, alert, but drowsy. - agitation. Restraints off since this am. Vital signs stable.
Appetite fair. Condom cath replaced draining dark, clear, concentrated urine
Abdomen distended, Hypoactive Bowel sounds present; NO BM for this shift . Phenobar help due to patient been drowsy physician aware. Lactulose dose schedule at 20:00 administered now
--- NOTE | 2024-11-03 19:41 | PTCARENOTE ---
Pt Aox3, mentation waxes and weans, overall pleasant. C/o abdominal pain, abdomen is distended and firm. PRN Mylicon given. NSR on monitor. lower extremity edema. CC #30. pt able to reposition self in bed.
[2024-11-03] MEDS: SEROQUEL 50 MG PO (22:40)
[2024-11-04] VITALS (17 sets, daily range): BP systolic 99–123; BP diastolic 57–87; PULSE 94; BMI 23.4
--- NOTE | 2024-11-04 01:05 | PTCARENOTE ---
Pt able to make needs known, periods of confusion. Incontinent of stool. CHG bath. bed alarm on. Held 2200 dose of phenobarb, patient hasn't received the med in 24hrs due to excessive sedation.
[2024-11-04 04:33] LABS: INR 1.73; PT 20.5 Sec (11.4-14.6)
[2024-11-04 04:41] LABS: ALT (SGPT) 45 U/L (0-50); AST (SGOT) 122 U/L (17-59); Albumin 2.7 g/dl (3.5-5.0); Alkaline Phosphatase 154 U/L (38-126); Blood Urea Nitrogen 10 mg/dl (9-20); Calcium 7.8 mg/dl (8.4-10.2); Carbon Dioxide 26 mmol/L (22-30); Chloride 100 mmol/L (98-107); Direct Bilirubin 4.4 mg/dl (0.0-0.4); Estimated Creatinine Clearance > 125 ml/min; Glucose 95 mg/dl (70-99); Magnesium 1.8 mg/dl (1.6-2.3); Potassium 3.9 mmol/L (3.5-5.1); Sodium 131 mmol/L (135-145); Total Bilirubin 6.7 mg/dl (0.2-1.3); Total Protein 6.1 g/dl (6.3-8.2); eGFR > 60.00
[2024-11-04 04:45] LABS: Ammonia 27 umol/L (9-30)
[2024-11-04 04:59] LABS: Hematocrit 28.2 % (39.0-52.0); Hemoglobin 10.3 g/dL (13.0-18.0); Mean Corp Hgb Conc. 36.5 g/dL (33.0-37.0); Mean Corpuscular Hgb 37.2 pg (27.0-31.0); Mean Corpuscular Volume 101.8 fL (80.0-94.0); Mean Platelet Volume 10.3 fL (7.4-10.4); Platelet Count 127 10^3/uL (130-400); Red Blood Cell Count 2.77 10^6/uL (4.70-6.10); Red Cell Dist. Width 15.4 % (11.5-14.5); White Blood Cell Count 9.2 10^3/uL (4.8-10.8)
[2024-11-04] MEDS: XIFAXAN 550 MG PO ×2 (07:27→20:50)
[2024-11-04] MEDS: THIAMINE INJECTION 250 MG IV (07:27)
[2024-11-04] MEDS: FOLVITE 1 MG PO (07:27)
[2024-11-04] MEDS: PROTONIX 40 MG PO ×2 (07:27→20:50)
[2024-11-04] MEDS: LAMICTAL 100 MG PO (07:27)
[2024-11-04] MEDS: NICODERM TRANSDERMAL 21 MG TRANSDERM (07:28)
[2024-11-04] MEDS: PRELONE 40 MG PO (07:29)
[2024-11-04] MEDS: LIDOCAINE 4% PATCH 1 PATCH TOPICAL (07:29)
[2024-11-04] MEDS: LIDOCAINE 4% PATCH 2 PATCH TOPICAL (07:29)
--- NOTE | 2024-11-04 07:55 | W.PN.HOSP.TC ---
Today's Communication/Plan
-
stable for downgrade to Tele
out of bed to chair, PT/OT
Lactulose Vit K as per GI
cont MSAS protocol
High dose thiamine supplementation completed, cont w/ PO maintenance therapy
Assessment / Plan
Assessment / Plan
Physical Exam
General: No acute distress, appears comfortable at this time
HEENT: Moist Mucous Membranes and Scleral Icterus
Respiratory: Non Labored Respirations
GI: Soft, nontender. Distended. Bowel sounds present
Skin: Warm, Dry and Jaundice
Neuro: AOx3
Psych: some confusion noted but otherwise calm cooperative
44M ETOH Bipolar Migraines Nicotine dependence here for ETOH withdrawal Delirium tremens Hepatic Encephalopathy Cirrhosis.
Multifactorial Acute Metabolic Encephalopathy
ETOH withdrawal/Delirium tremens
hepatic encephalopathy
ETOH use disorder
HX ETOH WD Seizure
Possible hospital/ICU associated delirium
- prior hx of Seizures in setting of Benzodiazepine withdrawal
- phenobarbital protocol completed
- cont MSAS protocol;
- MV/Folate/Thiamine supplementation (completed high dose Thiamine supplementation for possible Wernicke, dose reduced to maintenance 100 mg PO daily)
- seizure precautions
-cessation counseled
-transferred overnight to ICU d/t agitation confusion requiring Precedex gtt since tapered off with addition Seroquel Bedtime
-restraints prn
-Ammonia elevated
-started on lactulose enema, transitioned to PO Lactulose [correction to prior documentation] when tolerating oral meds
-Rifaximin
-tolerating diet, IVF completed
-GI Feed Mixer Helper evals appreciated
-cont prednisolone as per GI
-speech eval appreciated soft bite sized diet d/t mental status
#Distended Abd
Abd US notes ascites small, too small for paracentesis
Abd X-ray noted low stool burden, significant amount of gas
prn simethicone
Lactulose reduced as per Gi
#Back pain
2 lidocaine patches ordered
out of bed to chair
#Hypophosphatemia
#Borderline Low Mg
#low normal K
Monitor and Replete as necessary
Abdominal discomfort distention and trouble moving bowels.
CT suggest Nonobstructing left upper quadrant jejunal-jejunal intussusception - not present on PO contrast
CT suggest small volume of ascites
- GS consult appreciated no acute surgical intervention indicated at this time
- improved pain/discomfort
Worsening total bilirubinemia and jaundice
Abnormal LFTs ( AST >>> ALT) likely ETOH hepatitis
Severe diffuse hepatic steatosis with small volume of ascites.
Mild splenomegaly and mild paraesophageal varices
Probably secondary to PHT
Moderate RUQ and retroperitoneal LAD
Cirrhosis + ETOH Hepatitis
- avoid NSAIDs
- trend LFTs
- GI consult appreciated patient started on prednisolone, cont (GI to determine if this medication will continue on discharge given concerns compliance)
-Vit K supplementation as per GI
-US with dopplers - no evidence of PVT
-PPI BID
-Lactulose, Rifaximin
Fall 10 days ago and re injured the Lt lower chest
HX blunt /punched trauma complicated with subacute incompletely healed Rib Fxs; the left anterolateral 3rd, 4th, 5th, 6th, and 7th ribs with surrounding callus formation few months ago
Balance dysfunction
Lidocaine topical patch
PT/OT
Distended gallbladder, diffuse gallbladder wall thickening, and layering sludge/cholelithiasis in the gallbladder lumen.
DDX(1) acute calculus cholecystitis or (2) reactive gallbladder wall thickening in the setting of adjacent liver disease.
- afebrile and mild leucocytosis
- more than likely reactive with no RUQ tenderness and adjacent inflammation from cirrhosis
�Monitor fever curve, white count
� Monitor off antibiotics
� GI eval appreciated
- surgery eval appreciated no acute surgical intervention indicated
HX bipolar d/o
Anxiety/depression
HX migraines
- continue Lamotrigine dose reduced d/t Liver dysfunction
Chronic nicotine dependence
- on patch
PT/OT appreciated SNF rehab
DVT Px: HSQ
Full code
Medically stable for downgrade to Tele.
I spent a total of 50 minutes with the patient or on the floor. More than 50% of this time involved counseling and coordination of care.
Anticipated Discharge: > 48 hours
Subjective/Interval History
-
Date of Service: November 04, 2024
Sitting up comfortably in chair. Alert conversant. Some confusion noted but oriented x3. Calm Cooperative. Reports gas/bloating, afraid to pass gas due to concerns that he may have a bowel movement instead.
Objective Data
-
Labs:
Laboratory Results
11/04/24
04:03
WBC 9.2
Hgb 10.3 L
Hct 28.2 L
Plt Count 127 L
PT 20.5 H
INR 1.73
Sodium 131 L
Potassium 3.9
Chloride 100
Carbon Dioxide 26
BUN 10
Creatinine 0.5 L
Glucose 95
Calcium 7.8 L
Total Bilirubin 6.7 H
AST 122 H
ALT 45
Alkaline Phosphatase 154 H
Vital Signs:
Vital Signs
Temp Pulse Resp BP Pulse Ox
98.6 F 87 14 116/82 94
11/04/24 07:20 11/04/24 06:00 11/04/24 06:00 11/04/24 05:00 11/04/24 07:51
I&O
11/03/24 11/04/24 11/05/24
06:59 06:59 06:59
Intake Total 45 / 45 480 / 480
Output Total 600 / 600 300 / 300
Balance -555 / -555 180 / 180
--- NOTE | 2024-11-04 07:56 | PTCARENOTE ---
Addendum entered by Jennifer Delarosa RN 11/04/24 07:59:
phenobarb held for rass -1
Original Note:
pt received from previous rn- drowsy, oriented to place, situation and self not time. able to make all needs known. pt turns and repositions self. condom cath intact, saundra urine. pt educated on plan of care for shift- verbalized understanding. nsr
on monitor, room air. all safety precautions in place, call draper within reach, bed alarm on and functioning.
--- NOTE | 2024-11-04 08:00 | PTCARENOTE ---
pt received from previous rn- drowsy, awakens to verbal and tactile. oriented to place, situation and self not time. able to make all needs known. pt turns and repositions self. condom cath intact, saundra urine. pt educated on plan of care for shift-
verbalized understanding. nsr on monitor, room air. all safety precautions in place, call draper within reach, bed alarm on and functioning. phenobarb held for rass
[2024-11-04] MEDS: LUMINAL PO (08:02)
--- NOTE | 2024-11-04 08:12 | W.PN.INTV ---
Today's Communication / Plan
Recommendations
Continue Seroquel
Phenobarbital now finished
Continue trend ammonia level
Abdominal ultrasound on 11/02/2024 showed only a small amount of ascites, unsafe for paracentesis --> repeat abd US tomorrow to assure ascites has not increased
Steroids for alcohol hepatitis with prednisolone
Patient has markedly improved, not showing any signs of alcohol withdrawal and his ammonia level is now normal. He is also off phenobarbital protocol. Stable for downgrade out of ICU to telemetry. Be cares were consulted by me today. He appears
very weak so will need PT/OT may need rehab after discharge.
No additional recommendations at this time. Outside Deliverer/Pulmonary service will now sign off. Please reconsult if there are any additional questions/concerns, or if patient's respiratory status deteriorates.
Assessment
-
Assessment:
44-year-old male with history of underlying bipolar disorder, anxiety, depression, migraines, who smokes 5 cigarettes daily and has alcohol use disorder presented to the emergency room with abdominal pain and distention/constipation with recent
history of falling off scaffolding landing on top of the ladder on his left side 10 days prior to admission noted to likely have alcohol withdrawal and transferred to ICU for Precedex and phenobarbital-step finisher consulted for withdrawal
management/critical care management 10/29/24.
Alcohol use disorder with alcohol withdrawal and DTs
Abdominal distention and trouble moving bowels-no longer constipated but still having abdominal distention/bloating
Recent traumatic fall from scaffolding
Mild anemia
Mild thrombocytopenia
Transaminitis with hyperbilirubinemia
Alcohol hepatitis
Hypoalbuminemia
Cholelithiasis
Moderate right upper quadrant and retroperitoneal lymphadenopathy
Nonobstructing left upper quadrant jejunal-jejunal intussusception
Severe diffuse hepatic steatosis with concern for cirrhosis
Splenomegaly
Conditions present prior to admission:
Bipolar disorder.
Alcohol use disorder.
History alcohol withdrawal seizure 03/15/2024
Anxiety.
Depression.
Migraines.
Jaw and nasal surgery.
Incomplete healed left anterior 3rd, 4th, 5th, 6th and 7th ribs
Cigarette smoker-5 cigarettes daily.
Plan
Mental status as of 11/04 has markedly improved compared to 11/03 when he was still disoriented
Ammonia level today is 27 -would continue to trend this. Continue lactulose per GI
Supplemental oxygen as needed to maintain SpO2 >90-94%
Aspiration precautions
Incentive spirometry
Head of bed elevation
Continue MSAS
Alcohol withdrawal treatment protocol will continues
GI added prednisolone given transaminitis with elevated INR
Continue thiamine
Supplement multivitamins and folate
Replete deficiencies in glucose, potassium, magnesium and phosphorus
Benzodiazepines as needed with Ativan (currently not ordered)
Precedex drip weaned off
Phenobarbital now discontinued and he does not appear to be in active alcohol withdrawal anymore
Seroquel added and appears to be helping
CT abdomen summarized below
Gastroenterology following-correspondence reviewed
Follow LFTs
Ammonia was elevated and is normal as of 11/04-continue to trend
Lactulose initiated -titrate to 3�4 loose/formed bowel movements per day
Continue prednisolone for alcohol hepatitis
Follow MELD-Na score
PPI BID continues
Monitor for acute cholecystitis
Abdominal ultrasound 11/02/2024 shows small amount of ascitic fluid, not safe for a paracentesis
Eventual EGD
Follow hemoglobin
Follow thrombocytopenia
Transfuse if needed to keep Hb >7 g/dL
Alcohol cessation counseling
Nicotine patch
Smoking cessation counseling
Eventual psychiatry evaluation
Consider rehabilitation
DVT prophylaxis-on Lovenox
GI prophylaxis-on pantoprazole
Nutrition
Early mobilization
I discussed at length the patient's current clinical picture and answered all questions to the patient's brother, Bubba, patient's ex-, Irma, and sister, Shelbie Roach.
Patient has markedly improved, not showing any signs of alcohol withdrawal and his ammonia level is now normal. He is also off phenobarbital protocol. Stable for downgrade out of ICU to telemetry. Be cares were consulted by me today. He appears
very weak so will need PT/OT may need rehab after discharge. No additional recommendations at this time. Outside Deliverer/Pulmonary service will now sign off. Thank you for allowing us to be involved in the care of this patient. Please reconsult if
there are any additional questions/concerns, or if patient's respiratory status deteriorates.
Family discussion
Dr. Fishman reviewed at length and in person 11/02/2024 with anay Murrieta as well as patient's brother-current clinical situation, current active issues including encephalopathy, withdrawal, unlikely but possible Warnicke's, abdominal issues including
alcohol hepatitis, need for steroids, possible paracentesis, etc., prognosis guarded, hoping that with 'time' mental status will improve-they were appreciative
Diagnostic data:
CT chest abdomen and pelvis 10/26/2024-mild secretions right side mid thorax, incompletely healed left anterior 3rd, 4th, 5th, 6th and 7th ribs, minimal right pleural effusion, severe diffuse hepatic steatosis, small volume ascites, distended
gallbladder with layering sludge/cholelithiasis, moderate right upper quadrant and retroperitoneal lymphadenopathy, splenomegaly, horseshoe kidney nonobstructing left upper quadrant jejunal intussusception
CT head 10/26/24-no CT evidence for acute intracranial hemorrhage or transcortical infarct, mild to moderate bilateral frontal and parietal volume loss, mild cerebellar volume loss
CT abdomen and pelvis 10/27/24-mildly elevated right hemidiaphragm, small right and minimal left pleural effusion, severe diffuse hepatic steatosis, small to moderate volume pelvic ascites, moderate splenomegaly secondary to portal hypertension,
moderate right upper quadrant and retroperitoneal lymphadenopathy, portal colopathy, severe edema and wall thickening in the gallbladder, cholelithiasis and gallbladder sludge
Doppler study ultrasound 10/28/24-moderate gallbladder sludge, mild gallbladder wall thickening, acute cholecystitis cannot be ruled out, mild hepatomegaly, at hepatic fatty infiltration
Chest x-ray/-NAD
Total time spent today was 37 minutes for this encounter. Time includes reviewing laboratory test/imaging results, reviewing pertinent medical records, obtaining and reviewing medical history, performing an appropriate exam, ordering medications,
tests and procedures. Time also includes documentation of this encounter, coordinating patient care and communicating with other healthcare professionals. Total time does not include separately billed tests performed on this date of service.
Subjective Dataa
Subjective Data
Date of Service:
Date of Service: November 04, 2024
Chief Complaint: Outside Deliverer Follow Up and Pulmonary Follow Up
Subjective:
Patient was seen and evaluated today at bedside. He is much more awake today with occasional confusion but overall he is markedly improved from 2-3 days ago. Heart rate 106, BP 108/76 and saturating 95% on room air. Patient's brother, Bubba,
patient's ex-, Irma, and the patient's sister, Shelbie Roach, all present at bedside and all questions were answered. Patient does not endorse abdominal pain currently although he is still bloated/distended (which is what caused him the most pain).
Review of Systems
General: Other (Negative unless mentioned above)
Objective Data
Data Reviewed
Vital Signs / I&O / Oxygen:
Vital Signs
Temp Pulse Resp BP Pulse Ox
98.6 F 93 15 123/77 94
11/04/24 07:20 11/04/24 09:00 11/04/24 09:00 11/04/24 09:00 11/04/24 09:00
Intake and Output
11/03/24 11/04/24 11/05/24
06:59 06:59 06:59
Intake Total 45 / 45 480 / 480
Output Total 600 / 600 300 / 300
Balance -555 / -555 180 / 180
SaO2 94
Nasal Cannula flow liters per 2
minute
Physical Exam
General: Respiratory Distress (n), Comfortable, Pain (Occasional abdominal pain), Chills (negative) and Sweats (negative)
HEENT: Normocephalic, Moist Mucous Membranes and Other (Bilateral icterus)
Cardiovascular: S1-S2, Regular Rhythm and Peripheral Edema (negative)
Respiratory: Clear, Wheeze (negative), Crackles (negative), Rhonchi (negative), Non-Labored Respirations and Stridor (negative)
GI: Soft, Distended, Tender (Mild tenderness to palpation in periumbilical region) and Normal Bowel Sounds
Neurology: Awake, Alert, Tremors (n) and Other (Occasionally confused)
Skin: Warm, Dry, Cyanosis (n) and Jaundice (Positive)
Labs/Micro/Reports
Lab Data
11/04/24 04:03
11/04/24 04:03
Laboratory Results
11/04/24
04:03
PT 20.5 H
INR 1.73
--- NOTE | 2024-11-04 08:27 | W.PN.GI.CBS2 ---
Today's Communication / Plan
-
-- Vitamin K 2.5 mg x 2 days, decrease lactulose to once daily, out of bed and push nutrition
Assessment / Plan
-
44-year-old male past medical history of alcohol abuse with fall 10 days ago and subsequent abdominal pain, distention, constipation. Since admission concern for ETOH withdrawal and worsening liver dysfunction with decompensation. With worsening
LFT's and INR and Prednisolone added 10/31.
10/26/24 CT Chest/abd/pel W Iv Cont
1. Subacute incompletely healed fractures of the left anterolateral 3rd, 4th, 5th, 6th, and 7th ribs with surrounding callus formation.
2. Minimal right pleural effusion.
3. Mild dependent subsegmental atelectasis in the right lower lobe.
ABDOMEN and PELVIS:
1. Severe diffuse hepatic steatosis.
2. Small volume of ascites.
3. Distended gallbladder, diffuse gallbladder wall thickening, and layering sludge/cholelithiasis in the gallbladder lumen. Diagnostic possibilities are (1) acute calculus cholecystitis or (2) reactive gallbladder wall thickening in the setting of
adjacent liver disease.
4. Moderate right upper quadrant and retroperitoneal lymphadenopathy. Diagnostic possibilities are (1) reactive inflammatory lymphadenopathy or (2) malignant lymphadenopathy.
5. Mild splenomegaly (probably secondary to portal hypertension).
6. Mild paraesophageal varices.
7. Horseshoe kidney.
8. Nonobstructing left upper quadrant jejunal-jejunal intussusception.
10/27/24 CT A/p
1. SEVERE DIFFUSE HEPATIC STEATOSIS.
2. Small to moderate volume of pelvic ascites and small volume of upper abdominal ascites.
3. Moderate splenomegaly which is likely secondary to portal hypertension.
4. Moderate right upper quadrant and retroperitoneal lymphadenopathy.
5. Horseshoe kidney.
6. Moderate wall thickening in the proximal colon most suggestive of PORTAL COLOPATHY.
7. Severe edema and wall thickening in the gallbladder.
8. Cholelithiasis and gallbladder sludge.
9. Small right and minimal left pleural effusions with adjacent compressive atelectasis in the basilar segments of the lower lobes.
10/28/24 US doppler
IMPRESSION: Moderate gallbladder sludge. Mild gallbladder wall thickening. Acute cholecystitis cannot excluded. Clinical and laboratory correlation recommended
Mild hepatomegaly stable
Hepatic fatty infiltration. Stable Nonvisualization of the pancreas
11/02/24: Ultrasound negative for significant ascites. Too small for safe paracentesis
11/02/2024 abdominal x-ray shows mild to moderate gaseous distention of the colon with minimal colonic stool
-ETOH abuse with withdrawal
-abdominal pain -- been from constipation, diff includes gastritis, PUD as was taking NSAIDs. vs other
-ascites
-elevated ammonia with concern for HE
-thrombocytopenia
-s/p fall
-concern for ETOH hepatitis with worsening labs since admission and addition of Steroids with concern for decompensation and possible underlying cirrhosis
-imaging with severe hepatic steatosis
-possible left upper quadrant jejunal/jejunal intussusception- non obstructing not see on follow up imaging
-CT with portal colopathy
-GB edema
-thrombocytopenia
-splenomegaly
-hypoalbuminemia
-coagulopathy
-pleural effusion
-elevated ferritin
-hx bipolar disorder
-hx benzo withdrawal seizure
-tobacco abuse
PLAN:
continue dysphagia 6 diet with twice daily supplementation -make sure patient is awake and alert and upright prior to feeding
Continue steroids for now
No signs of infection
etiology of symptoms with concern for ETOH hepatitis/withdrawal with possible underlying cirrhosis with decompensation with ascites
cont rx per medical team for withdrawal
DF 46 on 10/31 with prednisolone started, repeat 45 (with control of 12)
will need Lille score 5/7
leukocytosis noted with start of steroids no fever or signs of infection --
No significant ascites on exam and not enough for paracentesis
cont Xifaxan and Lactulose
cont PPI
Stopped MiraLAX due to multiple bowel movements and prefer to use lactulose
cont thiamine and folate
good nutrition as tolerated
ETOH abstinence and avoid toxins
eventual OP EGD
updated significant other and discussed with both siblings at bedside 11/02
- decrease lactulose - may be contributing to bloating and having significant stools -no significant stool burden in the colon but significant gas.
-- Try to get patient moving and eating.
11/04/24 -decrease lactulose to once daily especially in the setting of abdominal distention and bloating, counseled patient on letting air go and stop holding flatus, needs to get up move around and move gas, continue to push nutrition, continue
steroids, Lille score tomorrow
- INR around 1.7, patient also likely malnourished and will give him vitamin K 2.5 mg for 2 days
As previously noted, concern with compliance with the prednisolone. Dr. Morrison had discussed with his fianc�e.
To order labs to calculate Lille score to ensure he is responding in 1 week.
Once he is no longer acutely withdrawing, we can decide if he is safe to be discharged with prednisolone or if it needs to be stopped.
Subjective
Subjective
Date of Service: November 04, 2024
Patient's rectal tube is out. He has tried to hold flatus because he is afraid of an accident. He feels bloated but is finishing 75% of meals. Has not gotten out of bed yet but nursing is getting him out this morning
Objective
Data Reviewed
Laboratory Data:
Laboratory Results
11/04/24 04:03
11/04/24 04:03
Laboratory Results
PT 20.5 Sec (11.4-14.6) H 11/04/24 04:03
INR 1.73 11/04/24 04:03
APTT 43.3 Sec (23.4-35.0) H 10/29/24 04:19
Phosphorus 3.0 mg/dl (2.5-4.5) 11/04/24 04:03
Magnesium 1.8 mg/dl (1.6-2.3) 11/04/24 04:03
Total Bilirubin 6.7 mg/dl (0.2-1.3) H 11/04/24 04:03
AST 122 U/L (17-59) H 11/04/24 04:03
ALT 45 U/L (0-50) 11/04/24 04:03
Alkaline Phosphatase 154 U/L (38-126) H 11/04/24 04:03
Lipase 102 U/L (23-300) 10/26/24 18:59
Vital Signs and I&O:
Vital Signs
Temp Pulse Resp BP Pulse Ox
98.6 F 87 14 116/82 94
11/04/24 07:20 11/04/24 06:00 11/04/24 06:00 11/04/24 05:00 11/04/24 07:51
I&O
11/03/24 11/04/24 11/05/24
06:59 06:59 06:59
Intake Total 45 / 45 480 / 480
Output Total 600 / 600 300 / 300
Balance -555 / -555 180 / 180
Physical Exam
Physical Exam
HEENT: Anicteric (Icteric)
GI: Soft, Distended, Non Tender and Other (High-pitched bowel sounds consistent with colonic distention)
Rectal: Brown
Extremities: No Edema
Neuro: Other (More awake each day, no asterixis)
[2024-11-04] MEDS: DUPHALAC/CHRONULAC PO (09:02)
--- NOTE | 2024-11-04 09:02 | PTCARENOTE ---
Addendum entered by Jennifer Delarosa RN 11/04/24 09:04:
chair alarm on and functioning.
Original Note:
per Dr. Soto ok to hold am dose of lactulose. Dr. Dumas aware am dose of phenobarb held. Pt oob to chair with 2 assist, assisted with am care.
[2024-11-04] MEDS: MEPHYTON 2.5 MG PO (09:11)
--- NOTE | 2024-11-04 12:02 | PTCARENOTE ---
Addendum entered by Jennifer Delarosa RN 11/04/24 12:18:
per Dr. Dumas pt ok for downgrade from ICU.
Original Note:
pt oob to bathroom, small bm. plan of care discussed with Dr. Dumas, family updated at bedside.
[2024-11-04] MEDS: DUPHALAC/CHRONULAC 20 GRAMS PO (14:41)
[2024-11-04] MEDS: LOVENOX 40 MG SC (17:50)
[2024-11-04] MEDS: MYLICON 80 MG PO (20:56)
[2024-11-04] MEDS: SEROQUEL PO (23:21)
[2024-11-05 04:14] LABS: Ammonia 16 umol/L (9-30)
[2024-11-05 04:22] LABS: ALT (SGPT) 51 U/L (0-50); AST (SGOT) 123 U/L (17-59); Albumin 2.7 g/dl (3.5-5.0); Alkaline Phosphatase 153 U/L (38-126); Blood Urea Nitrogen 14 mg/dl (9-20); Calcium 7.9 mg/dl (8.4-10.2); Carbon Dioxide 26 mmol/L (22-30); Chloride 98 mmol/L (98-107); Estimated Creatinine Clearance > 125 ml/min; Glucose 108 mg/dl (70-99); Magnesium 1.8 mg/dl (1.6-2.3); Phosphorus 3.2 mg/dl (2.5-4.5); Potassium 3.9 mmol/L (3.5-5.1); Sodium 131 mmol/L (135-145); Total Bilirubin 7.3 mg/dl (0.2-1.3); Total Protein 6.2 g/dl (6.3-8.2); eGFR > 60.00
[2024-11-05 04:25] LABS: INR 1.69; PT 20.1 Sec (11.4-14.6)
[2024-11-05 04:29] LABS: Hematocrit 25.4 % (39.0-52.0); Mean Corp Hgb Conc. 35.4 g/dL (33.0-37.0); Mean Corpuscular Hgb 36.7 pg (27.0-31.0); Mean Corpuscular Volume 103.7 fL (80.0-94.0); Mean Platelet Volume 11.5 fL (7.4-10.4); Platelet Count 128 10^3/uL (130-400); Red Blood Cell Count 2.45 10^6/uL (4.70-6.10); Red Cell Dist. Width 15.2 % (11.5-14.5); White Blood Cell Count 14.7 10^3/uL (4.8-10.8)
[2024-11-05 06:00] VITALS: BMI 23.1
--- NOTE | 2024-11-05 08:00 | PTCARENOTE ---
Assumed care of patient. Assessment completed. Pt rec'd A&Ox3. Pleasant and cooperative. Min assist x 1 w/ rolling walker to bathroom. SR on monitor. Voids in urinal. Continent of loose brown BM. Breakfast ordered. Takes po meds w/o issue.
VS documented. Call draper within reach.
[2024-11-05] MEDS: LIDOCAINE 4% PATCH 1 PATCH TOPICAL (08:19)
[2024-11-05] MEDS: LIDOCAINE 4% PATCH 2 PATCH TOPICAL (08:19)
[2024-11-05] MEDS: NICODERM TRANSDERMAL 21 MG TRANSDERM (08:24)
[2024-11-05] MEDS: PROTONIX PO ×2 (08:26→20:07)
[2024-11-05] MEDS: PRELONE 40 MG PO (08:27)
[2024-11-05] MEDS: FOLVITE 1 MG PO (08:30)
[2024-11-05] MEDS: VITAMIN B1 100 MG PO (08:30)
[2024-11-05] MEDS: LAMICTAL 100 MG PO (08:30)
[2024-11-05] MEDS: DUPHALAC/CHRONULAC 20 GRAMS PO (08:31)
[2024-11-05] MEDS: XIFAXAN 550 MG PO ×2 (08:31→20:05)
--- NOTE | 2024-11-05 09:44 | W.PN.GI.CBS2 ---
Addendum entered and electronically signed by Gale Soto DO 11/05/24 10:39:
FOLLOW UP APPT scheduled:
11/15 AT 10:30AM with Dr. Morrison in [place] office
[address] [place] [address]
but call our office with any issues: [phone]
Original Note:
Today's Communication / Plan
-
-- one more day of oral vit k, continue steroids, OOB, good nutrition, stop lactulose
Assessment / Plan
-
44-year-old male past medical history of alcohol abuse with fall 10 days ago and subsequent abdominal pain, distention, constipation. Since admission concern for ETOH withdrawal and worsening liver dysfunction with decompensation. With worsening
LFT's and INR and Prednisolone added 10/31.
10/26/24 CT Chest/abd/pel W Iv Cont
1. Subacute incompletely healed fractures of the left anterolateral 3rd, 4th, 5th, 6th, and 7th ribs with surrounding callus formation.
2. Minimal right pleural effusion.
3. Mild dependent subsegmental atelectasis in the right lower lobe.
ABDOMEN and PELVIS:
1. Severe diffuse hepatic steatosis.
2. Small volume of ascites.
3. Distended gallbladder, diffuse gallbladder wall thickening, and layering sludge/cholelithiasis in the gallbladder lumen. Diagnostic possibilities are (1) acute calculus cholecystitis or (2) reactive gallbladder wall thickening in the setting of
adjacent liver disease.
4. Moderate right upper quadrant and retroperitoneal lymphadenopathy. Diagnostic possibilities are (1) reactive inflammatory lymphadenopathy or (2) malignant lymphadenopathy.
5. Mild splenomegaly (probably secondary to portal hypertension).
6. Mild paraesophageal varices.
7. Horseshoe kidney.
8. Nonobstructing left upper quadrant jejunal-jejunal intussusception.
10/27/24 CT A/p
1. SEVERE DIFFUSE HEPATIC STEATOSIS.
2. Small to moderate volume of pelvic ascites and small volume of upper abdominal ascites.
3. Moderate splenomegaly which is likely secondary to portal hypertension.
4. Moderate right upper quadrant and retroperitoneal lymphadenopathy.
5. Horseshoe kidney.
6. Moderate wall thickening in the proximal colon most suggestive of PORTAL COLOPATHY.
7. Severe edema and wall thickening in the gallbladder.
8. Cholelithiasis and gallbladder sludge.
9. Small right and minimal left pleural effusions with adjacent compressive atelectasis in the basilar segments of the lower lobes.
10/28/24 US doppler
IMPRESSION: Moderate gallbladder sludge. Mild gallbladder wall thickening. Acute cholecystitis cannot excluded. Clinical and laboratory correlation recommended
Mild hepatomegaly stable
Hepatic fatty infiltration. Stable Nonvisualization of the pancreas
11/02/24: Ultrasound negative for significant ascites. Too small for safe paracentesis
11/02/2024 abdominal x-ray shows mild to moderate gaseous distention of the colon with minimal colonic stool
-ETOH abuse with withdrawal
-abdominal pain -- been from constipation, diff includes gastritis, PUD as was taking NSAIDs. vs other
-ascites
-elevated ammonia with concern for HE
-thrombocytopenia
-s/p fall
-concern for ETOH hepatitis with worsening labs since admission and addition of Steroids with concern for decompensation and possible underlying cirrhosis
-imaging with severe hepatic steatosis
-possible left upper quadrant jejunal/jejunal intussusception- non obstructing not see on follow up imaging
-CT with portal colopathy
-GB edema
-thrombocytopenia
-splenomegaly
-hypoalbuminemia
-coagulopathy
-pleural effusion
-elevated ferritin
-hx bipolar disorder
-hx benzo withdrawal seizure
-tobacco abuse
PLAN:
continue dysphagia 6 diet with twice daily supplementation -make sure patient is awake and alert and upright prior to feeding
Continue steroids for now
No signs of infection
etiology of symptoms with concern for ETOH hepatitis/withdrawal with possible underlying cirrhosis with decompensation with ascites
cont rx per medical team for withdrawal
DF 46 on 10/31 with prednisolone started, repeat 45 (with control of 12)
will need Lille score 57
leukocytosis noted with start of steroids no fever or signs of infection --
No significant ascites on exam and not enough for paracentesis
cont Xifaxan and Lactulose
cont PPI
Stopped MiraLAX due to multiple bowel movements and prefer to use lactulose
cont thiamine and folate
good nutrition as tolerated
ETOH abstinence and avoid toxins
eventual OP EGD
updated significant other and discussed with both siblings at bedside 11/02
- decrease lactulose - may be contributing to bloating and having significant stools -no significant stool burden in the colon but significant gas.
-- Try to get patient moving and eating.
11/04/24 -decrease lactulose to once daily especially in the setting of abdominal distention and bloating, counseled patient on letting air go and stop holding flatus, needs to get up move around and move gas, continue to push nutrition, continue
steroids, Lille score tomorrow
- INR around 1.7, patient also likely malnourished and will give him vitamin K 2.5 mg for 2 days
11/05/2024 Vanessa score 0.088, good prognosis and therefore should continue steroids pending his compliance -patient will need 40 mg of prednisone per 28 days upon discharge
MELD 3.0 = 23
-- continued alcohol cessation counseling, push nutrition, OOB, keep BMs 2/day, continue steroids with daily famotidine
-- Can stop lactulose at this point
-- Discussed rehab and AA with patient and his family at bedside. Discussed with nurse also
--Patient will need outpatient follow-up - i sent a message to my office for 2 wk follow up
Subjective
Subjective
Date of Service: November 05, 2024
Much improved. Patient is upright alert awake he got out of bed yesterday. Moved bowels twice this morning with once daily lactulose
Objective
Data Reviewed
Laboratory Data:
Laboratory Results
11/05/24 03:50
11/05/24 03:50
Laboratory Results
PT 20.1 Sec (11.4-14.6) H 11/05/24 03:50
INR 1.69 11/05/24 03:50
APTT 43.3 Sec (23.4-35.0) H 10/29/24 04:19
Phosphorus 3.2 mg/dl (2.5-4.5) 11/05/24 03:50
Magnesium 1.8 mg/dl (1.6-2.3) 11/05/24 03:50
Total Bilirubin 7.3 mg/dl (0.2-1.3) H 11/05/24 03:50
AST 123 U/L (17-59) H 11/05/24 03:50
ALT 51 U/L (0-50) H 11/05/24 03:50
Alkaline Phosphatase 153 U/L (38-126) H 11/05/24 03:50
Lipase 102 U/L (23-300) 10/26/24 18:59
Vital Signs and I&O:
Vital Signs
Temp Pulse Resp BP Pulse Ox
98.1 F 89 13 110/68 95
11/05/24 08:00 11/05/24 06:00 11/05/24 06:00 11/04/24 20:53 11/05/24 06:12
I&O
11/04/24 11/05/24 11/06/24
06:59 06:59 06:59
Intake Total 480 / 480
Output Total 300 / 300 200 / 200
Balance 180 / 180 -200 / -200
Physical Exam
Physical Exam
HEENT: Anicteric (Jaundice/icteric)
Cardiology: Normal Sinus Rhythm
GI: Soft, Distended and Normal Bowel Sounds
Extremities: No Edema
Neuro: Non Focal
[2024-11-05 10:07] VITALS: BP 108/65
--- NOTE | 2024-11-05 11:22 | PTCARENOTE ---
Ultrasound done at bedside. Pt to transfer to Room 437-1...will call report to RN.
[2024-11-05 12:22] VITALS: BP 132/75
--- NOTE | 2024-11-05 13:36 | CM ---
Chart reviewed and rn case mgr met with patient and his fiancee at bedside, along with [facility] and patient has declined inpatient treatment options but is agreeable to information on programs only.
Plan; Home when stable, patient to follow up with outpatient options through [facility].
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
[2024-11-05 15:01] VITALS: BP 137/83
[2024-11-05] MEDS: LOVENOX 40 MG SC (17:21)
[2024-11-05 20:05] VITALS: BP 123/68
[2024-11-05] MEDS: SEROQUEL 50 MG PO (20:07)
[2024-11-05 23:16] VITALS: BP 137/72
[2024-11-06] VITALS (7 sets, daily range): BP systolic 94–133; BP diastolic 59–84; PULSE 90; BMI 23.0
[2024-11-06] MEDS: COMPAZINE 5 MG IV (06:27)
[2024-11-06] MEDS: NICODERM TRANSDERMAL 21 MG TRANSDERM (07:55)
[2024-11-06] MEDS: VITAMIN B1 100 MG PO (07:55)
[2024-11-06] MEDS: XIFAXAN 550 MG PO ×2 (07:55→20:34)
[2024-11-06] MEDS: LAMICTAL 100 MG PO (07:55)
[2024-11-06] MEDS: LIDOCAINE 4% PATCH 2 PATCH TOPICAL (07:56)
[2024-11-06] MEDS: FOLVITE 1 MG PO (07:56)
[2024-11-06] MEDS: LIDOCAINE 4% PATCH 1 PATCH TOPICAL (07:56)
[2024-11-06] MEDS: PRELONE 40 MG PO (07:57)
[2024-11-06] MEDS: PROTONIX PO (07:57)
[2024-11-06 09:39] LABS: Hematocrit 23.2 % (39.0-52.0); Mean Corp Hgb Conc. 34.5 g/dL (33.0-37.0); Mean Corpuscular Hgb 36.7 pg (27.0-31.0); Mean Corpuscular Volume 106.4 fL (80.0-94.0); Red Blood Cell Count 2.18 10^6/uL (4.70-6.10); Red Cell Dist. Width 15.2 % (11.5-14.5); White Blood Cell Count 11.5 10^3/uL (4.8-10.8)
[2024-11-06 10:06] LABS: ALT (SGPT) 51 U/L (0-50); AST (SGOT) 128 U/L (17-59); Albumin 2.6 g/dl (3.5-5.0); Alkaline Phosphatase 146 U/L (38-126); Blood Urea Nitrogen 12 mg/dl (9-20); Calcium 8.1 mg/dl (8.4-10.2); Carbon Dioxide 27 mmol/L (22-30); Chloride 97 mmol/L (98-107); Estimated Creatinine Clearance > 125 ml/min; Glucose 108 mg/dl (70-99); Magnesium 1.8 mg/dl (1.6-2.3); Phosphorus 3.3 mg/dl (2.5-4.5); Potassium 4.1 mmol/L (3.5-5.1); Sodium 130 mmol/L (135-145); Total Bilirubin 6.8 mg/dl (0.2-1.3); Total Protein 5.9 g/dl (6.3-8.2); eGFR > 60.00
--- NOTE | 2024-11-06 12:13 | W.PN.GI.CBS2 ---
Addendum entered and electronically signed by Dejan Woo MD 11/06/24 15:18:
I saw and examined the patient.
The WINDOWS AND DOORS INSTALLER's note was reviewed and I agree with the note.
Denies any GI complaints. denies any overt GI bleeding although Hb downtrending. T.bili - down trending .
plan
Continue prednisolone
Monitor LFT/INR
Importance of complete EtOH abstinence emphasized again
Follow-up with Dr. Morrison as outpatient
Original Note:
Today's Communication / Plan
-
11/05/2024 Vanessa score 0.088, good prognosis and therefore should continue steroids. Pt state he will be complaint with medication. -patient will need 40 mg of prednisone per 28 days upon discharge--
I left slip to repeat labs 2-3 days prior to follow up 11/[address] Morrison
MELD 3.0 = 23 based on 11/05 labs
-- continued alcohol cessation counseling, push nutrition, OOB, keep BMs 2/day, continue steroids with daily famotidine will transition to daily Famotidine in AM and stop PPI
---cont Xifaxan BID off lactulose -- t/c eventual trial off if continued improvement
---Pt scheduled 11/15 10:30 AM follow up with Dr. Morrison
-- labs stable AM INR pending, Platelet not reported
Assessment / Plan
-
44-year-old male past medical history of alcohol abuse with fall 10 days ago and subsequent abdominal pain, distention, constipation. Since admission concern for ETOH withdrawal and worsening liver dysfunction with decompensation. With worsening
LFT's and INR and Prednisolone added 10/31.
10/26/24 CT Chest/abd/pel W Iv Cont
1. Subacute incompletely healed fractures of the left anterolateral 3rd, 4th, 5th, 6th, and 7th ribs with surrounding callus formation.
2. Minimal right pleural effusion.
3. Mild dependent subsegmental atelectasis in the right lower lobe.
ABDOMEN and PELVIS:
1. Severe diffuse hepatic steatosis.
2. Small volume of ascites.
3. Distended gallbladder, diffuse gallbladder wall thickening, and layering sludge/cholelithiasis in the gallbladder lumen. Diagnostic possibilities are (1) acute calculus cholecystitis or (2) reactive gallbladder wall thickening in the setting of
adjacent liver disease.
4. Moderate right upper quadrant and retroperitoneal lymphadenopathy. Diagnostic possibilities are (1) reactive inflammatory lymphadenopathy or (2) malignant lymphadenopathy.
5. Mild splenomegaly (probably secondary to portal hypertension).
6. Mild paraesophageal varices.
7. Horseshoe kidney.
8. Nonobstructing left upper quadrant jejunal-jejunal intussusception.
10/27/24 CT A/p
1. SEVERE DIFFUSE HEPATIC STEATOSIS.
2. Small to moderate volume of pelvic ascites and small volume of upper abdominal ascites.
3. Moderate splenomegaly which is likely secondary to portal hypertension.
4. Moderate right upper quadrant and retroperitoneal lymphadenopathy.
5. Horseshoe kidney.
6. Moderate wall thickening in the proximal colon most suggestive of PORTAL COLOPATHY.
7. Severe edema and wall thickening in the gallbladder.
8. Cholelithiasis and gallbladder sludge.
9. Small right and minimal left pleural effusions with adjacent compressive atelectasis in the basilar segments of the lower lobes.
10/28/24 US doppler
IMPRESSION: Moderate gallbladder sludge. Mild gallbladder wall thickening. Acute cholecystitis cannot excluded. Clinical and laboratory correlation recommended
Mild hepatomegaly stable
Hepatic fatty infiltration. Stable Nonvisualization of the pancreas
11/02/24: Ultrasound negative for significant ascites. Too small for safe paracentesis
11/02/2024 abdominal x-ray shows mild to moderate gaseous distention of the colon with minimal colonic stool
-ETOH abuse with withdrawal
-abdominal pain -- been from constipation, diff includes gastritis, PUD as was taking NSAIDs. vs other
-ascites
-elevated ammonia with concern for HE
-thrombocytopenia
-s/p fall
-concern for ETOH hepatitis with worsening labs since admission and addition of Steroids with concern for decompensation and possible underlying cirrhosis
-imaging with severe hepatic steatosis
-possible left upper quadrant jejunal/jejunal intussusception- non obstructing not see on follow up imaging
-CT with portal colopathy
-GB edema
-thrombocytopenia
-splenomegaly
-hypoalbuminemia
-coagulopathy
-pleural effusion
-elevated ferritin
-hx bipolar disorder
-hx benzo withdrawal seizure
-tobacco abuse
PLAN:
11/05/2024 Vanessa score 0.088, good prognosis and therefore should continue steroids. Pt state he will be complaint with medication. -patient will need 40 mg of prednisone per 28 days upon discharge--
I left slip to repeat labs 2-3 days prior to follow up 11/[address] Morrison
MELD 3.0 = 23 based on 11/05 labs
-- continued alcohol cessation counseling, push nutrition, OOB, keep BMs 2/day, continue steroids with daily famotidine will transition to daily Famotidine in AM and stop PPI
---cont Xifaxan BID off lactulose -- t/c eventual trial off if continued improvement
---Pt scheduled 11/15 10:30 AM follow up with Dr. Morrison
-- labs stable AM INR pending, Platelet not reported
Subjective
Subjective
Date of Service: November 06, 2024
Pt much improved, slow walking but feeling better 11/05 brown loose stools x 3
Objective
Data Reviewed
Laboratory Data:
Laboratory Results
11/06/24 08:20
11/06/24 08:20
Laboratory Results
PT 20.1 Sec (11.4-14.6) H 11/05/24 03:50
INR 1.69 11/05/24 03:50
APTT 43.3 Sec (23.4-35.0) H 10/29/24 04:19
Phosphorus 3.3 mg/dl (2.5-4.5) 11/06/24 08:20
Magnesium 1.8 mg/dl (1.6-2.3) 11/06/24 08:20
Total Bilirubin 6.8 mg/dl (0.2-1.3) H 11/06/24 08:20
AST 128 U/L (17-59) H 11/06/24 08:20
ALT 51 U/L (0-50) H 11/06/24 08:20
Alkaline Phosphatase 146 U/L (38-126) H 11/06/24 08:20
Lipase 102 U/L (23-300) 10/26/24 18:59
Vital Signs and I&O:
Vital Signs
Temp Pulse Resp BP Pulse Ox
98.7 F 90 16 118/71 95
11/06/24 11:18 11/06/24 11:18 11/06/24 11:18 11/06/24 11:18 11/06/24 11:18
I&O
11/05/24 11/06/24 11/07/24
06:59 06:59 06:59
Intake Total 1560 / 1560
Output Total 200 / 200 75 / 75
Balance -200 / -200 1485 / 1485
Physical Exam
Physical Exam
HEENT: Anicteric
Cardiology: Normal Sinus Rhythm
Pulmonary: Clear
GI: Soft, Distended (mild ) and Non Tender
Extremities: No Edema
Neuro: Non Focal
[2024-11-06 12:21] LABS: PT 20.2 Sec (11.4-14.6)
--- NOTE | 2024-11-06 12:23 | CM ---
Chart reviewed and caseworker protective services met with patient and patient states he plans on doing individual counseling after discharge for help in coping with his son's illness.
Plan; Home no needs.
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
[2024-11-06] MEDS: MEPHYTON 2.5 MG PO (14:16)
[2024-11-06] MEDS: LOVENOX 40 MG SC (17:21)
[2024-11-06] MEDS: SEROQUEL 50 MG PO (21:13)
[2024-11-07 03:17] VITALS: BP 92/61
[2024-11-07 06:00] VITALS: BMI 23.6
[2024-11-07 07:00] VITALS: BP 109/74
[2024-11-07] MEDS: PRELONE 40 MG PO (08:25)
[2024-11-07] MEDS: XIFAXAN 550 MG PO (08:27)
[2024-11-07] MEDS: FOLVITE 1 MG PO (08:27)
[2024-11-07] MEDS: PEPCID 20 MG PO (08:27)
[2024-11-07] MEDS: VITAMIN B1 100 MG PO (08:27)
[2024-11-07] MEDS: NICODERM TRANSDERMAL 21 MG TRANSDERM (08:27)
[2024-11-07] MEDS: LAMICTAL 100 MG PO (08:27)
[2024-11-07] MEDS: LIDOCAINE 4% PATCH 2 PATCH TOPICAL (08:28)
[2024-11-07] MEDS: LIDOCAINE 4% PATCH TOPICAL (08:28)
[2024-11-07 08:52] LABS: Hematocrit 24.7 % (39.0-52.0); Hemoglobin 8.9 g/dL (13.0-18.0); Mean Corpuscular Hgb 37.4 pg (27.0-31.0); Mean Corpuscular Volume 103.8 fL (80.0-94.0); Red Blood Cell Count 2.38 10^6/uL (4.70-6.10); Red Cell Dist. Width 14.8 % (11.5-14.5); White Blood Cell Count 15.4 10^3/uL (4.8-10.8)
[2024-11-07 08:56] LABS: INR 1.68; PT 20.3 Sec (11.4-14.6)
[2024-11-07 09:19] LABS: ALT (SGPT) 60 U/L (0-50); AST (SGOT) 147 U/L (17-59); Alkaline Phosphatase 210 U/L (38-126); Blood Urea Nitrogen 7 mg/dl (9-20); Carbon Dioxide 26 mmol/L (22-30); Chloride 94 mmol/L (98-107); Estimated Creatinine Clearance > 125 ml/min; Glucose 99 mg/dl (70-99); Magnesium 1.7 mg/dl (1.6-2.3); Phosphorus 3.2 mg/dl (2.5-4.5); Potassium 3.7 mmol/L (3.5-5.1); Sodium 129 mmol/L (135-145); Total Bilirubin 6.5 mg/dl (0.2-1.3); Total Protein 6.7 g/dl (6.3-8.2); eGFR > 60.00
[2024-11-07 11:00] VITALS: BP 118/79
--- NOTE | 2024-11-07 12:31 | W.PN.GI.CBS2 ---
Today's Communication / Plan
-
Outpatient GI follow up
cont prednisolone
abstain from ETOH
Assessment / Plan
-
44-year-old male past medical history of alcohol abuse with fall 10 days ago and subsequent abdominal pain, distention, constipation. Since admission concern for ETOH withdrawal and worsening liver dysfunction with decompensation. With worsening
LFT's and INR and Prednisolone added 10/31.
10/26/24 CT Chest/abd/pel W Iv Cont
1. Subacute incompletely healed fractures of the left anterolateral 3rd, 4th, 5th, 6th, and 7th ribs with surrounding callus formation.
2. Minimal right pleural effusion.
3. Mild dependent subsegmental atelectasis in the right lower lobe.
ABDOMEN and PELVIS:
1. Severe diffuse hepatic steatosis.
2. Small volume of ascites.
3. Distended gallbladder, diffuse gallbladder wall thickening, and layering sludge/cholelithiasis in the gallbladder lumen. Diagnostic possibilities are (1) acute calculus cholecystitis or (2) reactive gallbladder wall thickening in the setting of
adjacent liver disease.
4. Moderate right upper quadrant and retroperitoneal lymphadenopathy. Diagnostic possibilities are (1) reactive inflammatory lymphadenopathy or (2) malignant lymphadenopathy.
5. Mild splenomegaly (probably secondary to portal hypertension).
6. Mild paraesophageal varices.
7. Horseshoe kidney.
8. Nonobstructing left upper quadrant jejunal-jejunal intussusception.
10/27/24 CT A/p
1. SEVERE DIFFUSE HEPATIC STEATOSIS.
2. Small to moderate volume of pelvic ascites and small volume of upper abdominal ascites.
3. Moderate splenomegaly which is likely secondary to portal hypertension.
4. Moderate right upper quadrant and retroperitoneal lymphadenopathy.
5. Horseshoe kidney.
6. Moderate wall thickening in the proximal colon most suggestive of PORTAL COLOPATHY.
7. Severe edema and wall thickening in the gallbladder.
8. Cholelithiasis and gallbladder sludge.
9. Small right and minimal left pleural effusions with adjacent compressive atelectasis in the basilar segments of the lower lobes.
10/28/24 US doppler
IMPRESSION: Moderate gallbladder sludge. Mild gallbladder wall thickening. Acute cholecystitis cannot excluded. Clinical and laboratory correlation recommended
Mild hepatomegaly stable
Hepatic fatty infiltration. Stable Nonvisualization of the pancreas
11/02/24: Ultrasound negative for significant ascites. Too small for safe paracentesis
11/02/2024 abdominal x-ray shows mild to moderate gaseous distention of the colon with minimal colonic stool
-ETOH abuse with withdrawal
-abdominal pain -- been from constipation, diff includes gastritis, PUD as was taking NSAIDs. vs other
-ascites
-elevated ammonia with concern for HE
-thrombocytopenia
-s/p fall
-concern for ETOH hepatitis with worsening labs since admission and addition of Steroids with concern for decompensation and possible underlying cirrhosis
-imaging with severe hepatic steatosis
-possible left upper quadrant jejunal/jejunal intussusception- non obstructing not see on follow up imaging
-CT with portal colopathy
-GB edema
-thrombocytopenia
-splenomegaly
-hypoalbuminemia
-coagulopathy
-pleural effusion
-elevated ferritin
-hx bipolar disorder
-hx benzo withdrawal seizure
-tobacco abuse
PLAN:
Repeat Hb this a.m. was stable. T.bili downtrending . INR stable. Denies any overt GI bleeding. Need outpatient GI evaluation for anemia
11/05/2024 Vanessa score 0.088, good prognosis and therefore should continue steroids. Pt state he will be complaint with medication. -patient will need 40 mg of prednisolone for total of 28 days upon discharge
repeat labs 2-3 days prior to follow up 11/[address] Morrison
Continue alcohol abstinence enforced
will s/o . Please call us back if any questions
Total Time Spent with Patient (in minutes): 35
Subjective
Subjective
Date of Service: November 07, 2024
No complaints. Denies any bleeding
Objective
Data Reviewed
Laboratory Data:
Laboratory Results
11/07/24 08:14
11/07/24 08:14
Laboratory Results
PT 20.3 Sec (11.4-14.6) H 11/07/24 08:14
INR 1.68 11/07/24 08:14
APTT 43.3 Sec (23.4-35.0) H 10/29/24 04:19
Phosphorus 3.2 mg/dl (2.5-4.5) 11/07/24 08:14
Magnesium 1.7 mg/dl (1.6-2.3) 11/07/24 08:14
Total Bilirubin 6.5 mg/dl (0.2-1.3) H 11/07/24 08:14
AST 147 U/L (17-59) H 11/07/24 08:14
ALT 60 U/L (0-50) H 11/07/24 08:14
Alkaline Phosphatase 210 U/L (38-126) H 11/07/24 08:14
Lipase 102 U/L (23-300) 10/26/24 18:59
Vital Signs and I&O:
Vital Signs
Temp Pulse Resp BP Pulse Ox
98.4 F 92 18 109/74 95
11/07/24 07:00 11/07/24 07:00 11/07/24 07:00 11/07/24 07:00 11/07/24 07:00
I&O
11/06/24 11/07/24 11/08/24
06:59 06:59 06:59
Intake Total 1560 / 1560 2760 / 2760
Output Total 75 / 75
Balance 1485 / 1485 2760 / 2760
Physical Exam
Physical Exam
GI: Soft, Non Distended and Non Tender
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
--- NOTE | 2024-11-07 12:55 | W.DS.TRANS ---
DC Summary - Rehab Director Occupational Therapist
-
Discharge Instructions:
Discharge Diagnosis/Procedures Multifactorial Acute Metabolic Encephalopathy
ETOH withdrawal/Delirium tremens
hepatic encephalopathy
ETOH hepatitis
Additional Diets Alcohol abstinence
Activity As tolerated
Blood Work repeat labs 2-3 days prior to GI follow up 11/15
Instructions:
Stand-Alone Forms:
Changes to Home Medications: Yes
Discharge Medications:
DC Medications w/original date entered in [employer]
lamotrigine 100 mg tablet 100 mg PO DAILY seizure/bipolar 10/26/24
sodium phosphates 19 gram-7 gram/118 mL enema (Fleet Enema) 118 ml OH DAILYPRN PRN constipation 10/26/24
vitamin B complex 1 cap PO DAILY Supplement 10/26/24
famotidine 20 mg tablet 20 mg PO DAILY 30 days #30 tabs 11/07/24
folic acid 1 mg tablet 1 mg PO DAILY 30 days #30 tabs 11/07/24
nicotine 21 mg/24 hr daily transdermal patch 21 mg transdermal DAILY 30 days #30 ea 11/07/24
prednisolone sodium phosphate 15 mg/5 mL (3 mg/mL) oral solution 40 mg (13.3333 mL) PO DAILY 30 days #399.999 mL 11/07/24
quetiapine 25 mg tablet 50 mg (2 x 25 mg) PO HS 30 days #60 tabs 11/07/24
rifaximin 550 mg tablet (Xifaxan) 550 mg PO BID 30 days #60 tabs 11/07/24
thiamine mononitrate (vit B1) 100 mg tablet 100 mg PO DAILY 30 days #30 tabs 11/07/24
Home Medication Changes
vitamin B complex 1 cap PO DAILY Supplement 10/26/24
famotidine 20 mg tablet 20 mg PO DAILY 30 days #30 tabs 11/07/24
folic acid 1 mg tablet 1 mg PO DAILY 30 days #30 tabs 11/07/24
nicotine 21 mg/24 hr daily transdermal patch 21 mg transdermal DAILY 30 days #30 ea 11/07/24
prednisolone sodium phosphate 15 mg/5 mL (3 mg/mL) oral solution 40 mg (13.3333 mL) PO DAILY 30 days #399.999 mL 11/07/24
quetiapine 25 mg tablet 50 mg (2 x 25 mg) PO HS 30 days #60 tabs 11/07/24
rifaximin 550 mg tablet (Xifaxan) 550 mg PO BID 30 days #60 tabs 11/07/24
thiamine mononitrate (vit B1) 100 mg tablet 100 mg PO DAILY 30 days #30 tabs 11/07/24
Pending Results: No
--- NOTE | 2024-11-07 12:58 | CM ---
Chart reviewed home today, no needs, [facility].
Plan; Home no needs.
== END 2024-11-07 14:55 | disposition home or self-care (01) | DRG 432 ==
LOC: 4 WEST ACU 23:00
PROVIDERS: Internal Medicine; Internal Medicine Critical Care Medicine; Nurse Practitioner; Nurse Practitioner Adult Health; Physician Assistant; ADMITTING PHYSICIAN Internal Medicine; ATTENDING PHYSICIAN Internal Medicine; CONSULT PHYSICIAN Internal Medicine Gastroenterology; CONSULT PHYSICIAN Surgery; EMERGENCY PHYSICIAN Emergency Medicine; OTHER PHYSICIAN Internal Medicine Critical Care Medicine; PRIMARYCARE PHYSICIAN Family Medicine
DX: K70.11 Alcoholic hepatitis with ascites (principal); G93.41 Metabolic encephalopathy; F10.231 Alcohol dependence with withdrawal delirium; J98.11 Atelectasis; K76.6 Portal hypertension; I85.10 Secondary esophageal varices without bleeding; K80.00 Calculus of gallbladder with acute cholecystitis without obstruction; K56.1 Intussusception; D68.9 Coagulation defect, unspecified; F10.221 Alcohol dependence with intoxication delirium; R94.5 Abnormal results of liver function studies; F13.21 Sedative, hypnotic or anxiolytic dependence, in remission; F17.210 Nicotine dependence, cigarettes, uncomplicated; K82.8 Other specified diseases of gallbladder; K76.82 Hepatic encephalopathy; K70.0 Alcoholic fatty liver; Y90.8 Blood alcohol level of 240 mg/100 ml or more; F31.9 Bipolar disorder, unspecified; G43.909 Migraine, unspecified, not intractable, without status migrainosus; R59.0 Localized enlarged lymph nodes; F41.9 Anxiety disorder, unspecified; K76.0 Fatty (change of) liver, not elsewhere classified; K59.00 Constipation, unspecified; D69.6 Thrombocytopenia, unspecified; K74.60 Unspecified cirrhosis of liver; R16.1 Splenomegaly, not elsewhere classified; D64.9 Anemia, unspecified; M54.9 Dorsalgia, unspecified; E88.09 Other disorders of plasma-protein metabolism, not elsewhere classified; E83.39 Other disorders of phosphorus metabolism; R45.1 Restlessness and agitation; W12.XXXA Fall on and from scaffolding, initial encounter; Y93.9 Activity, unspecified; Y92.9 Unspecified place or not applicable; Z88.0 Allergy status to penicillin; Q63.1 Lobulated, fused and horseshoe kidney; Z87.81 Personal history of (healed) traumatic fracture
CPT/HCPCS: 70450; 71045; 71260; 74018; 74177; 76700; 76705; 80053; 82077; 82140; 82248; 82607; 82728; 82746; 83540; 83550; 83690; 83735; 84100; 84439; 84443; 85025; 85027; 85610; 85730; 86705; 86706; 86709; 86803; 86850; 86900; 86901; 87340; 92526; 92610; 93005; 93975; 96374; 96375; 97116; 97163; 97167; 97535; 99285; P9047; Q9967

== ENCOUNTER 2024-11-16 13:32 | Inpatient (IN) | payer OTHER, SELFPAY ==
[2024-11-16] VITALS (10 sets, daily range): BP systolic 75–128; BP diastolic 72–82; BMI 24.0
--- NOTE | 2024-11-16 09:49 | ED.GENMED ---
History of Present Illness
General
Chief Complaint: Abdominal Pain
Source: patient and records
Exam Limitations: none
Time Seen by Provider: 11/16/24 09:18
History of Present Illness
History of Present Illness:
44-year-old male ascites quit drinking a few weeks ago admitted recently with abdominal pain went into alcohol withdrawal, apparently did not have enough fluid to tap on his ultrasound went home with been compliant with his meds not drinking,
developed ascites, apparently trouble getting an outpatient tap scheduled as no fever no shortness of breath does not smell of alcohol, not tremulous
Past History
Past History
ED Past Medical History: Seizures (Benzodiazepine withdrawal related) and Psychiatric
ED Past Surgical History: Orthopedic
Social History
Tobacco: Smoker
Alcohol: Former
Drug: Former user
Personal:
Living: with family
Employment: Not employed
Family History
Family History: Other (Noncontributory)
Review of Systems
Review of Systems
All Other Systems: Not applicable
Constitutional: Denies fever or fatigue
Respiratory: Denies trouble breathing
Cardiac: Reports no symptoms
ABD/GI: Reports abdominal pain; Denies nausea or diarrhea
Phy Exam
Physical Exam
Physical Exam:
Physical Exam
General: Chronically ill male
Neck: Jaundice
Heart: s1/s2 regular rate and rhythm, no murmur. equal radial pulses.
Lungs: no acute respiratory distress. clear bilaterally
Abdomen: Distended mild tenderness in the left abdomen
Neuro: alert and oriented. no focal neurological deficits no asterixis
Skin: no rash
Psychiatric: Calm
Extremities: 1+ edema
Course
Orders/Labs/Results
Orders:
Orders
11/16/24 09:37
Ammonia Urgent
Complete Blood Count/With Diff Urgent
Comprehensive Metabolic Panel Urgent
Lipase Urgent
Prothrombin Time Urgent
11/16/24 09:41
Consult Interventional Radiology [IRAD CONSULT] Routine
Consulting Provider: Vasiliy Ervin
Was physician already notified: Yes
Procedure being ordered, including laterality if applicable: paracentesis
Acknowledgement that appropriate orders are entered: Yes
11/16/24 10:59
IRAD Cytology Routine
Date Specimen was Collected: 11/16/24
Time Specimen was Collected: 11:56
Source: Peritoneal Fluid
Clinical Impression: ascites
History of Malignancy: none
History of Radiation / Chemotherapy: none
Submitting Physician: Gustavo Pozo
Comment: Aziza
11/16/24 11:59
Body Fluid Albumin Routine
Fluid Source: Peritoneal (Ascites)
Date Specimen was Collected: 11/16/24
Time Specimen was Collected: 11:47
Body Fluid Amylase Routine
Fluid Source: Peritoneal (Ascites)
Date Specimen was Collected: 11/16/24
Time Specimen was Collected: 11:47
Body Fluid Cell Count Routine
What is the Body Fluid: peritoneal fluid
Date Specimen was Collected: 11/16/24
Time Specimen was Collected: 11:47
Body Fluid LDH Routine
Fluid Source: Peritoneal (Ascites)
Date Specimen was Collected: 11/16/24
Time Specimen was Collected: 11:47
Body Fluid Protein Routine
Fluid Source: Peritoneal (Ascites)
Date Specimen was Collected: 11/16/24
Time Specimen was Collected: 11:47
11/16/24 12:00
Fluid Culture with Gram Stain Routine
NISREEN Source: Peritoneal Fluid
Specimen Description:
Date Specimen was Collected: 11/16/24
Time Specimen was Collected: 11:47
Comment: Post Procedure
11/16/24 12:48
CT Abd/pelvis W Iv Cont Urgent
Comment:
Reason For Exam: llq pain
0.9% Sodium Chloride 1000 ml [Nss] 1,000 ml IV BOLUS
Morphine Sulfate 4 mg IV NOW STA
11/16/24 13:21
Admit/Transfer Patient As Directed
Co-Sign Provider:
Level of Care: Inpatient admission
Assign to:: Medical/Surgical
Physician / Group: Thaddeus
Diagnosis: Ascites
Reason for Hospitalization: Paracentesis
Expected length of stay greater than two midnights?: Yes
ELOS- Estimated Length of Stay in days: 3
I certify the patient meets the requirements for IP care: Yes
PRN Pain Medication Management As Directed
May give lesser potent ordered pain med per pt: Yes
preference::
Protocol:: Medication orders for pain may be administered in a
manner that supports deferring to patient preference
when the pt is:
- Requesting an ordered lesser potent pain medication.
Least to most potent pain medications are defined
as: acetaminophen < NSAID < tramadol < opioids
(morphine, oxycodone, hydromorphone).
- Requesting a lesser dose of the same medication IF
ORDERED.
- Requesting a less intrusive route of administration
if both routes are prescribed by the provider (PO <
IV).
11/16/24 13:22
Code Status As Directed
Resuscitation Status: Full Code
11/16/24 14:23
GASTROINTESTINAL CONSULT Routine
Consulting Provider: Amilcar Morrison
Was physician already notified: Yes
Abnormal Lab Results
11/16/24
09:37
WBC 24.3 H 10^3/uL
(4.8-10.8)
RBC 2.78 L 10^6/uL
(4.70-6.10)
Hgb 10.3 L g/dL
(13.0-18.0)
Hct 29.6 L %
(39.0-52.0)
MCV 106.5 H fL
(80.0-94.0)
MCH 37.1 H pg
(27.0-31.0)
RDW 14.7 H %
(11.5-14.5)
MPV 11.0 H fL
(7.4-10.4)
Abs Immat Gran (auto) 0.1 H 10^3/uL
(0-0.05)
Absolute Neuts (auto) 20.4 H 10^3/uL
(1.4-6.5)
Absolute Monos (auto) 1.5 H 10^3/uL
(0.1-0.6)
Neutrophils % 84.1 H %
(42.2-75.2)
Lymphocytes % 7.3 L %
(20.5-51.1)
PT 19.5 H Sec
(11.4-14.6)
Sodium 131 L mmol/L
(135-145)
Creatinine 0.5 L mg/dL
(0.7-1.3)
Glucose 126 H mg/dl
(70-99)
Calcium 8.2 L mg/dl
(8.4-10.2)
Total Bilirubin 7.1 H mg/dl
(0.2-1.3)
AST 140 H U/L
(17-59)
ALT 73 H U/L
(0-50)
Alkaline Phosphatase 229 H U/L
(38-126)
Albumin 3.0 L g/dl
(3.5-5.0)
Lipase 493 H U/L
(23-300)
11/16/24 09:37
11/16/24 09:37
Vital Signs
Initial and Last Documented VS:
Initial Vital Signs
Temp Pulse Resp BP Pulse Ox
97.8 F 103 16 115/79 94
11/16/24 08:43 11/16/24 08:43 11/16/24 08:43 11/16/24 08:43 11/16/24 08:43
Last Documented Vital Signs
Temp Pulse Resp BP Pulse Ox
98.0 F 85 18 124/81 95
11/16/24 11:24 11/16/24 13:15 11/16/24 13:15 11/16/24 13:00 11/16/24 13:15
MDM/Problems Addressed
Differential Diagnosis Includes:
Symptomatic ascites, SBP,
MDM/Problems Addressed:
Abdominal pain ascites
Chronic conditions affecting care:
Alcoholism
Acute Exacerbation and/or Progression of Chronic Illness:
Alcoholism ascites
*Critical Care Note
Total Time (30-74mins, 75-104mins- exclusive of procedures): 30
Update Note
Update Note:
Update reviewed with IR 1100 cc of bloody ascitic fluid white count is up please been on steroids, this point I think is prudent admit of the hospital, having contact him via text with his outpatient GI doctor message sent to the hospitalist
245 labs noted consistent with SBP reviewed with referring GI Dr. Patient updated,
ED Attending Note
-
Portions of this chart may have been created with voice recognition software.� Occasional wrong word or��sound alike� substitutions may have occurred due to the inherent limitations of voice recognition software.
Discharge Plan
Departure
Patient Disposition: Admit
Date of Disposition: 11/16/24
Time of Disposition: 12:51
Admit to: Med/Surg
Presentation/result/management discussed w/ accepting MD/DO: Hospitalist
Patient with high blood pressure during this ER visit?: No
Condition: Fair
Discharge Problem:
Ascites, SBP (spontaneous bacterial peritonitis)
Interventions
Interventions:
*Risk Screen - Suicide Last Done: 11/16/24 08:43
*General Assessment Last Done: 11/16/24 08:43
*Neglect/Abuse Screening Last Done: 11/16/24 08:43
*ED- Fall Risk Assessment Last Done: 11/16/24 09:48
*ED COVID-19 Vaccine History Last Done: 11/16/24 13:04
XN-Dctbtr-Gvkvbmdkro Assessment Last Done: 11/16/24 09:47
[2024-11-16 09:56] LABS: Hematocrit 29.6 % (39.0-52.0); Hemoglobin 10.3 g/dL (13.0-18.0); Mean Corp Hgb Conc. 34.8 g/dL (33.0-37.0); Mean Corpuscular Hgb 37.1 pg (27.0-31.0); Mean Corpuscular Volume 106.5 fL (80.0-94.0); Platelet Count 146 10^3/uL (130-400); Red Blood Cell Count 2.78 10^6/uL (4.70-6.10); Red Cell Dist. Width 14.7 % (11.5-14.5); White Blood Cell Count 24.3 10^3/uL (4.8-10.8)
[2024-11-16 09:59] LABS: INR 1.62; PT 19.5 Sec (11.4-14.6)
[2024-11-16 10:01] LABS: Ammonia 11 umol/L (9-30)
[2024-11-16 10:25] LABS: ALT (SGPT) 73 U/L (0-50); AST (SGOT) 140 U/L (17-59); Alkaline Phosphatase 229 U/L (38-126); Blood Urea Nitrogen 9 mg/dl (9-20); Calcium 8.2 mg/dl (8.4-10.2); Carbon Dioxide 28 mmol/L (22-30); Chloride 100 mmol/L (98-107); Glucose 126 mg/dl (70-99); Lipase 493 U/L (23-300); Potassium 3.7 mmol/L (3.5-5.1); Sodium 131 mmol/L (135-145); Total Bilirubin 7.1 mg/dl (0.2-1.3); Total Protein 6.6 g/dl (6.3-8.2); eGFR > 60.00
[2024-11-16 10:33] LABS: % Basophils 0.2 % (0-2); % Eosinophils 1.6 % (0-6); % Immature Granulocytes 0.5 % (0-0.5); % Lymphocytes 7.3 % (20.5-51.1); % Monocytes 6.3 % (1.7-9.3); % Neutrophils 84.1 % (42.2-75.2); Absolute Eosinophils 0.4 10^3/uL (0-0.7); Absolute Immature Granulocytes 0.1 10^3/uL (0-0.05); Absolute Lymphocytes 1.8 10^3/uL (1.2-3.4); Absolute Monocytes 1.5 10^3/uL (0.1-0.6); Absolute Neutrophils 20.4 10^3/uL (1.4-6.5); Nucleated Red Blood Cells % 0 % (-)
--- NOTE | 2024-11-16 12:53 | HPS.HSE ---
Addendum entered and electronically signed by Ana Hess PA-C 11/16/24 17:02:
Fluid Analysis is consistent with Spontaneous Bacterial Peritonitis
Reviewed with GI
Start Rocephin 2gm Daily
Give albumin
Await fluid culture
Original Note:
Family Physician
-
Family Physician: Hugo Miller
Chief Complaint
-
Abdominal Pain
History of Present Illness
Patient is a 44 y/o male past medical history of alcohol use disorder with recent hospitalization from October 27 to November 07 for acute alcoholic hepatitis with hepatic encephalopathy complicated by alcohol withdrawal with delirium tremens who
presents with abdominal pain and worsening abdominal distention. Patient reports he was initially doing fair following his discharge. He developed worsening abdominal distention about 6 days ago, and is now complaining of worsening left sided
abdominal pain. He reports very poor appetite. He was initially having diarrhea but now reports no bowel movement for the past 2 days. He denies fevers, sweats or chills.
Medical History
Past Medical History
Past Medical History: Reports Other
Additional Past Medical History:
Alcoholic Cirrhosis
Hepatic Encephalopathy
Alcohol Use Disorder
Alcohol Withdrawal Seizure
Chronic Pancytopenia
Bipolar Disorder / Anxiety / Depression
Migraine Headaches
Past Surgical History: Reports Other
Additional Past Surgical History:
Jaw / Nasal Surgery
Social History
Tobacco: Other (No cigarettes since prior hospitalization and has been using a nicotine patch)
Alcohol: Other (Patient reports he has sober since his admission on October 27)
Family History
Family History: Not pertinent
Allergies / Home Medications
Allergies reflects when Allergies were last updated in [facility].
Home Medications with original date entered in [facility]
Allergy/Medication List:
Allergies
Allergy/AdvReac Type Severity Reaction Status Date / Time
amoxicillin [Amoxicillin] Allergy Mild Rash Verified 11/16/24 08:43
Penicillins Allergy Mild Rash Verified 11/16/24 08:43
Home Medications
lamotrigine 100 mg tablet 100 mg PO DAILY seizure/bipolar 10/26/24
sodium phosphates 19 gram-7 gram/118 mL enema (Fleet Enema) 118 ml [place] DAILYPRN PRN constipation 10/26/24
vitamin B complex 1 cap PO DAILY Supplement 10/26/24
famotidine 20 mg tablet 20 mg PO DAILY 30 days #30 tabs 11/07/24
folic acid 1 mg tablet 1 mg PO DAILY 30 days #30 tabs 11/07/24
nicotine 21 mg/24 hr daily transdermal patch 21 mg transdermal DAILY 30 days #30 ea 11/07/24
prednisolone sodium phosphate 15 mg/5 mL (3 mg/mL) oral solution 40 mg (13.3333 mL) PO DAILY 30 days #399.999 mL 11/07/24
quetiapine 25 mg tablet 50 mg (2 x 25 mg) PO HS 30 days #60 tabs 11/07/24
rifaximin 550 mg tablet (Xifaxan) 550 mg PO BID 30 days #60 tabs 11/07/24
thiamine mononitrate (vit B1) 100 mg tablet 100 mg PO DAILY 30 days #30 tabs 11/07/24
Review of Systems
-
History Source: Patient
A 12 point ROS was completed and negative except as noted: Yes
Constitutional: Denies Fever or Chills
Respiratory: Denies Cough or Trouble Breathing
Cardiac: Denies Chest Pain or Palpitations
Abdomen/GI: Reports See HPI
Physical Exam
Vital Signs
Vital Signs
Temp Pulse Resp BP Pulse Ox
98.0 F 77 16 111/77 93
11/16/24 11:24 11/16/24 12:23 11/16/24 12:23 11/16/24 12:23 11/16/24 12:23
Physical Exam
General: Comfortable and Conversant
HEENT: Other (Sclera icteric)
Respiratory: Clear and Non Labored Respirations
Cardiac: S1/S2 and Regular Rhythm
GI: Soft, Tender (Diffuse), Distended and Organomegaly
Rectal: Deferred by Provider
Musculoskeletal: No Clubbing, No Cyanosis and Other (Trace lower extremity edema)
Skin: Warm, Dry and Jaundice
Neuro: Awake, Alert, Oriented and Nonfocal/grossly intact
Psych: Calm
Laboratory Results
-
11/16/24 09:37
11/16/24 09:37
Laboratory Results
PT 19.5 Sec (11.4-14.6) H 11/16/24 09:37
INR 1.62 11/16/24 09:37
Total Bilirubin 7.1 mg/dl (0.2-1.3) H 11/16/24 09:37
AST 140 U/L (17-59) H 11/16/24 09:37
ALT 73 U/L (0-50) H 11/16/24 09:37
Alkaline Phosphatase 229 U/L (38-126) H 11/16/24 09:37
Lipase 493 U/L (23-300) H 11/16/24 09:37
Data Reviewed
-
Lab Data: Labs Reviewed by me
Old Records: Reviewed
Impression/Plan
-
Increasing Abdominal Pain and Abdominal Distention
-Patient underwent paracentesis with 1100cc fluid removed - Await fluid analysis and fluid culture for possible SBP
-Await Abd/Pelvis CT scan
-Consult GI
Alcohol Hepatitis / Cirrhosis
Prior Hepatitic Encephalopathy
-Continue Xifaxan
-Continue prednisolone
-Ammonia level 11 at admission
Constipation
-Add Lactulose prn
Macrocytic Anemia
-Hgb trending upwards compared to priro
Thrombocytopenia
-Platelet count in normal range
GERD
-Patient reports worsening symptoms
-Add Protonix
-Continue Pepcid
Bipolar Disorder / Anxiety / Depression
Migraine Headaches
-Continue quetiapine
-Continue lamotrigine
Nicotine Dependence
-Continue nicotine patch
DVT proph: SCDS
Code Status: Full Code
[2024-11-16 13:00] LABS: Body Fluid Albumin < 1.0 g/dl; Body Fluid Amylase 174 U/L; Body Fluid LDH 506 U/L; Body Fluid Protein < 2.0 g/dl
[2024-11-16] MEDS: MORPHINE SULFATE 4 MG IV (13:00)
[2024-11-16] MEDS: NSS 1000 IV (13:00)
--- NOTE | 2024-11-16 13:49 | W.PN.UPDATE ---
Update Note
Progress Note Update
This is an addendum to the H&P written by Ana Contreras on 11/16/2024.� Patient seen and examined independently with PA.
44-year-old male past medical history of alcoholic cirrhosis, alcoholic hepatitis, hepatic encephalopathy, alcohol use disorder, alcohol withdrawal seizure, chronic anemia, pancytopenia, bipolar disorder, anxiety/depression, migraines, chronic
nicotine dependence, presenting with abdominal pain and increased abdominal distention.� He could not get outpatient paracentesis done.� Has some lower extremity edema.� Did have diarrhea last week followed by constipation with no bowel movement 2
days.� Did have some bright red rectal bleeding earlier this week.
Patient recently hospitalized from 10/26 to 11/07 for hepatic encephalopathy and cirrhosis.� He was treated for alcohol withdrawal requiring Precedex drip.� Also treated for alcoholic hepatitis with steroids.
Vital signs are normal.
Labs show leukocytosis.� Chronic anemia which is stable.� Sodium 131 which is stable.� Transaminitis which is stable.� Ammonia level of 11.
Concern for decompensated alcoholic cirrhosis with possibility of SBP.
Patient underwent paracentesis today 1.1 L with fluid studies sent. CT abdomen pelvis pending.� Continue rifaximin.� As needed lactulose for constipation.� Continue thiamine and folate.� GI consulted.�Continue prednisone for alcoholic hepatitis
previously started.�Likely need to add�Lasix/Spironolactone.�
[2024-11-16 14:35] LABS: Body Fluid Mononuclear 54.2 %; Body Fluid Polymorphonuclear 45.8 %; Body Fluid WBC 1700 /CUMM
--- NOTE | 2024-11-16 14:43 | CON.GI ---
Addendum entered and electronically signed by Amilcar Morrison MD 11/16/24 16:02:
Daily MELD labs also ordered AFP
Addendum entered and electronically signed by Amilcar Morrison MD 11/16/24 15:40:
typo GRAMS not mg
Addendum entered and electronically signed by Amilcar Morrison MD 11/16/24 15:07:
Pt has history of rash with PCN d/w hospital team he tolerated cefepime last admission ceftriaxone should be ok
Original Note:
Consultation
-
Date/Time Consultation Requested: 11/16/2024, 1pm
Date/Time Consultation Performed: 11/16/2024, 2:45pm
Requesting Provider: Dr. Milind GARCIA
Performing Provider: Dr. Morrison
Reason for Consultation: abd pain
Medical History
Chief Complaint / HPI
Chief Complaint: abd pain
History of Present Illness:
Mr. Alberto is a 44-year-old male with recent prolonged hospitalization for acute alcoholic hepatitis. He was admitted on October 27. He came after a fall 10 days prior with abdominal pain, distention, constipation. Had a CT scan with multiple
findings including healed fracture of the chest, small amount of ascites, distended gallbladder with gallbladder wall thickening and layering sludge, right upper quadrant and retroperitoneal lymphadenopathy, mild splenomegaly likely due to portal
hypertension, mild paraesophageal varices, horseshoe kidney, nonobstructing left upper quadrant jejunal jejunal intussusception. Surgery evaluated the intussusception and had repeated the CT scan which did not show intussusception so this was felt
to be unlikely. Initially his discriminant function was less than 32 but this continued to rise while he was in the hospital. Discriminant function went up to 40 and we want to start him on prednisolone but there was an issue was he could not
tolerate oral meds at that time as he was on a Precedex drip for alcohol withdrawal. Prednisolone was ultimately added on October 31. Discriminant function at that time was 46. I have been extensive discussion with fianc� and siblings about the
importance of close follow-up. Vanessa score was calculated on November 07 which showed good prognosis so it was continued.
He came into my office yesterday with gaining 8 pounds at home as well as 8 pounds in the hospital. He is having a lot of abdominal distention and pain in his abdomen and back. He is also having a lot of reflux mostly at night. He vomited once
but cannot tell if there is blood in there. He did feel some minimal relief in his abdomen when he was vomiting. No fevers. Self reducing fluids as is worsening the fluid in his abdomen. He cannot sleep more than 2 to 3 hours due to abdominal
back pain. After he got home he did have some diarrhea. He had some urinary retention with only pee very small amounts as well. Took an ijku-gam-sowvpzq diuretic Pamabrom which led him to urinate but he cannot have a bowel movement. He ran out
of Xifaxan. He only got lactulose in the hospital.
I have recommended that he come to the hospital for a paracentesis with concern for SBP given his abdominal distention and pain. He did not want to go into the hospital yesterday so he did not go. I attempted to set up a paracentesis for an
outpatient but was unsuccessful. Therefore, he presented to the emergency room today. I discussed with the emergency room physician and hospitalist team. 1.1 L of fluid were removed.
Past Medical History
Past Medical History: Seizures and Other (bipolar, RLS, sleep apnea)
Past Surgical History: Other (concussions, septoplasty, facial trauma)
Social History
Tobacco: Non-Smoker
Alcohol: Chronic Alcoholic
Drug: None
Allergies / Home Medications
Allergy/AdvReac Type Severity Reaction Status Date / Time
amoxicillin [Amoxicillin] Allergy Mild Rash Verified 11/16/24 08:43
Penicillins Allergy Mild Rash Verified 11/16/24 08:43
�Medication �Instructions �Recorded
lamotrigine 100 mg tablet 125 mg PO DAILY seizure/bipolar 10/26/24
sodium phosphates 19 gram-7 118 ml [place] DAILYPRN PRN constipation 10/26/24
gram/118 mL enema (Fleet Enema)
vitamin B complex 1 cap PO DAILY Supplement 10/26/24
famotidine 20 mg tablet 20 mg PO DAILY 30 days #30 tabs 11/07/24
folic acid 1 mg tablet 1 mg PO DAILY 30 days #30 tabs 11/07/24
nicotine 21 mg/24 hr daily 21 mg transdermal DAILY 30 days 11/07/24
transdermal patch #30 ea
prednisolone sodium phosphate 15 40 mg (13.3333 mL) PO DAILY 30 11/07/24
mg/5 mL (3 mg/mL) oral solution days #399.999 mL
quetiapine 25 mg tablet 50 mg (2 x 25 mg) PO HS 30 days 11/07/24
#60 tabs
rifaximin 550 mg tablet (Xifaxan) 550 mg PO BID 30 days #60 tabs 11/07/24
thiamine mononitrate (vit B1) 100 100 mg PO DAILY 30 days #30 tabs 11/07/24
mg tablet
lidocaine 4 % topical patch 1 patch topical DAILY lower back 11/16/24
Review of Systems
-
All other systems: A 12 pt ROS was Negative except as stated above in HPI
Vital Signs
Temp Pulse Resp BP Pulse Ox
98.0 F 85 18 124/81 95
11/16/24 11:24 11/16/24 13:15 11/16/24 13:15 11/16/24 13:00 11/16/24 13:15
Physical Exam
Exam
General: Other (jauniced)
Respiratory: Clear
Cardiac: S1/S2
GI: Tender and Distended
Musculoskeletal: Edema
Skin: Warm
Neuro: AO x 3
Results
WBC 24.3 10^3/uL (4.8-10.8) H 11/16/24 09:37
Hgb 10.3 g/dL (13.0-18.0) L 11/16/24 09:37
Hct 29.6 % (39.0-52.0) L 11/16/24 09:37
MCV 106.5 fL (80.0-94.0) H 11/16/24 09:37
Plt Count 146 10^3/uL (130-400) 11/16/24 09:37
Absolute Neuts (auto) 20.4 10^3/uL (1.4-6.5) H 11/16/24 09:37
PT 19.5 Sec (11.4-14.6) H 11/16/24 09:37
INR 1.62 11/16/24 09:37
Sodium 131 mmol/L (135-145) L 11/16/24 09:37
Potassium 3.7 mmol/L (3.5-5.1) 11/16/24 09:37
Chloride 100 mmol/L (98-107) 11/16/24 09:37
Carbon Dioxide 28 mmol/L (22-30) 11/16/24 09:37
BUN 9 mg/dl (9-20) 11/16/24 09:37
Creatinine 0.5 mg/dL (0.7-1.3) L 11/16/24 09:37
Calcium 8.2 mg/dl (8.4-10.2) L 11/16/24 09:37
Total Bilirubin 7.1 mg/dl (0.2-1.3) H 11/16/24 09:37
AST 140 U/L (17-59) H 11/16/24 09:37
ALT 73 U/L (0-50) H 11/16/24 09:37
Alkaline Phosphatase 229 U/L (38-126) H 11/16/24 09:37
Lipase 493 U/L (23-300) H 11/16/24 09:37
Diagnostic Image Results:
Prior GI Procedures:
EGD:
Colonoscopy:
Assessment / Plan
-
44 male with recent admission for acute alcoholic hepatitis on prednisolone here with abdominal pain and distension found to have SBP (WBC 1700, 45% = 765).
Recommendations:
- Start antibiotics (ceftriaxone 2g IV daily) needs at least 5 days
- 1.5 mg/kg albumin today; 1 mg/kg albumin day 3
- Stop prednisolone
- Hold diuretics will need before discharge (lasix 40/aldactone 100)
- Continue xifaxan - unclear if true PSE during last hospitalization or just EtOH withdrawal
- Follow up fluid culture
I did d/w patient and fiance today about acute alc hep, severity of disease.
D/w ER and hospitalist team.
-
-
Thank you for consultation and allowing me to participate in the patient's care. Please call the director clinical information services GI physician during the after hours with any questions or concerns.
[2024-11-16 15:06] LABS: Body Fluid Second Tech CMB
[2024-11-16] MEDS: ROCEPHIN 2000 MG IV (15:33)
[2024-11-16] MEDS: STERILE WATER FOR INJECTION 20 ML IV (15:33)
[2024-11-16] MEDS: FLEXBUMIN 50 IV (15:34)
--- NOTE | 2024-11-16 16:40 | PTCARENOTE ---
Received pt from ED via stretcher. AAOx3. Pt ambulated to bed independently. Assessed and oriented to room. Pt c/o 6/10 pain throughout LUQ of abd, tolerable. Pt verbalized understanding of call draper. Call draper within close reach. Will cont to
monitor.
[2024-11-16] MEDS: FLEXBUMIN 100 IV ×4 (16:59→22:07)
[2024-11-16] MEDS: DUPHALAC/CHRONULAC 20 GRAMS PO (16:59)
[2024-11-16] MEDS: XIFAXAN 550 MG PO (20:23)
[2024-11-16] MEDS: DILAUDID 0.25 MG IV (22:04)
[2024-11-16] MEDS: SEROQUEL 50 MG PO (22:05)
[2024-11-17] MEDS: ZOFRAN 4 MG IV ×3 (02:34→19:26)
[2024-11-17] MEDS: DILAUDID 0.25 MG IV ×3 (02:34→11:56)
[2024-11-17] MEDS: SENOKOT 8.6 MG PO ×2 (05:33→21:50)
[2024-11-17 07:05] VITALS: BP 133/78
[2024-11-17 07:07] VITALS: BMI 24.1
[2024-11-17 07:42] LABS: % Basophils 0.2 % (0-2); % Eosinophils 1.2 % (0-6); % Immature Granulocytes 0.5 % (0-0.5); % Lymphocytes 9.1 % (20.5-51.1); Absolute Eosinophils 0.3 10^3/uL (0-0.7); Absolute Immature Granulocytes 0.1 10^3/uL (0-0.05); Absolute Monocytes 1.3 10^3/uL (0.1-0.6); Hematocrit 29.4 % (39.0-52.0); Hemoglobin 10.1 g/dL (13.0-18.0); Mean Corp Hgb Conc. 34.4 g/dL (33.0-37.0); Mean Corpuscular Hgb 36.9 pg (27.0-31.0); Mean Corpuscular Volume 107.3 fL (80.0-94.0); Mean Platelet Volume 11.2 fL (7.4-10.4); Nucleated Red Blood Cells % 0 % (-); Platelet Count 143 10^3/uL (130-400); Red Blood Cell Count 2.74 10^6/uL (4.70-6.10); Red Cell Dist. Width 14.8 % (11.5-14.5); White Blood Cell Count 21.7 10^3/uL (4.8-10.8)
[2024-11-17 07:47] LABS: INR 1.85; PT 21.5 Sec (11.4-14.6)
[2024-11-17 08:06] LABS: ALT (SGPT) 60 U/L (0-50); AST (SGOT) 98 U/L (17-59); Albumin 3.9 g/dl (3.5-5.0); Alkaline Phosphatase 146 U/L (38-126); Blood Urea Nitrogen 9 mg/dl (9-20); Carbon Dioxide 30 mmol/L (22-30); Chloride 99 mmol/L (98-107); Estimated Creatinine Clearance > 125 ml/min; Glucose 121 mg/dl (70-99); Magnesium 1.8 mg/dl (1.6-2.3); Potassium 3.5 mmol/L (3.5-5.1); Sodium 134 mmol/L (135-145); Total Bilirubin 7.2 mg/dl (0.2-1.3); eGFR > 60.00
[2024-11-17] MEDS: LIDOCAINE 4% PATCH 1 PATCH TOPICAL (09:03)
[2024-11-17] MEDS: XIFAXAN 550 MG PO ×2 (09:04→19:26)
[2024-11-17] MEDS: LAMICTAL 25 MG PO (09:04)
[2024-11-17] MEDS: PEPCID 20 MG PO (09:04)
[2024-11-17] MEDS: FOLVITE 1 MG PO (09:04)
[2024-11-17] MEDS: VITAMIN B1 100 MG PO (09:04)
[2024-11-17] MEDS: B COMPLEX w/VITAMIN C 1 CAPLET PO (09:04)
[2024-11-17] MEDS: LAMICTAL 100 MG PO (09:09)
[2024-11-17] MEDS: NICODERM TRANSDERMAL 21 MG TRANSDERM (09:09)
[2024-11-17] MEDS: PROTONIX 40 MG PO (09:18)
--- NOTE | 2024-11-17 10:29 | W.PN.GI.CBS2 ---
Addendum entered and electronically signed by Xu Roach MD 11/17/24 11:29:
I saw and examined the patient.
The PA's note was reviewed and I agree with the note.
Comment:
44-year-old male with recent diagnosis of acute alcoholic hepatitis on prednisone admitted yesterday for worsening abdominal distention and pain and diagnostic paracentesis found concomitant SBP. Started on ceftriaxone with albumin infusion and is
prednisone is currently being held due to his SBP. Patient appeared quite uncomfortable with new onset abdominal pain this a.m. Agree with repeat CT for further evaluation. N.p.o. for now.
Original Note:
Today's Communication / Plan
-
CT abdomen and pelvis no contrast
N.p.o. except for p.o. meds until CT resulted
As per plan
Assessment / Plan
-
44 male with recent admission for acute alcoholic hepatitis on prednisolone here with abdominal pain and distension found to have SBP (WBC 1700, 45% = 765).
Recommendations:
-Obtain repeat CT of the abdomen and pelvis, given worsening abdominal discomfort. No flatus and vomiting.
-Will make patient n.p.o. except for p.o. meds until results of CT
- Continue antibiotics (ceftriaxone 2g IV daily) Currently on day 2 of at least 5 days
- 1 g/kg albumin day 3 (11/18/24) already ordered. Needed to round up on albumin dose to 100 g as to not under dose.
- prednisolone stopped.
- Hold diuretics will need before discharge (lasix 40/aldactone 100)
- Continue xifaxan - unclear if true PSE during last hospitalization or just EtOH withdrawal
- Follow up ascites fluid culture
- Trend daily CBC, BMP, LFTs, PT/INR
Dr. Morrison did d/w patient and fiance today about acute alc hep, severity of disease.
Subjective
Subjective
Date of Service: November 17, 2024
Patient with continued abdominal discomfort. Tried to tolerate solid food last night however vomited. Not passing flatus. High-pitched bowel sounds. No bowel movements. Patient is status post paracentesis with 1.1 L of ascites fluid removed
yesterday. He is also status post 100 g of albumin for SBP administered on 11/16/2024. He is due for repeat albumin on 11/18/2024 that has already been ordered. Prednisone has been stopped. Diuretics on hold given SBP. He continues on ceftriaxone
2 g IV daily day 2 of at least 5 days. Patient remains afebrile. Transaminases improving. Alpha-fetoprotein pending. Platelets normal. INR slightly increased at 1.85 up from 1.62.
Objective
Data Reviewed
Laboratory Data:
Laboratory Results
11/17/24 07:11
11/17/24 07:11
Laboratory Results
PT 21.5 Sec (11.4-14.6) H 11/17/24 07:11
INR 1.85 11/17/24 07:11
Magnesium 1.8 mg/dl (1.6-2.3) 11/17/24 07:11
Total Bilirubin 7.2 mg/dl (0.2-1.3) H 11/17/24 07:11
AST 98 U/L (17-59) H 11/17/24 07:11
ALT 60 U/L (0-50) H 11/17/24 07:11
Alkaline Phosphatase 146 U/L (38-126) H 11/17/24 07:11
Lipase 493 U/L (23-300) H 11/16/24 09:37
Vital Signs and I&O:
Vital Signs
Temp Pulse Resp BP Pulse Ox
97.8 F 87 19 133/78 98
11/17/24 07:05 11/17/24 07:05 11/17/24 07:05 11/17/24 07:05 11/17/24 07:05
Physical Exam
Physical Exam
HEENT: Other (Icteric)
Cardiology: Normal Sinus Rhythm
Pulmonary: Clear
GI: Distended, Tender and Other (High-pitched bowel sounds)
Extremities: No Edema
Neuro: Non Focal
--- NOTE | 2024-11-17 10:46 | W.PN.HOSP.TC ---
Today's Communication/Plan
-
see plan
Assessment / Plan
Assessment / Plan
Gen: NAD, AAOx3.
Eyes: EOMI, PERRLA, mild-mod scleral icterus.
Neck: supple.
CV: RRR, +S1/S2, no m/r/g.
Resp: CTAB, no rales, wheezes, or rhonchi.
Abd: +BS, soft, mod-sev distention with diffuse TTP
Skin: No rashes.
Neuro: CN 2-12 intact, non-focal.
Psych: Normal mood and affect.
CT A/P:
1. Small volume of abdominal and pelvic ascites, increased compared to the prior CT.
2. Mild hepatosplenomegaly with micronodular surface contour of the liver suspicious for cirrhosis.
3. Mildly distended gallbladder with cholelithiasis.
4. Small bilateral pleural effusions with adjacent airspace consolidation/atelectasis.
Acute SBP and acute alcoholic hepatitis:
-in the setting of underlying alcoholic cirrhosis, has h/o hepatic encephalopathy (none currently, NH3 11)
-presented with increasing Abdominal Pain and Abdominal Distention
-s/p paracentesis for 1100cc, fluid studies consistent with SBP
-cont Rocephin
-cont IV albumun
-cont Xifaxan/Prednisolone
-repeat CT A/P
Other problems:
Constipation: Lactulose PRN
Macrocytic Anemia: Hb stable
GERD: cont pepcid, Protonix started
Bipolar Disorder / Anxiety / Depression: cont Seroquel/Lamictal
Migraine Headaches: cont lamictal
Nicotine Dependence: cont Nicotine patch
FULL/SCDs
Anticipated Discharge: 24 - 48 hours
Subjective/Interval History
-
Date of Service: November 17, 2024
Patient complains of abdominal pain due to gas pain and abdominal muscle spasms. He says the pain is improving as he has flatus.
Objective Data
-
Labs:
Laboratory Results
11/17/24
07:11
WBC 21.7 H
Hgb 10.1 L
Hct 29.4 L
Plt Count 143
PT 21.5 H
INR 1.85
Sodium 134 L
Potassium 3.5
Chloride 99
Carbon Dioxide 30
BUN 9
Creatinine 0.5 L
Glucose 121 H
Calcium 9.0
Total Bilirubin 7.2 H
AST 98 H
ALT 60 H
Alkaline Phosphatase 146 H
Vital Signs:
Vital Signs
Temp Pulse Resp BP Pulse Ox
97.8 F 87 19 133/78 98
11/17/24 07:05 11/17/24 07:05 11/17/24 07:05 11/17/24 07:05 11/17/24 07:05
[2024-11-17 12:35] VITALS: BP 153/102
[2024-11-17] MEDS: DILAUDID 1 MG IV ×4 (12:42→22:43)
[2024-11-17 14:52] VITALS: BP 133/85
[2024-11-17] MEDS: DUPHALAC/CHRONULAC 20 GRAMS PO (15:01)
[2024-11-17] MEDS: STERILE WATER FOR INJECTION 20 ML IV (15:09)
[2024-11-17] MEDS: ROCEPHIN 2000 MG IV (15:10)
[2024-11-17] MEDS: LACTULOSE ENEMA 300 ML RECTAL (19:26)
[2024-11-17 23:00] VITALS: BP 137/88
[2024-11-17] MEDS: SEROQUEL PO (23:47)
[2024-11-18] MEDS: ZOFRAN 4 MG IV ×3 (03:25→21:52)
[2024-11-18] MEDS: DILAUDID 1 MG IV ×5 (03:25→21:50)
[2024-11-18 06:00] VITALS: BMI 24.0
[2024-11-18 06:23] LABS: INR 1.73; PT 20.5 Sec (11.4-14.6)
[2024-11-18 06:37] LABS: ALT (SGPT) 66 U/L (0-50); AST (SGOT) 109 U/L (17-59); Albumin 3.5 g/dl (3.5-5.0); Alkaline Phosphatase 134 U/L (38-126); Blood Urea Nitrogen 9 mg/dl (9-20); Calcium 8.5 mg/dl (8.4-10.2); Carbon Dioxide 28 mmol/L (22-30); Chloride 99 mmol/L (98-107); Direct Bilirubin 4.9 mg/dl (0.0-0.4); Estimated Creatinine Clearance > 125 ml/min; Glucose 118 mg/dl (70-99); Potassium 3.6 mmol/L (3.5-5.1); Sodium 131 mmol/L (135-145); Total Bilirubin 8.8 mg/dl (0.2-1.3); Total Protein 6.5 g/dl (6.3-8.2); eGFR > 60.00
[2024-11-18 07:00] VITALS: BP 121/74
[2024-11-18] MEDS: NICODERM TRANSDERMAL 21 MG TRANSDERM (08:17)
[2024-11-18] MEDS: LIDOCAINE 4% PATCH 1 PATCH TOPICAL (08:17)
[2024-11-18] MEDS: VITAMIN B1 100 MG PO (08:17)
[2024-11-18] MEDS: B COMPLEX w/VITAMIN C 1 CAPLET PO (08:17)
[2024-11-18] MEDS: PROTONIX 40 MG PO (08:17)
[2024-11-18] MEDS: PEPCID 20 MG PO (08:17)
[2024-11-18] MEDS: FOLVITE 1 MG PO (08:18)
[2024-11-18] MEDS: XIFAXAN 550 MG PO ×2 (08:18→20:54)
[2024-11-18] MEDS: LAMICTAL 25 MG PO (08:18)
[2024-11-18] MEDS: LAMICTAL 100 MG PO (08:18)
[2024-11-18] MEDS: FLEXBUMIN 100 IV ×4 (08:19→13:32)
[2024-11-18 08:40] VITALS: BP 130/79
--- NOTE | 2024-11-18 09:35 | W.PN.HOSP.TC ---
Today's Communication/Plan
-
maintain NPO for now
encourage ambulation and minimize pain meds
continue Abx, Albumin
follow GI recs
US Abd tomorrow to re-evaluate ascites
Assessment / Plan
Assessment / Plan
Gen: NAD, AAOx3.
Eyes: EOMI, PERRLA, mild-mod scleral icterus.
Neck: supple.
CV: RRR, +S1/S2, no m/r/g.
Resp: CTAB, no rales, wheezes, or rhonchi.
Abd: +BS, soft, mod-sev distention with diffuse TTP
Skin: No rashes.
Neuro: CN 2-12 intact, non-focal.
Psych: Normal mood and affect.
Assessment:
Acute SBP and acute alcoholic hepatitis:
-in the setting of underlying alcoholic cirrhosis, has h/o hepatic encephalopathy (none currently, NH3 11)
-presented with increasing Abdominal Pain and Abdominal Distention
-s/p paracentesis 11/16: 1100 cc drained. fluid studies consistent with SBP
-cont Rocephin
-cont IV albumin
-cont Xifaxan
-off steroids due to SBP
Suspected ileus
- CT 11/17: Some increased gaseous distention of the ascending colon and transverse colon to the level of the splenic flexure. Smaller caliber of the descending colon and sigmoid colon containing mild stool, which appears similar compared to the
previous CT abdomen/pelvis from 11/16/2024. No appreciable obstructing lesion at the splenic flexure within the limitations of the lack of oral and intravenous contrast.
- GI following
- s/p enema
- encourage ambulation and to minimize narcotics
- NPO for now
Chronic hyponatremia
- monitor
- IVF if prolonged NPO status
Constipation: Lactulose PRN
Macrocytic Anemia: Hb stable
GERD: cont pepcid, Protonix started
Bipolar Disorder / Anxiety / Depression: cont Seroquel/Lamictal
Migraine Headaches: cont lamictal
Nicotine Dependence: cont Nicotine patch
DVT ppx: SCDs
Code: Full
Anticipated Discharge: > 48 hours
Subjective/Interval History
-
Date of Service: November 18, 2024
reports mild dry heaves last night
abd remains distended but slightly improved
reports + BM with enema and passage of gas
Objective Data
-
Labs:
Laboratory Results
11/18/24
05:46
PT 20.5 H
INR 1.73
Sodium 131 L
Potassium 3.6
Chloride 99
Carbon Dioxide 28
BUN 9
Creatinine 0.4 L
Glucose 118 H
Calcium 8.5
Total Bilirubin 8.8 H
AST 109 H
ALT 66 H
Alkaline Phosphatase 134 H
Vital Signs:
Vital Signs
Temp Pulse Resp BP Pulse Ox
97.6 F 92 18 130/79 97
11/18/24 08:40 11/18/24 08:40 11/18/24 08:40 11/18/24 08:40 11/18/24 08:40
I&O
11/17/24 11/18/24 11/19/24
06:59 06:59 06:59
Intake Total 480 / 480
Balance 480 / 480
Data Reviewed
-
Total Time Spent with Patient (in minutes): 41
Labs: Labs Reviewed by me
[2024-11-18 11:31] VITALS: BP 140/90
--- NOTE | 2024-11-18 11:37 | W.PN.GI.CBS2 ---
Today's Communication / Plan
-
FLD
Assessment / Plan
-
44 male with recent admission for acute alcoholic hepatitis on prednisolone here with abdominal pain and distension found to have SBP (WBC 1700, 45% = 765).
Had acutely worsening abdominal pain yesterday and CT abdomen without contrast was repeated which did not show any acute findings. Patient was given lactulose enema which released some flatus and his pain has improved since. He continues to have
some pain but feels a lot better than yesterday. Continue with ceftriaxone and albumin infusions. Will resume full liquid diet today.
Total Time Spent with Patient (in minutes): 35
Subjective
Subjective
Date of Service: November 18, 2024
Abdo pain is improved.
Objective
Data Reviewed
Laboratory Data:
Laboratory Results
11/17/24 07:11
11/18/24 05:46
Laboratory Results
PT 20.5 Sec (11.4-14.6) H 11/18/24 05:46
INR 1.73 11/18/24 05:46
Magnesium 1.8 mg/dl (1.6-2.3) 11/17/24 07:11
Total Bilirubin 8.8 mg/dl (0.2-1.3) H 11/18/24 05:46
AST 109 U/L (17-59) H 11/18/24 05:46
ALT 66 U/L (0-50) H 11/18/24 05:46
Alkaline Phosphatase 134 U/L (38-126) H 11/18/24 05:46
Lipase 493 U/L (23-300) H 11/16/24 09:37
Vital Signs and I&O:
Vital Signs
Temp Pulse Resp BP Pulse Ox
98.1 F 94 18 140/90 97
11/18/24 11:31 11/18/24 11:31 11/18/24 11:31 11/18/24 11:31 11/18/24 11:31
I&O
11/17/24 11/18/24 11/19/24
06:59 06:59 06:59
Intake Total 480 / 480
Balance 480 / 480
Physical Exam
Physical Exam
HEENT: Other (scleral icterus, jaundiced)
Cardiology: Normal Sinus Rhythm
Pulmonary: Clear
GI: Soft, Distended, Tender, Tense and Normal Bowel Sounds
[2024-11-18 15:00] VITALS: BP 121/74
[2024-11-18] MEDS: STERILE WATER FOR INJECTION 20 ML IV (15:26)
[2024-11-18] MEDS: ROCEPHIN 2000 MG IV (15:26)
--- NOTE | 2024-11-18 16:44 | CM ---
Patient admitted wtih abdominal pain related to alcoholic hepatitis. Pt with history of bipolar disorder, ETOH use disorder with hx of withdrawal seizures. [facility] has been involved to the extent that Donald is agreeable, but many times refuses
intervention. He reports he has a private counselor with whom he speaks about his issues/concerns.
Donald lives with his significant other, Glenny and their children in a 2 story townhouse.
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
No hx of DME
Plan: Likely dishcarge to home with follow up with his counselor
PCP - Hugo Miller - patient states seen recently
Pharmacy - [facility] in [place] and [facility] in [place]
[2024-11-18] MEDS: SENOKOT 8.6 MG PO (20:54)
[2024-11-18] MEDS: MYLICON 80 MG PO ×2 (20:59→23:45)
[2024-11-18] MEDS: SEROQUEL PO (21:56)
[2024-11-18 23:00] VITALS: BP 137/90
[2024-11-19] MEDS: DILAUDID 1 MG IV ×3 (01:52→11:11)
[2024-11-19 06:00] VITALS: BMI 23.9
[2024-11-19] MEDS: ZOFRAN 4 MG IV (06:17)
[2024-11-19 07:04] LABS: INR 1.92; PT 22.4 Sec (11.4-14.6)
[2024-11-19 07:07] LABS: Hematocrit 27.1 % (39.0-52.0); Hemoglobin 9.5 g/dL (13.0-18.0); Mean Corp Hgb Conc. 35.1 g/dL (33.0-37.0); Mean Corpuscular Hgb 37.3 pg (27.0-31.0); Mean Corpuscular Volume 106.3 fL (80.0-94.0); Mean Platelet Volume 10.4 fL (7.4-10.4); Platelet Count 146 10^3/uL (130-400); Red Blood Cell Count 2.55 10^6/uL (4.70-6.10); Red Cell Dist. Width 14.2 % (11.5-14.5); White Blood Cell Count 16.7 10^3/uL (4.8-10.8)
[2024-11-19 07:19] LABS: ALT (SGPT) 51 U/L (0-50); AST (SGOT) 87 U/L (17-59); Albumin 3.9 g/dl (3.5-5.0); Alkaline Phosphatase 92 U/L (38-126); Blood Urea Nitrogen 8 mg/dl (9-20); Calcium 8.8 mg/dl (8.4-10.2); Carbon Dioxide 29 mmol/L (22-30); Chloride 96 mmol/L (98-107); Estimated Creatinine Clearance > 125 ml/min; Glucose 98 mg/dl (70-99); Potassium 3.3 mmol/L (3.5-5.1); Sodium 132 mmol/L (135-145); Total Bilirubin 8.4 mg/dl (0.2-1.3); Total Protein 6.5 g/dl (6.3-8.2); eGFR > 60.00
[2024-11-19 08:09] VITALS: BP 115/75
[2024-11-19] MEDS: VITAMIN B1 100 MG PO (08:42)
[2024-11-19] MEDS: LIDOCAINE 4% PATCH 1 PATCH TOPICAL (08:42)
[2024-11-19] MEDS: MYLICON 80 MG PO ×2 (08:43→21:03)
[2024-11-19] MEDS: LAMICTAL 25 MG PO (08:43)
[2024-11-19] MEDS: XIFAXAN 550 MG PO ×2 (08:43→21:03)
[2024-11-19] MEDS: PEPCID 20 MG PO (08:43)
[2024-11-19] MEDS: KCL 40 MEQ PO (08:43)
[2024-11-19] MEDS: FOLVITE 1 MG PO (08:43)
[2024-11-19] MEDS: DUPHALAC/CHRONULAC 20 GRAMS PO (08:43)
[2024-11-19] MEDS: PROTONIX 40 MG PO (08:44)
[2024-11-19] MEDS: NICODERM TRANSDERMAL 21 MG TRANSDERM (08:44)
[2024-11-19] MEDS: B COMPLEX w/VITAMIN C 1 CAPLET PO (08:44)
[2024-11-19] MEDS: LAMICTAL 100 MG PO (08:45)
--- NOTE | 2024-11-19 10:55 | W.PN.HOSP.TC ---
Today's Communication/Plan
-
continue GasX, symptomatic control
stop narcotics - patient agrees
encourage OOBTC/Ambulation
diet to tolerance
continue IV Abx
await GI recs for today
Assessment / Plan
Assessment / Plan
Gen: NAD, AAOx3.
Eyes: EOMI, PERRLA, mild-mod scleral icterus.
Neck: supple.
CV: RRR, +S1/S2, no m/r/g.
Resp: CTAB, no rales, wheezes, or rhonchi.
Abd: +BS, soft, mod-sev distention with diffuse TTP
Skin: No rashes.
Neuro: CN 2-12 intact, non-focal.
Psych: Normal mood and affect.
Assessment:
Acute SBP and acute alcoholic hepatitis:
-in the setting of underlying alcoholic cirrhosis, has h/o hepatic encephalopathy (none currently, NH3 11)
-presented with increasing Abdominal Pain and Abdominal Distention
-s/p paracentesis 11/16: 1100 cc drained. fluid studies consistent with SBP
-cont Rocephin, day 4
-s/p albumin course
-cont Xifaxan
-off steroids due to SBP
Suspected ileus
- CT 11/17: Some increased gaseous distention of the ascending colon and transverse colon to the level of the splenic flexure. Smaller caliber of the descending colon and sigmoid colon containing mild stool, which appears similar compared to the
previous CT abdomen/pelvis from 11/16/2024. No appreciable obstructing lesion at the splenic flexure within the limitations of the lack of oral and intravenous contrast.
- GI following
- s/p enema
- encourage ambulation and to minimize narcotics
- diet per GI is FLD
- Gas X for symptoms
Chronic hyponatremia
- monitor
Constipation: Lactulose PRN
Macrocytic Anemia: Hb stable
GERD: cont pepcid, Protonix started
Bipolar Disorder/Anxiety/Depression: cont Seroquel/Lamictal
Migraine Headaches: cont Lamictal
Nicotine Dependence: cont Nicotine patch
Hypokalemia - replete as needed
DVT ppx: SCDs
Code: Full
Anticipated Discharge: > 48 hours
Subjective/Interval History
-
Date of Service: November 19, 2024
reports stable appearance of abd distention
denies any nausea/vomiting
several documented BMs in last 2 days
Objective Data
-
Labs:
Laboratory Results
11/19/24
06:12
WBC 16.7 H
Hgb 9.5 L
Hct 27.1 L
Plt Count 146
PT 22.4 H
INR 1.92
Sodium 132 L
Potassium 3.3 L
Chloride 96 L
Carbon Dioxide 29
BUN 8 L
Creatinine 0.4 L
Glucose 98
Calcium 8.8
Total Bilirubin 8.4 H
AST 87 H
ALT 51 H
Alkaline Phosphatase 92
Vital Signs:
Vital Signs
Temp Pulse Resp BP Pulse Ox
98.0 F 89 18 115/75 97
11/19/24 08:09 11/19/24 08:09 11/19/24 08:09 11/19/24 08:09 11/19/24 08:09
I&O
11/18/24 11/19/24 11/20/24
06:59 06:59 06:59
Intake Total 480 / 480 440 / 440
Balance 480 / 480 440 / 440
Data Reviewed
-
Total Time Spent with Patient (in minutes): 41
Labs: Labs Reviewed by me
[2024-11-19] MEDS: COMPAZINE 5 MG IV (12:02)
--- NOTE | 2024-11-19 12:51 | CM ---
Patient seen at bedside.
Declining [facility] resources at this time
States he has a private counselor & family support.
also states has counselor with [facility]
PLAN: home, no needs anticipated, when medically stable
[2024-11-19 13:10] VITALS: BP 120/81; BP_SYST 76
[2024-11-19 13:39] VITALS: BP 125/74
[2024-11-19 14:16] LABS: Body Fluid Mononuclear 57.7 %; Body Fluid Polymorphonuclear 42.3 %; Body Fluid WBC 1026 /CUMM
[2024-11-19 14:40] LABS: Body Fluid Albumin 1.6 g/dl; Body Fluid Protein 3.3 g/dl
[2024-11-19 14:48] LABS: Body Fluid Second Tech EF
[2024-11-19 15:40] VITALS: BP 116/73
[2024-11-19] MEDS: STERILE WATER FOR INJECTION 20 ML IV (16:46)
[2024-11-19] MEDS: ROCEPHIN 2000 MG IV (16:46)
--- NOTE | 2024-11-19 18:18 | W.PN.GI.CBS2 ---
Today's Communication / Plan
-
.
Assessment / Plan
-
44 male with recent admission for acute alcoholic hepatitis on prednisolone here with abdominal pain and distension found to have SBP (WBC 1700, 45% = 765).
Continues to have abdo discomfort, but denies severe pain. Improving leukocytosis. Repeat paracentesis today for response to ceftriaxone.
Total Time Spent with Patient (in minutes): 35
Subjective
Subjective
Date of Service: November 19, 2024
No acute events o/n.
Objective
Data Reviewed
Laboratory Data:
Laboratory Results
11/19/24 06:12
11/19/24 06:12
Laboratory Results
PT 22.4 Sec (11.4-14.6) H 11/19/24 06:12
INR 1.92 11/19/24 06:12
Magnesium 1.8 mg/dl (1.6-2.3) 11/17/24 07:11
Total Bilirubin 8.4 mg/dl (0.2-1.3) H 11/19/24 06:12
AST 87 U/L (17-59) H 11/19/24 06:12
ALT 51 U/L (0-50) H 11/19/24 06:12
Alkaline Phosphatase 92 U/L (38-126) 11/19/24 06:12
Lipase 493 U/L (23-300) H 11/16/24 09:37
Vital Signs and I&O:
Vital Signs
Temp Pulse Resp BP Pulse Ox
98.0 F 86 18 116/73 95
11/19/24 15:40 11/19/24 15:40 11/19/24 15:40 11/19/24 15:40 11/19/24 15:40
I&O
11/18/24 11/19/24 11/20/24
06:59 06:59 06:59
Intake Total 480 / 480 440 / 440
Balance 480 / 480 440 / 440
[2024-11-19 18:50] LABS: AFP Male/Tumor Marker 4.26 ng/ml
[2024-11-19] MEDS: SENOKOT 8.6 MG PO (21:05)
[2024-11-19] MEDS: SEROQUEL PO (21:06)
[2024-11-19 23:45] VITALS: BP 105/55
[2024-11-20 06:00] VITALS: BMI 23.0
[2024-11-20 07:45] LABS: Hemoglobin 9.5 g/dL (13.0-18.0); Mean Corp Hgb Conc. 35.2 g/dL (33.0-37.0); Mean Corpuscular Hgb 37.1 pg (27.0-31.0); Mean Corpuscular Volume 105.5 fL (80.0-94.0); Platelet Count 128 10^3/uL (130-400); Red Blood Cell Count 2.56 10^6/uL (4.70-6.10); Red Cell Dist. Width 14.1 % (11.5-14.5); White Blood Cell Count 15.8 10^3/uL (4.8-10.8)
[2024-11-20 07:49] LABS: INR 2.21
[2024-11-20 08:10] VITALS: BP 111/74
--- NOTE | 2024-11-20 08:20 | PTCARENOTE ---
Pt c/o 8/10 cramping pain throughout abd. MD made aware, new order provided, see MAR. Will continue to monitor.
[2024-11-20] MEDS: NICODERM TRANSDERMAL 21 MG TRANSDERM (08:21)
[2024-11-20] MEDS: DUPHALAC/CHRONULAC 20 GRAMS PO ×2 (08:21→13:30)
[2024-11-20] MEDS: XIFAXAN 550 MG PO ×2 (08:22→20:32)
[2024-11-20] MEDS: B COMPLEX w/VITAMIN C 1 CAPLET PO (08:22)
[2024-11-20] MEDS: LAMICTAL 25 MG PO (08:22)
[2024-11-20] MEDS: VITAMIN B1 100 MG PO (08:22)
[2024-11-20] MEDS: MYLICON 80 MG PO ×3 (08:22→21:21)
[2024-11-20] MEDS: PROTONIX 40 MG PO (08:22)
[2024-11-20] MEDS: FOLVITE 1 MG PO (08:22)
[2024-11-20] MEDS: LIDOCAINE 4% PATCH 1 PATCH TOPICAL (08:22)
[2024-11-20] MEDS: LAMICTAL 100 MG PO (08:22)
[2024-11-20] MEDS: PEPCID 20 MG PO (08:22)
[2024-11-20] MEDS: ULTRAM 50 MG PO (08:28)
[2024-11-20 08:32] LABS: ALT (SGPT) 51 U/L (0-50); AST (SGOT) 86 U/L (17-59); Albumin 3.5 g/dl (3.5-5.0); Alkaline Phosphatase 102 U/L (38-126); Blood Urea Nitrogen 7 mg/dl (9-20); Calcium 8.3 mg/dl (8.4-10.2); Carbon Dioxide 27 mmol/L (22-30); Chloride 99 mmol/L (98-107); Estimated Creatinine Clearance > 125 ml/min; Glucose 97 mg/dl (70-99); Potassium 3.2 mmol/L (3.5-5.1); Sodium 133 mmol/L (135-145); Total Bilirubin 7.2 mg/dl (0.2-1.3); Total Protein 6.1 g/dl (6.3-8.2); eGFR > 60.00
--- NOTE | 2024-11-20 09:28 | W.PN.GI.CBS2 ---
Addendum entered and electronically signed by Amilcar Morrison MD 11/20/24 17:03:
IR confirmed they removed ALL fluid yesterday suggesting this is mostly ileus/gas
Addendum entered and electronically signed by Amilcar Morrison MD 11/20/24 17:03:
Correct electrolytes, minimize opiates
Addendum entered and electronically signed by Amilcar Morrison MD 11/20/24 16:15:
I saw and evaluated the patient. I reviewed the resident�s note and agree with findings and plan as documented in the resident�s note.
Mr. Alberto is a 44 yo M recent admission with ETOH withdrawal c/b acute alc hep discharged on prednisolone now re-admitted 11/16 with SBP.
Initial tap WBC 1700, 45% = 765 on 11/16; repeat 1026, 42.3% = 430
On ceftriaxone; rec'd albumin day 1 and 3
Appreciate ID consult - responding to ceftriaxone although not complete, continue ceftriaxone repeat tap 2 days
MELD admission 22; today 24
Underwent multiple imaging as well - CT 11/16 with IV con no oral small volume ascites, cirrhosis, moderate amount of gas/stool in colon
CT 11/17 no IV/po con increased gaseous distension of ascending colon/TC no obvious obstructing lesion limited without contrast
Today pt with worsening distension, abd pain - on my exam distension worse then when he was admitted
Decreased, mild high pitched bowel sounds
Suspect distension more so related to gas/ileus; last BM 11/18
I have reached out to IR who did para yesterday to see if the 2.7 L removed yesterday was max amount or if more ascites left
Will stop lactulose as may worsen gas; change gas-X to standing
Change diet to clear liquid
If no better tomorrow consider CT with ORAL con; can also try miralax; may need repeat para sooner than 48 hours
I have reached out to [facility] as well given patient's overall clinical status
AFP normal
D/w ID, hospitalist, reached out to [facility] as well
Original Note:
Today's Communication / Plan
-
check x ray obstructive series
Assessment / Plan
-
PLAN
#Acute alcoholic hepatitis and SBP
#Liver cirrhosis
Repeat paracentesis on 11/19 drained 2.7 L of fluid-- responsive to abx
Fluid WBC 1026, 42%= 430 PMN, improved from 765. Good response to IV ceftriaxone
Patient reports of more frequent abd discomfort--- check x ray obstructive series
He is passing flatus, last BM 11/18 when lactulose enema was given.
Continue ceftriaxone-- day 4 today
Continue rifaximin BID
Subjective
Subjective
Date of Service: November 20, 2024
Patient reports of more frequent abd discomfort than yesterday.
Objective
Data Reviewed
Laboratory Data:
Laboratory Results
11/20/24 06:59
11/20/24 06:59
Laboratory Results
PT 25.0 Sec (11.4-14.6) H 11/20/24 06:59
INR 2.21 11/20/24 06:59
Magnesium 1.8 mg/dl (1.6-2.3) 11/17/24 07:11
Total Bilirubin 7.2 mg/dl (0.2-1.3) H 11/20/24 06:59
AST 86 U/L (17-59) H 11/20/24 06:59
ALT 51 U/L (0-50) H 11/20/24 06:59
Alkaline Phosphatase 102 U/L (38-126) 11/20/24 06:59
Lipase 493 U/L (23-300) H 11/16/24 09:37
Vital Signs and I&O:
Vital Signs
Temp Pulse Resp BP Pulse Ox
99 F 90 14 111/74 93
11/20/24 08:10 11/20/24 08:10 11/20/24 08:10 11/20/24 08:10 11/20/24 08:10
I&O
11/19/24 11/20/24 11/21/24
06:59 06:59 06:59
Intake Total 440 / 440 240 / 240
Balance 440 / 440 240 / 240
Physical Exam
Physical Exam
HEENT: Other (icteric )
Cardiology: Normal Sinus Rhythm, S1 and S2
GI: Distended, Tender and Other (firm to palpate )
Extremities: Edema (left ankle - pitting 1+)
--- NOTE | 2024-11-20 10:40 | W.PN.HOSP.TC ---
Today's Communication/Plan
-
continue Abx. Follow GI recs. ID consulted
pain control with PO agents if possible
symptomatic control
re-imaging if indicated as per GI
Assessment / Plan
Assessment / Plan
Assessment:
Acute SBP and acute alcoholic hepatitis:
-in the setting of underlying alcoholic cirrhosis, has h/o hepatic encephalopathy (none currently, NH3 11)
-presented with increasing Abdominal Pain and Abdominal Distention
-s/p paracentesis 11/16: 1100 cc drained. fluid studies consistent with SBP
-s/p paracentesis 11/19. 2750 cc drained. Fluid studies with persistent SBP
-cont Rocephin, day 5
- d/w GI and ID consult requested
-continue albumin course
-cont Xifaxan
-off steroids due to SBP
Suspected ileus, related to SBP?
- CT 11/17: Some increased gaseous distention of the ascending colon and transverse colon to the level of the splenic flexure. Smaller caliber of the descending colon and sigmoid colon containing mild stool, which appears similar compared to the
previous CT abdomen/pelvis from 11/16/2024. No appreciable obstructing lesion at the splenic flexure within the limitations of the lack of oral and intravenous contrast.
- GI following
- s/p enema
- encourage ambulation and to minimize narcotics
- diet per GI is FLD
- Gas X for symptoms
Chronic hyponatremia
- monitor
Constipation: Lactulose PRN
Macrocytic Anemia: Hb stable
GERD: cont pepcid, Protonix started
Bipolar Disorder/Anxiety/Depression: cont Seroquel/Lamictal
Migraine Headaches: cont Lamictal
Nicotine Dependence: cont Nicotine patch
Hypokalemia - replete as needed
DVT ppx: SCDs
Code: Full
Anticipated Discharge: > 48 hours
Subjective/Interval History
-
Date of Service: November 20, 2024
s/p 2.75 L removed
remains distended and SBP counts still with high WBC. GI has requested ID input
Objective Data
-
Labs:
Laboratory Results
11/20/24
06:59
WBC 15.8 H
Hgb 9.5 L
Hct 27.0 L
Plt Count 128 L
PT 25.0 H
INR 2.21
Sodium 133 L
Potassium 3.2 L
Chloride 99
Carbon Dioxide 27
BUN 7 L
Creatinine 0.5 L
Glucose 97
Calcium 8.3 L
Total Bilirubin 7.2 H
AST 86 H
ALT 51 H
Alkaline Phosphatase 102
Vital Signs:
Vital Signs
Temp Pulse Resp BP Pulse Ox
99 F 90 14 111/74 93
11/20/24 08:10 11/20/24 08:10 11/20/24 08:10 11/20/24 08:10 11/20/24 08:10
I&O
11/19/24 11/20/24 11/21/24
06:59 06:59 06:59
Intake Total 440 / 440 240 / 240
Balance 440 / 440 240 / 240
Physical Exam
-
General: Appears in Distress
HEENT: Normocephalic and Atraumatic
Respiratory: Negative Wheezes
Cardiac: Regular Rhythm
GI: Tender and Distended
Genito-urinary: No Costovertebral Tender
Musculoskeletal: No Edema
Neuro: AO x 3
Data Reviewed
-
Total Time Spent with Patient (in minutes): 45
Labs: Labs Reviewed by me
[2024-11-20] MEDS: KCL 40 MEQ PO ×2 (11:22→16:08)
[2024-11-20] MEDS: FLEXBUMIN 100 IV (12:05)
[2024-11-20] MEDS: FLEXBUMIN 50 IV (13:30)
--- NOTE | 2024-11-20 13:47 | CM ---
Patient chart reviewed
cont antibiotics, pain mgmt
declined [facility]
PLAN: Home no needs anticipated, when medically stable
--- NOTE | 2024-11-20 14:23 | CON.ID ---
Consultation
-
Date/Time Consultation Requested: 11/20/2024 0754
Date/Time Consultation Performed: 11/20/2024 1400
Requesting Provider: Dr. Gonzalez
Performing Provider: Dr. Barlow
Reason for Consultation: SBP
Chief Complaint / Past History
History of Present Illness
Donald Alberto is a 44-year-old man being evaluated at the request of Dr. Gonzalez regarding SBP. History is obtained from chart review, along with patient interview.
The patient was recently hospitalized at [facility] from 10/26 through 11/07, during which time he was treated for alcohol withdrawal and DTs. He reports that while he was in inpatient he had abdominal fullness and ascites, even at the time of
discharge. Following discharge he notes that his abdomen grew more full and subsequently developed discomfort. He was seen by GI in the outpatient setting, and sent in to the hospital for further evaluation. His ascites was tapped which revealed
an elevated white count, with an absolute PMN count of 778. He was started on empiric ceftriaxone. He subsequently was undergone repeat paracentesis yesterday, with some improvement in his white count. Infectious Diseases is now asked to comment
on further antimicrobial recommendations.
At this time he continues to have abdominal pain, along with abdominal fullness. He denies any fevers. He has admitted to prior vomiting. He denies any diarrhea.
Past History
Additional Past Medical History:
Alcoholic cirrhosis
Bipolar disease
Anxiety/depression
Migraines
Additional Past Surgical History:
Jaw surgery
Allergy History:
amoxicillin [Amoxicillin] Allergy (Verified 11/16/24 16:09)
Rash
Medications Reviewed: Yes
Current Antibiotics:
Ceftriaxone 2 g IV every 24 hours
Review of Systems
Vital Signs
Temp Pulse Resp BP Pulse Ox
99 F 90 14 111/74 93
11/20/24 08:10 11/20/24 08:10 11/20/24 08:10 11/20/24 08:10 11/20/24 08:10
Physical Exam
Physical Exam
Constitutional: Comfortable and Non-toxic
Head: Normocephalic
Eyes: Pupils Equal, Pupils Round, No Conjunctival Hemorrhage and Other (Scleral icterus)
Oral: No Thrush and No Ulcers
Cardiovascular: Regular Rate and S1/S2; Negative S3/S4
Pulmonary: Clear and Non Labored; Negative Wheezes or Rales
Gastrointestinal: Distended, Normal Bowel Sounds, No Guarding and Other (Somewhat firm.)
Genito-Urinary: Negative Desir
Extremities: Edema; Negative Cyanosis or Erythema
Skin: Warm, Dry and Jaundice; Negative Rash
Neurological: Awake and Alert
Psychological: Calm
Lab / Diagnostic Study Results
11/20/24 06:59
11/20/24 06:59
Abs Immat Gran (auto) 0.1 10^3/uL (0-0.05) H 11/17/24 07:11
Absolute Neuts (auto) 18.0 10^3/uL (1.4-6.5) H 11/17/24 07:11
Absolute Lymphs (auto) 2.0 10^3/uL (1.2-3.4) 11/17/24 07:11
Absolute Monos (auto) 1.3 10^3/uL (0.1-0.6) H 11/17/24 07:11
Absolute Basos (auto) 0.0 10^3/uL (0-0.2) 11/17/24 07:11
Immature Gran % 0.5 % (0-0.5) 11/17/24 07:11
Neutrophils % 83.0 % (42.2-75.2) H 11/17/24 07:11
Lymphocytes % 9.1 % (20.5-51.1) L 11/17/24 07:11
Monocytes % 6.0 % (1.7-9.3) 11/17/24 07:11
Eosinophils % 1.2 % (0-6) 11/17/24 07:11
Basophils % 0.2 % (0-2) 11/17/24 07:11
PT 25.0 Sec (11.4-14.6) H 11/20/24 06:59
INR 2.21 11/20/24 06:59
Microbiology Results
Micro:
11/19/24 13:40 Body Fluid Culture - Preliminary
Peritoneal Fluid No Growth After 18-24 Hours
Gram Stain - Preliminary
11/16/24 12:00 Body Fluid Culture - Final
Peritoneal Fluid No Growth After 72 Hours
Gram Stain - Final
Imaging:
11/17/2024 CT abdomen/pelvis without contrast: Increased gaseous distention of the ascending colon and transverse colon to the level of the splenic flexure. No appreciable obstructing lesion at the splenic flexure. Hepatic cirrhosis with findings
of portal hypertension including splenomegaly and mild abdominal pelvic ascites. Please see full dictation for additional detail.
Assessment / Plan
SBP
- Cx negative
Leukocytosis
Elevated bilirubin
Transaminitis
Alcoholic hepatitis
Alcoholic cirrhosis
Bipolar disease
Anxiety/depression
Migraines
Recommendations:
Continue with empiric ceftriaxone for the present.
Repeat paracentesis in another day or 2 to assess response.
Follow white count and temperature curve.
Care Review
Plan reviewed with: Physician (GI)
[2024-11-20 15:45] VITALS: BP 121/85
[2024-11-20] MEDS: STERILE WATER FOR INJECTION 20 ML IV (16:08)
[2024-11-20] MEDS: ROCEPHIN 2000 MG IV (16:08)
--- NOTE | 2024-11-20 17:21 | W.PN.UPDATE ---
Update Note
Progress Note Update
I discussed with [facility]. They agree most likely this is ileus as driving the abdominal distention. From an infectious standpoint, he does seem to be improving with his white blood cells both in his blood and his fluid improving. They
recommend to make sure that his culture was sent off for fungal infection which we will check tomorrow. Because he was on prednisolone previously, this sometimes increases the risk of fungal infection in the fluid. If he has not been sent for
fungal infection, may benefit from repeat paracentesis tomorrow rather than on . He may also benefit from a tap water enema to stimulate his gut. If on repeat paracentesis there is any concern for secondary peritonitis, would then
recommend CT with p.o. contrast.
[2024-11-20] MEDS: SEROQUEL PO (22:28)
[2024-11-20 23:45] VITALS: BP 128/84
[2024-11-21 06:33] LABS: Hematocrit 30.8 % (39.0-52.0); Hemoglobin 10.6 g/dL (13.0-18.0); Mean Corp Hgb Conc. 34.4 g/dL (33.0-37.0); Mean Corpuscular Hgb 36.3 pg (27.0-31.0); Mean Corpuscular Volume 105.5 fL (80.0-94.0); Mean Platelet Volume 9.9 fL (7.4-10.4); Platelet Count 151 10^3/uL (130-400); Red Blood Cell Count 2.92 10^6/uL (4.70-6.10); Red Cell Dist. Width 14.4 % (11.5-14.5); White Blood Cell Count 19.6 10^3/uL (4.8-10.8)
[2024-11-21 06:41] LABS: INR 1.97; PT 22.9 Sec (11.4-14.6)
[2024-11-21 07:19] LABS: ALT (SGPT) 45 U/L (0-50); AST (SGOT) 65 U/L (17-59); Alkaline Phosphatase 101 U/L (38-126); Blood Urea Nitrogen 7 mg/dl (9-20); Calcium 9.2 mg/dl (8.4-10.2); Carbon Dioxide 29 mmol/L (22-30); Chloride 99 mmol/L (98-107); Estimated Creatinine Clearance > 125 ml/min; Glucose 111 mg/dl (70-99); Potassium 4.1 mmol/L (3.5-5.1); Sodium 134 mmol/L (135-145); Total Bilirubin 6.4 mg/dl (0.2-1.3); Total Protein 6.7 g/dl (6.3-8.2); eGFR > 60.00
[2024-11-21 07:32] VITALS: BP 131/74
[2024-11-21] MEDS: LIDOCAINE 4% PATCH 1 PATCH TOPICAL (08:09)
[2024-11-21] MEDS: LAMICTAL 100 MG PO (08:10)
[2024-11-21] MEDS: NICODERM TRANSDERMAL 21 MG TRANSDERM (08:10)
[2024-11-21] MEDS: LAMICTAL 25 MG PO (08:11)
[2024-11-21] MEDS: PROTONIX 40 MG PO (08:11)
[2024-11-21] MEDS: PEPCID 20 MG PO (08:11)
[2024-11-21] MEDS: XIFAXAN 550 MG PO ×2 (08:11→21:33)
[2024-11-21] MEDS: B COMPLEX w/VITAMIN C 1 CAPLET PO (08:11)
[2024-11-21] MEDS: FOLVITE 1 MG PO (08:12)
[2024-11-21] MEDS: MYLICON 80 MG PO ×3 (08:12→21:33)
[2024-11-21] MEDS: VITAMIN B1 100 MG PO (08:12)
--- NOTE | 2024-11-21 09:08 | W.PN.HOSP.TC ---
Today's Communication/Plan
-
GI considering tap water enema to stimulate bowel
possible repeat Paracentesis in 24 hours
follow fungal cultures
continue Abx
Assessment / Plan
Assessment / Plan
Assessment:
Acute SBP and acute alcoholic hepatitis:
-in the setting of underlying alcoholic cirrhosis, has h/o hepatic encephalopathy (none currently, NH3 11)
-presented with increasing Abdominal Pain and Abdominal Distention
-s/p paracentesis 11/16: 1100 cc drained. fluid studies consistent with SBP
-s/p paracentesis 11/19. 2750 cc drained. Fluid studies with persistent SBP
-fungal culture pending given recent steroid usage
-cont Rocephin, day 6
-continue albumin course
-cont Xifaxan
-off steroids due to SBP
-GI and ID following
Suspected ileus, related to SBP?
- CT 11/17: Some increased gaseous distention of the ascending colon and transverse colon to the level of the splenic flexure. Smaller caliber of the descending colon and sigmoid colon containing mild stool, which appears similar compared to the
previous CT abdomen/pelvis from 11/16/2024. No appreciable obstructing lesion at the splenic flexure within the limitations of the lack of oral and intravenous contrast.
- OBS series 11/20: Gaseous distention of large bowel throughout with a few air-fluid levels seen on erect view. Colonic ileus versus partial distal small bowel obstruction. No free air.
- GI following
- s/p enema, may need to consider repeat enema to stimulate bowels
- encourage ambulation and to minimize narcotics
- clear liquids per GI
- standing Gas X for symptoms
Chronic hyponatremia
- monitor
Constipation: Lactulose PRN
Macrocytic Anemia: Hb stable
GERD: cont pepcid, Protonix started
Bipolar Disorder/Anxiety/Depression: cont Seroquel/Lamictal
Migraine Headaches: cont Lamictal
Nicotine Dependence: cont Nicotine patch
Hypokalemia - replete as needed
DVT ppx: SCDs
Code: Full
Anticipated Discharge: > 48 hours
Subjective/Interval History
-
Date of Service: November 21, 2024
reports BM last evening - several hard 'pellets'
Objective Data
-
Labs:
Laboratory Results
11/21/24
06:11
WBC 19.6 H
Hgb 10.6 L
Hct 30.8 L
Plt Count 151
PT 22.9 H
INR 1.97
Sodium 134 L
Potassium 4.1 D
Chloride 99
Carbon Dioxide 29
BUN 7 L
Creatinine 0.5 L
Glucose 111 H
Calcium 9.2
Total Bilirubin 6.4 H
AST 65 H
ALT 45
Alkaline Phosphatase 101
Vital Signs:
Vital Signs
Temp Pulse Resp BP Pulse Ox
98.8 F 89 17 131/74 97
11/21/24 07:32 11/21/24 07:32 11/21/24 07:32 11/21/24 07:32 11/21/24 07:32
I&O
11/20/24 11/21/24 11/22/24
06:59 06:59 06:59
Intake Total 240 / 240 120 / 120
Balance 240 / 240 120 / 120
Physical Exam
-
General: No Apparent Distress
HEENT: Normocephalic and Atraumatic
Respiratory: Negative Wheezes
Cardiac: Regular Rhythm and S1/S2
GI: Tender and Distended
Genito-urinary: No Costovertebral Tender
Neuro: AO x 3
Psych: Calm
Data Reviewed
-
Total Time Spent with Patient (in minutes): 44
Labs: Labs Reviewed by me
[2024-11-21 10:19] LABS: Body Fluid Glucose 101 mg/dl
--- NOTE | 2024-11-21 10:23 | W.PN.GI.CBS2 ---
Addendum entered and electronically signed by Amilcar Morrison MD 11/21/24 14:32:
Another possibility is his rib fracture could have led to ileus.
Addendum entered and electronically signed by Amilcar Morrison MD 11/21/24 11:52:
I saw and evaluated the patient. I reviewed the resident�s note and agree with findings and plan as documented in the resident�s note.
Mr. Alberto is a 44 yo M recent admission with ETOH withdrawal c/b acute alc hep discharged on prednisolone now re-admitted 11/16 with SBP.
Initial tap WBC 1700, 45% = 765 on 11/16; repeat 1026, 42.3% = 430 on 11/19
On ceftriaxone; rec'd albumin day 1 and 3
Having ongoing abd pain and distension I think 2/2 ileus 2/2 infection. I did d/w IR on 11/20 and they stated they removed all the fluid present on 11/19.
Appreciate ID consult - responding to ceftriaxone although not complete, continue ceftriaxone repeat tap 2 days - repeat para tomorrow will also add glucose, LDH low suspicion check for secondary peritonitis; will also repeat cytology, add on fungal
stain (d/w [facility] higher risk with history of steroid but would expect cell count not to improve and WBC not to improve). D/w ID today.
Underwent multiple imaging - CT 11/16 with IV con no oral small volume ascites, cirrhosis, moderate amount of gas/stool in colon
CT 11/17 no IV/po con increased gaseous distension of ascending colon/TC no obvious obstructing lesion limited without contrast
Xray 11/20 with ileus
Pt comfortable when I saw him but states he cannot move (which will worsen ileus) - OOB/ambulate as much as possible
Given tap water enema today had some BM/gas
Stop lactulose can worsen gas on 11/20
Started gas-X around the clock 11/20
Diet clear liquid
Replete electrolytes
Avoid narcotics
Hold off on repeat imaging at this time
D/w ID, hospitalistl
Original Note:
Today's Communication / Plan
-
Enema with tap water
Paracentesis tomorrow
Ceftriaxone - day 5
Assessment / Plan
-
44 male with recent admission for acute alcoholic hepatitis on prednisolone here with abdominal pain and distension found to have SBP (WBC 1700, 45% = 765) on 11/16, repeat 1026, 42.3% = 430.
PLAN
#Acute alcoholic hepatitis and SBP
#Liver cirrhosis
-MELD score on admission , today 23.
-Paracentesis on 11/19 drained 2.7 L of fluid-- responsive to abx
-Fluid WBC 1026, 42%= 430 PMN, improved from 765. Good response to IV ceftriaxone
-Underwent multiple imaging, CT with IV contrast no oral on 11/16 which showed small volume ascites, cirrhosis, moderate amount of gas/stool in colon
-Obstructive series revealed gaseous distention of large bowel wall consistent with ileus. IR confirmed that all fluid was removed on 11/19.
-Added fungal culture to peritoneal fluid as prednisolone increases the chance of fungal infection.
-Today patient is still distended. Give enema with tap water. Lactulose enema was given on 11/18, no BM since then.
-Repeat paracentesis tomorrow( check albumin, ldh, gluc, culture with fungal gram stain, cell count and diff, protein).
-Can also try miralax.
-Continue ceftriaxone-- day 5 today
-Stop lactulose as it may worsen gas
-Clear liquid diet
Subjective
Subjective
Date of Service: November 21, 2024
Abdomen is still distended
Objective
Data Reviewed
Laboratory Data:
Laboratory Results
11/21/24 06:11
11/21/24 06:11
Laboratory Results
PT 22.9 Sec (11.4-14.6) H 11/21/24 06:11
INR 1.97 11/21/24 06:11
Magnesium 1.8 mg/dl (1.6-2.3) 11/17/24 07:11
Total Bilirubin 6.4 mg/dl (0.2-1.3) H 11/21/24 06:11
AST 65 U/L (17-59) H 11/21/24 06:11
ALT 45 U/L (0-50) 11/21/24 06:11
Alkaline Phosphatase 101 U/L (38-126) 11/21/24 06:11
Lipase 493 U/L (23-300) H 11/16/24 09:37
Vital Signs and I&O:
Vital Signs
Temp Pulse Resp BP Pulse Ox
98.8 F 89 17 131/74 97
11/21/24 07:32 11/21/24 07:32 11/21/24 07:32 11/21/24 07:32 11/21/24 07:32
I&O
11/20/24 11/21/24 11/22/24
06:59 06:59 06:59
Intake Total 240 / 240 120 / 120
Balance 240 / 240 120 / 120
Physical Exam
Physical Exam
Cardiology: Normal Sinus Rhythm
Pulmonary: Clear
GI: Distended, Tender and Other (tense to palpate, hyperactive BS)
--- NOTE | 2024-11-21 10:28 | CM ---
Patient seen at bedside
cont IV antibiotics, possible repeat Paracentesis in 24 hours
PLAN: home, no needs anticipated, CM to continue to follow
--- NOTE | 2024-11-21 11:15 | PTCARENOTE ---
Pt received 500ml tap water enema as ordered around 945. Pt requested to be at bedside with commode next to him as he had received it like that previously. Pt tolerated well, but had no BM and only passed gas. Pt is currently sleeping with no active
complaints at this moment. Plan of care ongoing.
--- NOTE | 2024-11-21 12:02 | W.PN.ID1 ---
Date of Service
Date of Service: November 21, 2024
Today's Communication
Continue ceftriaxone for today.
Assessment / Plan
SBP
- Cx negative
Marked ileus
- suspect secondary to above
Leukocytosis
Elevated bilirubin
Transaminitis
Alcoholic hepatitis
Alcoholic cirrhosis
Bipolar disease
Anxiety/depression
Migraines
Recommendations:
Continue with empiric ceftriaxone for the present.
Repeat paracentesis in another day or 2 to assess response.
Follow white count and temperature curve.
Chief Complaint
-: Other (SBP)
Subjective / Review of Systems
Patient seen and examined. Reports ongoing abdominal distention, tenderness, and discomfort. No diarrhea recently.
Vital Signs / Physical Exam
Vital Signs
Vital Signs
Temp Pulse Resp BP Pulse Ox
98.8 F 89 17 131/74 97
11/21/24 07:32 11/21/24 07:32 11/21/24 07:32 11/21/24 07:32 11/21/24 11:02
Physical Exam
Constitutional: Acutely Ill, Chronically Ill, Non-toxic and Other (Appears uncomfortable.)
Eyes: No Conjunctival Hemorrhage and Ocular Discharge (Scleral icterus noted)
Cardiovascular: S1/S2; Negative S3/S4
Pulmonary: Clear and Non Labored
Gastrointestinal: Tender, Distended and Other (Moderately firm)
Extremities: Edema; Negative Cyanosis or Erythema
Neurological: Awake and Alert
Psychological: Calm
Objective Data
Lab Data
Lab Results
11/21/24 06:11
11/21/24 06:11
PT 22.9 Sec (11.4-14.6) H 11/21/24 06:11
INR 1.97 11/21/24 06:11
Estimated Creat Clear > 125 ml/min 11/21/24 06:11
Total Bilirubin 6.4 mg/dl (0.2-1.3) H 11/21/24 06:11
AST 65 U/L (17-59) H 11/21/24 06:11
ALT 45 U/L (0-50) 11/21/24 06:11
Alkaline Phosphatase 101 U/L (38-126) 11/21/24 06:11
Most recent labs reviewed.
Micro Results:
11/19/24 13:40 Fungal Culture - Preliminary
Peritoneal Fluid Culture in progress.
Positive cultures are reported as soon as detected.
Final report to follow in four to five weeks.
11/19/24 13:40 Body Fluid Culture - Preliminary
Peritoneal Fluid No Growth After 18-24 Hours
Gram Stain - Preliminary
11/16/24 12:00 Body Fluid Culture - Final
Peritoneal Fluid No Growth After 72 Hours
Gram Stain - Final
Imaging:
11/17/2024 CT abdomen/pelvis without contrast: Increased gaseous distention of the ascending colon and transverse colon to the level of the splenic flexure. No appreciable obstructing lesion at the splenic flexure. Hepatic cirrhosis with findings
of portal hypertension including splenomegaly and mild abdominal pelvic ascites. Please see full dictation for additional detail.
Care Review
Plan reviewed with: Physician (GI)
[2024-11-21 14:55] VITALS: BP 114/63
[2024-11-21] MEDS: STERILE WATER FOR INJECTION 20 ML IV (15:11)
[2024-11-21] MEDS: ROCEPHIN 2000 MG IV (15:11)
[2024-11-21] MEDS: SEROQUEL PO (21:34)
[2024-11-21 23:00] VITALS: BP 114/75
[2024-11-22 06:00] VITALS: BMI 23.4
[2024-11-22 07:16] LABS: Hematocrit 31.1 % (39.0-52.0); Hemoglobin 10.9 g/dL (13.0-18.0); Mean Corpuscular Hgb 37.6 pg (27.0-31.0); Mean Corpuscular Volume 107.2 fL (80.0-94.0); Mean Platelet Volume 9.6 fL (7.4-10.4); Platelet Count 165 10^3/uL (130-400); Red Cell Dist. Width 14.2 % (11.5-14.5); White Blood Cell Count 21.6 10^3/uL (4.8-10.8)
[2024-11-22 07:18] LABS: Blood Urea Nitrogen 10 mg/dl (9-20); Calcium 8.9 mg/dl (8.4-10.2); Carbon Dioxide 26 mmol/L (22-30); Chloride 98 mmol/L (98-107); Estimated Creatinine Clearance > 125 ml/min; Glucose 128 mg/dl (70-99); Sodium 132 mmol/L (135-145); eGFR > 60.00
[2024-11-22 07:29] VITALS: BP 127/82
[2024-11-22] MEDS: LIDOCAINE 4% PATCH 1 PATCH TOPICAL (07:57)
[2024-11-22] MEDS: MYLICON 80 MG PO ×3 (07:57→22:22)
[2024-11-22] MEDS: B COMPLEX w/VITAMIN C 1 CAPLET PO (07:58)
[2024-11-22] MEDS: PROTONIX 40 MG PO (07:58)
[2024-11-22] MEDS: XIFAXAN 550 MG PO ×2 (07:58→20:43)
[2024-11-22] MEDS: VITAMIN B1 100 MG PO (07:58)
[2024-11-22] MEDS: PEPCID 20 MG PO (07:58)
[2024-11-22] MEDS: LAMICTAL 100 MG PO (07:58)
[2024-11-22] MEDS: LAMICTAL 25 MG PO (07:58)
[2024-11-22] MEDS: FOLVITE 1 MG PO (07:59)
[2024-11-22 08:25] VITALS: BP 123/81; BP_SYST 86
[2024-11-22 09:24] LABS: Body Fluid Mononuclear 69.9 %; Body Fluid Polymorphonuclear 30.1 %; Body Fluid WBC 866 /CUMM
[2024-11-22 09:28] LABS: Body Fluid Second Tech AMA
[2024-11-22 09:29] LABS: Body Fluid Albumin 1.6 g/dl; Body Fluid Glucose 116 mg/dl; Body Fluid LDH 161 U/L; Body Fluid Protein 3.3 g/dl
--- NOTE | 2024-11-22 09:44 | W.PN.GI.CBS2 ---
Addendum entered and electronically signed by Amilcar Morrison MD 11/22/24 16:40:
D/w [facility] ok to stop antibiotics with improvement
Addendum entered and electronically signed by Amilcar Morrison MD 11/22/24 13:42:
I saw and evaluated the patient. I reviewed the resident�s note and agree with findings and plan as documented in the resident�s note.
Mr. Alberto is a 44 yo M recent admission with ETOH withdrawal c/b acute alc hep discharged on prednisolone now re-admitted 11/16 with SBP.
Initial tap WBC 1700, 45% = 765 on 11/16; repeat 1026, 42.3% = 430 on 11/19; repeat 866, 30% = 259 on 11/22
On ceftriaxone; rec'd albumin day 1 and 3
Having ongoing abd pain and distension due to 2/2 ileus 2/2 infection +/- prior rib fracture.
Repeat para 11/22 only able to remove 200 cc of ascitic fluids.
Underwent multiple imaging - CT 11/16 with IV con no oral small volume ascites, cirrhosis, moderate amount of gas/stool in colon
CT 11/17 no IV/po con increased gaseous distension of ascending colon/TC no obvious obstructing lesion limited without contrast
Xray 11/20 and 11/22 with ileus
Given tap water enema 11/21 and 11/22 with some BM
Stop lactulose can worsen gas on 11/20
Started gas-X around the clock 11/20
Diet clear liquid
Replete electrolytes
Avoid narcotics
Hold off on repeat imaging at this time
Will add rectal trumpet to see if that helps with air
Repeat Xray tomorrow ordered
I sent msg to [facility] - I would continue antibiotics for now given borderline WBC although much improvement especially since he will remain in hospital awaiting their input
Will eventually need lasix/aldactone prior to discharge as well as cipro prophylaxis
Prednisolone stopped on admission due to infection
Does have f/up with nh 12/28 11am
D/w hospitalist
Original Note:
Today's Communication / Plan
-
Repeat paracentesis today yielded only 20 cc of fluid, PMN now to 260. Defer to ID for continuation of Rocephin.
Will repeat abdominal x-ray, if no improvement, will consider NG tube vs rectal tube for abdominal decompression
Assessment / Plan
-
44 male with recent admission for acute alcoholic hepatitis on prednisolone here with abdominal pain and distension found to have SBP (WBC 1700, 45% = 765) on 11/16, 1026, 42.3% = 430 11/19, repeat today 866, 30.1 %= 260. Persistent abdominal
distention concerning of ileus on abdominal x-ray.
#Acute alcoholic hepatitis and SBP
#Liver cirrhosis
-MELD score on admission 22, 11/21- 23, repeat LFT pending
-Underwent multiple imaging, CT with IV contrast no oral on 11/16 which showed small volume ascites, cirrhosis, moderate amount of gas/stool in colon
-Obstructive series revealed gaseous distention of large bowel wall consistent with ileus. IR confirmed that all fluid was removed on 11/19.
-Repeat para today drained only 20 cc of fluid, not enough fluid to tap--- WBC 866, 30.1 %= 260-- improving-- will defer to ID for continuation of ceftriaxone.
- Patient is still distended will repeat abdominal x-ray.
- If no improvement in abdominal x-ray then we will proceed to NG tube vs rectal tube for abdominal decompression
- Last BM 11/22-- recommenced second roud of tap water enema today
- Lactulose discontinued as it can worsen the ileus
-Clear liquid diet
Subjective
Subjective
Date of Service: November 22, 2024
Patient had a bowel movement on 11/22, brown formed stool.
Objective
Data Reviewed
Laboratory Data:
Laboratory Results
11/22/24 06:20
11/22/24 06:20
Laboratory Results
PT 22.9 Sec (11.4-14.6) H 11/21/24 06:11
INR 1.97 11/21/24 06:11
Magnesium 1.8 mg/dl (1.6-2.3) 11/17/24 07:11
Total Bilirubin 6.4 mg/dl (0.2-1.3) H 11/21/24 06:11
AST 65 U/L (17-59) H 11/21/24 06:11
ALT 45 U/L (0-50) 11/21/24 06:11
Alkaline Phosphatase 101 U/L (38-126) 11/21/24 06:11
Lipase 493 U/L (23-300) H 11/16/24 09:37
Vital Signs and I&O:
Vital Signs
Temp Pulse Resp BP Pulse Ox
98 F 86 16 123/81 95
11/22/24 08:25 11/22/24 08:25 11/22/24 08:25 11/22/24 08:25 11/22/24 08:25
I&O
11/21/24 11/22/24 11/23/24
06:59 06:59 06:59
Intake Total 120 / 120 1560 / 1560
Balance 120 / 120 1560 / 1560
Physical Exam
Physical Exam
GI: Distended, Tender and Tense
--- NOTE | 2024-11-22 10:33 | CM ---
Patient chart reviewed
abd x-ray today
PLAN: home, when medically stable, no needs anticipated
[2024-11-22 10:45] LABS: ALT (SGPT) 44 U/L (0-50); AST (SGOT) 81 U/L (17-59); Albumin 4.1 g/dl (3.5-5.0); Alkaline Phosphatase 104 U/L (38-126); Total Bilirubin 6.1 mg/dl (0.2-1.3)
--- NOTE | 2024-11-22 12:23 | W.PN.HOSP.TC ---
Today's Communication/Plan
-
rectal trumpet per GI
Abx per ID
Assessment / Plan
Assessment / Plan
Assessment:
Acute SBP and acute alcoholic hepatitis:
-in the setting of underlying alcoholic cirrhosis, has h/o hepatic encephalopathy (none currently, NH3 11)
-presented with increasing Abdominal Pain and Abdominal Distention
-s/p paracentesis 11/16: 1100 cc drained. fluid studies consistent with SBP
-s/p paracentesis 11/19. 2750 cc drained. Fluid studies with persistent SBP
-s/p paracentesis 11/22: 20 cc drained. WBC in fluid improved
-fungal culture pending given recent steroid usage
-cont Rocephin, day 7
-continue albumin course
-cont Xifaxan
-off steroids due to SBP
-GI and ID following
Suspected ileus, related to SBP?
- CT 11/17: Some increased gaseous distention of the ascending colon and transverse colon to the level of the splenic flexure. Smaller caliber of the descending colon and sigmoid colon containing mild stool, which appears similar compared to the
previous CT abdomen/pelvis from 11/16/2024. No appreciable obstructing lesion at the splenic flexure within the limitations of the lack of oral and intravenous contrast.
- OBS series 11/20: Gaseous distention of large bowel throughout with a few air-fluid levels seen on erect view. Colonic ileus versus partial distal small bowel obstruction. No free air.
- repeat AXR 11/22: Significant dilation of small and large intestine, with a paucity of bowel gas within the distal colon and rectum. Increased compared to prior study dated 11/20/2024.
- enemas per GI
- rectal tube per GI
- clear liquids per GI
- standing Gas X for symptoms per GI
Chronic hyponatremia
- monitor
Constipation: Lactulose PRN
Macrocytic Anemia: Hb stable
GERD: cont pepcid, Protonix started
Bipolar Disorder/Anxiety/Depression: cont Seroquel/Lamictal
Migraine Headaches: cont Lamictal
Nicotine Dependence: cont Nicotine patch
Hypokalemia - replete as needed
DVT ppx: SCDs
Code: Full
Anticipated Discharge: > 48 hours
Subjective/Interval History
-
Date of Service: November 22, 2024
s/p diagnostic paracentesis
s/p tap water enema today with some relief of distention + BM
Objective Data
-
Labs:
Laboratory Results
11/22/24
06:20
WBC 21.6 H
Hgb 10.9 L
Hct 31.1 L
Plt Count 165
Sodium 132 L
Potassium 4.0
Chloride 98
Carbon Dioxide 26
BUN 10
Creatinine 0.5 L
Glucose 128 H
Calcium 8.9
Total Bilirubin 6.1 H
AST 81 H
ALT 44
Alkaline Phosphatase 104
Vital Signs:
Vital Signs
Temp Pulse Resp BP Pulse Ox
98 F 86 16 123/81 97
11/22/24 08:25 11/22/24 08:25 11/22/24 08:25 11/22/24 08:25 11/22/24 09:43
I&O
11/21/24 11/22/24 11/23/24
06:59 06:59 06:59
Intake Total 120 / 120 1560 / 1560
Balance 120 / 120 1560 / 1560
Physical Exam
-
General: No Apparent Distress
HEENT: Normocephalic and Atraumatic
Respiratory: Negative Wheezes
Cardiac: Regular Rhythm and S1/S2
GI: Distended
Neuro: AO x 3
Psych: Calm
Data Reviewed
-
Total Time Spent with Patient (in minutes): 41
Labs: Labs Reviewed by me
[2024-11-22] MEDS: NICODERM TRANSDERMAL TRANSDERM (14:07)
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
[2024-11-22 14:58] VITALS: BP 108/56
--- NOTE | 2024-11-22 15:43 | W.PN.ID1 ---
Date of Service
Date of Service: November 22, 2024
Today's Communication
Discontinue ceftriaxone
Assessment / Plan
SBP
- Cx negative
Marked ileus
- suspect secondary to above
Leukocytosis
Elevated bilirubin
Transaminitis
Alcoholic hepatitis
Alcoholic cirrhosis
Bipolar disease
Anxiety/depression
Migraines
Recommendations:
Repeat paracentesis today with normalization of ANC
Discontinue further ceftriaxone
Treatment of ileus as per GI
Follow white count and temperature curve.
Chief Complaint
-: Other (SBP; Ileus)
Subjective / Review of Systems
Pt seen / examined. Still with significant abdominal fullness and discomfort.
Vital Signs / Physical Exam
Vital Signs
Vital Signs
Temp Pulse Resp BP Pulse Ox
97.9 F 84 17 108/56 94
11/22/24 14:58 11/22/24 14:58 11/22/24 14:58 11/22/24 14:58 11/22/24 14:58
Physical Exam
Constitutional: Acutely Ill, Chronically Ill, Non-toxic and Other (Appears uncomfortable.)
Cardiovascular: S1/S2; Negative S3/S4
Pulmonary: Clear and Non Labored
Gastrointestinal: Tender, Distended and Other (Moderately firm)
Extremities: Edema; Negative Cyanosis or Erythema
Neurological: Awake and Alert
Psychological: Calm
Objective Data
Lab Data
Lab Results
11/22/24 06:20
11/22/24 06:20
PT 22.9 Sec (11.4-14.6) H 11/21/24 06:11
INR 1.97 11/21/24 06:11
Estimated Creat Clear > 125 ml/min 11/22/24 06:20
Total Bilirubin 6.1 mg/dl (0.2-1.3) H 11/22/24 06:20
AST 81 U/L (17-59) H 11/22/24 06:20
ALT 44 U/L (0-50) 11/22/24 06:20
Alkaline Phosphatase 104 U/L (38-126) 11/22/24 06:20
Most recent labs reviewed.
Micro Results:
11/22/24 08:39 Body Fluid Culture - Pending
Peritoneal Fluid Gram Stain - Preliminary
11/19/24 13:40 Body Fluid Culture - Final
Peritoneal Fluid No Growth After 72 Hours
Gram Stain - Final
11/19/24 13:40 Fungal Culture - Preliminary
Peritoneal Fluid Culture in progress.
Positive cultures are reported as soon as detected.
Final report to follow in four to five weeks.
11/16/24 12:00 Body Fluid Culture - Final
Peritoneal Fluid No Growth After 72 Hours
Gram Stain - Final
Imaging:
11/17/2024 CT abdomen/pelvis without contrast: Increased gaseous distention of the ascending colon and transverse colon to the level of the splenic flexure. No appreciable obstructing lesion at the splenic flexure. Hepatic cirrhosis with findings
of portal hypertension including splenomegaly and mild abdominal pelvic ascites. Please see full dictation for additional detail.
Care Review
Plan reviewed with: Physician (GI)
--- NOTE | 2024-11-22 16:00 | W.PN.UPDATE ---
Update Note
Progress Note Update
reviewed with radiology and Dr. Morrison. cecum is about 9.5 cm. I again offered patient rectal or NGT decompression. He was agreeable this am but now refused for nursing staff and now with my further discussion. Encouraged to get OOB- ambulate.
-- I further discussed with Dr. Morrison as some mental status change which in noted with recently stopping oral lactulose with distention. For lactulose enema now.
[2024-11-22] MEDS: LACTULOSE ENEMA 300 ML RECTAL (16:13)
[2024-11-22] MEDS: SEROQUEL 50 MG PO (22:22)
[2024-11-22 23:00] VITALS: BP 110/72
[2024-11-23 05:59] VITALS: BMI 23.1
[2024-11-23 07:04] LABS: INR 2.08; PT 23.8 Sec (11.4-14.6)
[2024-11-23 07:10] VITALS: BP 114/75
[2024-11-23 07:18] LABS: Blood Urea Nitrogen 6 mg/dl (9-20); Calcium 8.4 mg/dl (8.4-10.2); Carbon Dioxide 27 mmol/L (22-30); Chloride 97 mmol/L (98-107); Estimated Creatinine Clearance > 125 ml/min; Glucose 130 mg/dl (70-99); Potassium 3.3 mmol/L (3.5-5.1); Sodium 130 mmol/L (135-145); eGFR > 60.00
[2024-11-23 07:26] LABS: Hematocrit 28.3 % (39.0-52.0); Hemoglobin 9.9 g/dL (13.0-18.0); Mean Corpuscular Hgb 36.8 pg (27.0-31.0); Mean Corpuscular Volume 105.2 fL (80.0-94.0); Mean Platelet Volume 9.4 fL (7.4-10.4); Platelet Count 121 10^3/uL (130-400); Red Blood Cell Count 2.69 10^6/uL (4.70-6.10); Red Cell Dist. Width 13.7 % (11.5-14.5); White Blood Cell Count 13.8 10^3/uL (4.8-10.8)
--- NOTE | 2024-11-23 08:15 | W.PN.GI.CBS2 ---
Addendum entered and electronically signed by Pooja Tam MD 11/23/24 15:15:
I saw and examined the patient.
The resident's note was reviewed and I agree with the note.
Comment: Patient complaining of abdominal discomfort, received milk of molasses enema and he does feel it did help somewhat with distention as he passed some stool and some gas.
No fevers or chills.
Labs show white count trending down from 21.6-13.8, MELD 3.0-24
Repeat paracentesis 11/22 showing improvement in PMNs, after discussing with hepatology at [facility], antibiotics stopped.
Abdominal x-ray today still showing gaseous distention of large bowel, cecum 10.6 cm and mild gaseous distention of small bowel in the left abdomen.
Rectal tube placed today without any significant improvement in distention.
-Abdominal distention likely from ileus
status post rectal tube placement ,No significant improvement in distention noted after the rectal tube placement.
Discussed with patient regarding ambulation and sitting up in the chair rather than lie down in the bed.
Continue to hold off on narcotics.
Repeat abdominal x-ray in the morning.
Will monitor closely
- Alcoholic liver disease, abdominal CT scan showing evidence of cirrhosis.
Recent SBP treated with ceftriaxone, stopped 11/22 once repeat paracentesis showed improvement.
History of recent ?HE-hold off on the lactulose given abdominal distention, continue Xifaxan 550 mg twice a day.
Monitor electrolytes closely and replete as needed.
Currently on clear liquid diet.
Continue PPI
Will follow
Original Note:
Documented by User: Debo Coto MD, Resident 11/23/24 10:32
Today's Communication / Plan
-
Repeat abdominal x-ray this am noted ileus again, give milk and molasses, then may proceed with rectal tube or manual decompression
Encouraged ambulation which helps improve ileus
Ceftriaxone discontinued per ID
Assessment / Plan
-
44 male with recent admission for acute alcoholic hepatitis on prednisolone here with abdominal pain and distension found to have SBP (WBC 1700, 45% = 765) on 11/16, 1026, 42.3% = 430 11/19, repeat today 866, 30.1 %= 260. Persistent abdominal
distention on x ray 11/20, 11/22 consistent with ileus, rectal trumpet was placed on 11/22. There has been some acute mental status change in past 24 hours.
#Acute alcoholic hepatitis and SBP
#Liver cirrhosis
-MELD score on admission 22.
-Underwent multiple imaging, CT with IV contrast no oral on 11/16 which showed small volume ascites, cirrhosis, moderate amount of gas/stool in colon
-Obstructive series revealed gaseous distention of large bowel wall consistent with ileus. IR confirmed that all fluid was removed on 11/19.
-Repeat para today drained only 20 cc of fluid, not enough fluid to tap--- WBC 866, 30.1 %= 260
- Abd x ray 11/20, 11/22 consistent with ileus, rectal trumpet was not placed as pt declined
- Lactulose enema given 11/22--had some bowel movement. Would not recommend lactulose enema as it can worsen ileus
-AOX3 this am. Repeat abdominal x-ray this am noted ileus again, give milk and molasses, then may proceed with rectal tube or manual decompression (pt hesitant for this)
NG tube would only be recommended if the patient is having nausea/vomiting which he denies.
-Encouraged ambulation which helps improve ileus
-Ceftriaxone discontinued per ID--agree
- Avoid narcotics
Subjective
Subjective
Date of Service: November 23, 2024
No over night events. Abd continues to be distended.
Objective
Data Reviewed
Laboratory Data:
Laboratory Results
11/23/24 06:26
11/23/24 06:26
Laboratory Results
PT 23.8 Sec (11.4-14.6) H 11/23/24 06:26
INR 2.08 11/23/24 06:26
Magnesium 1.8 mg/dl (1.6-2.3) 11/17/24 07:11
Total Bilirubin 6.1 mg/dl (0.2-1.3) H 11/22/24 06:20
AST 81 U/L (17-59) H 11/22/24 06:20
ALT 44 U/L (0-50) 11/22/24 06:20
Alkaline Phosphatase 104 U/L (38-126) 11/22/24 06:20
Lipase 493 U/L (23-300) H 11/16/24 09:37
Vital Signs and I&O:
Vital Signs
Temp Pulse Resp BP Pulse Ox
98.5 F 96 14 114/75 97
11/23/24 07:10 11/23/24 07:10 11/23/24 07:10 11/23/24 07:10 11/23/24 07:10
I&O
11/22/24 11/23/24 11/24/24
06:59 06:59 06:59
Intake Total 1560 / 1560 840 / 840
Balance 1560 / 1560 840 / 840
Physical Exam
Physical Exam
HEENT: Other (icteric )
Cardiology: Normal Sinus Rhythm
GI: Distended, Tender and Tense

Documented by User: Pooja Tam MD 11/23/24 15:02
Assessment / Plan
-
44 male with recent admission for acute alcoholic hepatitis on prednisolone here with abdominal pain and distension found to have SBP (WBC 1700, 45% = 765) on 11/16, 1026, 42.3% = 430 11/19, repeat today 866, 30.1 %= 260. Persistent abdominal
distention on x ray 11/20, 11/22 consistent with ileus. There has been some acute mental status change in past 24 hours.
#Acute alcoholic hepatitis and SBP
#Liver cirrhosis
-MELD score on admission 22.
-Underwent multiple imaging, CT with IV contrast no oral on 11/16 which showed small volume ascites, cirrhosis, moderate amount of gas/stool in colon
-Obstructive series revealed gaseous distention of large bowel wall consistent with ileus. IR confirmed that all fluid was removed on 11/19.
-Repeat para today drained only 20 cc of fluid, not enough fluid to tap--- WBC 866, 30.1 %= 260
- Abd x ray 11/20, 11/22 consistent with ileus, rectal trumpet was not placed as pt declined
- Lactulose enema given 11/22--had some bowel movement. Would not recommend lactulose enema as it can worsen ileus
-AOX3 this am. Repeat abdominal x-ray this am noted ileus again, give milk and molasses, then may proceed with rectal tube or manual decompression (pt hesitant for this)
NG tube would only be recommended if the patient is having nausea/vomiting which he denies.
-Encouraged ambulation which helps improve ileus
-Ceftriaxone discontinued per ID--agree
- Avoid narcotics
[2024-11-23] MEDS: XIFAXAN 550 MG PO ×2 (08:50→19:56)
[2024-11-23] MEDS: VITAMIN B1 100 MG PO (08:50)
[2024-11-23] MEDS: PROTONIX 40 MG PO (08:50)
[2024-11-23] MEDS: B COMPLEX w/VITAMIN C 1 CAPLET PO (08:50)
[2024-11-23] MEDS: MYLICON 80 MG PO ×3 (08:50→21:33)
[2024-11-23] MEDS: PEPCID 20 MG PO (08:51)
[2024-11-23] MEDS: LIDOCAINE 4% PATCH 1 PATCH TOPICAL (08:51)
[2024-11-23] MEDS: LAMICTAL 100 MG PO (08:51)
[2024-11-23] MEDS: NICODERM TRANSDERMAL 21 MG TRANSDERM (08:54)
[2024-11-23] MEDS: LAMICTAL PO (08:56)
[2024-11-23] MEDS: FOLVITE 1 MG PO (08:56)
[2024-11-23] MEDS: LAMICTAL 25 MG PO (08:56)
[2024-11-23 09:13] LABS: ALT (SGPT) 42 U/L (0-50); AST (SGOT) 78 U/L (17-59); Albumin 3.6 g/dl (3.5-5.0); Alkaline Phosphatase 99 U/L (38-126); Direct Bilirubin 3.6 mg/dl (0.0-0.4); Total Bilirubin 7.7 mg/dl (0.2-1.3); Total Protein 6.4 g/dl (6.3-8.2)
[2024-11-23] MEDS: KCL 40 MEQ PO (09:37)
[2024-11-23] MEDS: ULTRAM 50 MG PO (09:41)
[2024-11-23 11:13] VITALS: BMI 23.1
--- NOTE | 2024-11-23 12:03 | W.PN.ID1 ---
Date of Service
Date of Service: November 23, 2024
Today's Communication
Observe off antibiotics.
Assessment / Plan
SBP
- Cx negative
- s/p course of ceftriaxone
Ileus
Leukocytosis
Elevated bilirubin
Transaminitis
Alcoholic hepatitis
Alcoholic cirrhosis
Bipolar disease
Anxiety/depression
Migraines
Recommendations:
Repeat paracentesis 11/22 with normalization of ANC
Ceftriaxone discontinued.
Treatment of ileus as per GI
Follow white count and temperature curve.
Chief Complaint
-: Other (SBP; Ileus)
Subjective / Review of Systems
Patient seen and examined. He reports some improvement in his abdominal discomfort.
Vital Signs / Physical Exam
Vital Signs
Vital Signs
Temp Pulse Resp BP Pulse Ox
98.5 F 96 14 114/75 97
11/23/24 07:10 11/23/24 07:10 11/23/24 07:10 11/23/24 07:10 11/23/24 07:10
Physical Exam
Constitutional: Comfortable, Acutely Ill, Chronically Ill and Non-toxic
Cardiovascular: S1/S2; Negative S3/S4
Pulmonary: Clear and Non Labored
Gastrointestinal: Tender and Distended
Extremities: Edema; Negative Cyanosis or Erythema
Neurological: Awake and Alert
Psychological: Calm
Objective Data
Lab Data
Lab Results
11/23/24 06:26
11/23/24 06:26
PT 23.8 Sec (11.4-14.6) H 11/23/24 06:26
INR 2.08 11/23/24 06:26
Estimated Creat Clear > 125 ml/min 11/23/24 06:26
Total Bilirubin 7.7 mg/dl (0.2-1.3) H 11/23/24 06:26
AST 78 U/L (17-59) H 11/23/24 06:26
ALT 42 U/L (0-50) 11/23/24 06:26
Alkaline Phosphatase 99 U/L (38-126) 11/23/24 06:26
Most recent labs reviewed.
Micro Results:
11/22/24 08:39 Body Fluid Culture - Preliminary
Peritoneal Fluid No Growth After 18-24 Hours
Gram Stain - Preliminary
11/19/24 13:40 Body Fluid Culture - Final
Peritoneal Fluid No Growth After 72 Hours
Gram Stain - Final
11/19/24 13:40 Fungal Culture - Preliminary
Peritoneal Fluid Culture in progress.
Positive cultures are reported as soon as detected.
Final report to follow in four to five weeks.
11/16/24 12:00 Body Fluid Culture - Final
Peritoneal Fluid No Growth After 72 Hours
Gram Stain - Final
Imaging:
11/17/2024 CT abdomen/pelvis without contrast: Increased gaseous distention of the ascending colon and transverse colon to the level of the splenic flexure. No appreciable obstructing lesion at the splenic flexure. Hepatic cirrhosis with findings
of portal hypertension including splenomegaly and mild abdominal pelvic ascites. Please see full dictation for additional detail.
--- NOTE | 2024-11-23 13:27 | CM ---
Patient seen at bedside
repeat abd xray
ceftriaxone discontinued by ID
PLAN: Home, no needs anticipated, CM to continue to follow
--- NOTE | 2024-11-23 13:47 | CHAP ---
Voicemail received requesting shell machine operator for Mr. Alberto, however when our volunteer shell machine operator tried to see him he said firmly that he was not interested. Please reach out again to [phone] if he asks again.
--- NOTE | 2024-11-23 14:07 | W.PN.HOSP.TC ---
Today's Communication/Plan
-
ileus management with enema/rectal tube etc as per GI
observing off Abx
Assessment / Plan
Assessment / Plan
Assessment:
Acute SBP and acute alcoholic hepatitis:
-in the setting of underlying alcoholic cirrhosis, has h/o hepatic encephalopathy (none currently, NH3 11)
-presented with increasing Abdominal Pain and Abdominal Distention
-s/p paracentesis 11/16: 1100 cc drained. fluid studies consistent with SBP
-s/p paracentesis 11/19. 2750 cc drained. Fluid studies with persistent SBP
-s/p paracentesis 11/22: 20 cc drained. WBC in fluid improved
-fungal culture pending given recent steroid usage
-completed Rocephin and Albumin course
-cont Xifaxan
-off steroids due to SBP
-GI and ID following
Suspected ileus, related to SBP?
- CT 11/17: Some increased gaseous distention of the ascending colon and transverse colon to the level of the splenic flexure. Smaller caliber of the descending colon and sigmoid colon containing mild stool, which appears similar compared to the
previous CT abdomen/pelvis from 11/16/2024. No appreciable obstructing lesion at the splenic flexure within the limitations of the lack of oral and intravenous contrast.
- OBS series 11/20: Gaseous distention of large bowel throughout with a few air-fluid levels seen on erect view. Colonic ileus versus partial distal small bowel obstruction. No free air.
- repeat AXR 11/22: Significant dilation of small and large intestine, with a paucity of bowel gas within the distal colon and rectum. Increased compared to prior study dated 11/20/2024.
- enemas per GI
- rectal tube per GI
- clear liquids per GI
- standing Gas X for symptoms per GI
Chronic hyponatremia
- monitor
Constipation: Lactulose PRN
Macrocytic Anemia: Hb stable
GERD: cont pepcid, Protonix started
Bipolar Disorder/Anxiety/Depression: cont Seroquel/Lamictal
Migraine Headaches: cont Lamictal
Nicotine Dependence: cont Nicotine patch
Hypokalemia - replete as needed
DVT ppx: SCDs
Code: Full
Anticipated Discharge: > 48 hours
Subjective/Interval History
-
Date of Service: November 23, 2024
moving bowels with enema
gas less so
no other complaints
Objective Data
-
Labs:
Laboratory Results
11/23/24
06:26
WBC 13.8 H
Hgb 9.9 L
Hct 28.3 L
Plt Count 121 L D
PT 23.8 H
INR 2.08
Sodium 130 L
Potassium 3.3 L
Chloride 97 L
Carbon Dioxide 27
BUN 6 L
Creatinine 0.5 L
Glucose 130 H
Calcium 8.4
Total Bilirubin 7.7 H
AST 78 H
ALT 42
Alkaline Phosphatase 99
Vital Signs:
Vital Signs
Temp Pulse Resp BP Pulse Ox
98.5 F 96 14 114/75 97
11/23/24 07:10 11/23/24 07:10 11/23/24 07:10 11/23/24 07:10 11/23/24 07:10
I&O
11/22/24 11/23/24 11/24/24
06:59 06:59 06:59
Intake Total 1560 / 1560 840 / 840
Balance 1560 / 1560 840 / 840
Physical Exam
-
General: No Apparent Distress
HEENT: Normocephalic and Atraumatic
Respiratory: Negative Wheezes
Cardiac: Regular Rhythm and S1/S2
Rectal: Brown
Genito-urinary: No Costovertebral Tender
Neuro: AO x 3
Psych: Calm
Data Reviewed
-
Total Time Spent with Patient (in minutes): 41
Labs: Labs Reviewed by me
[2024-11-23 15:58] VITALS: BP 118/66
--- NOTE | 2024-11-23 16:03 | PTCARENOTE ---
GI team in this afternoon to place rectal tube on pt. Pt agreeable to rectal tube at time of consult with team. Tube placed. Pt self removed about 2-3 hours later. States, 'I couldn't use the bathroom with that thing so I pulled it out and I do not
want another one.' Pt seemed confused at time of conversation. GI team/hospitalist notified. Attempt to reinsert tube, pt refusing at this time. Plan of care ongoing.
[2024-11-23] MEDS: SEROQUEL PO (21:33)
[2024-11-23 23:00] VITALS: BP 115/64
[2024-11-24 05:45] VITALS: BMI 22.8
[2024-11-24] MEDS: PEPCID 20 MG PO (07:45)
[2024-11-24] MEDS: XIFAXAN 550 MG PO ×2 (07:49→20:41)
[2024-11-24] MEDS: PROTONIX 40 MG PO (07:49)
[2024-11-24] MEDS: MYLICON 80 MG PO ×3 (07:49→21:29)
[2024-11-24] MEDS: FOLVITE 1 MG PO (07:49)
[2024-11-24] MEDS: VITAMIN B1 100 MG PO (07:49)
[2024-11-24] MEDS: LAMICTAL 25 MG PO (07:50)
[2024-11-24] MEDS: B COMPLEX w/VITAMIN C 1 CAPLET PO (07:50)
[2024-11-24] MEDS: LAMICTAL 100 MG PO (07:52)
[2024-11-24] MEDS: NICODERM TRANSDERMAL 21 MG TRANSDERM (07:52)
[2024-11-24] MEDS: LIDOCAINE 4% PATCH 1 PATCH TOPICAL (07:52)
[2024-11-24 08:00] VITALS: BP 104/64
[2024-11-24 08:46] LABS: INR 2.18; PT 24.4 Sec (11.4-14.6)
[2024-11-24 08:47] LABS: Hematocrit 28.3 % (39.0-52.0); Hemoglobin 9.7 g/dL (13.0-18.0); Mean Corp Hgb Conc. 34.3 g/dL (33.0-37.0); Mean Corpuscular Hgb 36.7 pg (27.0-31.0); Mean Corpuscular Volume 107.2 fL (80.0-94.0); Mean Platelet Volume 9.7 fL (7.4-10.4); Platelet Count 129 10^3/uL (130-400); Red Blood Cell Count 2.64 10^6/uL (4.70-6.10); Red Cell Dist. Width 13.5 % (11.5-14.5); White Blood Cell Count 12.9 10^3/uL (4.8-10.8)
[2024-11-24 08:53] LABS: ALT (SGPT) 40 U/L (0-50); AST (SGOT) 71 U/L (17-59); Albumin 3.5 g/dl (3.5-5.0); Alkaline Phosphatase 95 U/L (38-126); Blood Urea Nitrogen 5 mg/dl (9-20); Calcium 8.4 mg/dl (8.4-10.2); Carbon Dioxide 25 mmol/L (22-30); Chloride 99 mmol/L (98-107); Estimated Creatinine Clearance > 125 ml/min; Glucose 89 mg/dl (70-99); Potassium 3.2 mmol/L (3.5-5.1); Sodium 134 mmol/L (135-145); Total Bilirubin 6.2 mg/dl (0.2-1.3); Total Protein 6.4 g/dl (6.3-8.2); eGFR > 60.00
--- NOTE | 2024-11-24 09:03 | CM ---
CM following for discharge planning. Pt admitted with abdominal pain, ileus; hx of ETOH cirrhosis/hepatitis with history of encephalopathy. [facility] offered and declined.
Pt denies discharge planning needs; plan to remain hospitalized through the weekend.
Plan: Cm to follow for newly identified needs at discharge.
--- NOTE | 2024-11-24 09:07 | W.PN.GI.CBS2 ---
Today's Communication / Plan
-
-Abdominal distention likely from ileus
Today he seems to feel slightly better, passing some flatus.
Discussed with patient regarding ambulation and sitting up in the chair rather than lie down in the bed.
Continue to hold off on narcotics.
Repeat abdominal x-ray this morning.
Continue clear liquid diet for now. Will add Ensure clear.
Will monitor closely
- Alcoholic liver disease, abdominal CT scan showing evidence of cirrhosis.
Recent SBP treated with ceftriaxone, stopped 11/22 once repeat paracentesis showed improvement.
History of recent ?HE-hold off on the lactulose given abdominal distention, continue Xifaxan 550 mg twice a day.
Monitor electrolytes closely and replete as needed.
Continue PPI
Will follow
Assessment / Plan
-
44 male with recent admission for acute alcoholic hepatitis on prednisolone here with abdominal pain and distension found to have SBP (WBC 1700, 45% = 765) on 11/16, 1026, 42.3% = 430 11/19, repeat today 866, 30.1 %= 260. Persistent abdominal
distention on x ray 11/20, 11/22 consistent with ileus. There has been some acute mental status change in past 24 hours.
#Acute alcoholic hepatitis and SBP
#Liver cirrhosis , MELD score on admission 22.
-Underwent multiple imaging, CT with IV contrast no oral on 11/16 which showed small volume ascites, cirrhosis, moderate amount of gas/stool in colon
-Obstructive series revealed gaseous distention of large bowel wall consistent with ileus. IR confirmed that all fluid was removed on 11/19.
-Repeat para today drained only 20 cc of fluid, not enough fluid to tap--- WBC 866, 30.1 %= 260
Labs show white count trending down from 21.6-12.9, 11/24/24- MELD 3.0-22
Repeat paracentesis 11/22 showing improvement in PMNs, after discussing with hepatology at [facility] ( d/w from [facility]), antibiotics stopped.
Abdominal x-ray 11/23 still showing gaseous distention of large bowel, cecum 10.6 cm and mild gaseous distention of small bowel in the left abdomen.
Rectal tube placed 11/23 without any significant improvement in distention. Patient pulled out the rectal tube within an hour of placing it.
-Abdominal distention likely from ileus
Today he seems to feel slightly better, passing some flatus.
Discussed with patient regarding ambulation and sitting up in the chair rather than lie down in the bed.
Continue to hold off on narcotics.
Repeat abdominal x-ray this morning.
Continue clear liquid diet for now. Will add Ensure clear.
Will monitor closely
- Alcoholic liver disease, abdominal CT scan showing evidence of cirrhosis.
Recent SBP treated with ceftriaxone, stopped 11/22 once repeat paracentesis showed improvement.
History of recent ?HE-hold off on the lactulose given abdominal distention, continue Xifaxan 550 mg twice a day.
Monitor electrolytes closely and replete as needed.
Continue PPI
Will follow
Subjective
Subjective
Date of Service: November 24, 2024
Patient continues to have discomfort in the abdomen, no nausea or vomiting. Reports having bowel movements this morning and passing some flatus. No fevers or chills.
Objective
Data Reviewed
Laboratory Data:
Laboratory Results
11/24/24 06:22
11/24/24 06:22
Laboratory Results
PT 24.4 Sec (11.4-14.6) H 11/24/24 06:22
INR 2.18 11/24/24 06:22
Magnesium 1.8 mg/dl (1.6-2.3) 11/17/24 07:11
Total Bilirubin 6.2 mg/dl (0.2-1.3) H 11/24/24 06:22
AST 71 U/L (17-59) H 11/24/24 06:22
ALT 40 U/L (0-50) 11/24/24 06:22
Alkaline Phosphatase 95 U/L (38-126) 11/24/24 06:22
Lipase 493 U/L (23-300) H 11/16/24 09:37
Vital Signs and I&O:
Vital Signs
Temp Pulse Resp BP Pulse Ox
99 F 96 21 104/64 98
11/24/24 08:00 11/24/24 08:00 11/24/24 08:00 11/24/24 08:00 11/24/24 08:00
I&O
11/23/24 11/24/24 11/25/24
06:59 06:59 06:59
Intake Total 840 / 840 1020 / 1020
Balance 840 / 840 1020 / 1020
Physical Exam
Physical Exam
GI: Soft (Softer than previous, bowel sounds noted) and Distended
--- NOTE | 2024-11-24 09:53 | W.PN.HOSP.TC ---
Today's Communication/Plan
-
follow GI recs
continue clears
Assessment / Plan
Assessment / Plan
Assessment:
Acute SBP and acute alcoholic hepatitis:
-in the setting of underlying alcoholic cirrhosis, has h/o hepatic encephalopathy (none currently, NH3 11)
-presented with increasing Abdominal Pain and Abdominal Distention
-s/p paracentesis 11/16: 1100 cc drained. fluid studies consistent with SBP
-s/p paracentesis 11/19. 2750 cc drained. Fluid studies with persistent SBP
-s/p paracentesis 11/22: 20 cc drained. WBC in fluid improved
-fungal culture pending given recent steroid usage
-completed Rocephin and Albumin course
-cont Xifaxan
-off steroids due to SBP
-GI and ID following
Suspected ileus, related to SBP?
- CT 11/17: Some increased gaseous distention of the ascending colon and transverse colon to the level of the splenic flexure. Smaller caliber of the descending colon and sigmoid colon containing mild stool, which appears similar compared to the
previous CT abdomen/pelvis from 11/16/2024. No appreciable obstructing lesion at the splenic flexure within the limitations of the lack of oral and intravenous contrast.
- OBS series 11/20: Gaseous distention of large bowel throughout with a few air-fluid levels seen on erect view. Colonic ileus versus partial distal small bowel obstruction. No free air.
- repeat AXR 11/22: Significant dilation of small and large intestine, with a paucity of bowel gas within the distal colon and rectum. Increased compared to prior study dated 11/20/2024.
- repeat AXR 11/24: Mildly improved/resolving ileus pattern.
- s/p enema per GI
- standing Gas X for symptoms per GI
- diet: clears
- follow GI recs
- briefly required rectal tube but self-removed it
Chronic hyponatremia
- monitor
Constipation: Lactulose PRN
Macrocytic Anemia: Hb stable
GERD: cont pepcid, Protonix started
Bipolar Disorder/Anxiety/Depression: cont Seroquel/Lamictal
Migraine Headaches: cont Lamictal
Nicotine Dependence: cont Nicotine patch
Hypokalemia - replete as needed
DVT ppx: SCDs
Code: Full
Anticipated Discharge: > 48 hours
Subjective/Interval History
-
Date of Service: November 24, 2024
resting comfortably, no complaints at present
Objective Data
-
Labs:
Laboratory Results
11/24/24
06:22
WBC 12.9 H
Hgb 9.7 L
Hct 28.3 L
Plt Count 129 L
PT 24.4 H
INR 2.18
Sodium 134 L
Potassium 3.2 L
Chloride 99
Carbon Dioxide 25
BUN 5 L
Creatinine 0.5 L
Glucose 89
Calcium 8.4
Total Bilirubin 6.2 H
AST 71 H
ALT 40
Alkaline Phosphatase 95
Vital Signs:
Vital Signs
Temp Pulse Resp BP Pulse Ox
99 F 96 21 104/64 98
11/24/24 08:00 11/24/24 08:00 11/24/24 08:00 11/24/24 08:00 11/24/24 09:21
I&O
11/23/24 11/24/24 11/25/24
06:59 06:59 06:59
Intake Total 840 / 840 1020 / 1020
Balance 840 / 840 1020 / 1020
Physical Exam
-
General: No Apparent Distress
HEENT: Normocephalic and Atraumatic
Respiratory: Negative Wheezes
Cardiac: Regular Rhythm and S1/S2
GI: Nontender and Distended (less distended)
Genito-urinary: No Costovertebral Tender
Neuro: AO x 3
Psych: Calm
Data Reviewed
-
Total Time Spent with Patient (in minutes): 41
Labs: Labs Reviewed by me
[2024-11-24] MEDS: KCL 40 MEQ PO (10:49)
[2024-11-24] MEDS: KCL 270 MEQ IV (10:49)
[2024-11-24 15:35] VITALS: BP 116/64
[2024-11-24] MEDS: SEROQUEL PO (21:28)
[2024-11-24 23:25] VITALS: BP 99/60
[2024-11-25 06:00] VITALS: BMI 23.2
[2024-11-25 07:12] LABS: Hematocrit 28.5 % (39.0-52.0); Hemoglobin 9.8 g/dL (13.0-18.0); Mean Corp Hgb Conc. 34.4 g/dL (33.0-37.0); Mean Corpuscular Hgb 36.2 pg (27.0-31.0); Mean Corpuscular Volume 105.2 fL (80.0-94.0); Mean Platelet Volume 9.8 fL (7.4-10.4); Platelet Count 116 10^3/uL (130-400); Red Blood Cell Count 2.71 10^6/uL (4.70-6.10); Red Cell Dist. Width 13.2 % (11.5-14.5); White Blood Cell Count 10.7 10^3/uL (4.8-10.8)
[2024-11-25 07:39] LABS: ALT (SGPT) 38 U/L (0-50); AST (SGOT) 64 U/L (17-59); Albumin 3.3 g/dl (3.5-5.0); Alkaline Phosphatase 109 U/L (38-126); Blood Urea Nitrogen 4 mg/dl (9-20); Calcium 8.1 mg/dl (8.4-10.2); Carbon Dioxide 21 mmol/L (22-30); Chloride 103 mmol/L (98-107); Estimated Creatinine Clearance > 125 ml/min; Glucose 92 mg/dl (70-99); Potassium 3.7 mmol/L (3.5-5.1); Sodium 133 mmol/L (135-145); Total Bilirubin 6.1 mg/dl (0.2-1.3); Total Protein 6.1 g/dl (6.3-8.2); eGFR > 60.00
[2024-11-25 08:01] VITALS: BP 111/67
[2024-11-25] MEDS: VITAMIN B1 100 MG PO (08:23)
[2024-11-25] MEDS: NICODERM TRANSDERMAL 21 MG TRANSDERM (08:23)
[2024-11-25] MEDS: LIDOCAINE 4% PATCH 1 PATCH TOPICAL (08:23)
[2024-11-25] MEDS: LAMICTAL 25 MG PO (08:24)
[2024-11-25] MEDS: PROTONIX 40 MG PO (08:24)
[2024-11-25] MEDS: MYLICON 80 MG PO ×3 (08:24→21:45)
[2024-11-25] MEDS: XIFAXAN 550 MG PO ×2 (08:24→20:02)
[2024-11-25] MEDS: LAMICTAL 100 MG PO (08:24)
[2024-11-25] MEDS: B COMPLEX w/VITAMIN C 1 CAPLET PO (08:24)
[2024-11-25] MEDS: FOLVITE 1 MG PO (08:24)
[2024-11-25] MEDS: PEPCID 20 MG PO (08:37)
--- NOTE | 2024-11-25 09:37 | W.PN.HOSP.TC ---
Today's Communication/Plan
-
see plan
Assessment / Plan
Assessment / Plan
Gen: NAD, AAOx3.
Eyes: EOMI, PERRLA, no scleral icterus.
Neck: supple.
CV: RRR, +S1/S2, no m/r/g.
Resp: CTAB, no rales, wheezes, or rhonchi.
Abd: +BS, soft, Mod distention with ascites, mod TTP
Skin: No rashes.
Neuro: CN 2-12 intact, non-focal.
Psych: Normal mood and affect.
11/22/24 08:39 Peritoneal Fluid Body Fluid Culture - Final
No Growth After 72 Hours
11/22/24 08:39 Peritoneal Fluid Gram Stain - Final
11/19/24 13:40 Peritoneal Fluid Body Fluid Culture - Final
No Growth After 72 Hours
11/19/24 13:40 Peritoneal Fluid Gram Stain - Final
11/19/24 13:40 Peritoneal Fluid Fungal Culture - Preliminary
Culture in progress.
Positive cultures are reported as soon as detected.
Final report to follow in four to five weeks.
11/16/24 12:00 Peritoneal Fluid Body Fluid Culture - Final
No Growth After 72 Hours
11/16/24 12:00 Peritoneal Fluid Gram Stain - Final
Acute SBP and acute alcoholic hepatitis:
-in the setting of underlying alcoholic cirrhosis, has h/o hepatic encephalopathy (none currently, NH3 11)
-presented with increasing Abdominal Pain and Abdominal Distention
-s/p paracentesis 11/16: 1100 cc drained. fluid studies consistent with SBP
-s/p paracentesis 11/19. 2750 cc drained. Fluid studies with persistent SBP
-s/p paracentesis 11/22: 20 cc drained. WBC in fluid improved
-fungal culture pending given recent steroid usage
-completed Rocephin and Albumin course
-cont Xifaxan
-off steroids due to SBP
-GI and ID following
Suspected ileus:
-suspect related to SBP
-CT A/P 11/17/24: Some increased gaseous distention of the ascending colon and transverse colon to the level of the splenic flexure. Smaller caliber of the descending colon and sigmoid colon containing mild stool, which appears similar compared to
the previous CT abdomen/pelvis from 11/16/2024. No appreciable obstructing lesion at the splenic flexure within the limitations of the lack of oral and intravenous contrast.
-OBST series 11/20: Gaseous distention of large bowel throughout with a few air-fluid levels seen on erect view. Colonic ileus versus partial distal small bowel obstruction. No free air.
-repeat AXR 11/22: Significant dilation of small and large intestine, with a paucity of bowel gas within the distal colon and rectum. Increased compared to prior study dated 11/20/2024.
-repeat AXR 11/24: Mildly improved/resolving ileus pattern.
-s/p enema per GI
-standing Gas X for symptoms per GI
-diet: clears
-follow GI recs
-briefly required rectal tube but self-removed it
Other problems:
Chronic hyponatremia
Constipation: Lactulose PRN
Macrocytic Anemia: Hb stable
GERD: cont pepcid, Protonix started
Bipolar Disorder/Anxiety/Depression: cont Seroquel/Lamictal
Migraine Headaches: cont Lamictal
Nicotine Dependence: cont Nicotine patch
Hypokalemia, resolved
Leukocytosis, resolved
FULL/SCDs
Anticipated Discharge: 24 - 48 hours
Subjective/Interval History
-
Date of Service: November 25, 2024
Objective Data
-
Labs:
Laboratory Results
11/25/24
05:55
WBC 10.7
Hgb 9.8 L
Hct 28.5 L
Plt Count 116 L
Sodium 133 L
Potassium 3.7
Chloride 103
Carbon Dioxide 21 L
BUN 4 L
Creatinine 0.5 L
Glucose 92
Calcium 8.1 L
Total Bilirubin 6.1 H
AST 64 H
ALT 38
Alkaline Phosphatase 109
Vital Signs:
Vital Signs
Temp Pulse Resp BP Pulse Ox
98.8 F 90 21 111/67 97
11/25/24 08:01 11/25/24 08:01 11/25/24 08:01 11/25/24 08:01 11/25/24 08:01
I&O
11/24/24 11/25/24 11/26/24
06:59 06:59 06:59
Intake Total 1020 / 1020 900 / 900
Balance 1020 / 1020 900 / 900
--- NOTE | 2024-11-25 09:50 | W.PN.GI.CBS2 ---
Today's Communication / Plan
-
-Abdominal distention likely from ileus
Slowly improving in terms of symptoms and also on imaging. For repeat abdominal x-ray this morning.
Discussed with patient regarding ambulation and sitting up in the chair rather than lie down in the bed.
Continue to hold off on narcotics.
Continue clear liquid diet for now. added Ensure clear.
If he starts to have more bowel movements and abdomen is less distended, we could give a trial of full liquid diet and see if he tolerates.
Will monitor closely
- Alcoholic liver disease, abdominal CT scan showing evidence of cirrhosis.
Recent SBP treated with ceftriaxone, stopped 11/22 once repeat paracentesis showed improvement.
History of recent ?HE-hold off on the lactulose given abdominal distention, continue Xifaxan 550 mg twice a day.
Monitor electrolytes closely and replete as needed.
Continue PPI
Will follow
Assessment / Plan
-
44 male with recent admission for acute alcoholic hepatitis on prednisolone here with abdominal pain and distension found to have SBP (WBC 1700, 45% = 765) on 11/16, 1026, 42.3% = 430 11/19, repeat today 866, 30.1 %= 260. Persistent abdominal
distention on x ray 11/20, 11/22 consistent with ileus. There has been some acute mental status change in past 24 hours.
#Acute alcoholic hepatitis and SBP
#Liver cirrhosis , MELD score on admission 22.
-Underwent multiple imaging, CT with IV contrast no oral on 11/16 which showed small volume ascites, cirrhosis, moderate amount of gas/stool in colon
-Obstructive series revealed gaseous distention of large bowel wall consistent with ileus. IR confirmed that all fluid was removed on 11/19.
-Repeat para today drained only 20 cc of fluid, not enough fluid to tap--- WBC 866, 30.1 %= 260
Labs show white count normalized, 11/24/24- MELD 3.0-22
Repeat paracentesis 11/22 showing improvement in PMNs, after discussing with hepatology at [facility] ( d/w from [place] [facility]), antibiotics stopped.
Abdominal x-ray 11/23 showing some improvement in the ileus
-Abdominal distention likely from ileus
Slowly improving in terms of symptoms and also on imaging. For repeat abdominal x-ray this morning.
Discussed with patient regarding ambulation and sitting up in the chair rather than lie down in the bed.
Continue to hold off on narcotics.
Continue clear liquid diet for now. added Ensure clear.
If he starts to have more bowel movements and abdomen is less distended, we could give a trial of full liquid diet and see if he tolerates.
Will monitor closely
- Alcoholic liver disease, abdominal CT scan showing evidence of cirrhosis.
Recent SBP treated with ceftriaxone, stopped 11/22 once repeat paracentesis showed improvement.
History of recent ?HE-hold off on the lactulose given abdominal distention, continue Xifaxan 550 mg twice a day.
Monitor electrolytes closely and replete as needed.
Continue PPI
Will follow
Subjective
Subjective
Date of Service: November 25, 2024
Patient reports having somewhat formed bowel movement earlier this morning. Still some pain in the abdomen but not significant. No nausea or vomiting. Tolerating clear liquid diet. No fevers or chills.
Objective
Data Reviewed
Laboratory Data:
Laboratory Results
11/25/24 05:55
11/25/24 05:55
Laboratory Results
PT 24.4 Sec (11.4-14.6) H 11/24/24 06:22
INR 2.18 11/24/24 06:22
Magnesium 1.8 mg/dl (1.6-2.3) 11/17/24 07:11
Total Bilirubin 6.1 mg/dl (0.2-1.3) H 11/25/24 05:55
AST 64 U/L (17-59) H 11/25/24 05:55
ALT 38 U/L (0-50) 11/25/24 05:55
Alkaline Phosphatase 109 U/L (38-126) 11/25/24 05:55
Lipase 493 U/L (23-300) H 11/16/24 09:37
Vital Signs and I&O:
Vital Signs
Temp Pulse Resp BP Pulse Ox
98.8 F 90 21 111/67 97
11/25/24 08:01 11/25/24 08:01 11/25/24 08:01 11/25/24 08:01 11/25/24 08:01
I&O
11/24/24 11/25/24 11/26/24
06:59 06:59 06:59
Intake Total 1020 / 1020 900 / 900
Balance 1020 / 1020 900 / 900
Physical Exam
Physical Exam
GI: Soft and Distended (Softly distended, some bowel sounds noted)
[2024-11-25 15:40] VITALS: BP 99/73
[2024-11-25] MEDS: SEROQUEL PO (21:45)
[2024-11-25 23:03] VITALS: BP 109/66
[2024-11-26 06:11] VITALS: BMI 23.4
[2024-11-26 07:05] VITALS: BP 104/66
[2024-11-26] MEDS: B COMPLEX w/VITAMIN C 1 CAPLET PO (08:01)
[2024-11-26] MEDS: LIDOCAINE 4% PATCH 1 PATCH TOPICAL (08:01)
[2024-11-26] MEDS: XIFAXAN 550 MG PO ×2 (08:02→20:38)
[2024-11-26] MEDS: PROTONIX 40 MG PO (08:02)
[2024-11-26] MEDS: VITAMIN B1 100 MG PO (08:02)
[2024-11-26] MEDS: NICODERM TRANSDERMAL 21 MG TRANSDERM (08:02)
[2024-11-26] MEDS: PEPCID 20 MG PO (08:02)
[2024-11-26] MEDS: FOLVITE 1 MG PO (08:02)
[2024-11-26] MEDS: MYLICON 80 MG PO ×3 (08:02→21:18)
[2024-11-26] MEDS: LAMICTAL 25 MG PO (08:02)
[2024-11-26] MEDS: LAMICTAL 100 MG PO (08:03)
[2024-11-26 08:16] LABS: % Basophils 0.4 % (0-2); % Eosinophils 2.5 % (0-6); % Immature Granulocytes 0.4 % (0-0.5); % Lymphocytes 19.7 % (20.5-51.1); % Monocytes 10.2 % (1.7-9.3); % Neutrophils 66.8 % (42.2-75.2); Absolute Basophils 0.1 10^3/uL (0-0.2); Absolute Eosinophils 0.3 10^3/uL (0-0.7); Absolute Immature Granulocytes 0.1 10^3/uL (0-0.05); Absolute Lymphocytes 2.3 10^3/uL (1.2-3.4); Absolute Monocytes 1.2 10^3/uL (0.1-0.6); Absolute Neutrophils 7.9 10^3/uL (1.4-6.5); Hematocrit 26.6 % (39.0-52.0); Hemoglobin 9.4 g/dL (13.0-18.0); Mean Corp Hgb Conc. 35.3 g/dL (33.0-37.0); Mean Corpuscular Hgb 36.6 pg (27.0-31.0); Mean Corpuscular Volume 103.5 fL (80.0-94.0); Mean Platelet Volume 9.5 fL (7.4-10.4); Nucleated Red Blood Cells % 0 % (-); Platelet Count 111 10^3/uL (130-400); Red Blood Cell Count 2.57 10^6/uL (4.70-6.10); Red Cell Dist. Width 12.9 % (11.5-14.5); White Blood Cell Count 11.8 10^3/uL (4.8-10.8)
[2024-11-26 08:26] LABS: INR 2.21; PT 24.6 Sec (11.4-14.6)
[2024-11-26 09:02] LABS: ALT (SGPT) 31 U/L (0-50); AST (SGOT) 48 U/L (17-59); Alkaline Phosphatase 110 U/L (38-126); Blood Urea Nitrogen 5 mg/dl (9-20); Calcium 7.8 mg/dl (8.4-10.2); Carbon Dioxide 24 mmol/L (22-30); Chloride 102 mmol/L (98-107); Estimated Creatinine Clearance > 125 ml/min; Glucose 110 mg/dl (70-99); Potassium 3.7 mmol/L (3.5-5.1); Sodium 132 mmol/L (135-145); Total Bilirubin 3.7 mg/dl (0.2-1.3); Total Protein 5.8 g/dl (6.3-8.2); eGFR > 60.00
--- NOTE | 2024-11-26 09:22 | W.PN.HOSP.TC ---
Today's Communication/Plan
-
see plan
Assessment / Plan
Assessment / Plan
Gen: NAD, AAOx3.
Eyes: EOMI, PERRLA, no scleral icterus.
Neck: supple.
CV: remains RRR, +S1/S2, no m/r/g.
Resp: CTAB anteriorly, no rales, wheezes, or rhonchi.
Abd: +BS, soft, Mod-severe distention with ascites, TTP in the L-abdomen
Skin: No rashes.
Neuro: CN 2-12 intact, non-focal.
Psych: Normal mood and affect.
11/22/24 08:39 Peritoneal Fluid Body Fluid Culture - Final
No Growth After 72 Hours
11/22/24 08:39 Peritoneal Fluid Gram Stain - Final
11/19/24 13:40 Peritoneal Fluid Body Fluid Culture - Final
No Growth After 72 Hours
11/19/24 13:40 Peritoneal Fluid Gram Stain - Final
11/19/24 13:40 Peritoneal Fluid Fungal Culture - Preliminary
Culture in progress.
Positive cultures are reported as soon as detected.
Final report to follow in four to five weeks.
11/16/24 12:00 Peritoneal Fluid Body Fluid Culture - Final
No Growth After 72 Hours
11/16/24 12:00 Peritoneal Fluid Gram Stain - Final
Acute SBP and acute alcoholic hepatitis:
-in the setting of underlying alcoholic cirrhosis, has h/o hepatic encephalopathy (none currently, NH3 11)
-presented with increasing Abdominal Pain and Abdominal Distention
-s/p paracentesis 11/16: 1100 cc drained. fluid studies consistent with SBP
-s/p paracentesis 11/19. 2750 cc drained. Fluid studies with persistent SBP
-s/p paracentesis 11/22: 20 cc drained. WBC in fluid improved
-fungal culture pending given recent steroid usage
-completed Rocephin and Albumin course
-cont Xifaxan
-off steroids due to SBP
-was seen by ID
-GI following
Suspected ileus:
-suspect related to SBP
-CT A/P 11/17/24: Some increased gaseous distention of the ascending colon and transverse colon to the level of the splenic flexure. Smaller caliber of the descending colon and sigmoid colon containing mild stool, which appears similar compared to
the previous CT abdomen/pelvis from 11/16/2024. No appreciable obstructing lesion at the splenic flexure within the limitations of the lack of oral and intravenous contrast.
-OBST series 11/20: Gaseous distention of large bowel throughout with a few air-fluid levels seen on erect view. Colonic ileus versus partial distal small bowel obstruction. No free air.
-repeat AXR 11/22: Significant dilation of small and large intestine, with a paucity of bowel gas within the distal colon and rectum. Increased compared to prior study dated 11/20/2024.
-repeat AXR 11/24: Mildly improved/resolving ileus pattern.
-s/p enema per GI
-standing Gas X for symptoms per GI
-diet: clears
-briefly required rectal tube but self-removed it
-discussed with Dr. Tam. U/S for ascites check. May need repeat paracentesis prior to diet advancement.
Other problems:
Chronic hyponatremia
Constipation
Macrocytic Anemia: Hb stable
GERD: cont pepcid, Protonix started
Bipolar Disorder/Anxiety/Depression: cont Seroquel/Lamictal
Migraine Headaches: cont Lamictal
Nicotine Dependence: cont Nicotine patch
Hypokalemia, resolved
Leukocytosis, improved
FULL/SCDs
Anticipated Discharge: 24 - 48 hours
Subjective/Interval History
-
Date of Service: November 26, 2024
States 1 BM in last 24 hours. c/o bad pain with movement.
Objective Data
-
Labs:
Laboratory Results
11/26/24
07:55
WBC 11.8 H
Hgb 9.4 L
Hct 26.6 L
Plt Count 111 L
PT 24.6 H
INR 2.21
Sodium 132 L
Potassium 3.7
Chloride 102
Carbon Dioxide 24
BUN 5 L
Creatinine 0.5 L
Glucose 110 H
Calcium 7.8 L
Total Bilirubin 3.7 H
AST 48
ALT 31
Alkaline Phosphatase 110
Vital Signs:
Vital Signs
Temp Pulse Resp BP Pulse Ox
99.0 F 96 19 104/66 96
11/26/24 07:05 11/26/24 07:05 11/26/24 07:05 11/26/24 07:05 11/26/24 07:05
I&O
11/25/24 11/26/24 11/27/24
06:59 06:59 06:59
Intake Total 900 / 900 1470 / 1470
Balance 900 / 900 1470 / 1470
--- NOTE | 2024-11-26 09:59 | W.PN.GI.CBS2 ---
Today's Communication / Plan
-
#Acute alcoholic hepatitis and SBP
#Liver cirrhosis , MELD score on admission 22.
-Underwent multiple imaging, CT with IV contrast no oral on 11/16 which showed small volume ascites, cirrhosis, moderate amount of gas/stool in colon
-Obstructive series revealed gaseous distention of large bowel wall consistent with ileus. IR confirmed that all fluid was removed on 11/19.
-Repeat para 11/22 drained only 20 cc of fluid, not enough fluid to tap--- WBC 866, 30.1 %= 260
Slight leukocytosis without fever, total bilirubin trending down and other LFTs normalized
11/26/24 MELD 3.0-23
Labs show white count normalized, 11/24/24- MELD 3.0-22
Repeat paracentesis 11/22 showing improvement in PMNs, after discussing with hepatology at [facility] ( d/w from [place] [facility]), antibiotics stopped.
Abdominal x-ray 11/24 showing some improvement in the ileus
-Abdominal distention likely from ileus
We will repeat abdominal ultrasound to look for any reaccumulation of ascites
Slowly improving in terms of symptoms and also on imaging.
Discussed with patient regarding ambulation and sitting up in the chair rather than lie down in the bed.
Continue to hold off on narcotics.
Continue clear liquid diet for now. added Ensure clear.
If he starts to have more bowel movements and abdomen is less distended, we could give a trial of full liquid diet and see if he tolerates. Await abdominal ultrasound first.
Will monitor closely
- Alcoholic liver disease, abdominal CT scan showing evidence of cirrhosis.
Recent SBP treated with ceftriaxone, stopped 11/22 once repeat paracentesis showed improvement.
History of recent ?HE-hold off on the lactulose given abdominal distention, continue Xifaxan 550 mg twice a day.
Monitor electrolytes closely and replete as needed.
Continue PPI
Will follow
Assessment / Plan
-
44 male with recent admission for acute alcoholic hepatitis on prednisolone here with abdominal pain and distension found to have SBP (WBC 1700, 45% = 765) on 11/16, 1026, 42.3% = 430 11/19, repeat today 866, 30.1 %= 260. Persistent abdominal
distention on x ray 11/20, 11/22 consistent with ileus. There has been some acute mental status change in past 24 hours.
#Acute alcoholic hepatitis and SBP
#Liver cirrhosis , MELD score on admission 22.
-Underwent multiple imaging, CT with IV contrast no oral on 11/16 which showed small volume ascites, cirrhosis, moderate amount of gas/stool in colon
-Obstructive series revealed gaseous distention of large bowel wall consistent with ileus. IR confirmed that all fluid was removed on 11/19.
-Repeat para 11/22 drained only 20 cc of fluid, not enough fluid to tap--- WBC 866, 30.1 %= 260
Slight leukocytosis without fever, total bilirubin trending down and other LFTs normalized
11/26/24 MELD 3.0-23
Labs show white count normalized, 11/24/24- MELD 3.0-22
Repeat paracentesis 11/22 showing improvement in PMNs, after discussing with hepatology at [facility] ( d/w from [place] [facility]), antibiotics stopped.
Abdominal x-ray 11/24 showing some improvement in the ileus
-Abdominal distention likely from ileus
We will repeat abdominal ultrasound to look for any reaccumulation of ascites
Slowly improving in terms of symptoms and also on imaging.
Discussed with patient regarding ambulation and sitting up in the chair rather than lie down in the bed.
Continue to hold off on narcotics.
Continue clear liquid diet for now. added Ensure clear.
If he starts to have more bowel movements and abdomen is less distended, we could give a trial of full liquid diet and see if he tolerates. Await abdominal ultrasound first.
Will monitor closely
- Alcoholic liver disease, abdominal CT scan showing evidence of cirrhosis.
Recent SBP treated with ceftriaxone, stopped 11/22 once repeat paracentesis showed improvement.
History of recent ?HE-hold off on the lactulose given abdominal distention, continue Xifaxan 550 mg twice a day.
Monitor electrolytes closely and replete as needed.
Continue PPI
Will follow
Subjective
Subjective
Date of Service: November 26, 2024
Patient continues to complain of abdominal pain, no nausea or vomiting. Has been having loose liquid stool. No fevers or chills.
Objective
Data Reviewed
Laboratory Data:
Laboratory Results
11/26/24 07:55
11/26/24 07:55
Laboratory Results
PT 24.6 Sec (11.4-14.6) H 11/26/24 07:55
INR 2.21 11/26/24 07:55
Magnesium 1.8 mg/dl (1.6-2.3) 11/17/24 07:11
Total Bilirubin 3.7 mg/dl (0.2-1.3) H 11/26/24 07:55
AST 48 U/L (17-59) 11/26/24 07:55
ALT 31 U/L (0-50) 11/26/24 07:55
Alkaline Phosphatase 110 U/L (38-126) 11/26/24 07:55
Lipase 493 U/L (23-300) H 11/16/24 09:37
Vital Signs and I&O:
Vital Signs
Temp Pulse Resp BP Pulse Ox
99.0 F 96 19 104/66 96
11/26/24 07:05 11/26/24 07:05 11/26/24 07:05 11/26/24 07:05 11/26/24 07:05
I&O
11/25/24 11/26/24 11/27/24
06:59 06:59 06:59
Intake Total 900 / 900 1470 / 1470
Balance 900 / 900 1470 / 1470
Physical Exam
Physical Exam
GI: Soft, Distended and Tender (Some discomfort on palpation in the mid abdomen without guarding or rigidity)
[2024-11-26 15:01] VITALS: BP 112/70
[2024-11-26] MEDS: SEROQUEL PO (21:21)
[2024-11-26 23:24] VITALS: BP 104/65
[2024-11-27] VITALS (7 sets, daily range): BP systolic 90–114; BP diastolic 53–77; BMI 23.7
--- NOTE | 2024-11-27 07:55 | W.PN.HOSP.TC ---
Today's Communication/Plan
-
see plan
Assessment / Plan
Assessment / Plan
Gen: NAD, AAOx3.
Eyes: EOMI, PERRLA, no scleral icterus.
Neck: supple.
CV: continues to remain RRR, +S1/S2, no m/r/g.
Resp: remains CTAB anteriorly, no rales, wheezes, or rhonchi.
Abd: +BS, soft, mild-mod distention with ascites, very mild TTP in the L-abdomen
Skin: No rashes.
Neuro: CN 2-12 intact, non-focal.
Psych: Normal mood and affect.
11/22/24 08:39 Peritoneal Fluid Body Fluid Culture - Final
No Growth After 72 Hours
11/22/24 08:39 Peritoneal Fluid Gram Stain - Final
11/19/24 13:40 Peritoneal Fluid Body Fluid Culture - Final
No Growth After 72 Hours
11/19/24 13:40 Peritoneal Fluid Gram Stain - Final
11/19/24 13:40 Peritoneal Fluid Fungal Culture - Preliminary
Culture in progress.
Positive cultures are reported as soon as detected.
Final report to follow in four to five weeks.
11/16/24 12:00 Peritoneal Fluid Body Fluid Culture - Final
No Growth After 72 Hours
11/16/24 12:00 Peritoneal Fluid Gram Stain - Final
Abd U/S: Small to moderate volume ascites, most prominent moderate volume in the right lower quadrant.
Acute SBP and acute alcoholic hepatitis:
-in the setting of underlying alcoholic cirrhosis, has h/o hepatic encephalopathy (none currently, NH3 11)
-presented with increasing Abdominal Pain and Abdominal Distention
-s/p paracentesis 11/16: 1100 cc drained. fluid studies consistent with SBP
-s/p paracentesis 11/19. 2750 cc drained. Fluid studies with persistent SBP
-s/p paracentesis 11/22: 20 cc drained. WBC in fluid improved
-s/p paracentesis 11/27: 2700cc drained, fluid studies pending
-fungal culture pending given recent steroid usage
-completed Rocephin and Albumin course
-cont Xifaxan
-off steroids due to SBP
-was seen by ID
-GI following, discussed with Dr. Medina
Suspected ileus:
-suspect related to SBP
-CT A/P 11/17/24: Some increased gaseous distention of the ascending colon and transverse colon to the level of the splenic flexure. Smaller caliber of the descending colon and sigmoid colon containing mild stool, which appears similar compared to
the previous CT abdomen/pelvis from 11/16/2024. No appreciable obstructing lesion at the splenic flexure within the limitations of the lack of oral and intravenous contrast.
-OBST series 11/20: Gaseous distention of large bowel throughout with a few air-fluid levels seen on erect view. Colonic ileus versus partial distal small bowel obstruction. No free air.
-repeat AXR 11/22: Significant dilation of small and large intestine, with a paucity of bowel gas within the distal colon and rectum. Increased compared to prior study dated 11/20/2024.
-repeat AXR 11/24: Mildly improved/resolving ileus pattern.
-s/p enema per GI
-standing Gas X for symptoms per GI
-currently NPO
-briefly required rectal tube but self-removed it
-Abd U/S with small to mod volume ascites on 11/26/24, paracentesis as above
Other problems:
Chronic hyponatremia
Constipation
Macrocytic Anemia: Hb stable
GERD: cont pepcid, Protonix started
Bipolar Disorder/Anxiety/Depression: cont Seroquel/Lamictal
Migraine Headaches: cont Lamictal
Nicotine Dependence: cont Nicotine patch
Hypokalemia, resolved
Leukocytosis, overall improved
FULL/SCDs
Anticipated Discharge: 24 - 48 hours
Subjective/Interval History
-
Date of Service: November 27, 2024
Objective Data
-
Vital Signs:
Vital Signs
Temp Pulse Resp BP Pulse Ox
99.2 F 91 19 104/71 97
11/27/24 07:05 11/27/24 07:05 11/27/24 07:05 11/27/24 07:05 11/27/24 07:05
I&O
11/26/24 11/27/24 11/28/24
06:59 06:59 06:59
Intake Total 1470 / 1470 1250 / 1250
Balance 1470 / 1470 1250 / 1250
[2024-11-27] MEDS: LAMICTAL 25 MG PO (07:59)
[2024-11-27] MEDS: MYLICON 80 MG PO ×2 (07:59→21:04)
[2024-11-27] MEDS: XIFAXAN 550 MG PO ×2 (07:59→21:04)
[2024-11-27] MEDS: NICODERM TRANSDERMAL 21 MG TRANSDERM (07:59)
[2024-11-27] MEDS: VITAMIN B1 100 MG PO (07:59)
[2024-11-27] MEDS: LAMICTAL 100 MG PO (07:59)
[2024-11-27] MEDS: PROTONIX 40 MG PO (07:59)
[2024-11-27] MEDS: B COMPLEX w/VITAMIN C 1 CAPLET PO (07:59)
[2024-11-27] MEDS: LIDOCAINE 4% PATCH 1 PATCH TOPICAL (07:59)
[2024-11-27] MEDS: FOLVITE 1 MG PO (07:59)
[2024-11-27] MEDS: PEPCID 20 MG PO ×2 (08:00→21:04)
[2024-11-27 08:11] LABS: Ammonia < 9 umol/L (9-30)
[2024-11-27 08:31] LABS: Hematocrit 30.1 % (39.0-52.0); Hemoglobin 10.6 g/dL (13.0-18.0); Mean Corp Hgb Conc. 35.2 g/dL (33.0-37.0); Mean Corpuscular Hgb 36.7 pg (27.0-31.0); Mean Corpuscular Volume 104.2 fL (80.0-94.0); Mean Platelet Volume 9.6 fL (7.4-10.4); Platelet Count 131 10^3/uL (130-400); Red Blood Cell Count 2.89 10^6/uL (4.70-6.10); Red Cell Dist. Width 13.1 % (11.5-14.5); White Blood Cell Count 13.3 10^3/uL (4.8-10.8)
[2024-11-27 08:33] LABS: Blood Urea Nitrogen 4 mg/dl (9-20); Calcium 8.2 mg/dl (8.4-10.2); Carbon Dioxide 25 mmol/L (22-30); Chloride 101 mmol/L (98-107); Estimated Creatinine Clearance > 125 ml/min; Glucose 115 mg/dl (70-99); Potassium 3.5 mmol/L (3.5-5.1); Sodium 131 mmol/L (135-145); eGFR > 60.00
[2024-11-27 10:15] LABS: Body Fluid Albumin 1.1 g/dl; Body Fluid Glucose 119 mg/dl; Body Fluid LDH 97 U/L; Body Fluid Protein 2.4 g/dl
[2024-11-27 11:04] LABS: Body Fluid Mononuclear 63.5 %; Body Fluid Polymorphonuclear 36.5 %; Body Fluid WBC 545 /CUMM
[2024-11-27 11:10] LABS: Body Fluid Second Tech AMA
--- NOTE | 2024-11-27 12:07 | CM ---
patient seen at bedside
paracentesis, cxr today
declines BCARES
PLAN: home, no needs, when medically stable
--- NOTE | 2024-11-27 12:37 | W.PN.GI.CBS2 ---
Addendum entered and electronically signed by Sheyla Mendoza Do, MD 11/27/24 14:41:
I saw and examined the patient.
The GOLD BEATER's note was reviewed and I agree with the note.
Comment: Donald feels improved today. Paracentesis for 2.7L removed today neg for SBP. Vitals stable abd soft, mildly TTP diffusely. Labs and abd US reviewed
Recommendations
- C/w rifaximin BID, ammonia is <9
- Hold lactulose given bloating
- Add lasix 20mg and aldactone 50mg daily
- C/w PPI
- Start cipro for SBP ppx
Would benefit from OP EGD for EV screening. Counseled on ETOH cessation
Will follow with you. If Cr stable on diuretics anticipate d/c home tomorrow
Original Note:
Today's Communication / Plan
-
repeat para today with improved counts for 2700ml
will add SBP prophylaxis with Cipro daily
add Lasix 20mg and Aldactone 50mg daily with continued large volume tap
Pt with slow improvement with ileus but now + stools with less distention
advance to 2 gram Na diet with supplement daily
encouraged cont OOB, ambulation
MELD 3.0 23 on 11/26
cont Xifaxan BID, lactulose held with distention s/p lactulose enema also given during admission
cont PPI and will retime pepcid to HS
cont thiamine and folate
remains on Simethicone TID will back down to BID
eventual OP EGD for variceal screening
Pt is scheduled follow up with Dr. Morrison 12/28 at 11 AM
I will leave labs slips to completed 1 week after discharge for follow up labs
Dr. Morrison did review case with with with hepatology at [facility]-- last week
Assessment / Plan
-
44 male with recent admission for acute alcoholic hepatitis on prednisolone here with abdominal pain and distension found to have SBP (WBC 1700, 45% = 765) with slow decline and repeat slow improved in cell count with last 11/27 now WBC 545 with
36.5% PMN). Pt also with Persistent abdominal distention on x ray 11/20, 11/22 consistent with ileus now slowly resolving with + stools.
-SBP
-Acute alcoholic hepatitis with changes of cirrhosis on recent imaging
-recurrent ascites 11/16 1100ml, 11/19- 2750ml, 11/22- 20ml, 11/27-2700ml
-abdominal distention with persistent ileus now resolving
-leukocytosis
-coagulopathy
-hypoalbuminemia
-ETOH abuse
-recent rib injury
other med problems:
seizures
bipolar
sleep apnea
concussions
septoplasty
PLAN:
repeat para today with improved counts for 2700ml
will add SBP prophylaxis with Cipro daily
add Lasix 20mg and Aldactone 50mg daily with continued large volume tap
Pt with slow improvement with ileus but now + stools with less distention
advance to 2 gram Na diet with supplement daily
encouraged cont OOB, ambulation
MELD 3.0 23 on 11/26
cont Xifaxan BID, lactulose held with distention s/p lactulose enema also given during admission
cont PPI and will retime pepcid to HS
cont thiamine and folate
remains on Simethicone TID will back down to BID
eventual OP EGD for variceal screening
Pt is scheduled follow up with Dr. Morrison 12/28 at 11 AM
I will leave labs slips to completed 1 week after discharge for follow up labs
Dr. Morrison did review case with with with hepatology at [facility]-- last week
Subjective
Subjective
Date of Service: November 27, 2024
11/27 brown stool with improving distention, NPO but to advance
Objective
Data Reviewed
Laboratory Data:
Laboratory Results
11/27/24 07:30
11/27/24 07:30
Laboratory Results
PT 24.6 Sec (11.4-14.6) H 11/26/24 07:55
INR 2.21 11/26/24 07:55
Magnesium 1.8 mg/dl (1.6-2.3) 11/17/24 07:11
Total Bilirubin 3.7 mg/dl (0.2-1.3) H 11/26/24 07:55
AST 48 U/L (17-59) 11/26/24 07:55
ALT 31 U/L (0-50) 11/26/24 07:55
Alkaline Phosphatase 110 U/L (38-126) 11/26/24 07:55
Lipase 493 U/L (23-300) H 11/16/24 09:37
Vital Signs and I&O:
Vital Signs
Temp Pulse Resp BP Pulse Ox
98.5 F 95 15 110/67 97
11/27/24 08:40 11/27/24 09:35 11/27/24 09:35 11/27/24 09:35 11/27/24 09:10
I&O
11/26/24 11/27/24 11/28/24
06:59 06:59 06:59
Intake Total 1470 / 1470 1250 / 1250
Balance 1470 / 1470 1250 / 1250
Physical Exam
Physical Exam
HEENT: Anicteric and Moist mucous membranes
Cardiology: Normal Sinus Rhythm
Pulmonary: Clear
GI: Distended and Tender (mild but improved from last week )
Extremities: No Edema
Neuro: Other (sleeping but arousable )
[2024-11-27] MEDS: CIPRO 500 MG PO (14:43)
[2024-11-27] MEDS: LASIX 20 MG PO (14:43)
[2024-11-27] MEDS: ALDACTONE 50 MG PO (14:43)
[2024-11-27] MEDS: SEROQUEL 50 MG PO (21:04)
[2024-11-28 06:00] VITALS: BMI 22.8
[2024-11-28 06:46] LABS: Hemoglobin 10.4 g/dL (13.0-18.0); Mean Corp Hgb Conc. 34.7 g/dL (33.0-37.0); Mean Corpuscular Hgb 36.1 pg (27.0-31.0); Mean Corpuscular Volume 104.2 fL (80.0-94.0); Mean Platelet Volume 9.6 fL (7.4-10.4); Platelet Count 134 10^3/uL (130-400); Red Blood Cell Count 2.88 10^6/uL (4.70-6.10); White Blood Cell Count 11.2 10^3/uL (4.8-10.8)
[2024-11-28 06:49] LABS: INR 2.37; PT 25.9 Sec (11.4-14.6)
[2024-11-28 07:33] VITALS: BP 102/63
[2024-11-28 08:28] LABS: ALT (SGPT) 30 U/L (0-50); AST (SGOT) 49 U/L (17-59); Alkaline Phosphatase 122 U/L (38-126); Blood Urea Nitrogen 5 mg/dl (9-20); Calcium 8.1 mg/dl (8.4-10.2); Carbon Dioxide 22 mmol/L (22-30); Chloride 104 mmol/L (98-107); Direct Bilirubin 1.8 mg/dl (0.0-0.4); Estimated Creatinine Clearance > 125 ml/min; Glucose 117 mg/dl (70-99); Potassium 3.5 mmol/L (3.5-5.1); Sodium 133 mmol/L (135-145); Total Bilirubin 3.6 mg/dl (0.2-1.3); Total Protein 5.8 g/dl (6.3-8.2); eGFR > 60.00
[2024-11-28] MEDS: NICODERM TRANSDERMAL 21 MG TRANSDERM (08:54)
[2024-11-28] MEDS: VITAMIN B1 100 MG PO (08:55)
[2024-11-28] MEDS: LAMICTAL 25 MG PO (08:55)
[2024-11-28] MEDS: MYLICON 80 MG PO ×2 (08:55→20:40)
[2024-11-28] MEDS: LIDOCAINE 4% PATCH 1 PATCH TOPICAL (08:55)
[2024-11-28] MEDS: CIPRO 500 MG PO (08:56)
[2024-11-28] MEDS: LAMICTAL 100 MG PO (08:56)
[2024-11-28] MEDS: XIFAXAN 550 MG PO ×2 (08:56→20:40)
[2024-11-28] MEDS: PROTONIX 40 MG PO (08:56)
[2024-11-28] MEDS: LASIX 20 MG PO (08:56)
[2024-11-28] MEDS: FOLVITE 1 MG PO (08:56)
[2024-11-28] MEDS: ALDACTONE 50 MG PO (08:56)
[2024-11-28] MEDS: B COMPLEX w/VITAMIN C 1 CAPLET PO (08:56)
--- NOTE | 2024-11-28 09:53 | W.PN.ID1 ---
Addendum entered and electronically signed by Jose M Barlow, 11/28/24 10:07:
Correction ~
Maintain on SBP prophylaxis with cipro as per GI.
Original Note:
Date of Service
Date of Service: November 28, 2024
Today's Communication
Observe off antibiotics
Assessment / Plan
SBP
- Cx negative
- s/p course of ceftriaxone
Ileus
- improved
Leukocytosis
Elevated bilirubin
Transaminitis
Alcoholic hepatitis
Alcoholic cirrhosis
Bipolar disease
Anxiety/depression
Migraines
Recommendations:
Repeat paracentesis 11/27 with normalization of ANC (<250)
Observe off abx.
Follow white count and temperature curve.
����������������������������������������������������������
Chief Complaint
-: Other (SBP; Ileus)
Subjective / Review of Systems
Review of Systems: No Fever, No Chills, No Abdominal Pain, No Nausea and No Vomiting
Vital Signs / Physical Exam
Vital Signs
Vital Signs
Temp Pulse Resp BP Pulse Ox
99.3 F 87 14 102/63 96
11/28/24 07:33 11/28/24 08:56 11/28/24 07:33 11/28/24 08:56 11/28/24 07:33
Physical Exam
Constitutional: No Acute Distress, Comfortable and Non-toxic
Eyes: Sclera Anicteric
Cardiovascular: S1/S2; Negative S3/S4
Pulmonary: Non Labored
Gastrointestinal: Soft, Non Distended and Normal Bowel Sounds
Extremities: Negative Cyanosis or Erythema
Neurological: Awake and Alert
Psychological: Calm
Objective Data
Lab Data
Lab Results
11/28/24 06:25
11/28/24 06:25
PT 25.9 Sec (11.4-14.6) H 05/28/25 06:25
INR 2.37 11/28/24 06:25
Estimated Creat Clear > 125 ml/min 11/28/24 06:25
Total Bilirubin 3.6 mg/dl (0.2-1.3) H 11/28/24 06:25
AST 49 U/L (17-59) 11/28/24 06:25
ALT 30 U/L (0-50) 11/28/24 06:25
Alkaline Phosphatase 122 U/L (38-126) 11/28/24 06:25
Most recent labs reviewed.
Micro Results:
11/27/24 09:15 Body Fluid Culture - Preliminary
Peritoneal Fluid No Growth After 18-24 Hours
Gram Stain - Preliminary
11/19/24 13:40 Fungal Culture - Preliminary
Peritoneal Fluid Culture in progress.
Positive cultures are reported as soon as detected.
Final report to follow in four to five weeks.
11/22/24 08:39 Body Fluid Culture - Final
Peritoneal Fluid No Growth After 72 Hours
Gram Stain - Final
11/19/24 13:40 Body Fluid Culture - Final
Peritoneal Fluid No Growth After 72 Hours
Gram Stain - Final
11/16/24 12:00 Body Fluid Culture - Final
Peritoneal Fluid No Growth After 72 Hours
Gram Stain - Final
Laboratory Tests
Ascites Fluid 11/19/24 11/22/24 11/27/24
13:41 08:39 09:15
Fluid WBC 1026 866 545
Fluid Mononuclear Cell 57.7 69.9 63.5
Fl Polymorphonucl Cell 42.3 30.1 36.5
Imaging:
11/17/2024 CT abdomen/pelvis without contrast: Increased gaseous distention of the ascending colon and transverse colon to the level of the splenic flexure. No appreciable obstructing lesion at the splenic flexure. Hepatic cirrhosis with findings
of portal hypertension including splenomegaly and mild abdominal pelvic ascites. Please see full dictation for additional detail.
Care Review
Plan reviewed with: Physician (Hospitalist)
--- NOTE | 2024-11-28 09:56 | W.PN.HOSP.TC ---
Today's Communication/Plan
-
Dispo: if pt continues to tolerate diet will discharge tomorrow.
Assessment / Plan
Assessment / Plan
Gen: NAD, AAOx3.
Eyes: EOMI, PERRLA, no scleral icterus.
Neck: supple.
CV: RRR, +S1/S2, no m/r/g.
Resp: continues to remain CTAB anteriorly, no rales, wheezes, or rhonchi.
Abd: +BS, soft, mod distention with ascites, TTP in the L-abdomen
Skin: No rashes.
Neuro: CN 2-12 intact, non-focal.
Psych: Normal mood and affect.
11/27/24 09:15 Peritoneal Fluid Body Fluid Culture - Preliminary
No Growth After 18-24 Hours
11/27/24 09:15 Peritoneal Fluid Gram Stain - Preliminary
11/19/24 13:40 Peritoneal Fluid Fungal Culture - Preliminary
Culture in progress.
Positive cultures are reported as soon as detected.
Final report to follow in four to five weeks.
11/22/24 08:39 Peritoneal Fluid Body Fluid Culture - Final
No Growth After 72 Hours
11/22/24 08:39 Peritoneal Fluid Gram Stain - Final
11/19/24 13:40 Peritoneal Fluid Body Fluid Culture - Final
No Growth After 72 Hours
11/19/24 13:40 Peritoneal Fluid Gram Stain - Final
11/16/24 12:00 Peritoneal Fluid Body Fluid Culture - Final
No Growth After 72 Hours
11/16/24 12:00 Peritoneal Fluid Gram Stain - Final
Abd U/S: Small to moderate volume ascites, most prominent moderate volume in the right lower quadrant.
Acute SBP and acute alcoholic hepatitis:
-in the setting of underlying alcoholic cirrhosis, has h/o hepatic encephalopathy (none currently, NH3 11)
-presented with increasing Abdominal Pain and Abdominal Distention
-s/p paracentesis 11/16: 1100 cc drained. fluid studies consistent with SBP
-s/p paracentesis 11/19. 2750 cc drained. Fluid studies with persistent SBP
-s/p paracentesis 11/22: 20 cc drained. WBC in fluid improved
-s/p paracentesis 11/27: 2700cc drained, WBC > 500, started on Cipro daily for SBP proph by GI (ID agrees, discussed with Dr. Barlow)
-fungal culture pending given recent steroid usage
-completed Rocephin and Albumin course
-cont Xifaxan
-off steroids due to SBP
Suspected ileus:
-suspect related to SBP
-CT A/P 11/17/24: Some increased gaseous distention of the ascending colon and transverse colon to the level of the splenic flexure. Smaller caliber of the descending colon and sigmoid colon containing mild stool, which appears similar compared to
the previous CT abdomen/pelvis from 11/16/2024. No appreciable obstructing lesion at the splenic flexure within the limitations of the lack of oral and intravenous contrast.
-OBST series 11/20: Gaseous distention of large bowel throughout with a few air-fluid levels seen on erect view. Colonic ileus versus partial distal small bowel obstruction. No free air.
-repeat AXR 11/22: Significant dilation of small and large intestine, with a paucity of bowel gas within the distal colon and rectum. Increased compared to prior study dated 11/20/2024.
-repeat AXR 11/24: Mildly improved/resolving ileus pattern.
-s/p enema per GI
-standing Gas X for symptoms per GI
-was NPO, now diet advanced to 2g Na
-briefly required rectal tube but self-removed it
-Abd U/S with small to mod volume ascites on 11/26/24, paracentesis as above
Other problems:
Chronic hyponatremia
Constipation
Macrocytic Anemia: Hb stable
GERD: cont pepcid, Protonix started
Bipolar Disorder/Anxiety/Depression: cont Seroquel/Lamictal
Migraine Headaches: cont Lamictal
Nicotine Dependence: cont Nicotine patch
Hypokalemia, resolved
Leukocytosis, overall improved
FULL/SCDs
Anticipated Discharge: Within 24 hours
Subjective/Interval History
-
Date of Service: November 28, 2024
Pt reports a fair portion of his ascites has returned. Tolerating diet.
Objective Data
-
Labs:
Laboratory Results
11/28/24
06:25
WBC 11.2 H
Hgb 10.4 L
Hct 30.0 L
Plt Count 134
PT 25.9 H
INR 2.37
Sodium 133 L
Potassium 3.5
Chloride 104
Carbon Dioxide 22
BUN 5 L
Creatinine 0.5 L
Glucose 117 H
Calcium 8.1 L
Total Bilirubin 3.6 H
AST 49
ALT 30
Alkaline Phosphatase 122
Vital Signs:
Vital Signs
Temp Pulse Resp BP Pulse Ox
99.3 F 87 14 102/63 96
11/28/24 07:33 11/28/24 08:56 11/28/24 07:33 11/28/24 08:56 11/28/24 07:33
I&O
11/27/24 11/28/24 11/29/24
06:59 06:59 06:59
Intake Total 1250 / 1250 1680 / 1680
Balance 1250 / 1250 1680 / 1680
--- NOTE | 2024-11-28 13:07 | CM ---
Patient seen at bedside
per note to discharge tomorrow if tolerates diet
declines BCARES
PLAN: home, no needs when stable
[2024-11-28 15:53] VITALS: BP 107/65
--- NOTE | 2024-11-28 16:04 | DOWNTIME ---
There was a [employer] Downtime on 11/28/2024 from 1230 to 11/28/2024 at 1550. Downtime documentation of patient's care, including medication administrations, has been reconciled in the electronic record per guidelines. Refer to the
patient's paper chart under the miscellaneous tab to see printed paper medication records and downtime forms.
--- NOTE | 2024-11-28 16:10 | W.PN.GI.CBS2 ---
Today's Communication / Plan
-
Ok from GI perspective for hosp d/c
ETOH cessation, xifaximin BID, cipro 500mh daily, lasix 20mg daily and aldactone 50mg daily
Labs to be done 1wk post d/c and close FU given
GI will sign off please call for ?
Assessment / Plan
-
44 male with recent admission for acute alcoholic hepatitis on prednisolone here with abdominal pain and distension found to have SBP (WBC 1700, 45% = 765) with slow decline and repeat slow improved in cell count with last 11/27 now WBC 545 with
36.5% PMN). Pt also with Persistent abdominal distention on x ray 11/20, 11/22 consistent with ileus now slowly resolving with + stools.
Impression
-SBP
-Acute alcoholic hepatitis with changes of cirrhosis on recent imaging
-recurrent ascites 11/16 1100ml, 11/19- 2750ml, 11/22- 20ml, 11/27-2700ml
-abdominal distention with persistent ileus now resolving
-leukocytosis
-coagulopathy
-hypoalbuminemia
-ETOH abuse
-recent rib injury
seizures
bipolar
sleep apnea
concussions
septoplasty
PLAN:
Repeat para 11/27 neg for SBP
C/w cipro for SBP secondary ppx given AASLD guidelines
C/w lasix 20mg and aldactone 50mg daily started 11/27 Cr stable. Lab slip to be done in 1 week provided
MELD 3.0 23 on 11/26
Cont Xifaxan BID, lactulose held with distention s/p lactulose enema also given during admission
Cont PPI and H2B
cont thiamine and folate
remains on Simethicone TID will back down to BID
eventual OP EGD for variceal screening
Pt is scheduled follow up with Dr. Morrison 12/28 at 11 AM
labs slips in chart to completed 1 week after discharge for follow up labs
Dr. Morrison did review case with with with hepatology at [facility]-- last week
Ok from GI perspective for hosp d/c. GI will sign off please call for ?
Total Time Spent with Patient (in minutes): 50min total time spent coordinating care.
Subjective
Subjective
Date of Service: November 28, 2024
He feels well. Ramya abd pain. Tolerating diet without nausea/vomiting
Objective
Data Reviewed
Laboratory Data:
Laboratory Results
11/28/24 06:25
11/28/24 06:25
Laboratory Results
PT 25.9 Sec (11.4-14.6) H 11/28/24 06:25
INR 2.37 11/28/24 06:25
Magnesium 1.8 mg/dl (1.6-2.3) 11/17/24 07:11
Total Bilirubin 3.6 mg/dl (0.2-1.3) H 11/28/24 06:25
AST 49 U/L (17-59) 11/28/24 06:25
ALT 30 U/L (0-50) 11/28/24 06:25
Alkaline Phosphatase 122 U/L (38-126) 11/28/24 06:25
Lipase 493 U/L (23-300) H 11/16/24 09:37
Vital Signs and I&O:
Vital Signs
Temp Pulse Resp BP Pulse Ox
99.1 F 86 14 107/65 96
11/28/24 15:53 11/28/24 15:53 11/28/24 15:53 11/28/24 15:53 11/28/24 15:53
I&O
11/27/24 11/28/24 11/29/24
06:59 06:59 06:59
Intake Total 1250 / 1250 1680 / 1680
Balance 1250 / 1250 1680 / 1680
Physical Exam
Physical Exam
GEN: No acute distress, conversant, pleasant
HEENT: +icteric, extraocular movements intact, clear oropharynx without exudates
GI: soft, mildly-distended, not tender to palpation, normal active bowel sounds, no hepatosplenomegaly
EXT: warm, well perfused, trace edema bilaterally
NEURO: AAOx3, non-focal
[2024-11-28] MEDS: PEPCID 20 MG PO (20:42)
[2024-11-28] MEDS: SEROQUEL PO (21:03)
[2024-11-28 23:00] VITALS: BP 104/63
[2024-11-29 05:34] VITALS: BMI 22.4
[2024-11-29 06:44] LABS: Hematocrit 30.1 % (39.0-52.0); Hemoglobin 10.5 g/dL (13.0-18.0); Mean Corp Hgb Conc. 34.9 g/dL (33.0-37.0); Mean Corpuscular Hgb 36.2 pg (27.0-31.0); Mean Corpuscular Volume 103.8 fL (80.0-94.0); Mean Platelet Volume 9.3 fL (7.4-10.4); Platelet Count 160 10^3/uL (130-400); Red Cell Dist. Width 12.8 % (11.5-14.5); White Blood Cell Count 11.2 10^3/uL (4.8-10.8)
[2024-11-29 07:05] LABS: Blood Urea Nitrogen 4 mg/dl (9-20); Calcium 8.3 mg/dl (8.4-10.2); Carbon Dioxide 26 mmol/L (22-30); Chloride 100 mmol/L (98-107); Estimated Creatinine Clearance > 125 ml/min; Glucose 103 mg/dl (70-99); Potassium 3.8 mmol/L (3.5-5.1); Sodium 132 mmol/L (135-145); eGFR > 60.00
[2024-11-29 07:32] VITALS: BP 111/64
[2024-11-29] MEDS: NICODERM TRANSDERMAL 21 MG TRANSDERM (07:47)
[2024-11-29] MEDS: LIDOCAINE 4% PATCH 1 PATCH TOPICAL (07:47)
[2024-11-29] MEDS: XIFAXAN 550 MG PO (07:48)
[2024-11-29] MEDS: LASIX 20 MG PO (07:48)
[2024-11-29] MEDS: VITAMIN B1 100 MG PO (07:48)
[2024-11-29] MEDS: FOLVITE 1 MG PO (07:48)
[2024-11-29] MEDS: LAMICTAL 25 MG PO (07:48)
[2024-11-29] MEDS: MYLICON 80 MG PO (07:48)
[2024-11-29] MEDS: CIPRO 500 MG PO (07:48)
[2024-11-29] MEDS: LAMICTAL 100 MG PO (07:48)
[2024-11-29] MEDS: ALDACTONE 50 MG PO (07:48)
[2024-11-29] MEDS: B COMPLEX w/VITAMIN C 1 CAPLET PO (07:48)
[2024-11-29] MEDS: PROTONIX 40 MG PO (07:48)
--- NOTE | 2024-11-29 07:54 | W.PN.HOSP.TC ---
Today's Communication/Plan
-
d/c
Assessment / Plan
Assessment / Plan
Gen: NAD, AAOx3.
Eyes: EOMI, PERRLA, no scleral icterus.
Neck: supple.
CV: remains RRR, +S1/S2, no m/r/g.
Resp: continues to remain CTAB anteriorly, no rales, wheezes, or rhonchi.
Abd: +BS, soft, mild-mod distention with ascites, mild TTP in the L-abdomen
Skin: No rashes.
Neuro: CN 2-12 intact, non-focal.
Psych: Normal mood and affect.
11/27/24 09:15 Peritoneal Fluid Body Fluid Culture - Preliminary
No Growth After 18-24 Hours
11/27/24 09:15 Peritoneal Fluid Gram Stain - Preliminary
11/19/24 13:40 Peritoneal Fluid Fungal Culture - Preliminary
Culture in progress.
Positive cultures are reported as soon as detected.
Final report to follow in four to five weeks.
11/22/24 08:39 Peritoneal Fluid Body Fluid Culture - Final
No Growth After 72 Hours
11/22/24 08:39 Peritoneal Fluid Gram Stain - Final
11/19/24 13:40 Peritoneal Fluid Body Fluid Culture - Final
No Growth After 72 Hours
11/19/24 13:40 Peritoneal Fluid Gram Stain - Final
11/16/24 12:00 Peritoneal Fluid Body Fluid Culture - Final
No Growth After 72 Hours
11/16/24 12:00 Peritoneal Fluid Gram Stain - Final
Abd U/S: Small to moderate volume ascites, most prominent moderate volume in the right lower quadrant.
Acute SBP and acute alcoholic hepatitis:
-in the setting of underlying alcoholic cirrhosis, has h/o hepatic encephalopathy (none currently, NH3 11)
-presented with increasing Abdominal Pain and Abdominal Distention
-s/p paracentesis 11/16: 1100 cc drained. fluid studies consistent with SBP
-s/p paracentesis 11/19. 2750 cc drained. Fluid studies with persistent SBP
-s/p paracentesis 11/22: 20 cc drained. WBC in fluid improved
-s/p paracentesis 11/27: 2700cc drained, WBC > 500, started on Cipro daily for SBP proph by GI (ID agrees, discussed with Dr. Barlow)
-fungal culture pending given recent steroid usage
-completed Rocephin and Albumin course
-cont Xifaxan
-off steroids due to SBP
Suspected ileus:
-suspect related to SBP
-CT A/P 11/17/24: Some increased gaseous distention of the ascending colon and transverse colon to the level of the splenic flexure. Smaller caliber of the descending colon and sigmoid colon containing mild stool, which appears similar compared to
the previous CT abdomen/pelvis from 11/16/2024. No appreciable obstructing lesion at the splenic flexure within the limitations of the lack of oral and intravenous contrast.
-OBST series 11/20: Gaseous distention of large bowel throughout with a few air-fluid levels seen on erect view. Colonic ileus versus partial distal small bowel obstruction. No free air.
-repeat AXR 11/22: Significant dilation of small and large intestine, with a paucity of bowel gas within the distal colon and rectum. Increased compared to prior study dated 11/20/2024.
-repeat AXR 11/24: Mildly improved/resolving ileus pattern.
-s/p enema per GI
-standing Gas X for symptoms per GI
-was NPO, now diet advanced to 2g Na
-briefly required rectal tube but self-removed it
-Abd U/S with small to mod volume ascites on 11/26/24, paracentesis as above
Other problems:
Chronic hyponatremia
Constipation
Macrocytic Anemia: Hb stable
GERD: cont pepcid, Protonix started
Bipolar Disorder/Anxiety/Depression: cont Seroquel/Lamictal
Migraine Headaches: cont Lamictal
Nicotine Dependence: cont Nicotine patch
Hypokalemia, resolved
Leukocytosis, overall improved
FULL/SCDs
Medically cleared for discharge. Risk of readmission within 30 days is 100%.
Total time spent on d/c = 32 min. This included today's physical exam, progress note, review of laboratory and diagnostic data, preparation of discharge documents and prescriptions, and discussions about the pt's hospital course and discharge plan
with the patient and other medical lab technician involved in the patient's care.
Anticipated Discharge: Today
Subjective/Interval History
-
Date of Service: November 29, 2024
No new complaints.
Objective Data
-
Labs:
Laboratory Results
11/29/24
06:22
WBC 11.2 H
Hgb 10.5 L
Hct 30.1 L
Plt Count 160
Sodium 132 L
Potassium 3.8
Chloride 100
Carbon Dioxide 26
BUN 4 L
Creatinine 0.5 L
Glucose 103 H
Calcium 8.3 L
Vital Signs:
Vital Signs
Temp Pulse Resp BP Pulse Ox
97.9 F 85 16 111/64 97
11/29/24 07:32 11/29/24 07:32 11/29/24 07:32 11/29/24 07:32 11/29/24 07:32
I&O
11/28/24 11/29/24 11/30/24
06:59 06:59 06:59
Intake Total 1680 / 1680 960 / 960
Balance 1680 / 1680 960 / 960
--- NOTE | 2024-11-29 10:24 | PTCARENOTE ---
Pt. has been medically cleared for d/c by hospitalist. Pt. last set of VS < 4hrs ago and stable. Pt. has no complaints of pain today. Discharge education provided by this RN and questions answered. Pt. verbally stated all of his questions were
answered and he understands his d/c instructions. Pt. refused to leave by wheelchair and says he will walk himself out with the assistance of his significant other.
--- NOTE | 2024-11-29 12:13 | W.DCSUMMARY ---
Discharge Summary
Discharge Data
Date of Admission: 11/16/24
Date of Discharge: 11/29/24
-
Pending Results: Yes
Additional Pending Results:
Fungal ascitic fluid culture
Hospital Course
Primary diagnoses:
Acute spontaneous bacterial peritonitis and acute alcoholic hepatitis due to underlying alcoholic cirrhosis
Secondary diagnoses:
Chronic hyponatremia
Constipation
Macrocytic Anemia
Gastroesophageal reflux disease
Bipolar Disorder
Anxiety
Depression
Migraine Headaches
Tobacco abuse disorder
Hypokalemia
Leukocytosis
Consultants:
Gastroenterology
Infectious disease
Imaging:
CT A/P 11/16/24:
1. Small volume of abdominal and pelvic ascites, increased compared to the prior CT.
2. Mild hepatosplenomegaly with micronodular surface contour of the liver suspicious for cirrhosis.
3. Mildly distended gallbladder with cholelithiasis.
4. Small bilateral pleural effusions with adjacent airspace consolidation/atelectasis.
CT A/P 11/17/24: Some increased gaseous distention of the ascending colon and transverse colon to the level of the splenic flexure. Smaller caliber of the descending colon and sigmoid colon containing mild stool, which appears similar compared to the
previous CT abdomen/pelvis from 11/16/2024. No appreciable obstructing lesion at the splenic flexure within the limitations of the lack of oral and intravenous contrast. Continued radiographic and/or CT follow-up can be performed, at which time oral
contrast may be helpful. Hepatic cirrhosis with findings of portal hypertension including splenomegaly and mild abdominopelvic ascites.
Abd U/S 11/19/24: There is small volume ascites.
OBST series 11/20/24: Gaseous distention of large bowel throughout with a few air-fluid levels seen on erect view. Colonic ileus versus partial distal small bowel obstruction. No free air.
Abd U/S 11/26/24: Small to moderate volume ascites, most prominent moderate volume in the right lower quadrant.
CXR 11/27/24: Small left pleural effusion.
44-year-old male presented with a chief complaint of abdominal pain as outlined in the H&P done on admission. Hospital course by problem list:
Acute spontaneous bacterial peritonitis and acute alcoholic hepatitis due to underlying alcoholic cirrhosis: The patient presented with increasing abdominal pain and abdominal distention as outlined in the H&P done on admission. The patient had a
history of hepatic encephalopathy but was not encephalopathic during this hospitalization. He underwent paracenteses as follows:
-s/p paracentesis 11/16: 1100 cc drained. fluid studies consistent with SBP
-s/p paracentesis 11/19. 2750 cc drained. Fluid studies with persistent SBP
-s/p paracentesis 11/22: 20 cc drained. WBC in fluid improved
-s/p paracentesis 11/27: 2700cc drained, WBC > 500
The patient completed a course of Rocephin and albumin for spontaneous bacterial peritonitis. After his final paracentesis he was started on Cipro daily for SBP proph as per GI and ID. Patient had been on steroids which were stopped due to SBP.
His Xifaxan was continued. At the time of discharge fungal culture of his ascitic fluid is pending.
Suspected ileus: This was likely related to related to SBP. Imaging above. The patient was placed on bowel rest. He had an enema. He had standing Gas-X for symptoms. He briefly required a rectal tube but self removed it. His ileus resolved and
he was tolerating solid food at the time of discharge.
Unfortunately the patient's prognosis is extremely poor. His risk of readmission within 30 days is 100%.
Discharge Plan
-
Patient Disposition: Home (Routine Discharge)
Discharge Diagnosis/Procedures: Acute spontaneous bacterial peritonitis and acute alcoholic hepatitis due to underlying alcoholic cirrhosis
Condition: Fair
Diet: Low Sodium
Activity: As tolerated
Driving Restrictions: As prior to admission
Bathing Restrictions: None
Blood Work: repeat labs 1 week after discharge-- CBC, hepatic, BMP, and INR see slips on chart
Others Tests: call interventional radiology [phone] to arrange for paracentesis every other week as needed for distention
Specialty Instructions: Weigh Daily- Call MD for wt gain/loss 3 lbs overnight/5 lbs in 1 week
Referrals:
Hugo Miller DO [Family Provider, [facility]] - in three to four days
Amilcar Morrison MD [Active, Gastroenterology] - 12/28/24 11:00 am
Referral Note: Please call to reschedule if you can not keep this appointment. If your insurance requires a referral please contact your primary care physician prior to your appointment.
Prescriptions:
New
ciprofloxacin HCl 500 mg Tablet
500 mg PO DAILY Qty: 30 0RF
furosemide 20 mg Tablet
20 mg PO DAILY Qty: 30 0RF
spironolactone 50 mg Tablet
50 mg PO DAILY Qty: 30 0RF
simethicone 80 mg Tablet,Chewable
80 mg PO BID Qty: 0 0RF
Continued
lamotrigine 100 mg Tablet
125 mg PO DAILY
Fleet Enema 19-7 gram/118 mL Enema
118 ml NM DAILYPRN PRN (Reason: constipation)
vitamin B complex Capsule
1 cap PO DAILY
Xifaxan 550 mg Tablet
550 mg PO BID 30 Days Qty: 60 0RF
quetiapine 25 mg Tablet
50 mg PO HS 30 Days Qty: 60 0RF
nicotine 21 mg/24 hr Patch 24 Hour
21 mg transdermal DAILY 30 Days Qty: 30 0RF
folic acid 1 mg Tablet
1 mg PO DAILY 30 Days Qty: 30 0RF
thiamine mononitrate (vit B1) 100 mg Tablet
100 mg PO DAILY 30 Days Qty: 30 0RF
lidocaine 4 % Adhesive Patch,Medicated
1 patch TOPICAL DAILY
Discontinued
prednisolone sodium phosphate 15 mg/5 mL (3 mg/mL) Solution
40 mg PO DAILY 30 Days Qty: 399.999 0RF
famotidine 20 mg Tablet
20 mg PO DAILY 30 Days Qty: 30 0RF
Discharge Orders:
Discharge Patient (As Directed); Ordered 11/29/24
Ordered By: Tuan Bain
Discharge Date and Time
Discharge Date/Time: 11/29/24 10:43
Print Language: BURMESE
--- NOTE | 2024-11-29 12:20 | CM ---
Chart reviewed and patient has been cleared for discharge today to home, patient has declined [facility] he will follow with his counselor.
Plan; Home when stable.
== END 2024-11-29 10:43 | disposition home or self-care (01) | DRG 432 ==
LOC: 3 WEST ACU 13:32
PROVIDERS: Internal Medicine; Internal Medicine Gastroenterology; Nurse Practitioner; Nurse Practitioner Adult Health; Physician Assistant Medical; Radiology Diagnostic Radiology; Radiology Vascular & Interventional Radiology; Student in an Organized Health Care Education/Training Program; ADMITTING PHYSICIAN Hospitalist; ATTENDING PHYSICIAN Internal Medicine; CONSULT PHYSICIAN Internal Medicine Gastroenterology; EMERGENCY PHYSICIAN Emergency Medicine; FAMILY PHYSICIAN Family Medicine; OTHER PHYSICIAN Internal Medicine Infectious Disease
PROC: 0W9G3ZZ Drainage of Peritoneal Cavity, Percutaneous Approach (ICD-10-PCS; 2024-11-16)
DX: K70.11 Alcoholic hepatitis with ascites (principal); K65.2 Spontaneous bacterial peritonitis; D61.818 Other pancytopenia; K56.1 Intussusception; K56.7 Ileus, unspecified; E87.1 Hypo-osmolality and hyponatremia; K70.31 Alcoholic cirrhosis of liver with ascites; D53.9 Nutritional anemia, unspecified; K21.9 Gastro-esophageal reflux disease without esophagitis; F31.9 Bipolar disorder, unspecified; F41.9 Anxiety disorder, unspecified; G43.909 Migraine, unspecified, not intractable, without status migrainosus; F17.200 Nicotine dependence, unspecified, uncomplicated; E87.6 Hypokalemia
CPT/HCPCS: 88305; 49083; 71046; 74018; 74019; 74022; 74176; 74177; 76705; 80048; 80053; 82042; 82105; 82140; 82150; 82248; 82945; 83615; 83690; 83735; 84157; 85025; 85027; 85610; 87015; 87070; 87102; 87205; 88112; 89051; 96361; 96365; 96375; 99291; P9047; Q9967

== ENCOUNTER → 2024-12-14 07:26 | Outpatient (REF) | payer OTHER, SELFPAY ==
[2024-12-14 07:52] VITALS: BP 117/77; BP_SYST 105
[2024-12-14 09:14] VITALS: BP 99/66
[2024-12-14 10:29] LABS: Body Fluid WBC 306 /CUMM
[2024-12-14 10:30] LABS: Body Fluid Mononuclear 76.4 %; Body Fluid Polymorphonuclear 23.6 %
[2024-12-14 11:45] LABS: Body Fluid Second Tech EM
== END ==
LOC: RADI 07:26
PROVIDERS: ATTENDING PHYSICIAN Internal Medicine Gastroenterology; FAMILY PHYSICIAN Family Medicine
DX: R18.8 Other ascites (principal)
CPT/HCPCS: 49083; 87015; 87070; 87205; 89051

== ENCOUNTER 2025-01-02 06:31 | Day surgery (SDC) | payer OTHER, SELFPAY | END 2025-01-02 13:32 | disposition home or self-care (01) | LOC: GI 06:31 | PROVIDERS: ATTENDING PHYSICIAN Internal Medicine Gastroenterology | DX: K76.6 Portal hypertension (principal); I85.10 Secondary esophageal varices without bleeding; K31.89 Other diseases of stomach and duodenum | CPT/HCPCS: 43235 ==

== ENCOUNTER 2025-01-30 19:14 | Emergency (ER) | payer OTHER, SELFPAY ==
[2025-01-30 19:18] VITALS: BP 133/88
[2025-01-30 19:37] LABS: Hematocrit 33.2 % (39.0-52.0); Hemoglobin 11.8 g/dL (13.0-18.0); Mean Corp Hgb Conc. 35.5 g/dL (33.0-37.0); Mean Corpuscular Volume 88.1 fL (80.0-94.0); Nucleated Red Blood Cells % 0 % (-); Platelet Count 106 10^3/uL (130-400); Red Cell Dist. Width 14.6 % (11.5-14.5)
[2025-01-30 19:57] LABS: ALT (SGPT) 43 U/L (0-50); AST (SGOT) 82 U/L (17-59); Albumin 4.4 g/dl (3.5-5.0); Alkaline Phosphatase 127 U/L (38-126); Blood Urea Nitrogen 5 mg/dl (9-20); Calcium 9.2 mg/dl (8.4-10.2); Carbon Dioxide 24 mmol/L (22-30); Chloride 110 mmol/L (98-107); Glucose 127 mg/dl (70-99); Lipase 129 U/L (23-300); Potassium 3.5 mmol/L (3.5-5.1); Sodium 144 mmol/L (135-145); Total Protein 7.9 g/dl (6.3-8.2); eGFR > 60.00
== END 2025-01-30 20:30 | disposition left against medical advice (07) ==
LOC: EMR 19:14
PROVIDERS: EMERGENCY PHYSICIAN Emergency Medicine
DX: R10.9 Unspecified abdominal pain (principal); Z53.21 Procedure and treatment not carried out due to patient leaving prior to being seen by health care provider
CPT/HCPCS: 80053; 83605; 83690; 85025

== ENCOUNTER 2025-02-05 11:58 | Emergency (ER) | payer OTHER, SELFPAY ==
[2025-02-05] VITALS (7 sets, daily range): BP systolic 126–144; BP diastolic 85–96
[2025-02-05 12:30] LABS: Hematocrit 32.6 % (39.0-52.0); Hemoglobin 11.4 g/dL (13.0-18.0); Mean Corp Hgb Conc. 35.0 g/dL (33.0-37.0); Mean Corpuscular Volume 88.3 fL (80.0-94.0); Nucleated Red Blood Cells % 0 % (-); Red Cell Dist. Width 15.0 % (11.5-14.5)
--- NOTE | 2025-02-05 12:38 | ED.GENMED ---
History of Present Illness
General
Chief Complaint: Abdominal Pain
Time Seen by Provider: 02/05/25 12:25
History of Present Illness
History of Present Illness:
44-year-old male presents to the emergency department for evaluation of left-sided abdominal pain, he states he had a fall 1 or 2 nights ago while intoxicated, admits to prior alcohol abuse and relapsed after 90 days sober. He states that he fell
off his patio but is vague about the details and states 'it is just a scratch that is not the problem'. He states that this morning he felt his left upper abdomen 'pulsating' prompting him to come to the ER. He also reports vision loss and
shortness of breath. Last alcoholic beverage was at 1 AM today. No nausea or vomiting reported
Past History
Past History
ED Past Medical History: Seizures (Benzodiazepine withdrawal related) and Psychiatric
ED Past Surgical History: Orthopedic
Social History
Tobacco: Smoker
Alcohol: Former
Drug: Former user
Personal:
Living: with family
Employment: Not employed
Family History
Family History: Other (Noncontributory)
Review of Systems
Review of Systems
Allergies reviewed?: Yes
All Other Systems: ROS reviewed and negative except as documented in HPI and ROS
Phy Exam
Physical Exam
Physical Exam:
GEN: Well appearing, NAD, WDWN
HEENT: Abrasions to the tip of the nose and philtrum with no gross deformity, oral mucosa moist, no scleral icterus. Pupils equal round reactive to light bilaterally
Cardiac: Tachycardic, regular
Lung: No respiratory distress, no tachypnea, lungs clear to auscultation
Chest wall: No chest wall deformities or ecchymosis
Abdomen: Soft, mild left upper quadrant tenderness, no rigidity or masses
MSK: No gross deformity or injuries, no midline cervical, thoracic, or lumbar spine tenderness
Skin: Good color, no pallor or jaundice, no rashes
Neuro: AO x3, moves all extremities freely
Psych: Calm, cooperative
Course
Orders/Labs/Results
Orders:
Orders
02/05/25 12:04
EKG [Electrocardiogram (*1)] Urgent
Reason for Study: Shortness of Breath
EKG- Treatment ONCE
02/05/25 12:12
Alcohol Urgent
CBC/With Diff [Complete Blood Count/With Diff] Urgent
CMP [Comprehensive Metabolic Panel] Urgent
Lipase Urgent
02/05/25 12:17
CT Abd/Pel (IV only)-DH only Urgent
Comment:
Reason For Exam: L flank pain after trauma
02/05/25 12:21
CT Head W/o Iv Contrast Urgent
Comment:
Reason For Exam: trauma
Abnormal Lab Results
02/05/25
12:12
RBC 3.69 L 10^6/uL
(4.70-6.10)
Hgb 11.4 L g/dL
(13.0-18.0)
Hct 32.6 L %
(39.0-52.0)
RDW 15.0 H %
(11.5-14.5)
Plt Count 85 L 10^3/uL
(130-400)
Potassium 3.2 L mmol/L
(3.5-5.1)
BUN 4 L mg/dl
(9-20)
Creatinine 0.5 L mg/dL
(0.7-1.3)
Glucose 137 H mg/dl
(70-99)
Total Bilirubin 3.6 H mg/dl
(0.2-1.3)
AST 114 H U/L
(17-59)
ALT 57 H U/L
(0-50)
Alkaline Phosphatase 174 H U/L
(38-126)
02/05/25 12:12
02/05/25 12:12
Vital Signs
Initial and Last Documented VS:
Initial Vital Signs
Temp Pulse Resp BP Pulse Ox
98.7 F 117 17 144/96 97
02/05/25 12:00 02/05/25 12:00 02/05/25 12:00 02/05/25 12:00 02/05/25 12:00
Last Documented Vital Signs
Temp Pulse Resp BP Pulse Ox
98.7 F 113 47 131/94 100
02/05/25 12:00 02/05/25 14:00 02/05/25 14:00 02/05/25 13:10 02/05/25 13:45
MDM/Problems Addressed
MDM/Problems Addressed:
Patient's workup was broadly unremarkable. He is acutely intoxicated declines any intervention. Will remain in ER to metabolize to freedom, unfortunately does not have anyone that can assume care of him in the interim.
*Pulse Oximetry
SaO2: 97
Oxygen Mode of Delivery: Room air
Patient hypoxic: no
*Critical Care Note
Total Time (30-74mins, 75-104mins- exclusive of procedures): Not Applicable
ED Attending Note
-
Portions of this chart may have been created with voice recognition software.� Occasional wrong word or��sound alike� substitutions may have occurred due to the inherent limitations of voice recognition software.
Discharge Plan
Departure
Patient Disposition: Home (Routine Discharge)
Date of Disposition: 02/05/25
Time of Disposition: 15:23
Patient with high blood pressure during this ER visit?: No
Discharge Problem:
Alcohol intoxication
Instructions: Alcohol intoxication - ED discharge instructions
Prescriptions:
No Action
lamotrigine 100 mg Tablet
125 mg PO DAILY
Fleet Enema 19-7 gram/118 mL Enema
118 ml [place] DAILYPRN PRN (Reason: constipation)
vitamin B complex Capsule
1 cap PO DAILY
Xifaxan 550 mg Tablet
550 mg PO BID 30 Days Qty: 60 0RF
quetiapine 25 mg Tablet
50 mg PO HS 30 Days Qty: 60 0RF
nicotine 21 mg/24 hr Patch 24 Hour
21 mg transdermal DAILY 30 Days Qty: 30 0RF
folic acid 1 mg Tablet
1 mg PO DAILY 30 Days Qty: 30 0RF
thiamine mononitrate (vit B1) 100 mg Tablet
100 mg PO DAILY 30 Days Qty: 30 0RF
lidocaine 4 % Adhesive Patch,Medicated
1 patch TOPICAL DAILY
ciprofloxacin HCl 500 mg Tablet
500 mg PO DAILY Qty: 30 0RF
furosemide 20 mg Tablet
20 mg PO DAILY Qty: 30 0RF
spironolactone 50 mg Tablet
50 mg PO DAILY Qty: 30 0RF
simethicone 80 mg Tablet,Chewable
80 mg PO BID Qty: 0 0RF
Referrals:
NONE,* [Family Provider, Internal Medicine]
Interventions
Interventions:
*Risk Screen - Suicide Last Done: 02/05/25 12:00
*General Assessment Last Done: 02/05/25 12:00
*Neglect/Abuse Screening Last Done: 02/05/25 12:00
*ED COVID-19 Vaccine History Last Done: 02/05/25 12:00
CM-Tgrjwk-Bujndlbsop Assessment Last Done: 02/05/25 12:40
Discharge Date and Time
Print Language: MAORI
[2025-02-05 12:41] LABS: ALT (SGPT) 57 U/L (0-50); AST (SGOT) 114 U/L (17-59); Albumin 4.3 g/dl (3.5-5.0); Alkaline Phosphatase 174 U/L (38-126); Blood Urea Nitrogen 4 mg/dl (9-20); Calcium 8.7 mg/dl (8.4-10.2); Carbon Dioxide 25 mmol/L (22-30); Chloride 107 mmol/L (98-107); Glucose 137 mg/dl (70-99); Potassium 3.2 mmol/L (3.5-5.1); Sodium 143 mmol/L (135-145); Total Protein 7.8 g/dl (6.3-8.2); eGFR > 60.00
[2025-02-05 12:43] LABS: Lipase 184 U/L (23-300)
[2025-02-05 13:26] LABS: Platelet Count 85 10^3/uL (130-400)
[2025-02-05] MEDS: ATARAX 25 MG PO (20:24)
[2025-02-06 00:14] VITALS: BP 130/78
== END 2025-02-06 00:22 | disposition home or self-care (01) ==
LOC: EMR 11:58
PROVIDERS: EMERGENCY PHYSICIAN Emergency Medicine
DX: F10.129 Alcohol abuse with intoxication, unspecified (principal); F17.200 Nicotine dependence, unspecified, uncomplicated; H54.7 Unspecified visual loss; R10.32 Left lower quadrant pain; F10.10 Alcohol abuse, uncomplicated
CPT/HCPCS: 99284; 70450; 71046; 74177; 80053; 82077; 83690; 85025; 93005; Q9967

== ENCOUNTER 2025-02-06 07:25 | Emergency (ER) | payer OTHER, SELFPAY ==
[2025-02-06 07:33] VITALS: BP 153/92
--- NOTE | 2025-02-06 08:17 | ED.GENMED ---
History of Present Illness
<Thea Coates PA-C - Last Filed: 02/07/25 23:06>
General
Chief Complaint: Chest Pain
Source: patient
Exam Limitations: none
Time Seen by Provider: 02/06/25 07:36
Nursing documentation reviewed up to this point in time: agreed with
History of Present Illness
History of Present Illness:
see MDM
Past History
<STEVE Conroy Last Filed: 02/07/25 23:06>
Past History
ED Past Medical History: Seizures (Benzodiazepine withdrawal related) and Psychiatric
ED Past Surgical History: Orthopedic
Social History
Tobacco: Smoker
Alcohol: Former
Drug: Former user
Personal:
Living: with family
Employment: Not employed
Family History
Family History: Other (Noncontributory)
Phy Exam
<Thea Coates PA-C - Last Filed: 02/07/25 23:06>
Physical Exam
Physical Exam:
GENERAL: Alert , moderately anxious
EYE: pupils equal and reactive
NECK: Supple
ENT: o/p clr, dry mouth
nose abrasion superficial
CARDIAC: tachycardia, anxious, no murmur
chest wall' nontender
LUNGS: Clear breath sounds bilaterally, no acute respiratory distress, no wheezes/rales/rhonchi
ABDOMEN: Soft, tender LUQ mild to mod, no r/g, no cvat, normal bowel sounds
NEUROLOGICAL: Alert and oriented, no focal neuro deficits
SKIN: Warm and dry, skin intact.
MUSCULOSKELETAL: No edema, well perfused. neg shweta's sign
PSYCH: Normal and appropriate interaction.
Scores
<STEVE Conroy Last Filed: 02/07/25 23:06>
Heart Score for Chest Pain Patients
STEMI patient?: No
History: Slightly or Non-Suspicious
ECG: Nonspecific Repolarization
Age: </= 45 years
Risk Factors: No Risk Factors
Troponin: </= Normal Limit
Heart Score for Chest Pain Patients: 1
Heart Score Risk: 2.5% MACE over next 6 weeks
Course
<Thea Coates PA-C - Last Filed: 02/07/25 23:06>
Orders/Labs/Results
Orders:
Orders
02/06/25 07:27
EKG [Electrocardiogram (*1)] Urgent
Reason for Study: Shortness of Breath
EKG- Treatment ONCE
02/06/25 07:51
US Abdomen Complete/Upper Urgent
Comment:
Reason For Exam: LUQ pain, abnormal CT
02/06/25 07:53
diazePAM [Valium Injection] 5 mg IV NOW STA
02/06/25 07:54
Thiamine Injection 200 mg IV NOW STA
02/06/25 07:57
0.9% Sodium Chloride 500 ml [Nss] 500 ml IV BOLUS
02/06/25 08:05
CR Chest - 2 Views Urgent
Comment:
Reason For Exam: L pleuriitc pain
02/06/25 08:19
Ketorolac [Toradol] 30 mg IV NOW STA
02/06/25 09:06
Alcohol Urgent
Complete Blood Count/With Diff Urgent
Comprehensive Metabolic Panel Urgent
LDH Urgent
Lactic Acid Urgent
Lipase Urgent
PTT Urgent
Prothrombin Time Urgent
Troponin I Urgent
Abnormal Lab Results
02/06/25
09:06
RBC 3.53 L 10^6/uL
(4.70-6.10)
Hgb 11.2 L g/dL
(13.0-18.0)
Hct 31.5 L %
(39.0-52.0)
MCH 31.7 H pg
(27.0-31.0)
RDW 15.1 H %
(11.5-14.5)
Plt Count 58 L D 10^3/uL
(130-400)
PT 19.7 H Sec
(11.4-14.6)
APTT 35.1 H Sec
(23.4-35.0)
BUN 4 L mg/dl
(9-20)
Creatinine 0.5 L mg/dL
(0.7-1.3)
Glucose 112 H mg/dl
(70-99)
Total Bilirubin 5.1 H mg/dl
(0.2-1.3)
AST 105 H U/L
(17-59)
ALT 57 H U/L
(0-50)
Alkaline Phosphatase 150 H U/L
(38-126)
Lactate Dehydrogenase 290 H U/L
(120-246)
02/06/25 09:06
02/06/25 09:06
Vital Signs
Initial and Last Documented VS:
Initial Vital Signs
Temp Pulse Resp BP Pulse Ox
36.7 C 110 16 153/92 98
02/06/25 07:33 02/06/25 07:33 02/06/25 07:33 02/06/25 07:33 02/06/25 07:33
Last Documented Vital Signs
Temp Pulse Resp BP Pulse Ox
36.7 C 74 16 134/74 99
02/06/25 07:33 02/06/25 11:56 02/06/25 11:56 02/06/25 11:56 02/06/25 11:56
<Tyler Navarro, DO - Last Filed: 02/06/25 10:09>
Orders/Labs/Results
Orders:
Orders
02/06/25 07:27
EKG [Electrocardiogram (*1)] Urgent
Reason for Study: Shortness of Breath
EKG- Treatment ONCE
02/06/25 07:51
US Abdomen Complete/Upper Urgent
Comment:
Reason For Exam: LUQ pain, abnormal CT
02/06/25 07:53
diazePAM [Valium Injection] 5 mg IV NOW STA
02/06/25 07:54
Thiamine Injection 200 mg IV NOW STA
02/06/25 07:57
0.9% Sodium Chloride 500 ml [Nss] 500 ml IV BOLUS
02/06/25 08:05
CR Chest - 2 Views Urgent
Comment:
Reason For Exam: L pleuriitc pain
02/06/25 08:19
Ketorolac [Toradol] 30 mg IV NOW STA
02/06/25 09:06
Alcohol Urgent
Complete Blood Count/With Diff Urgent
Comprehensive Metabolic Panel Urgent
LDH Urgent
Lactic Acid Urgent
Lipase Urgent
PTT Urgent
Prothrombin Time Urgent
Troponin I Urgent
Abnormal Lab Results
02/06/25
09:06
RBC 3.53 L 10^6/uL
(4.70-6.10)
Hgb 11.2 L g/dL
(13.0-18.0)
Hct 31.5 L %
(39.0-52.0)
MCH 31.7 H pg
(27.0-31.0)
RDW 15.1 H %
(11.5-14.5)
Plt Count 58 L D 10^3/uL
(130-400)
PT 19.7 H Sec
(11.4-14.6)
APTT 35.1 H Sec
(23.4-35.0)
BUN 4 L mg/dl
(9-20)
Creatinine 0.5 L mg/dL
(0.7-1.3)
Glucose 112 H mg/dl
(70-99)
Total Bilirubin 5.1 H mg/dl
(0.2-1.3)
AST 105 H U/L
(17-59)
ALT 57 H U/L
(0-50)
Alkaline Phosphatase 150 H U/L
(38-126)
Lactate Dehydrogenase 290 H U/L
(120-246)
02/06/25 09:06
02/06/25 09:06
Vital Signs
Initial and Last Documented VS:
Initial Vital Signs
Temp Pulse Resp BP Pulse Ox
36.7 C 110 16 153/92 98
02/06/25 07:33 02/06/25 07:33 02/06/25 07:33 02/06/25 07:33 02/06/25 07:33
Last Documented Vital Signs
Temp Pulse Resp BP Pulse Ox
36.7 C 74 16 134/74 99
02/06/25 07:33 02/06/25 11:56 02/06/25 11:56 02/06/25 11:56 02/06/25 11:56
<Thea Coates PA-C - Last Filed: 02/07/25 23:06>
MDM/Problems Addressed
Differential Diagnosis Includes:
see MDM
MDM/Problems Addressed:
Note:
CHIEF COMPLAINT(S)
- Stomach pain and racing heart
- Pain under the ribs
- Shortness of breath
- Fatigue
HISTORY OF PRESENT ILLNESS
The patient is a male with a history of alcoholic hepatitis six months ago, s/p para (last december). was sober for 2 mo but recently relapsed, now presenting with upper abd pain (left), a racing heart, and pain under the ribs ongoing for three and a
half days. The patient reports fatigue to the extent of feeling exhausted after minimal activity, such as walking to the kitchen, and experiencing shortness of breath with exertion. He denies recent vomiting the previous night but reports it started
again at around 2 a.m. and continued through the morning.
The patient acknowledges consuming alcohol, most recent he says was 2 days ago and suspects that his symptoms might be related to alcohol withdrawal, although he notes these symptoms are unlike previous experiences. He fell on Tuesday while
carrying containers, scratching his knee but sustaining no major injuries. Despite assurances from prior evaluations indicating bruising, the patient is concerned due to a history of hepatitis.
The patient describes the pain on the left side of his ribs as sharp and worsened by deep breaths.
this is new for him
he is also anxious
he has neve rhad DVT/PE
no cough/fever
pain is mostly actually in LUQ but also feels it in his L lower chest
CHRONIC MEDICAL CONDITIONS SIGNIFICANTLY AFFECTING CARE
- History of liver hepatitis
SOCIAL DETERMINANTS AFFECTING HEALTH
The patient has a history of recent alcohol binge drinking, which may be affecting his current health.
PAST MEDICAL HISTORY
- Liver hepatitis
- History of stomach infection
FAMILY HISTORY
The patient details family members with serious medical concerns. His mother at a relatively young age, and he had an uncle who from a stomach-related issue.
SOCIAL HISTORY
The patient recently engaged in binge drinking over a weekend.
MEDICATIONS
The patient is on diuretics, including Lasix. He is uncertain about his antibiotics but has them on hand. He mentions taking medications that are believed to be preventative and potentially needed long-term, though specifics are unclear.
REVIEW OF SYSTEMS
- Cardiovascular: Racing heart
- Respiratory: Shortness of breath, pain under ribs exacerbated by deep breaths
- Gastrointestinal: Stomach pain, past stomach infection
- Neurological: Tingling in hands
- General: Fatigue, history of hepatitis
PHYSICAL EXAM
- Nursing notes reviewed and vital signs reviewed.
PROBLEM LIST
Acute Problems:
- Stomach pain
- Racing heart
- Rib pain
- Shortness of breath
- Fatigue
Chronic Problems:
- Liver hepatitis
PLAN
- Review previous scan results to assess abdominal and head findings.
- Administer Ativan to manage potential withdrawal symptoms.
- Investigate heart function and potential cardiac issues.
- Evaluate for signs of blood clotting disorders given family history and symptoms.
DIFFERENTIAL DIAGNOSIS
The Differential Diagnosis includes, in no particular order and is not limited to:
1. Alcohol withdrawal syndrome
2. Costochondritis
3. Pleurisy
4. Gastrointestinal inflammation or infection
5. Peptic ulcer disease
6. Cardiac arrhythmia
7. Hepatic dysfunction
8. Pulmonary embolism
9. Splenic injury or condition
10. Anxiety attack
CARE-UPDATE
02/06/25 - 11:18
The patients liver test results show some improvement, with bilirubin levels lower than previous measurements. There is a slight decrease in platelet count, and the patient has been advised to report any new bleeding symptoms for further evaluation.
The patient has been prescribed an Ativan taper to manage anxiety related to withdrawal, with the following dosing schedule: Ativan three times today, then twice tomorrow and the next day, and finally once daily for two days. It was discussed that
the anxiety is likely due to a combination of withdrawal symptoms and personal stress arising from family-related issues. The patient was advised to return if they experience worsening symptoms, such as increased shortness of breath.
<Thea Coates PA-C - Last Filed: 02/07/25 23:06>
*Pulse Oximetry
SaO2: 98
Oxygen Mode of Delivery: Room air
Patient hypoxic: no (99)
*Critical Care Note
Total Time (30-74mins, 75-104mins- exclusive of procedures): Not Applicable
ED Attending Note
<Thea Coates PA-C - Last Filed: 02/07/25 23:06>
-
Portions of this chart may have been created with voice recognition software.� Occasional wrong word or��sound alike� substitutions may have occurred due to the inherent limitations of voice recognition software.
<Tyler Camacho Ramon, DO - Last Filed: 02/06/25 10:09>
ED Attending Note
Patient seen and examined by attending physician: Yes
I performed the substantive portion of visit, reviewed & personally made and approve the management plan that is documented in note by myself or MAURA.: Yes
ED Attending Note:
I evaluated the patient at bedside. The patient was given benzos earlier now the tachycardia has improved. He overall feels improved. He was also given Toradol. I did speak to MICHAEL who is seeing in consultation here in the Emergency
Department. He states he does have a liver specialist. I reviewed ultrasound report. He appears comfortable as of 10 AM.
Discharge Plan
Departure
Patient Disposition: Home (Routine Discharge)
Date of Disposition: 02/06/25
Time of Disposition: 11:15
Patient with high blood pressure during this ER visit?: No
Condition: Fair
Covid-19: Not Applicable
Discharge Problem:
Alcoholism, Abdominal pain
Instructions: Alcohol use disorder - Discharge instructions, Chest Pain PCP Follow Up
Prescriptions:
New
lorazepam [Ativan] 0.5 mg tablet
See Rx Instructions .ROUTE .COMPLEX Qty: 9 0RF
Rx Instructions:
0.5 mg orally 3 tines a day today, then 1 tab 2 times a day on 02/07 and 02/08, then 1 tab once a day on 02/09 and 02/10
No Action
lamotrigine 100 mg Tablet
125 mg PO DAILY
Fleet Enema 19-7 gram/118 mL Enema
118 ml AR DAILYPRN PRN (Reason: constipation)
vitamin B complex Capsule
1 cap PO DAILY
Xifaxan 550 mg Tablet
550 mg PO BID 30 Days Qty: 60 0RF
quetiapine 25 mg Tablet
50 mg PO HS 30 Days Qty: 60 0RF
nicotine 21 mg/24 hr Patch 24 Hour
21 mg transdermal DAILY 30 Days Qty: 30 0RF
folic acid 1 mg Tablet
1 mg PO DAILY 30 Days Qty: 30 0RF
thiamine mononitrate (vit B1) 100 mg Tablet
100 mg PO DAILY 30 Days Qty: 30 0RF
lidocaine 4 % Adhesive Patch,Medicated
1 patch TOPICAL DAILY
ciprofloxacin HCl 500 mg Tablet
500 mg PO DAILY Qty: 30 0RF
furosemide 20 mg Tablet
20 mg PO DAILY Qty: 30 0RF
spironolactone 50 mg Tablet
50 mg PO DAILY Qty: 30 0RF
simethicone 80 mg Tablet,Chewable
80 mg PO BID Qty: 0 0RF
Referrals:
NONE,* [Family Provider, Internal Medicine]
Activity Restrictions/Additional Instructions:
You do have sludge and stone in your gallbladder but we do not believe that you have pain from this at this time or any infection. Should you develop more right-sided pain or have a fever, vomiting, persistent symptoms you should be reevaluated.
your platelet count was also low related to your liver disease
It is possible that you are experiencing some symptoms of alcohol withdrawal creating your heart rate to be elevated.
If you could try to avoid drinking that would be best for you. You could use the Ativan as prescribed, 1 tablet 3 times a day today, 2 times a day tomorrow and the following day and then 1 tablet a day for 2 days
Return for any worsening symptoms. You were seen by [facility] and should be having follow-up appointment to help encourage sobriety
Return for any concerns
Interventions
Interventions:
*Risk Screen - Suicide Last Done: 02/06/25 07:33
*General Assessment Last Done: 02/06/25 09:17
*Neglect/Abuse Screening Last Done: 02/06/25 07:33
*ED- Fall Risk Assessment Last Done: 02/06/25 09:17
*ED COVID-19 Vaccine History Last Done: 02/06/25 09:17
*Nursing Disposition Last Done: 02/06/25 11:56
ED- Cardiac Assessment Last Done: 02/06/25 09:16
Discharge Date and Time
Discharge Date/Time: 02/06/25 12:02
Print Language: VIET[place]ESE
[2025-02-06] MEDS: TORADOL 30 MG IV (09:09)
[2025-02-06] MEDS: VALIUM INJECTION 5 MG IV (09:09)
[2025-02-06] MEDS: THIAMINE INJECTION 200 MG IV (09:09)
[2025-02-06] MEDS: NSS 500 IV (09:10)
[2025-02-06 09:19] VITALS: BP 129/99
[2025-02-06 09:30] LABS: INR 1.64; PT 19.7 Sec (11.4-14.6)
[2025-02-06 09:31] LABS: APTT 35.1 Sec (23.4-35.0)
[2025-02-06 09:37] LABS: ALT (SGPT) 57 U/L (0-50); AST (SGOT) 105 U/L (17-59); Albumin 4.2 g/dl (3.5-5.0); Alkaline Phosphatase 150 U/L (38-126); Blood Urea Nitrogen 4 mg/dl (9-20); Calcium 9.4 mg/dl (8.4-10.2); Carbon Dioxide 25 mmol/L (22-30); Chloride 105 mmol/L (98-107); Glucose 112 mg/dl (70-99); LDH 290 U/L (120-246); Potassium 3.5 mmol/L (3.5-5.1); Sodium 140 mmol/L (135-145); Total Protein 7.7 g/dl (6.3-8.2); eGFR > 60.00
[2025-02-06 09:39] LABS: Hematocrit 31.5 % (39.0-52.0); Hemoglobin 11.2 g/dL (13.0-18.0); Mean Corp Hgb Conc. 35.6 g/dL (33.0-37.0); Mean Corpuscular Volume 89.2 fL (80.0-94.0); Nucleated Red Blood Cells % 0 % (-); Red Cell Dist. Width 15.1 % (11.5-14.5)
[2025-02-06 09:42] LABS: Troponin I < 0.012 ng/ml
[2025-02-06 09:44] LABS: Lipase 191 U/L (23-300)
[2025-02-06 10:00] VITALS: BP 133/88
[2025-02-06 10:10] LABS: Platelet Count 58 10^3/uL (130-400)
--- NOTE | 2025-02-06 11:23 | EDRN ---
Pt given box lunch and water/eladio chio per request.
[2025-02-06 11:56] VITALS: BP 134/74
== END 2025-02-06 12:02 | disposition home or self-care (01) ==
LOC: EMR 07:25
PROVIDERS: Physician Assistant; EMERGENCY PHYSICIAN Emergency Medicine
DX: F10.20 Alcohol dependence, uncomplicated (principal); R10.9 Unspecified abdominal pain; F17.200 Nicotine dependence, unspecified, uncomplicated; K75.9 Inflammatory liver disease, unspecified; R00.0 Tachycardia, unspecified
CPT/HCPCS: 96374; 96375; 99285; 71046; 76700; 80053; 82077; 83605; 83615; 83690; 84484; 85025; 85610; 85730; 93005